=== PATIENT | male | born 1955 | race Caucasian/White ===

== ENCOUNTER → 2018-08-17 | Outpatient (CLI) | payer OTHER | END | disposition home or self-care (01) | LOC: PMGWOUND 11:29 | PROVIDERS: ATTEND Emergency Medicine Undersea and Hyperbaric Medicine | DX: E11.621 Type 2 diabetes mellitus with foot ulcer (principal); L97.512 Non-pressure chronic ulcer of other part of right foot with fat layer exposed; E11.40 Type 2 diabetes mellitus with diabetic neuropathy, unspecified | CPT/HCPCS: 97597; 97598 ==

== ENCOUNTER → 2018-08-24 | Outpatient (CLI) | payer OTHER | END | disposition home or self-care (01) | LOC: PMGWOUND 10:33 | PROVIDERS: ATTEND Emergency Medicine Undersea and Hyperbaric Medicine | DX: E11.621 Type 2 diabetes mellitus with foot ulcer (principal); L97.512 Non-pressure chronic ulcer of other part of right foot with fat layer exposed; E11.40 Type 2 diabetes mellitus with diabetic neuropathy, unspecified; L84 Corns and callosities | CPT/HCPCS: 11042 ==

== ENCOUNTER → 2018-08-31 | Outpatient (CLI) | payer OTHER | END | disposition home or self-care (01) | LOC: PMGWOUND 10:30 | PROVIDERS: ATTEND Emergency Medicine Undersea and Hyperbaric Medicine | DX: E11.621 Type 2 diabetes mellitus with foot ulcer (principal); L97.512 Non-pressure chronic ulcer of other part of right foot with fat layer exposed; E11.40 Type 2 diabetes mellitus with diabetic neuropathy, unspecified; L84 Corns and callosities | CPT/HCPCS: 11042; 93923 ==

== ENCOUNTER → 2018-09-14 | Outpatient (CLI) | payer OTHER | END | disposition home or self-care (01) | LOC: PMGWOUND 08:49 | PROVIDERS: ATTEND Emergency Medicine Undersea and Hyperbaric Medicine | DX: E11.621 Type 2 diabetes mellitus with foot ulcer (principal); L97.512 Non-pressure chronic ulcer of other part of right foot with fat layer exposed; E11.40 Type 2 diabetes mellitus with diabetic neuropathy, unspecified; L84 Corns and callosities | CPT/HCPCS: 11042 ==

== ENCOUNTER → 2018-09-21 | Outpatient (CLI) | payer OTHER | END | disposition home or self-care (01) | LOC: PMGWOUND 12:33 | PROVIDERS: ATTEND Emergency Medicine Undersea and Hyperbaric Medicine | DX: E11.621 Type 2 diabetes mellitus with foot ulcer (principal); L97.512 Non-pressure chronic ulcer of other part of right foot with fat layer exposed; E11.40 Type 2 diabetes mellitus with diabetic neuropathy, unspecified; L84 Corns and callosities | CPT/HCPCS: 11042 ==

== ENCOUNTER → 2018-09-26 | Outpatient (CLI) | payer OTHER ==
[~2018-09-26] MED LIST: CITA10TA8 PO; EMPA25TA PO; ERTU15TA PO; METF500T9 PO
== END | disposition home or self-care (01) ==
LOC: EDSEX → PMGWOUND 10:21
PROVIDERS: ATTEND Emergency Medicine Undersea and Hyperbaric Medicine
DX: E11.621 Type 2 diabetes mellitus with foot ulcer (principal); L97.512 Non-pressure chronic ulcer of other part of right foot with fat layer exposed; E11.40 Type 2 diabetes mellitus with diabetic neuropathy, unspecified; L84 Corns and callosities
CPT/HCPCS: 99214; G0463

== ENCOUNTER 2019-01-22 13:43 | Inpatient (IN) | payer OTHER ==
[~2019-01-22] VITALS: Ht 177.8 cm; Wt 80.7 kg
[2019-01-22] MEDS ORDERED: ERTU15TA PO (14:20)
[2019-01-22] MEDS ORDERED: METF500T9 PO (14:20)
[2019-01-22] MEDS ORDERED: EMPA25TA PO (14:20)
[2019-01-22 15:00] VITALS: BP 137/70
--- NOTE | 2019-01-22 15:01 | PDOC1 ---
History and Physical Date of Admission Date of Admission DATE: 01/22/19 TIME: 14:58 Identification/Chief Complaint Chief Complaint Right great toe ulcer Source Source: Patient History of Present Illness History of Present Illness Mr Jung is a 64yo M w/ PMHx DM2, peripheral neuropathy, obesity who presents directly from wound care clinic today for a right first toe diabetic foot infection. Noted red, warm and 3.3x4.2x2.2cm lesion with palpable bone. The patient has not seen his sheriffs in some time but states his diabetes has been under good control on oral metformin and SGLT-2. He checks his blood glucose twice daily and states that he is been running in the low 100s on average. Patient states that he has had problems with the right first toe and has lost his toenail many years ago and had followed with wound clinic this past September, states it improved. 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 No recent sick contacts. No fever or chills He has been washing it and placing antibiotic ointment daily. Past Medical History Cardiovascular: No pertinent hx Pulmonary: No pertinent hx CENTRAL NERVOUS SYSTEM: Periperal neuropathy GI: No pertinent hx Heme/Onc: No pertinent hx Hepatobiliary: No pertinent hx Psych: No pertinent hx Rheumatologic: No pertinent hx Infectious disease: No pertinent hx ENT: No pertinent hx Renal/: No pertinent hx Endocrine: Diabetes Dermatology: No pertinent hx Past Surgical History Past Surgical History: Total knee replacement (Left), Other (Left shoulder replacement, weight loss surgery) Family History Family History: Diabetes Social History Smoke: No ALCOHOL: none Drugs: None Current Medications Current Medications Active Scripts Active Reported Metformin Hcl Er (Metformin Hcl) 500 Mg Tab.er.24h 1,000 Mg PO DAILYWBKFT Steglatro (Ertugliflozin Pidolate) 15 Mg Tablet 15 Mg PO DAILY Jardiance (Empagliflozin) 25 Mg Tablet 25 Mg PO DAILY Allergies Allergies: Coded Allergies: Penicillins (Verified Allergy, Intermediate, 01/22/19) SWELLING/RINGING IN EAR amitriptyline (Verified Allergy, Intermediate, 01/22/19) BLUE MOODS ROS General: YES: Fatigue, Malaise; No: Chills, Night Sweats, Appetite, Other PSYCHOLOGICAL ROS: No: Anxiety, Behavioral Disorder, Concentration difficultie, Decreased libido, Depression, Disorientation, Hallucinations, Hostility, Irritablity, Memory difficulties, Mood Swings, Obsessive thoughts, Physical abuse, Sexual abuse, Sleep disturbances, Suicidal ideation, Other Eyes: No Blurry vision, No Decreased vision, No Double vision, No Dry eyes, No Excessive tearing, No Eye Pain, No Itchy Eyes, No Loss of vision, No Photophobia, No Scotomata, No Uses contacts, No Uses glasses, No Other HEENT: No: Heacaches, Visual Changes, Hearing change, Nasal congestion, Nasal discharge, Oral lesions, Sinus pain, Sore Throat, Epistaxis, Sneezing, Snoring, Tinnitus, Vertigo, Vocal changes, Other ALLERGY AND IMMUNOLOGY: No: Hives, Insect Bite Sensitivity, Itchy/Watery Eyes, Nasal Congestion, Post Nasal Drip, Seasonal Allergies, Other Hematological and Lymphatic: No: Bleeding Problems, Blood Clots, Blood Tra nsfusions, Brusing, Night Sweats, Pallor, Swollen Lymph Nodes, Other ENDOCRINE: No: Breast Changes, Galactorrhea, Hair Pattern Changes, Hot Flashes, Malaise/lethargy, Mood Swings, Palpitations, Polydipsia/polyuria, Skin Changes, Temperature Intolerance, Unexpected Weight Changes, Other Breast: No New/Changing Breast Lumps, No Nipple changes, No Nipple discharge, No Other Respiratory: No: Cough, Hemoptysis, Orthopnea, Pleuritic Pain, Shortness of breath, SOB with excertion, Sputum Changes, Stridor, Tachypnea, Wheezing, Other Cardiovascular: No Chest Pain, No Palpitations, No Orthopnea, No Paroxysmal Noc. Dyspnea, No Edema, No Lt Headedness, No Other Gastrointestinal: No Nausea, No Vomiting, No Abdominal Pain, No Diarrhea, No Constipation, No Melena, No Hematochezia, No Other Genitourinary: No Dysuria, No Frequency, No Incontinence, No Hematuria, No Retention, No Discharge, No Urgency, No Pain, No Flank Pain, No Other, No , No , No , No , No , No , No Musculoskeletal: No Gait Disturbance, No Joint Pain, No Joint Stiffness, No Joint Swelling, No Muscle Pain, No Muscular Weakness, No Pain In:, No Swelling In:, No Other Neurological: No Behavorial Changes, No Bowel/Bladder ControlChng, No Confusion, No Dizziness, No Gait Disturbance, No Headaches, No Impaired Coord/balance, No Memory Loss, No Numbness/Tingling, No Seizures, No Speech Problems, No Tremors, No Visual Changes, No Weakness, No Other Skin: Yes Rash, Yes Skin Lesion Changes; No Dry Skin, No Eczema, No Hair Changes, No Lumps, No Mole Changes, No Mottling, No Nail Changes, No Pruritus, No Other, No Acne Physical Exam General: Alert, Oriented X3, Cooperative, No acute distress HEENT: Atraumatic, PERRLA, EOMI, Mucous membr. moist/pink Lungs: Clear to auscultation, Normal air movement Heart: S1S2, RRR, no gallops, no murmurs Abdomen: Normal bowel sounds, Soft, No tenderness, No hepatosplenomegaly, No masses Rectal Exam: not examined Extremities: No clubbing, No cyanosis, No edema, Normal pulses, Other (Right great toe tenderness and swelling) Skin: Other (Right great toe with large ulceration with palpable bone and red, warm, tender) Neuro: Normal gait, Normal speech, Strength at 5/5 X4 ext, Normal tone, Sensation intact, Cranial nerves 3-12 NL, Reflexes 2+ Psych/Mental Status: Mental status NL, Mood NL VTE Prophylaxis Ordered VTE Prophylaxis Devices: Yes VTE Pharmacological Prophylaxi: Yes Assessment/Plan Assessment/Plan A/P: Right first toe osteomyelitis - the patient has exposed middle interphalangeal bone with active infection within the interspace. Consulted vascular surgery for definitive treatment. He is amenable to amputation. From a cardiac standpoint, he has no exertional chest pain, will get pre-op EKG, no further testing after that Right toe Cellulitis - tracking to the base of the foot. Empiric vancomycin and rocephin DM - on oral agents, will confirm his A1c. Needs to have microalbumin testing outpatient Overweight - patient had bariatric surgery years ago which has helped. Peripheral neuropathy - not on any agents FEN - ADA diet, NPO after midnight PPX - heparin, will hold tomorrow morning FULL CODE Inpatient for right toe cellulitis and osteomyelitis, likely 2 midnights MEGA ARGUETA MD January 22, 2019 15:01
[2019-01-22] MEDS ORDERED: DEXTROSE 50% 25 GM / 50ML DISP.SYRIN. IV PRN (15:15)
[2019-01-22] MEDS ORDERED: MORPHINE SULFATE 2 MG/ML VIAL. IV PRN (15:15)
[2019-01-22] MEDS ORDERED: ONDANSETRON PF 4 MG/2 ML VIAL. IV PRN (15:15)
[2019-01-22] MEDS ORDERED: ACETAMINOPHEN 325 MG TABLET. PO PRN (15:15)
[2019-01-22] MEDS ORDERED: HYDROcodone/APAP 5/325MG 1 TAB TABLET PO PRN (15:15)
[2019-01-22] MEDS ORDERED: MAGNESIUM HYDROXIDE 2,400 MG/30 ML ORAL.SUSP. PO PRN (15:15)
--- NOTE | 2019-01-22 15:47 | PDOC2 ---
CONSULT Date of Consult Date of Consult DATE: 01/22/19 TIME: 15:36 History of Present Illness Reason for Visit: This is a very pleasant 64-year-old diabetic male who presents for a right first toe diabetic foot infection. The patient has not seen his lining stamper in some time but states his diabetes has been under good control. He checks his blood glucose twice daily and states that he is been running in the low 100s on average. He does not know his hemoglobin A1c from previous events or most recently. Patient states that he has had problems with the right first toe and has lost his toenail many years ago. Does admit to diabetic peripheral neuropathy and tried to treat his toe infection on his own at home by washing it and placing antibiotic ointments. Past Medical History Cardiovascular: HTN Pulmonary: No pertinent hx Endocrine: Diabetes Family History Family History: Diabetes Social History ALCOHOL: none Current Medications Current Medications Current Medications Ondansetron HCl (Zofran) 4 mg PRN Q6HRS PRN IV NAUSEA/VOMITING; Start 01/22/19 at 15:15 Morphine Sulfate (Morphine Sulfate) 2 mg PRN Q1HR PRN IV PAIN; Start 01/22/19 at 15:15 Acetaminophen/ Hydrocodone Bitart (Lortab 5/325) 1 tab PRN Q4HRS PRN PO MILD PAIN; Start 01/22/19 at 15:15 Acetaminophen (Tylenol) 650 mg PRN Q6HRS PRN PO Headaches, Temp > 101.5F; Start 01/22/19 at 15:15 Senna/Docusate Sodium (Senna Plus) 1 tab BID PO ; Start 01/22/19 at 21:00 Magnesium Hydroxide (Milk Of Magnesia) 2,400 mg PRN Q12HR PRN PO CONSTIPATION; Start 01/22/19 at 15:15 Heparin Sodium (Porcine) (Heparin Sodium) 5,000 unit Q8HRS SQ ; Start 01/22/19 at 22:00; Status UNV Insulin Glargine (Lantus) 5 units QHS SQ ; Start 01/22/19 at 21:00 Insulin Human Lispro (HumaLOG) 0-7 UNITS TIDWMEALHC SQ ; Start 01/22/19 at 17:00 Dextrose (Dextrose 50%-Water Syringe) 12.5 gm PRN Q15MIN PRN IV SEE COMMENTS; Start 01/22/19 at 15:15 Vancomycin HCl 1.25 gm/Sodium Chloride 250 ml @ 167 mls/hr Q12H IV ; Start 01/22/19 at 15:15; Status UNV Ceftriaxone Sodium (Rocephin) 1 gm Q24H IVP ; Start 01/22/19 at 15:15; Status UNV Active Scripts Active Reported Metformin Hcl Er (Metformin Hcl) 500 Mg Tab.er.24h 1,000 Mg PO DAILYWBKFT Steglatro (Ertugliflozin Pidolate) 15 Mg Tablet 15 Mg PO DAILY Jardiance (Empagliflozin) 25 Mg Tablet 25 Mg PO DAILY Allergies Allergies: Coded Allergies: Penicillins (Verified Allergy, Intermediate, 01/22/19) SWELLING/RINGING IN EAR amitriptyline (Verified Allergy, Intermediate, 01/22/19) BLUE MOODS Physical Exam General: Alert, Oriented X3, Cooperative, No acute distress HEENT: Atraumatic, PERRLA, EOMI Lungs: Clear to auscultation, Normal air movement Heart: Regular rate, Normal S1, Normal S2, No murmurs Abdomen: Normal bowel sounds, Soft, No tenderness Extremities: No clubbing, No cyanosis, No edema Skin: No rashes, No breakdown, No significant lesion Neuro: Normal gait, Normal speech, Strength at 5/5 X4 ext, Sensation intact Psych/Mental Status: Mental status NL, Mood NL MUSCULOSKELETAL: No deformity, No swelling Vitals VITALS Vital Signs Date Time Temp Pulse Resp B/P (MAP) Pulse Ox O2 Delivery O2 Flow Rate FiO2 01/22/19 15:00 97.6 85 16 137/70 (92) 98 Room Air 97.6 Assessment/Plan Assessment/Plan Right first toe osteomyelitis--the patient has exposed middle interphalangeal bone with active infection within the interspace. He has a ascending cellulitis tracking to the base of the foot. I have recommended a right first toe amputation. The patient is agreeable to this and all questions were answered to his satisfaction. He does have palpable pedal pulses bilaterally. We'll make him nothing by mouth after midnight tonight and plan on surgical therapy tomorrow. I discussed the plan with the nursing staff and his hospital primary care physician. Fadi Vasquez DO, FACS, RPVI FADI VASQUEZ DO January 22, 2019 15:47
[2019-01-22 15:53] LABS: BASO # 0.1 x10^3/uL (0.0-0.2); BASO % 1 % (0-3); EOS # 0.1 x10^3/uL (0.0-0.7); EOS % 1 % (0-3); HEMATOCRIT 35.6 % (39.0-53.0); HEMOGLOBIN 11.6 g/dL (13.0-17.5); LYMPH # 1.4 x10^3/uL (1.0-4.8); LYMPH % 21 % (24-48); MEAN CORPUSCULAR HEMOGLOBIN 27 pg (25-35); MEAN CORPUSCULAR HGB CONC 33 g/dL (31-37); MEAN CORPUSCULAR VOLUME 81 fL (79-100); MONO # 0.5 x10^3/uL (0.0-1.1); MONO % 8 % (0-9); NEUT # 4.7 x10^3uL (1.8-7.7); NEUT % 70 % (31-73); PLATELET COUNT 296 x10^3/uL (140-400); RED BLOOD COUNT 4.39 x10^6/uL (4.30-5.70); RED CELL DISTRIBUTION WIDTH 13.2 % (11.5-14.5); WHITE BLOOD COUNT 6.7 x10^3/uL (4.0-11.0)
--- NOTE | 2019-01-22 15:54 | NUR ---
Wound Care: Pt known to wound clinic having been treated for R great toe DFU from 08/2018 through 09/26/2018. He returned to the clinic today complaining of worsening in condition of wound, increased drainage, pain, redness, swelling, and fevers/chills. R great toe red and swollen, pt stating that nail "keeps falling off", and that within the last 3 weeks he tripped on some uneven robert in his home and the skin on his toe "peeled right off." Wound red, with yellow/paige slough, and fluctuant area where nail should be with a yellow patch, suspect for purulent abscess. Bone palpated through lateral side of wound. Dr. Richards recommending admission to the hospital due to the evidence of severe infection and recent fevers. Dressed with aquacel AG, ABD and kerlix. Picture, med list and progress notes printed and provided to pt for his chart on admission. Transported to ED registration by SAAD.
[2019-01-22] MEDS ORDERED: cefTRIAXone IV Push 1 GM VIAL. IVP SCH (16:00)
[2019-01-22 16:06] LABS: CALCIUM 9.4 mg/dL (8.5-10.1); CREATININE 1.1 mg/dL (0.7-1.3); GFR 67.4
[2019-01-22] MEDS: INSULIN LISPRO 300 UNITS/3 ML INSULN.PEN. SQ SCH ×2 (16:33→21:00)
[2019-01-22] MEDS: VANCOMYCIN PER PHARMACY MC PRN (16:39)
--- NOTE | 2019-01-22 16:40 | NUR ---
Pharmacy Vancomycin Dosing Note S:Consulted to monitor and dose vancomycin started 01/22/19. O:DAGO CHARLES is a 64 year old M with Cellulitis Osteomyelitis DFU WITH CONCERN FOR OSTEO . Height: 5 feet, 10 inches Weight: 83.061366 kg [place] Body Weight: 73.00 Adjusted Body Weight: 77.00 Dosing Weight: Actual Other Antibiotics: CEFTRIAXONE 01/22 - LABS: Last BUN: 18 Last Creatinine: 1.1 Creatinine Clearance: 76 mL/min Last WBC: 6.7 Last Procalcitonin: - Tmax (past 24 hours): 97.6 Microbiology: 01/22 NO CX ORDERED I/O: - Drug Levels: Last level: on at Last dose given at Vancomycin Dosing: Loading Dose: x1 Dosing Weight: Actual Target Trough: 15-20 A: Based on: WEIGHT, CRCL~76, P: 1. Initiate Vancomycin 1250 mg IV q12h 2. Follow up Trough level on 01/24/19 at 0430. 3. Pharmacy will continue to monitor, follow and adjust therapy as needed. BALDEV RODRIGUEZ RPH, 01/22/19 1640
[2019-01-22] MEDS: VANCOMYCIN 1.25 GM in IV NORMAL SALINE 250ML 250 ML IV SCH (17:10)
[2019-01-22 19:00] VITALS: BP 125/64
[2019-01-22] MEDS: SENNOSIDES/DOCUSATE 8.6/50MG TABLET. PO SCH (21:00)
[2019-01-22] MEDS: INSULIN GLARGINE 300 UNITS/3 ML INSULN.PEN. SQ SCH (21:28)
[2019-01-22] MEDS: HEPARIN for SUB-Q USE 5,000 UNIT/ML VIAL. SQ SCH (21:30)
[2019-01-22 23:00] VITALS: BP 118/61
[2019-01-23 03:01] VITALS: BP 128/68
[2019-01-23 04:39] LABS: BASO # 0.1 x10^3/uL (0.0-0.2); BASO % 2 % (0-3); EOS # 0.2 x10^3/uL (0.0-0.7); EOS % 3 % (0-3); HEMATOCRIT 33.1 % (39.0-53.0); HEMOGLOBIN 10.9 g/dL (13.0-17.5); LYMPH # 1.8 x10^3/uL (1.0-4.8); LYMPH % 31 % (24-48); MEAN CORPUSCULAR HEMOGLOBIN 26 pg (25-35); MEAN CORPUSCULAR HGB CONC 33 g/dL (31-37); MEAN CORPUSCULAR VOLUME 80 fL (79-100); MONO # 0.5 x10^3/uL (0.0-1.1); MONO % 9 % (0-9); NEUT # 3.3 x10^3uL (1.8-7.7); NEUT % 56 % (31-73); PLATELET COUNT 273 x10^3/uL (140-400); RED BLOOD COUNT 4.12 x10^6/uL (4.30-5.70); WHITE BLOOD COUNT 5.9 x10^3/uL (4.0-11.0)
[2019-01-23 05:01] LABS: CALCIUM 8.9 mg/dL (8.5-10.1); GFR 75.2; POTASSIUM 3.9 mmol/L (3.5-5.1)
[2019-01-23] MEDS: HEPARIN for SUB-Q USE 5,000 UNIT/ML VIAL. SQ SCH ×3 (05:02→21:15)
[2019-01-23] MEDS: VANCOMYCIN 1.25 GM in IV NORMAL SALINE 250ML 250 ML IV SCH ×2 (05:03→16:37)
[2019-01-23 07:00] VITALS: BP 134/69
[2019-01-23] MEDS: INSULIN LISPRO 300 UNITS/3 ML INSULN.PEN. SQ SCH ×4 (07:19→21:00)
[2019-01-23] MEDS: SENNOSIDES/DOCUSATE 8.6/50MG TABLET. PO SCH ×2 (07:19→21:00)
--- NOTE | 2019-01-23 07:33 | EKG ---
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
[2019-01-23] MEDS ORDERED: MIDAZOLAM HCL/PF 2 MG/2 ML VIAL. ONE (09:30)
[2019-01-23] MEDS ORDERED: SEVOFLURANE 61 TO 120 MINUTES. IH ONE (09:30)
[2019-01-23] MEDS ORDERED: fentaNYL PF VIAL 100 MCG/2 ML VIAL ONE (09:30)
[2019-01-23] MEDS ORDERED: DEXAMETHASONE SOD PHOS 4 MG/ML VIAL ONE (09:31)
[2019-01-23] MEDS ORDERED: PROCHLORPERAZINE 10 MG/2 ML VIAL. IV PRN (09:45)
[2019-01-23] MEDS ORDERED: fentaNYL PF VIAL 100 MCG/2 ML VIAL IV PRN ×2 (09:45)
[2019-01-23] MEDS ORDERED: ONDANSETRON PF 4 MG/2 ML VIAL. IV PRN (09:45)
[2019-01-23] MEDS ORDERED: HYDROmorphone 2 MG/ML VIAL IV PRN (09:45)
[2019-01-23] MEDS ORDERED: MORPHINE SULFATE 2 MG/ML VIAL. IV PRN (09:45)
[2019-01-23] MEDS ORDERED: IV RINGERS,LACTATED 1000ML 1,000 ML IV SCH (09:45)
[2019-01-23] MEDS ORDERED: ONDANSETRON PF 4 MG/2 ML VIAL. ONE (09:58)
[2019-01-23] MEDS ORDERED: LIDOCAINE 2% PF 5 ML VIAL. ONE (09:58)
[2019-01-23] MEDS ORDERED: PROPOFOL 20 ML IV ONE (09:58)
[2019-01-23] MEDS ORDERED: ePHEDrine PF IN SALINE 50 MG/10 ML SYRINGE. IV ONE (10:11)
--- NOTE | 2019-01-23 10:31 | PDOC ---
BRIEF OPERATIVE NOTE Date: January 23, 2019 Pre-Op Diagnosis Right first toe diabetic infection Post-Op Diagnosis same Procedure Performed Right first toe amputation, open with wound vac placement Surgeon Dr. Muro Nutritionalist Joselyn Monsivais NP Anesthesia Type: General Blood Loss minimal Specimens Obtained right first toe culture obtained Findings no purulent drainage Operative Note see dictated note JOSELYN MONSIVAIS WIRE TECHNICIAN January 23, 2019 10:31
--- NOTE | 2019-01-23 10:57 | OP ---
DATE OF SURGERY: 01/23/2019 SURGEON: Wendy Muro M.D. TECHNICAL ADMINISTRATOR: Mona Cowart APRN PREOPERATIVE DIAGNOSIS: Right first toe gangrene with an open wound and exposed bone and cellulitis extending on to the foot. POSTOPERATIVE DIAGNOSIS: Right first toe gangrene with an open wound and exposed bone and cellulitis extending on to the foot. OPERATION PERFORMED: 1. Right first toe open amputation excising the distal portion of the metatarsal head. 2. Right first toe open amputation, wound VAC placement. ANESTHESIA USED: General anesthesia. BLOOD LOSS: Minimal. INDICATIONS: The patient is a 64-year-old male with a history of diabetes mellitus who developed a right first toe infection several months ago, which has been treated with local wound care, however, has not healed. He has now developed significant infection with cellulitis extending into his foot, gangrene of the first toe and an open wound, which probes down to the bone. Recommendations were made for a right first toe amputation, which I agree with. This will need to be an open amputation with the extent of his infection and tracking cellulitis into the foot. Informed consent was obtained including the risks of bleeding, further infection, need for further debridements or further amputation in the future, an open wound with long-term wound VAC care. DETAILS OF THE OPERATION: The patient was brought to the operating room, placed on table in supine position. He received general anesthesia monitored throughout the case by the anesthesiologist. His right foot was prepped and draped by normal sterile fashion. The gangrene extended throughout the mid and distal toe and there was a large open wound on the lateral surface that probed deep down to the bone. I made an elliptical type incision around the base of the toe extending it on to the lateral foot below the unhealthy wounds and skin. We dissected through the subcutaneous tissue, tendons and muscles down to the bone and I transected the toe at the base with a bone cutter and it was removed. Cultures were taken prior to removing the toe. We then used a rongeur. We took the metatarsal head back into the bone, removing the distal aspect of it down to healthy appearing bone and tissue. There were no signs of necrotic tissue within the wound. There was good bleeding throughout the case, which was controlled with electrocautery. All tendons were removed. I did not feel that it was safe to close the wound because of the significant infection and cellulitis. Therefore, after we brought the bone back within the wound and finished our debridement. We irrigated with copious amounts of antibiotic solution. Wound VAC sponge was placed within the wound and placed to suction. He tolerated the surgery well with no immediate complications. Mona Cowart was present throughout the entire length of the case and placement of the wound VAC. WENDY MURO MD DR: RICARDO/erwin JOB#: [id number] / [id number]
--- NOTE | 2019-01-23 11:16 | PDOC ---
Infectious Disease Note Vital Sign Vital Signs Vital Signs Date Time Temp Pulse Resp B/P (MAP) Pulse Ox O2 Delivery O2 Flow Rate FiO2 01/23/19 09:23 97.9 75 20 136/66 97 Room Air 97.9 Labs Lab Laboratory Tests Test 01/22/19 15:40 01/22/19 16:32 01/22/19 20:28 01/23/19 04:30 White Blood Count 6.7 x10^3/uL (4.0-11.0) 5.9 x10^3/uL (4.0-11.0) Red Blood Count 4.39 x10^6/uL (4.30-5.70) 4.12 x10^6/uL (4.30-5.70) Hemoglobin 11.6 g/dL (13.0-17.5) 10.9 g/dL (13.0-17.5) Hematocrit 35.6 % (39.0-53.0) 33.1 % (39.0-53.0) Mean Corpuscular Volume 81 fL (79-100) 80 fL (79-100) Mean Corpuscular Hemoglobin 27 pg (25-35) 26 pg (25-35) Mean Corpuscular Hemoglobin Concent 33 g/dL (31-37) 33 g/dL (31-37) Red Cell Distribution Width 13.2 % (11.5-14.5) 13.0 % (11.5-14.5) Platelet Count 296 x10^3/uL (140-400) 273 x10^3/uL (140-400) Neutrophils (%) (Auto) 70 % (31-73) 56 % (31-73) Lymphocytes (%) (Auto) 21 % (24-48) 31 % (24-48) Monocytes (%) (Auto) 8 % (0-9) 9 % (0-9) Eosinophils (%) (Auto) 1 % (0-3) 3 % (0-3) Basophils (%) (Auto) 1 % (0-3) 2 % (0-3) Neutrophils # (Auto) 4.7 x10^3uL (1.8-7.7) 3.3 x10^3uL (1.8-7.7) Lymphocytes # (Auto) 1.4 x10^3/uL (1.0-4.8) 1.8 x10^3/uL (1.0-4.8) Monocytes # (Auto) 0.5 x10^3/uL (0.0-1.1) 0.5 x10^3/uL (0.0-1.1) Eosinophils # (Auto) 0.1 x10^3/uL (0.0-0.7) 0.2 x10^3/uL (0.0-0.7) Basophils # (Auto) 0.1 x10^3/uL (0.0-0.2) 0.1 x10^3/uL (0.0-0.2) Sodium Level 137 mmol/L (136-145) 139 mmol/L (136-145) Potassium Level 4.0 mmol/L (3.5-5.1) 3.9 mmol/L (3.5-5.1) Chloride Level 100 mmol/L (98-107) 102 mmol/L (98-107) Carbon Dioxide Level 24 mmol/L (21-32) 25 mmol/L (21-32) Anion Gap 13 (6-14) 12 (6-14) Blood Urea Nitrogen 18 mg/dL (8-26) 16 mg/dL (8-26) Creatinine 1.1 mg/dL (0.7-1.3) 1.0 mg/dL (0.7-1.3) Estimated GFR (Cockcroft-Gault) 67.4 75.2 Glucose Level 98 mg/dL (70-99) 106 mg/dL (70-99) Calcium Level 9.4 mg/dL (8.5-10.1) 8.9 mg/dL (8.5-10.1) Glucose (Fingerstick) 80 mg/dL (70-99) 139 mg/dL (70-99) Test 01/23/19 07:13 01/23/19 10:40 Glucose (Fingerstick) 106 mg/dL (70-99) 109 mg/dL (70-99) Objective Assessment R great toe Osteomyelitis S/p open R great toe amputation 01/23 PCN allergy - has tolerated Amoxicillin DM S/p Dexamethasone 01/23 Plan Plan of Care Cont Vanc D/c Rocephin Add Zosyn Sed rate in am with other labs 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 Muro Thank you # [phone] MARIELLA ASHRAF MD January 23, 2019 11:16
--- NOTE | 2019-01-23 12:17 | PDOC ---
PROGRESS NOTES Chief Complaint Chief Complaint Right first toe osteomyelitis - Right toe Cellulitis - t DM - decent control Peripheral neuropathy - feels ok insomnia, declines pharm therapy History of Present Illness History of Present Illness FEN - ADA diet, NPO after midnight PPX - heparin, will hold tomorrow morning FULL CODE Inpatient for right toe cellulitis and osteomyelitis, likely 2 midnights Vitals Vitals Vital Signs Date Time Temp Pulse Resp B/P (MAP) Pulse Ox O2 Delivery O2 Flow Rate FiO2 01/23/19 11:28 98 80 20 118/58 94 Simple Mask 98.0 01/23/19 10:28 8 Physical Exam General: Alert, Oriented X3, Cooperative, No acute distress Heart: Regular rate, Normal S1, Normal S2, No murmurs Abdomen: Normal bowel sounds, Soft, No tenderness, No hepatosplenomegaly, No m asses Extremities: No clubbing, No cyanosis, No edema, Normal pulses, Other (Right great toe tenderness and swelling) Skin: Other (Right great toe with large ulceration with palpable bone and red, warm, tender) Labs LABS Laboratory Tests Test 01/22/19 15:40 01/22/19 16:32 01/22/19 20:28 01/23/19 04:30 White Blood Count 6.7 x10^3/uL (4.0-11.0) 5.9 x10^3/uL (4.0-11.0) Red Blood Count 4.39 x10^6/uL (4.30-5.70) 4.12 x10^6/uL (4.30-5.70) Hemoglobin 11.6 g/dL (13.0-17.5) 10.9 g/dL (13.0-17.5) Hematocrit 35.6 % (39.0-53.0) 33.1 % (39.0-53.0) Mean Corpuscular Volume 81 fL (79-100) 80 fL (79-100) Mean Corpuscular Hemoglobin 27 pg (25-35) 26 pg (25-35) Mean Corpuscular Hemoglobin Concent 33 g/dL (31-37) 33 g/dL (31-37) Red Cell Distribution Width 13.2 % (11.5-14.5) 13.0 % (11.5-14.5) Platelet Count 296 x10^3/uL (140-400) 273 x10^3/uL (140-400) Neutrophils (%) (Auto) 70 % (31-73) 56 % (31-73) Lymphocytes (%) (Auto) 21 % (24-48) 31 % (24-48) Monocytes (%) (Auto) 8 % (0-9) 9 % (0-9) Eosinophils (%) (Auto) 1 % (0-3) 3 % (0-3) Basophils (%) (Auto) 1 % (0-3) 2 % (0-3) Neutrophils # (Auto) 4.7 x10^3uL (1.8-7.7) 3.3 x10^3uL (1.8-7.7) Lymphocytes # (Auto) 1.4 x10^3/uL (1.0-4.8) 1.8 x10^3/uL (1.0-4.8) Monocytes # (Auto) 0.5 x10^3/uL (0.0-1.1) 0.5 x10^3/uL (0.0-1.1) Eosinophils # (Auto) 0.1 x10^3/uL (0.0-0.7) 0.2 x10^3/uL (0.0-0.7) Basophils # (Auto) 0.1 x10^3/uL (0.0-0.2) 0.1 x10^3/uL (0.0-0.2) Sodium Level 137 mmol/L (136-145) 139 mmol/L (136-145) Potassium Level 4.0 mmol/L (3.5-5.1) 3.9 mmol/L (3.5-5.1) Chloride Level 100 mmol/L (98-107) 102 mmol/L (98-107) Carbon Dioxide Level 24 mmol/L (21-32) 25 mmol/L (21-32) Anion Gap 13 (6-14) 12 (6-14) Blood Urea Nitrogen 18 mg/dL (8-26) 16 mg/dL (8-26) Creatinine 1.1 mg/dL (0.7-1.3) 1.0 mg/dL (0.7-1.3) Estimated GFR (Cockcroft-Gault) 67.4 75.2 Glucose Level 98 mg/dL (70-99) 106 mg/dL (70-99) Calcium Level 9.4 mg/dL (8.5-10.1) 8.9 mg/dL (8.5-10.1) Glucose (Fingerstick) 80 mg/dL (70-99) 139 mg/dL (70-99) Test 01/23/19 07:13 01/23/19 10:40 Glucose (Fingerstick) 106 mg/dL (70-99) 109 mg/dL (70-99) Review of Systems Review of Systems no n/v/d/ Comment Review of Relevant I have reviewed the following items alis (where applicable) has been applied. Labs Laboratory Tests Test 01/22/19 15:40 01/22/19 16:32 01/22/19 20:28 01/23/19 04:30 White Blood Count 6.7 x10^3/uL (4.0-11.0) 5.9 x10^3/uL (4.0-11.0) Red Blood Count 4.39 x10^6/uL (4.30-5.70) 4.12 x10^6/uL (4.30-5.70) Hemoglobin 11.6 g/dL (13.0-17.5) 10.9 g/dL (13.0-17.5) Hematocrit 35.6 % (39.0-53.0) 33.1 % (39.0-53.0) Mean Corpuscular Volume 81 fL (79-100) 80 fL (79-100) Mean Corpuscular Hemoglobin 27 pg (25-35) 26 pg (25-35) Mean Corpuscular Hemoglobin Concent 33 g/dL (31-37) 33 g/dL (31-37) Red Cell Distribution Width 13.2 % (11.5-14.5) 13.0 % (11.5-14.5) Platelet Count 296 x10^3/uL (140-400) 273 x10^3/uL (140-400) Neutrophils (%) (Auto) 70 % (31-73) 56 % (31-73) Lymphocytes (%) (Auto) 21 % (24-48) 31 % (24-48) Monocytes (%) (Auto) 8 % (0-9) 9 % (0-9) Eosinophils (%) (Auto) 1 % (0-3) 3 % (0-3) Basophils (%) (Auto) 1 % (0-3) 2 % (0-3) Neutrophils # (Auto) 4.7 x10^3uL (1.8-7.7) 3.3 x10^3uL (1.8-7.7) Lymphocytes # (Auto) 1.4 x10^3/uL (1.0-4.8) 1.8 x10^3/uL (1.0-4.8) Monocytes # (Auto) 0.5 x10^3/uL (0.0-1.1) 0.5 x10^3/uL (0.0-1.1) Eosinophils # (Auto) 0.1 x10^3/uL (0.0-0.7) 0.2 x10^3/uL (0.0-0.7) Basophils # (Auto) 0.1 x10^3/uL (0.0-0.2) 0.1 x10^3/uL (0.0-0.2) Sodium Level 137 mmol/L (136-145) 139 mmol/L (136-145) Potassium Level 4.0 mmol/L (3.5-5.1) 3.9 mmol/L (3.5-5.1) Chloride Level 100 mmol/L (98-107) 102 mmol/L (98-107) Carbon Dioxide Level 24 mmol/L (21-32) 25 mmol/L (21-32) Anion Gap 13 (6-14) 12 (6-14) Blood Urea Nitrogen 18 mg/dL (8-26) 16 mg/dL (8-26) Creatinine 1.1 mg/dL (0.7-1.3) 1.0 mg/dL (0.7-1.3) Estimated GFR (Cockcroft-Gault) 67.4 75.2 Glucose Level 98 mg/dL (70-99) 106 mg/dL (70-99) Calcium Level 9.4 mg/dL (8.5-10.1) 8.9 mg/dL (8.5-10.1) Glucose (Fingerstick) 80 mg/dL (70-99) 139 mg/dL (70-99) Test 01/23/19 07:13 01/23/19 10:40 Glucose (Fingerstick) 106 mg/dL (70-99) 109 mg/dL (70-99) Laboratory Tests Test 01/22/19 15:40 01/22/19 16:32 01/22/19 20:28 01/23/19 04:30 White Blood Count 6.7 x10^3/uL (4.0-11.0) 5.9 x10^3/uL (4.0-11.0) Red Blood Count 4.39 x10^6/uL (4.30-5.70) 4.12 x10^6/uL (4.30-5.70) Hemoglobin 11.6 g/dL (13.0-17.5) 10.9 g/dL (13.0-17.5) Hematocrit 35.6 % (39.0-53.0) 33.1 % (39.0-53.0) Mean Corpuscular Volume 81 fL (79-100) 80 fL (79-100) Mean Corpuscular Hemoglobin 27 pg (25-35) 26 pg (25-35) Mean Corpuscular Hemoglobin Concent 33 g/dL (31-37) 33 g/dL (31-37) Red Cell Distribution Width 13.2 % (11.5-14.5) 13.0 % (11.5-14.5) Platelet Count 296 x10^3/uL (140-400) 273 x10^3/uL (140-400) Neutrophils (%) (Auto) 70 % (31-73) 56 % (31-73) Lymphocytes (%) (Auto) 21 % (24-48) 31 % (24-48) Monocytes (%) (Auto) 8 % (0-9) 9 % (0-9) Eosinophils (%) (Auto) 1 % (0-3) 3 % (0-3) Basophils (%) (Auto) 1 % (0-3) 2 % (0-3) Neutrophils # (Auto) 4.7 x10^3uL (1.8-7.7) 3.3 x10^3uL (1.8-7.7) Lymphocytes # (Auto) 1.4 x10^3/uL (1.0-4.8) 1.8 x10^3/uL (1.0-4.8) Monocytes # (Auto) 0.5 x10^3/uL (0.0-1.1) 0.5 x10^3/uL (0.0-1.1) Eosinophils # (Auto) 0.1 x10^3/uL (0.0-0.7) 0.2 x10^3/uL (0.0-0.7) Basophils # (Auto) 0.1 x10^3/uL (0.0-0.2) 0.1 x10^3/uL (0.0-0.2) Sodium Level 137 mmol/L (136-145) 139 mmol/L (136-145) Potassium Level 4.0 mmol/L (3.5-5.1) 3.9 mmol/L (3.5-5.1) Chloride Level 100 mmol/L (98-107) 102 mmol/L (98-107) Carbon Dioxide Level 24 mmol/L (21-32) 25 mmol/L (21-32) Anion Gap 13 (6-14) 12 (6-14) Blood Urea Nitrogen 18 mg/dL (8-26) 16 mg/dL (8-26) Creatinine 1.1 mg/dL (0.7-1.3) 1.0 mg/dL (0.7-1.3) Estimated GFR (Cockcroft-Gault) 67.4 75.2 Glucose Level 98 mg/dL (70-99) 106 mg/dL (70-99) Calcium Level 9.4 mg/dL (8.5-10.1) 8.9 mg/dL (8.5-10.1) Glucose (Fingerstick) 80 mg/dL (70-99) 139 mg/dL (70-99) Test 01/23/19 07:13 01/23/19 10:40 Glucose (Fingerstick) 106 mg/dL (70-99) 109 mg/dL (70-99) Medications Current Medications Ondansetron HCl (Zofran) 4 mg PRN Q6HRS PRN IV NAUSEA/VOMITING; Start 01/22/19 at 15:15 Morphine Sulfate (Morphine Sulfate) 2 mg PRN Q1HR PRN IV PAIN; Start 01/22/19 at 15:15 Acetaminophen/ Hydrocodone Bitart (Lortab 5/325) 1 tab PRN Q4HRS PRN PO MILD PAIN; Start 01/22/19 at 15:15 Acetaminophen (Tylenol) 650 mg PRN Q6HRS PRN PO Headaches, Temp > 101.5F; Start 01/22/19 at 15:15 Senna/Docusate Sodium (Senna Plus) 1 tab BID PO ; Start 01/22/19 at 21:00 Magnesium Hydroxide (Milk Of Magnesia) 2,400 mg PRN Q12HR PRN PO CONSTIPATION; Start 01/22/19 at 15:15 Heparin Sodium (Porcine) (Heparin Sodium) 5,000 unit Q8HRS SQ Last administered on 01/22/19at 21:30; Start 01/22/19 at 22:00 Insulin Glargine (Lantus) 5 units QHS SQ Last administered on 01/22/19at 21:28; Start 01/22/19 at 21:00 Insulin Human Lispro (HumaLOG) 0-7 UNITS TIDWMEALHC SQ ; Start 01/22/19 at 17:00 Dextrose (Dextrose 50%-Water Syringe) 12.5 gm PRN Q15MIN PRN IV SEE COMMENTS; Start 01/22/19 at 15:15 Vancomycin HCl 1.25 gm/Sodium Chloride 250 ml @ 167 mls/hr Q12H IV Last administered on 01/23/19at 05:03; Start 01/22/19 at 17:00 Ceftriaxone Sodium (Rocephin) 1 gm Q24H IVP Last administered on 01/22/19at 17:11; Start 01/22/19 at 16:00; Stop 01/23/19 at 11:07; Status DC Vancomycin HCl (Vanco Per Pharmacy) 1 each PRN DAILY PRN MC SEE COMMENTS Last administered on 01/22/19at 16:39; Start 01/22/19 at 16:45 Vancomycin HCl (Vancomycin Trough Level) 1 each 1X ONCE MC ; Start 01/24/19 at 04:30; Stop 01/24/19 at 04:31 Sevoflurane (Ultane) 60 ml STK-MED ONCE IH ; Start 01/23/19 at 09:30; Stop 01/23/19 at 09:31; Status DC Midazolam HCl (Versed) 2 mg STK-MED ONCE .ROUTE ; Start 01/23/19 at 09:30; Stop 01/23/19 at 09:31; Status DC Fentanyl Citrate (Fentanyl 2ml Vial) 100 mcg STK-MED ONCE .ROUTE ; Start 01/23/19 at 09:30; Stop 01/23/19 at 09:31; Status DC Dexamethasone Sodium Phosphate (Decadron) 4 mg STK-MED ONCE .ROUTE ; Start 01/23/19 at 09:31; Stop 01/23/19 at 09:32; Status DC Ondansetron HCl (Zofran) 4 mg PRN Q6HRS PRN IV NAUSEA/VOMITING; Start 01/23/19 at 09:45; Stop 01/24/19 at 09:44 Fentanyl Citrate (Fentanyl 2ml Vial) 25 mcg PRN Q5MIN PRN IV MILD PAIN; Start 01/23/19 at 09:45; Stop 01/24/19 at 09:44 Fentanyl Citrate (Fentanyl 2ml Vial) 50 mcg PRN Q5MIN PRN IV MODERATE TO SEVERE PAIN; Start 01/23/19 at 09:45; Stop 01/24/19 at 09:44 Morphine Sulfate (Morphine Sulfate) 1 mg PRN Q10MIN PRN IV SEVERE PAIN; Start 01/23/19 at 09:45; Stop 01/24/19 at 09:44 Ringer's Solution 1,000 ml @ 30 mls/hr Q24H IV Last administered on 01/23/19at 09:45; Start 01/23/19 at 09:45; Stop 01/23/19 at 21:44 Hydromorphone HCl (Dilaudid) 0.5 mg PRN Q10MIN PRN IV SEV PAIN, Second choice; Start 01/23/19 at 09:45; Stop 01/24/19 at 09:44 Prochlorperazine Edisylate (Compazine) 5 mg PACU PRN PRN IV NAUSEA, MRX1; Start 01/23/19 at 09:45; Stop 01/24/19 at 09:44 Propofol 20 ml @ As Directed STK-MED ONCE IV ; Start 01/23/19 at 09:58; Stop 01/23/19 at 09:59; Status DC Lidocaine HCl (Lidocaine Pf 2% Vial) 5 ml STK-MED ONCE .ROUTE ; Start 01/23/19 at 09:58; Stop 01/23/19 at 09:59; Status DC Ondansetron HCl (Zofran) 4 mg STK-MED ONCE .ROUTE ; Start 01/23/19 at 09:58; Stop 01/23/19 at 09:59; Status DC Ephedrine Sulfate (ePHEDrine PF IN SALINE SYRINGE) 50 mg STK-MED ONCE IV ; Start 01/23/19 at 10:11; Stop 01/23/19 at 10:12; Status DC Piperacillin Sod/ Tazobactam Sod 3.375 gm/Sodium Chloride 50 ml @ 100 mls/hr Q6HRS IV ; Start 01/23/19 at 12:00 Lactobacillus Rhamnosus (Culturelle) 1 cap BID PO ; Start 01/23/19 at 21:00 Active Scripts Active Reported Metformin Hcl Er (Metformin Hcl) 500 Mg Tab.er.24h 1,000 Mg PO DAILYWBKFT Steglatro (Ertugliflozin Pidolate) 15 Mg Tablet 15 Mg PO DAILY Jardiance (Empagliflozin) 25 Mg Tablet 25 Mg PO DAILY Vitals/I & O Vital Sign - Last 24 Hours 01/22/19 01/22/19 01/22/19 01/22/19 14:51 15:00 19:00 23:00 Temp 97.6 98.7 99.0 97.6 98.7 99.0 Pulse 85 86 79 Resp 16 16 18 B/P (MAP) 137/70 (92) 125/64 (84) 118/61 (80) Pulse Ox 98 96 95 O2 Delivery Room Air Room Air Room Air Room Air 01/23/19 01/23/19 01/23/19 01/23/19 03:01 07:00 08:00 09:23 Temp 98.3 98.4 97.9 98.3 98.4 97.9 Pulse 79 75 75 Resp 18 18 20 B/P (MAP) 128/68 (88) 134/69 (90) 136/66 Pulse Ox 94 96 97 O2 Delivery Room Air Room Air Room Air Room Air 01/23/19 01/23/19 01/23/19 01/23/19 10:28 10:30 10:43 10:58 Temp 97.9 97.9 97.9 97.9 97.9 97.9 Pulse 75 84 82 Resp 18 20 20 B/P (MAP) 147/59 106/66 114/61 Pulse Ox 97 96 98 O2 Delivery Room Air Room Air Room Air Room Air O2 Flow Rate 8 01/23/19 01/23/19 11:13 11:28 Temp 97.9 98 97.9 98.0 Pulse 80 80 Resp 20 20 B/P (MAP) 117/61 118/58 Pulse Ox 95 94 O2 Delivery Simple Mask Simple Mask Intake and Output 01/22/19 01/22/19 01/23/19 15:00 23:00 07:00 Intake Total 600 ml 0 ml Balance 600 ml 0 ml FRANCES GOFF MD January 23, 2019 12:17
--- NOTE | 2019-01-23 12:50 | NUR ---
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
--- NOTE | 2019-01-23 13:30 | NUR ---
Procedure: Following complete explanation of the PICC procedure including the indications, risks, and potential complications, informed consent was obtained. The possibility for infection was discussed along with signs, symptoms, and prevention. All the questions were answered. Written and verbal patient education was provided. Hand hygiene performed. Standardized central line checklist was utilized. The patient was placed in the supine position, the arm was prepped with chlorhexidine and patient draped with maximum sterile barrier. 2 mL 1% lidocaine was infiltrated into the skin to provide local anesthesia. A thorough assessment of left upper extremity completed. Using real-time ultrasound guidance and standardized micro puncture set, the basilic vein was punctured and a peel away sheath was placed using the modified Seldinger technique. A tip location device was used to ensure adequate catheter placement. The catheter was secured using a securement device and an antimicrobial patch was applied directly on the insertion site followed by a transparent dressing. All ports withdraw blood and flush without resistance. Patient tolerated the procedure without apparent complication(s). Single Lumen Power PICC placement successful and uncomplicated. Placement verified by EKG tip confirmation system and/or chest x-ray. Tip located in the CAJ/SVC Complications: None Catheter trimmed at 38cm with 2cm visible at insertion site.
[2019-01-23] MEDS: PIPERACILLIN/TAZOBACTAM 3.375 GM in IV NORMAL SALINE 50ML 50 ML IV SCH ×2 (13:43→18:15)
[2019-01-23 15:00] VITALS: BP 107/61
[2019-01-23 19:00] VITALS: BP 101/55
[2019-01-23] MEDS: LACTOBACILLUS RHAMNOSUS GG 1 CAPSULE. PO SCH (21:08)
[2019-01-23] MEDS: INSULIN GLARGINE 300 UNITS/3 ML INSULN.PEN. SQ SCH (21:16)
[2019-01-23 23:00] VITALS: BP 145/78
--- NOTE | 2019-01-23 23:49 | CONS ---
DATE OF CONSULTATION: 01/23/2019 INFECTIOUS DISEASE CONSULTATION The patient's room is 502, but seen in the PACU. REASON FOR CONSULTATION: Right foot infection. HISTORY OF PRESENT ILLNESS: The patient is a pleasant 64-year-old gentleman with a history of diabetes who has a history of right great toe wound that he had been following up in the wound care up until last year and had been doing fairly well. He said pretty much most of it had healed except for maybe about an eighth of an inch, did not have much complications with that until September of this year when he scraped the great toe on a piece of wood that his brother had just fixed his kitchen with. He states he took some skin off and at that time has had complications with wound. Last week, he noticed that the toe had become more red and had some drainage. He has some subjective chills and sweats and he followed up at the Wound Care, and on arrival and evaluation, they were able to probe down to the bone. He subsequently was admitted to [facility] and placed on Rocephin and vancomycin. No cultures have been acquired. This morning, he was taken to the operating room and is now status post an open amputation of his right great toe with a wound VAC placement. Did discuss the case with Dr. Muro. Intraoperative cultures were obtained. Currently, the patient is lying in bed. He is comfortable and denies any active fevers as well as chills or sweats. Now, he has no headaches, sore throat or cough or chest pain. No nausea, vomiting or diarrhea. No dysuria, frequency or urgency. Denies any rashes. PAST MEDICAL HISTORY: Positive for diabetes, hypertension. PAST SURGICAL HISTORY: Positive for tonsillectomy, left total shoulder arthroplasty, left total hip arthroplasty. REVIEW OF SYSTEMS: Otherwise negative. ALLERGIES: LISTED PENICILLIN, HAPPENED AT ABOUT AGE 12 WITH AN IM INJECTION WITH SWELLING AND RINGING IN HIS EARS. However, he has tolerated amoxicillin. SOCIAL HISTORY: No tobacco, no pets. No alcohol. FAMILY HISTORY: Positive for diabetes. CURRENT MEDICATIONS: Include vancomycin and Rocephin. He is now status post dexamethasone from today. He is on heparin, insulin. Other meds are available and reviewed in the chart. PHYSICAL EXAMINATION: VITAL SIGNS: Afebrile, temperature 97.9, pulse 75, respirations 20, blood pressure 136/66, satting 97% on room air. CONSTITUTIONAL: He is very pleasant, he is cooperative. He is in no acute distress. He is lying in bed. HEENT: Pupils are equal and reactive. Oral cavity, pharynx is clear with good dentition. NECK: Supple, no JVD. LUNGS: Clear to auscultation. HEART: S1, S2. ABDOMEN: Soft, nontender, nondistended with positive bowel sounds. EXTREMITIES: Without clubbing, cyanosis or gross edema. His right great toe and foot are dressed with a wound VAC. SKIN: Warm to touch without signs of rash. NEUROLOGIC: He is nonfocal. PSYCHIATRIC: Affect is pleasant. LABORATORY VALUES: White count today 5.9, hemoglobin 10.9, platelets of 273, neutrophils 56, lymphs of 31. Glucose was 106. Creatinine is 1. There are no imaging studies. There are no culture results. IMPRESSION: 1. Right great toe osteomyelitis. 2. Status post open right great toe amputation on 01/23. 3. PENICILLIN ALLERGY, he has tolerated amoxicillin. 4. Diabetes. 5. Status post dexamethasone on 01/23. RECOMMENDATIONS: We will continue the vancomycin, although he has denied any history of Staph or Strep infections, discontinue the Rocephin, will add Zosyn, given a diabetic room, we will obtain sed rate in the morning. His other labs have been ordered as well. Obtain PICC line as well as social service evaluate. This was discussed with Dr. Muro. Thank you for asking us to participate in this patient's care. If you have any questions, please do not hesitate to contact me. MARIELLA ASHRAF MD DR: JOMAR/erwin JOB#: [id number] / [id number]
[2019-01-24] MEDS: PIPERACILLIN/TAZOBACTAM 3.375 GM in IV NORMAL SALINE 50ML 50 ML IV SCH ×4 (00:24→19:55)
[2019-01-24 03:00] VITALS: BP 145/84
[2019-01-24 05:03] LABS: BASO # 0.1 x10^3/uL (0.0-0.2); BASO % 1 % (0-3); EOS % 1 % (0-3); HEMATOCRIT 32.2 % (39.0-53.0); HEMOGLOBIN 10.5 g/dL (13.0-17.5); LYMPH # 1.6 x10^3/uL (1.0-4.8); LYMPH % 24 % (24-48); MEAN CORPUSCULAR HEMOGLOBIN 26 pg (25-35); MEAN CORPUSCULAR HGB CONC 33 g/dL (31-37); MEAN CORPUSCULAR VOLUME 80 fL (79-100); MONO # 0.4 x10^3/uL (0.0-1.1); MONO % 6 % (0-9); NEUT # 4.5 x10^3uL (1.8-7.7); NEUT % 68 % (31-73); PLATELET COUNT 306 x10^3/uL (140-400); RED BLOOD COUNT 4.04 x10^6/uL (4.30-5.70); WHITE BLOOD COUNT 6.5 x10^3/uL (4.0-11.0)
[2019-01-24 05:17] LABS: CALCIUM 9.2 mg/dL (8.5-10.1); CREATININE 1.1 mg/dL (0.7-1.3); GFR 67.4; POTASSIUM 4.1 mmol/L (3.5-5.1)
[2019-01-24 05:19] LABS: VANC TR 16.6 mcg/mL (10.0-20.0)
[2019-01-24] MEDS: VANCOMYCIN PER PHARMACY MC PRN (05:37)
[2019-01-24] MEDS: VANCOMYCIN 1.25 GM in IV NORMAL SALINE 250ML 250 ML IV SCH ×2 (05:37→17:47)
--- NOTE | 2019-01-24 05:38 | NUR ---
Pharmacy Vancomycin Dosing Note S:Consulted to monitor and dose vancomycin started 01/22/19. O:DAGO CHARLES is a 64 year old M with Cellulitis Osteomyelitis DFU WITH CONCERN FOR OSTEO . Height: 5 feet, 10 inches Weight: 80.300801 kg [place] Body Weight: 211.00 Adjusted Body Weight: 159.80 Dosing Weight: Actual Other Antibiotics: CEFTRIAXONE 01/22 - LABS: Last BUN: 18 Last Creatinine: 1.1 Creatinine Clearance: 76 mL/min Last WBC: 6.7 Last Procalcitonin: - Tmax (past 24 hours): 97.6 Microbiology: 01/22 NO CX ORDERED I/O: - Drug Levels: Last Trough level: 16.6 on 01/24/19 at 0430 Last dose given at Vancomycin Dosing: Loading Dose: x1 Dosing Weight: Actual Target Trough: 15-20 A: Based on: TROUGH P: 1. Continue Vancomycin 1250 mg IV q12h 2. Follow up Trough level IF NEEDED 3. Pharmacy will continue to monitor, follow and adjust therapy as needed. WENDY GIORDANO RPH, 01/24/19 0538 Signed: 01/24/19 at 0538 by WENDY GIORDANO RPH PHA
[2019-01-24] MEDS: HEPARIN for SUB-Q USE 5,000 UNIT/ML VIAL. SQ SCH ×3 (06:22→21:28)
[2019-01-24 07:00] VITALS: BP 132/96
[2019-01-24] MEDS: INSULIN LISPRO 300 UNITS/3 ML INSULN.PEN. SQ SCH ×4 (08:00→21:00)
--- NOTE | 2019-01-24 08:33 | PDOC ---
Provider Note Provider Note Vascular S: Patient without complaints, denies any post op pain. O: Awake and alert VSS, afebrile Right foot with NPWT to first toe amputation site, skin edges intact. Foot warm, capillary refill < 3sec. A/P: Right first toe diabetic ulcer POD#1 Right first toe amputation with wound vac placement PT eval SS for d/c planning Front off-loading 1/2 shoe JOSELYN MONSIVAIS APRN January 24, 2019 08:33
[2019-01-24] MEDS: SENNOSIDES/DOCUSATE 8.6/50MG TABLET. PO SCH ×2 (08:35→21:20)
[2019-01-24] MEDS: LACTOBACILLUS RHAMNOSUS GG 1 CAPSULE. PO SCH ×2 (08:35→21:20)
--- NOTE | 2019-01-24 08:47 | PDOC ---
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 Noted red, warm and 3.3x4.2x2.2cm lesion with palpable bone. The patient has not seen his public safety officer in some time but states his diabetes has been under good control on oral metformin and SGLT-2. He checks his blood glucose twice daily and states that he is been running in the low 100s on average. Patient states that he has had problems with the right first toe and has lost his toenail many years ago and had followed with wound clinic this past September, states it improved. 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 No recent sick contacts. No fever or chills He has been washing it and placing antibiotic ointment daily. S/p amputation, wound vac and PICC placement. Awaiting cultures. He is pain free, feeling well, states he would like to do antibiotics at home. Vitals Vitals Vital Signs Date Time Temp Pulse Resp B/P (MAP) Pulse Ox O2 Delivery O2 Flow Rate FiO2 01/24/19 07:00 97.7 74 18 132/96 (108) 96 Room Air 97.7 01/23/19 10:28 8 Physical Exam General: Alert, Oriented X3, Cooperative, No acute distress Heart: Regular rate, Normal S1, Normal S2, No murmurs Abdomen: Normal bowel sounds, Soft, No tenderness, No hepatosplenomegaly, No masses Extremities: No clubbing, No cyanosis, No edema, Normal pulses, Other (Right great toe tenderness and swelling) Skin: Other (Right great toe with large ulceration with palpable bone and red, warm, tender) Labs LABS Laboratory Tests Test 01/23/19 10:40 01/23/19 15:59 01/23/19 20:45 01/24/19 04:45 Glucose (Fingerstick) 109 mg/dL (70-99) 160 mg/dL (70-99) 199 mg/dL (70-99) White Blood Count 6.5 x10^3/uL (4.0-11.0) Red Blood Count 4.04 x10^6/uL (4.30-5.70) Hemoglobin 10.5 g/dL (13.0-17.5) Hematocrit 32.2 % (39.0-53.0) Mean Corpuscular Volume 80 fL (79-100) Mean Corpuscular Hemoglobin 26 pg (25-35) Mean Corpuscular Hemoglobin Concent 33 g/dL (31-37) Red Cell Distribution Width 13.0 % (11.5-14.5) Platelet Count 306 x10^3/uL (140-400) Neutrophils (%) (Auto) 68 % (31-73) Lymphocytes (%) (Auto) 24 % (24-48) Monocytes (%) (Auto) 6 % (0-9) Eosinophils (%) (Auto) 1 % (0-3) Basophils (%) (Auto) 1 % (0-3) Neutrophils # (Auto) 4.5 x10^3uL (1.8-7.7) Lymphocytes # (Auto) 1.6 x10^3/uL (1.0-4.8) Monocytes # (Auto) 0.4 x10^3/uL (0.0-1.1) Eosinophils # (Auto) 0.0 x10^3/uL (0.0-0.7) Basophils # (Auto) 0.1 x10^3/uL (0.0-0.2) Erythrocyte Sedimentation Rate 57 (0-15) Sodium Level 138 mmol/L (136-145) Potassium Level 4.1 mmol/L (3.5-5.1) Chloride Level 102 mmol/L (98-107) Carbon Dioxide Level 27 mmol/L (21-32) Anion Gap 9 (6-14) Blood Urea Nitrogen 20 mg/dL (8-26) Creatinine 1.1 mg/dL (0.7-1.3) Estimated GFR (Cockcroft-Gault) 67.4 Glucose Level 177 mg/dL (70-99) Calcium Level 9.2 mg/dL (8.5-10.1) Vancomycin Level Trough 16.6 mcg/mL (10.0-20.0) Vancomycin Last Dose Date 01/23/19 Vancomycin Last Dose Time 1700 Test 01/24/19 07:50 Glucose (Fingerstick) 141 mg/dL (70-99) Comment Review of Relevant I have reviewed the following items alis (where applicable) has been applied. Labs Laboratory Tests Test 01/22/19 15:40 01/22/19 16:32 01/22/19 20:28 01/23/19 04:30 White Blood Count 6.7 x10^3/uL (4.0-11.0) 5.9 x10^3/uL (4.0-11.0) Red Blood Count 4.39 x10^6/uL (4.30-5.70) 4.12 x10^6/uL (4.30-5.70) Hemoglobin 11.6 g/dL (13.0-17.5) 10.9 g/dL (13.0-17.5) Hematocrit 35.6 % (39.0-53.0) 33.1 % (39.0-53.0) Mean Corpuscular Volume 81 fL (79-100) 80 fL (79-100) Mean Corpuscular Hemoglobin 27 pg (25-35) 26 pg (25-35) Mean Corpuscular Hemoglobin Concent 33 g/dL (31-37) 33 g/dL (31-37) Red Cell Distribution Width 13.2 % (11.5-14.5) 13.0 % (11.5-14.5) Platelet Count 296 x10^3/uL (140-400) 273 x10^3/uL (140-400) Neutrophils (%) (Auto) 70 % (31-73) 56 % (31-73) Lymphocytes (%) (Auto) 21 % (24-48) 31 % (24-48) Monocytes (%) (Auto) 8 % (0-9) 9 % (0-9) Eosinophils (%) (Auto) 1 % (0-3) 3 % (0-3) Basophils (%) (Auto) 1 % (0-3) 2 % (0-3) Neutrophils # (Auto) 4.7 x10^3uL (1.8-7.7) 3.3 x10^3uL (1.8-7.7) Lymphocytes # (Auto) 1.4 x10^3/uL (1.0-4.8) 1.8 x10^3/uL (1.0-4.8) Monocytes # (Auto) 0.5 x10^3/uL (0.0-1.1) 0.5 x10^3/uL (0.0-1.1) Eosinophils # (Auto) 0.1 x10^3/uL (0.0-0.7) 0.2 x10^3/uL (0.0-0.7) Basophils # (Auto) 0.1 x10^3/uL (0.0-0.2) 0.1 x10^3/uL (0.0-0.2) Sodium Level 137 mmol/L (136-145) 139 mmol/L (136-145) Potassium Level 4.0 mmol/L (3.5-5.1) 3.9 mmol/L (3.5-5.1) Chloride Level 100 mmol/L (98-107) 102 mmol/L (98-107) Carbon Dioxide Level 24 mmol/L (21-32) 25 mmol/L (21-32) Anion Gap 13 (6-14) 12 (6-14) Blood Urea Nitrogen 18 mg/dL (8-26) 16 mg/dL (8-26) Creatinine 1.1 mg/dL (0.7-1.3) 1.0 mg/dL (0.7-1.3) Estimated GFR (Cockcroft-Gault) 67.4 75.2 Glucose Level 98 mg/dL (70-99) 106 mg/dL (70-99) Calcium Level 9.4 mg/dL (8.5-10.1) 8.9 mg/dL (8.5-10.1) Glucose (Fingerstick) 80 mg/dL (70-99) 139 mg/dL (70-99) Test 01/23/19 07:13 01/23/19 10:40 01/23/19 15:59 01/23/19 20:45 Glucose (Fingerstick) 106 mg/dL (70-99) 109 mg/dL (70-99) 160 mg/dL (70-99) 199 mg/dL (70-99) Test 01/24/19 04:45 01/24/19 07:50 White Blood Count 6.5 x10^3/uL (4.0-11.0) Red Blood Count 4.04 x10^6/uL (4.30-5.70) Hemoglobin 10.5 g/dL (13.0-17.5) Hematocrit 32.2 % (39.0-53.0) Mean Corpuscular Volume 80 fL (79-100) Mean Corpuscular Hemoglobin 26 pg (25-35) Mean Corpuscular Hemoglobin Concent 33 g/dL (31-37) Red Cell Distribution Width 13.0 % (11.5-14.5) Platelet Count 306 x10^3/uL (140-400) Neutrophils (%) (Auto) 68 % (31-73) Lymphocytes (%) (Auto) 24 % (24-48) Monocytes (%) (Auto) 6 % (0-9) Eosinophils (%) (Auto) 1 % (0-3) Basophils (%) (Auto) 1 % (0-3) Neutrophils # (Auto) 4.5 x10^3uL (1.8-7.7) Lymphocytes # (Auto) 1.6 x10^3/uL (1.0-4.8) Monocytes # (Auto) 0.4 x10^3/uL (0.0-1.1) Eosinophils # (Auto) 0.0 x10^3/uL (0.0-0.7) Basophils # (Auto) 0.1 x10^3/uL (0.0-0.2) Erythrocyte Sedimentation Rate 57 (0-15) Sodium Level 138 mmol/L (136-145) Potassium Level 4.1 mmol/L (3.5-5.1) Chloride Level 102 mmol/L (98-107) Carbon Dioxide Level 27 mmol/L (21-32) Anion Gap 9 (6-14) Blood Urea Nitrogen 20 mg/dL (8-26) Creatinine 1.1 mg/dL (0.7-1.3) Estimated GFR (Cockcroft-Gault) 67.4 Glucose Level 177 mg/dL (70-99) Calcium Level 9.2 mg/dL (8.5-10.1) Vancomycin Level Trough 16.6 mcg/mL (10.0-20.0) Vancomycin Last Dose Date 01/23/19 Vancomycin Last Dose Time 1700 Glucose (Fingerstick) 141 mg/dL (70-99) Laboratory Tests Test 01/23/19 10:40 01/23/19 15:59 01/23/19 20:45 01/24/19 04:45 Glucose (Fingerstick) 109 mg/dL (70-99) 160 mg/dL (70-99) 199 mg/dL (70-99) White Blood Count 6.5 x10^3/uL (4.0-11.0) Red Blood Count 4.04 x10^6/uL (4.30-5.70) Hemoglobin 10.5 g/dL (13.0-17.5) Hematocrit 32.2 % (39.0-53.0) Mean Corpuscular Volume 80 fL (79-100) Mean Corpuscular Hemoglobin 26 pg (25-35) Mean Corpuscular Hemoglobin Concent 33 g/dL (31-37) Red Cell Distribution Width 13.0 % (11.5-14.5) Platelet Count 306 x10^3/uL (140-400) Neutrophils (%) (Auto) 68 % (31-73) Lymphocytes (%) (Auto) 24 % (24-48) Monocytes (%) (Auto) 6 % (0-9) Eosinophils (%) (Auto) 1 % (0-3) Basophils (%) (Auto) 1 % (0-3) Neutrophils # (Auto) 4.5 x10^3uL (1.8-7.7) Lymphocytes # (Auto) 1.6 x10^3/uL (1.0-4.8) Monocytes # (Auto) 0.4 x10^3/uL (0.0-1.1) Eosinophils # (Auto) 0.0 x10^3/uL (0.0-0.7) Basophils # (Auto) 0.1 x10^3/uL (0.0-0.2) Erythrocyte Sedimentation Rate 57 (0-15) Sodium Level 138 mmol/L (136-145) Potassium Level 4.1 mmol/L (3.5-5.1) Chloride Level 102 mmol/L (98-107) Carbon Dioxide Level 27 mmol/L (21-32) Anion Gap 9 (6-14) Blood Urea Nitrogen 20 mg/dL (8-26) Creatinine 1.1 mg/dL (0.7-1.3) Estimated GFR (Cockcroft-Gault) 67.4 Glucose Level 177 mg/dL (70-99) Calcium Level 9.2 mg/dL (8.5-10.1) Vancomycin Level Trough 16.6 mcg/mL (10.0-20.0) Vancomycin Last Dose Date 01/23/19 Vancomycin Last Dose Time 1700 Test 01/24/19 07:50 Glucose (Fingerstick) 141 mg/dL (70-99) Medications Current Medications Ondansetron HCl (Zofran) 4 mg PRN Q6HRS PRN IV NAUSEA/VOMITING; Start 01/22/19 at 15:15 Morphine Sulfate (Morphine Sulfate) 2 mg PRN Q1HR PRN IV PAIN; Start 01/22/19 at 15:15 Acetaminophen/ Hydrocodone Bitart (Lortab 5/325) 1 tab PRN Q4HRS PRN PO MILD PAIN; Start 01/22/19 at 15:15 Acetaminophen (Tylenol) 650 mg PRN Q6HRS PRN PO Headaches, Temp > 101.5F; Start 01/22/19 at 15:15 Senna/Docusate Sodium (Senna Plus) 1 tab BID PO Last administered on 01/24/19at 08:35; Start 01/22/19 at 21:00 Magnesium Hydroxide (Milk Of Magnesia) 2,400 mg PRN Q12HR PRN PO CONSTIPATION; Start 01/22/19 at 15:15 Heparin Sodium (Porcine) (Heparin Sodium) 5,000 unit Q8HRS SQ Last administered on 01/24/19at 06:22; Start 01/22/19 at 22:00 Insulin Glargine (Lantus) 5 units QHS SQ Last administered on 01/23/19at 21:16; Start 01/22/19 at 21:00 Insulin Human Lispro (HumaLOG) 0-7 UNITS [id number] SQ Last administered on 01/23/19at 16:43; Start 01/22/19 at 17:00 Dextrose (Dextrose 50%-Water Syringe) 12.5 gm PRN Q15MIN PRN IV SEE COMMENTS; Start 01/22/19 at 15:15 Vancomycin HCl 1.25 gm/Sodium Chloride 250 ml @ 167 mls/hr Q12H IV Last administered on 01/24/19at 05:37; Start 01/22/19 at 17:00 Ceftriaxone Sodium (Rocephin) 1 gm Q24H IVP Last administered on 01/22/19at 17:11; Start 01/22/19 at 16:00; Stop 01/23/19 at 11:07; Status DC Vancomycin HCl (Vanco Per Pharmacy) 1 each PRN DAILY PRN MC SEE COMMENTS Last administered on 01/24/19at 05:37; Start 01/22/19 at 16:45 Vancomycin HCl (Vancomycin Trough Level) 1 each 1X ONCE MC Last administered on 01/24/19at 04:30; Start 01/24/19 at 04:30; Stop 01/24/19 at 04:31; Status DC Sevoflurane (Ultane) 60 ml STK-MED ONCE IH ; Start 01/23/19 at 09:30; Stop 01/23/19 at 09:31; Status DC Midazolam HCl (Versed) 2 mg STK-MED ONCE .ROUTE ; Start 01/23/19 at 09:30; Stop 01/23/19 at 19:21; Status DC Fentanyl Citrate (Fentanyl 2ml Vial) 100 mcg STK-MED ONCE .ROUTE ; Start 01/23/19 at 09:30; Stop 01/23/19 at 09:31; Status DC Dexamethasone Sodium Phosphate (Decadron) 4 mg STK-MED ONCE .ROUTE ; Start 01/23/19 at 09:31; Stop 01/23/19 at 09:32; Status DC Ondansetron HCl (Zofran) 4 mg PRN Q6HRS PRN IV NAUSEA/VOMITING; Start 01/23/19 at 09:45; Stop 01/23/19 at 19:21; Status DC Fentanyl Citrate (Fentanyl 2ml Vial) 25 mcg PRN Q5MIN PRN IV MILD PAIN; Start 01/23/19 at 09:45; Stop 01/23/19 at 19:21; Status DC Fentanyl Citrate (Fentanyl 2ml Vial) 50 mcg PRN Q5MIN PRN IV MODERATE TO SEVERE PAIN; Start 01/23/19 at 09:45; Stop 01/23/19 at 19:21; Status DC Morphine Sulfate (Morphine Sulfate) 1 mg PRN Q10MIN PRN IV SEVERE PAIN; Start 01/23/19 at 09:45; Stop 01/23/19 at 19:21; Status DC Ringer's Solution 1,000 ml @ 30 mls/hr Q24H IV Last administered on 01/23/19at 09:45; Start 01/23/19 at 09:45; Stop 01/23/19 at 19:21; Status DC Hydromorphone HCl (Dilaudid) 0.5 mg PRN Q10MIN PRN IV SEV PAIN, Second choice; Start 01/23/19 at 09:45; Stop 01/23/19 at 19:21; Status DC Prochlorperazine Edisylate (Compazine) 5 mg PACU PRN PRN IV NAUSEA, MRX1; Star t 01/23/19 at 09:45; Stop 01/23/19 at 19:21; Status DC Propofol 20 ml @ As Directed STK-MED ONCE IV ; Start 01/23/19 at 09:58; Stop 01/23/19 at 19:21; Status DC Lidocaine HCl (Lidocaine Pf 2% Vial) 5 ml STK-MED ONCE .ROUTE ; Start 01/23/19 at 09:58; Stop 01/23/19 at 09:59; Status DC Ondansetron HCl (Zofran) 4 mg STK-MED ONCE .ROUTE ; Start 01/23/19 at 09:58; Stop 01/23/19 at 09:59; Status DC Ephedrine Sulfate (ePHEDrine PF IN SALINE SYRINGE) 50 mg STK-MED ONCE IV ; Start 01/23/19 at 10:11; Stop 01/23/19 at 10:12; Status DC Piperacillin Sod/ Tazobactam Sod 3.375 gm/Sodium Chloride 50 ml @ 100 mls/hr Q6HRS IV Last administered on 01/24/19at 07:31; Start 01/23/19 at 12:00 Lactobacillus Rhamnosus (Culturelle) 1 cap BID PO Last administered on 01/24/19at 08:35; Start 01/23/19 at 21:00 Active Scripts Active Reported Metformin Hcl Er (Metformin Hcl) 500 Mg Tab.er.24h 1,000 Mg PO [id number] Steglatro (Ertugliflozin Pidolate) 15 Mg Tablet 15 Mg PO DAILY Jardiance (Empagliflozin) 25 Mg Tablet 25 Mg PO DAILY Vitals/I & O Vital Sign - Last 24 Hours 01/23/19 01/23/19 01/23/19 01/23/19 09:23 10:28 10:30 10:43 Temp 97.9 97.9 97.9 97.9 97.9 97.9 Pulse 75 75 84 Resp 20 18 20 B/P (MAP) 136/66 147/59 106/66 Pulse Ox 97 97 96 O2 Delivery Room Air Room Air Room Air Room Air O2 Flow Rate 8 01/23/19 01/23/19 01/23/19 01/23/19 10:58 11:13 11:28 15:00 Temp 97.9 97.9 98 98.5 97.9 97.9 98.0 98.5 Pulse 82 80 80 88 Resp 20 20 20 17 B/P (MAP) 114/61 117/61 118/58 107/61 (76) Pulse Ox 98 95 94 95 O2 Delivery Room Air Simple Mask Simple Mask Room Air 01/23/19 01/23/19 01/24/19 01/24/19 19:00 23:00 03:00 07:00 Temp 98.0 98.0 98.0 97.7 98.0 98.0 98.0 97.7 Pulse 87 86 80 74 Resp 18 18 20 18 B/P (MAP) 101/55 (70) 145/78 (100) 145/84 (104) 132/96 (108) Pulse Ox 95 97 97 96 O2 Delivery Room Air Room Air Room Air Room Air Intake and Output 01/23/19 01/23/19 01/24/19 14:59 22:59 06:59 Intake Total 1210 ml 640 ml 50 ml Output Total 5 ml 400 ml Balance 1205 ml 240 ml 50 ml MEGA ARGUETA MD January 24, 2019 08:47
--- NOTE | 2019-01-24 10:41 | NUR ---
[facility] consulted for IV abx and wound vac needs. [facility] faxed pt's face sheet to [employer] and pt does have 60/40 coverage. Pt currently has an out pocket expense of $2600 and only $780 is met. When all out of pocket is met pt will have full coverage. Discussed with pt at bedside regarding benefits and he is agreeable with [employer] infusion and [employer]. Type and duration of IV abx is needed to assess actual cost. [facility] faxed clinicals to [employer] and [facility] . MARY JANE SHORT. Addendum: 01/24/19 at 1047 by GARY ALTMAN Pt reports he assisted a family member do IV abx at home and is aware how things work but interested in bedside teach as well.
[2019-01-24 11:00] VITALS: BP 114/58
--- NOTE | 2019-01-24 11:00 | NUR ---
Wound Care Pt's home wound vac application has been submitted, pending Prealbumin and Albumin levels, order placed for tomorrow morning draw. Will update as informed.
--- NOTE | 2019-01-24 11:03 | PDOC ---
Infectious Disease Note Subjective Subjective Min pain on bottom of foot No F/C/S/N/V/D/SOA/Rash ROS ROS o/w neg Vital Sign Vital Signs Vital Signs Date Time Temp Pulse Resp B/P (MAP) Pulse Ox O2 Delivery O2 Flow Rate FiO2 01/24/19 07:45 Room Air 01/24/19 07:00 97.7 74 18 132/96 (108) 96 97.7 01/23/19 10:28 8 Physical Exam PHYSICAL EXAM CONSTITUTIONAL: He is very pleasant, he is cooperative. He is in no acute distress. He is sitting up in bed. HEENT: Pupils are equal and reactive. Oral cavity, pharynx is clear with good dentition. NECK: Supple, no JVD. LUNGS: Clear to auscultation. HEART: S1, S2. ABDOMEN: Soft, nontender, nondistended with positive bowel sounds. EXTREMITIES: Without clubbing, cyanosis or gross edema. His right great toe and foot are dressed with a wound VAC. SKIN: Warm to touch without signs of rash. NEUROLOGIC: He is nonfocal. PSYCHIATRIC: Affect is pleasant IV: PICC LUE clean Labs Lab Laboratory Tests Test 01/23/19 15:59 01/23/19 20:45 01/24/19 04:45 01/24/19 07:50 Glucose (Fingerstick) 160 mg/dL (70-99) 199 mg/dL (70-99) 141 mg/dL (70-99) White Blood Count 6.5 x10^3/uL (4.0-11.0) Red Blood Count 4.04 x10^6/uL (4.30-5.70) Hemoglobin 10.5 g/dL (13.0-17.5) Hematocrit 32.2 % (39.0-53.0) Mean Corpuscular Volume 80 fL (79-100) Mean Corpuscular Hemoglobin 26 pg (25-35) Mean Corpuscular Hemoglobin Concent 33 g/dL (31-37) Red Cell Distribution Width 13.0 % (11.5-14.5) Platelet Count 306 x10^3/uL (140-400) Neutrophils (%) (Auto) 68 % (31-73) Lymphocytes (%) (Auto) 24 % (24-48) Monocytes (%) (Auto) 6 % (0-9) Eosinophils (%) (Auto) 1 % (0-3) Basophils (%) (Auto) 1 % (0-3) Neutrophils # (Auto) 4.5 x10^3uL (1.8-7.7) Lymphocytes # (Auto) 1.6 x10^3/uL (1.0-4.8) Monocytes # (Auto) 0.4 x10^3/uL (0.0-1.1) Eosinophils # (Auto) 0.0 x10^3/uL (0.0-0.7) Basophils # (Auto) 0.1 x10^3/uL (0.0-0.2) Erythrocyte Sedimentation Rate 57 (0-15) Sodium Level 138 mmol/L (136-145) Potassium Level 4.1 mmol/L (3.5-5.1) Chloride Level 102 mmol/L (98-107) Carbon Dioxide Level 27 mmol/L (21-32) Anion Gap 9 (6-14) Blood Urea Nitrogen 20 mg/dL (8-26) Creatinine 1.1 mg/dL (0.7-1.3) Estimated GFR (Cockcroft-Gault) 67.4 Glucose Level 177 mg/dL (70-99) Calcium Level 9.2 mg/dL (8.5-10.1) Vancomycin Level Trough 16.6 mcg/mL (10.0-20.0) Vancomycin Last Dose Date 01/23/19 Vancomycin Last Dose Time 1700 Objective Assessment R great toe Osteomyelitis S/p open R great toe amputation 01/23 PCN allergy - has tolerated Amoxicillin DM S/p Dexamethasone 01/23 Plan Plan of Care Cont Vanc/Zosyn F/u cults/labs in professional services consultant eval D/w Dr. Muro she took intra-op cults MARIELLA ASHRAF MD January 24, 2019 11:02
[2019-01-24 12:16] LABS: HEMOGLOBIN A1C 8.7 % (4.8-5.6)
--- NOTE | 2019-01-24 14:37 | NUR ---
[facility] unable to take pt stating they do not take [place] [facility] plan. Referral faxed to [facility]. Blanca at [facility] stated she will look at clinicals but they won't take pt if IV abx is done more than BID. Will continue to follow.
[2019-01-24 15:00] VITALS: BP 136/66
[2019-01-24 19:00] VITALS: BP 115/61
[2019-01-24] MEDS: INSULIN GLARGINE 300 UNITS/3 ML INSULN.PEN. SQ SCH (21:26)
[2019-01-24 23:00] VITALS: BP 134/77
[2019-01-25] MEDS: PIPERACILLIN/TAZOBACTAM 3.375 GM in IV NORMAL SALINE 50ML 50 ML IV SCH ×4 (00:33→18:35)
[2019-01-25 03:00] VITALS: BP 140/82
[2019-01-25] MEDS: VANCOMYCIN 1.25 GM in IV NORMAL SALINE 250ML 250 ML IV SCH ×2 (04:39→16:49)
[2019-01-25 05:36] LABS: ALBUMIN 2.7 g/dL (3.4-5.0); CALCIUM 9.1 mg/dL (8.5-10.1); CREATININE 1.1 mg/dL (0.7-1.3); GFR 67.4; POTASSIUM 3.8 mmol/L (3.5-5.1)
[2019-01-25] MEDS: HEPARIN for SUB-Q USE 5,000 UNIT/ML VIAL. SQ SCH ×3 (06:00→22:00)
[2019-01-25 07:00] VITALS: BP 141/63
[2019-01-25] MEDS: INSULIN LISPRO 300 UNITS/3 ML INSULN.PEN. SQ SCH ×4 (08:00→20:50)
[2019-01-25] MEDS: LACTOBACILLUS RHAMNOSUS GG 1 CAPSULE. PO SCH ×2 (08:40→20:43)
[2019-01-25] MEDS: SENNOSIDES/DOCUSATE 8.6/50MG TABLET. PO SCH ×2 (08:43→20:51)
--- NOTE | 2019-01-25 10:01 | PDOC ---
Infectious Disease Note Subjective Subjective Min pain on bottom of foot No F/C/S/N/V/D/SOA/Rash Vital Sign Vital Signs Vital Signs Date Time Temp Pulse Resp B/P (MAP) Pulse Ox O2 Delivery O2 Flow Rate FiO2 01/25/19 07:45 Room Air 01/25/19 07:00 97.8 67 14 141/63 (89) 97 97.8 Physical Exam PHYSICAL EXAM CONSTITUTIONAL: He is very pleasant, he is cooperative. He is in no acute distress. He is sitting up in bed. HEENT: Pupils are equal and reactive. Oral cavity, pharynx is clear with good dentition. NECK: Supple, no JVD. LUNGS: Clear to auscultation. HEART: S1, S2. ABDOMEN: Soft, nontender, nondistended with positive bowel sounds. EXTREMITIES: Without clubbing, cyanosis or gross edema. His right great toe and foot are dressed with a wound VAC. SKIN: Warm to touch without signs of rash. NEUROLOGIC: He is nonfocal. PSYCHIATRIC: Affect is pleasant IV: PICC LUE clean Labs Lab Laboratory Tests Test 01/24/19 11:35 01/24/19 16:38 01/24/19 21:01 01/25/19 04:30 Glucose (Fingerstick) 191 mg/dL (70-99) 143 mg/dL (70-99) 195 mg/dL (70-99) Sodium Level 141 mmol/L (136-145) Potassium Level 3.8 mmol/L (3.5-5.1) Chloride Level 105 mmol/L (98-107) Carbon Dioxide Level 28 mmol/L (21-32) Anion Gap 8 (6-14) Blood Urea Nitrogen 18 mg/dL (8-26) Creatinine 1.1 mg/dL (0.7-1.3) Estimated GFR (Cockcroft-Gault) 67.4 Glucose Level 143 mg/dL (70-99) Calcium Level 9.1 mg/dL (8.5-10.1) Albumin 2.7 g/dL (3.4-5.0) Prealbumin 16.0 mg/dL (16.0-42.0) Test 01/25/19 07:21 Glucose (Fingerstick) 120 mg/dL (70-99) Micro Microbiology 01/23/19 Anaerobic/Aerobic Culture, Resulted Pending 01/23/19 Anaerobic Culture Result 1 (TATE), Resulted Pending 01/23/19 Aerobic Culture, Resulted Pending 01/23/19 Aerobic Culture Result 1 (TATE), Resulted Pending 01/23/19 Gram Stain - Final, Resulted 01/23/19 Gram Stain Result 1 (TATE) - Final, Resulted 01/23/19 Gram Stain Result 2 (TATE) - Final, Resulted Objective Assessment R great toe Osteomyelitis S/p open R great toe amputation 01/23 - cults pending PCN allergy - has tolerated Amoxicillin DM S/p Dexamethasone 01/23 Plan Plan of Care Cont Vanc/Zosyn F/u cults/labs in consumer services consultant MARIELLA Sanderson MD January 25, 2019 10:01
[2019-01-25 11:03] VITALS: BP 121/57
[2019-01-25] MEDS: VANCOMYCIN PER PHARMACY MC PRN (11:21)
--- NOTE | 2019-01-25 11:33 | NUR ---
[facility] following Pt. [facility] but declined due to staffing, pt's needs and location. [facility] phoned various HH agencies and so far unable to find HH able to provide skilled care in the home. [facility] faxed LTAC referral to [facility]. Will continue to look for HH agencies in network with pt's insurance in the mean time. Physician also recommends SNU/ LTAC. Will continue to follow. MARY JANE SHORT.
--- NOTE | 2019-01-25 12:28 | NUR ---
wound care patients home vac approved. wound care will change wound vac tomorrow 01/26/19
[2019-01-25 15:00] VITALS: BP 147/75
--- NOTE | 2019-01-25 15:31 | PDOC ---
Provider Note Provider Note Vascular S: Patient without complaints, denies any post op pain. O: Awake and alert VSS, afebrile Right foot with NPWT to first toe amputation site, skin edges intact. Foot warm, capillary refill < 3sec. A/P: Right first toe diabetic ulcer POD#3 Right first toe amputation with wound vac placement-Wound vac change tomorrow. Awaiting final micro for Abx-ID managing OK to discharge to rehab/home when medically stable will need f/u with Dr. Muro 02/08 JOSELYN KAUFFMAN APRN January 25, 2019 15:31
--- NOTE | 2019-01-25 15:42 | NUR ---
[facility] following pt. Pt has been accepted at [facility] pending insurance approval. Lavon at [facility] reported they will need to know type of IV abx before requesting authorization. will continue to follow.
--- NOTE | 2019-01-25 15:44 | PDOC ---
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 Noted red, warm and 3.3x4.2x2.2cm lesion with palpable bone. 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 He checks his blood glucose twice daily and states that he is been running in the low 100s on average. Patient states that he has had problems with the right first toe and has lost his toenail many years ago and had followed with wound clinic this past September, states it improved. 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 No recent sick contacts. No fever or chills He has been washing it and placing antibiotic ointment daily. S/p amputation, wound vac and PICC placement. Awaiting cultures. He is pain free, feeling well, states he would like to do antibiotics at home. A bit depressed and wants to restart his metformin Vitals Vitals Vital Signs Date Time Temp Pulse Resp B/P (MAP) Pulse Ox O2 Delivery O2 Flow Rate FiO2 01/25/19 11:03 98.3 70 14 121/57 (78) 98 Room Air 98.3 Physical Exam Physical Exam CONSTITUTIONAL: He is very pleasant, he is cooperative. He is in no acute distress. He is sitting up in bed. HEENT: Pupils are equal and reactive. Oral cavity, pharynx is clear with good dentition. NECK: Supple, no JVD. LUNGS: Clear to auscultation. HEART: S1, S2. ABDOMEN: Soft, nontender, nondistended with positive bowel sounds. EXTREMITIES: Without clubbing, cyanosis or gross edema. His right great toe and foot are dressed with a wound VAC. SKIN: Warm to touch without signs of rash. NEUROLOGIC: He is nonfocal. PSYCHIATRIC: Affect is pleasant IV: PICC LUE clean General: Alert, Oriented X3, Cooperative, No acute distress Heart: Regular rate, Normal S1, Normal S2, No murmurs Abdomen: Normal bowel sounds, Soft, No tenderness, No hepatosplenomegaly, No masses Extremities: No clubbing, No cyanosis, No edema, Normal pulses, Other (Right great toe tenderness and swelling) Skin: Other (Right great toe with large ulceration with palpable bone and red, warm, tender) Labs LABS Laboratory Tests Test 01/24/19 16:38 01/24/19 21:01 01/25/19 04:30 01/25/19 07:21 Glucose (Fingerstick) 143 mg/dL (70-99) 195 mg/dL (70-99) 120 mg/dL (70-99) Sodium Level 141 mmol/L (136-145) Potassium Level 3.8 mmol/L (3.5-5.1) Chloride Level 105 mmol/L (98-107) Carbon Dioxide Level 28 mmol/L (21-32) Anion Gap 8 (6-14) Blood Urea Nitrogen 18 mg/dL (8-26) Creatinine 1.1 mg/dL (0.7-1.3) Estimated GFR (Cockcroft-Gault) 67.4 Glucose Level 143 mg/dL (70-99) Calcium Level 9.1 mg/dL (8.5-10.1) Albumin 2.7 g/dL (3.4-5.0) Prealbumin 16.0 mg/dL (16.0-42.0) Test 01/25/19 11:37 Glucose (Fingerstick) 169 mg/dL (70-99) Comment Review of Relevant I have reviewed the following items alis (where applicable) has been applied. Labs Laboratory Tests Test 01/23/19 15:59 01/23/19 20:45 01/24/19 04:45 01/24/19 07:50 Glucose (Fingerstick) 160 mg/dL (70-99) 199 mg/dL (70-99) 141 mg/dL (70-99) White Blood Count 6.5 x10^3/uL (4.0-11.0) Red Blood Count 4.04 x10^6/uL (4.30-5.70) Hemoglobin 10.5 g/dL (13.0-17.5) Hematocrit 32.2 % (39.0-53.0) Mean Corpuscular Volume 80 fL (79-100) Mean Corpuscular Hemoglobin 26 pg (25-35) Mean Corpuscular Hemoglobin Concent 33 g/dL (31-37) Red Cell Distribution Width 13.0 % (11.5-14.5) Platelet Count 306 x10^3/uL (140-400) Neutrophils (%) (Auto) 68 % (31-73) Lymphocytes (%) (Auto) 24 % (24-48) Monocytes (%) (Auto) 6 % (0-9) Eosinophils (%) (Auto) 1 % (0-3) Basophils (%) (Auto) 1 % (0-3) Neutrophils # (Auto) 4.5 x10^3uL (1.8-7.7) Lymphocytes # (Auto) 1.6 x10^3/uL (1.0-4.8) Monocytes # (Auto) 0.4 x10^3/uL (0.0-1.1) Eosinophils # (Auto) 0.0 x10^3/uL (0.0-0.7) Basophils # (Auto) 0.1 x10^3/uL (0.0-0.2) Erythrocyte Sedimentation Rate 57 (0-15) Sodium Level 138 mmol/L (136-145) Potassium Level 4.1 mmol/L (3.5-5.1) Chloride Level 102 mmol/L (98-107) Carbon Dioxide Level 27 mmol/L (21-32) Anion Gap 9 (6-14) Blood Urea Nitrogen 20 mg/dL (8-26) Creatinine 1.1 mg/dL (0.7-1.3) Estimated GFR (Cockcroft-Gault) 67.4 Glucose Level 177 mg/dL (70-99) Calcium Level 9.2 mg/dL (8.5-10.1) Vancomycin Level Trough 16.6 mcg/mL (10.0-20.0) Vancomycin Last Dose Date 01/23/19 Vancomycin Last Dose Time 1700 Test 01/24/19 11:35 01/24/19 16:38 01/24/19 21:01 01/25/19 04:30 Glucose (Fingerstick) 191 mg/dL (70-99) 143 mg/dL (70-99) 195 mg/dL (70-99) Sodium Level 141 mmol/L (136-145) Potassium Level 3.8 mmol/L (3.5-5.1) Chloride Level 105 mmol/L (98-107) Carbon Dioxide Level 28 mmol/L (21-32) Anion Gap 8 (6-14) Blood Urea Nitrogen 18 mg/dL (8-26) Creatinine 1.1 mg/dL (0.7-1.3) Estimated GFR (Cockcroft-Gault) 67.4 Glucose Level 143 mg/dL (70-99) Calcium Level 9.1 mg/dL (8.5-10.1) Albumin 2.7 g/dL (3.4-5.0) Prealbumin 16.0 mg/dL (16.0-42.0) Test 01/25/19 07:21 01/25/19 11:37 Glucose (Fingerstick) 120 mg/dL (70-99) 169 mg/dL (70-99) Laboratory Tests Test 01/24/19 16:38 01/24/19 21:01 01/25/19 04:30 01/25/19 07:21 Glucose (Fingerstick) 143 mg/dL (70-99) 195 mg/dL (70-99) 120 mg/dL (70-99) Sodium Level 141 mmol/L (136-145) Potassium Level 3.8 mmol/L (3.5-5.1) Chloride Level 105 mmol/L (98-107) Carbon Dioxide Level 28 mmol/L (21-32) Anion Gap 8 (6-14) Blood Urea Nitrogen 18 mg/dL (8-26) Creatinine 1.1 mg/dL (0.7-1.3) Estimated GFR (Cockcroft-Gault) 67.4 Glucose Level 143 mg/dL (70-99) Calcium Level 9.1 mg/dL (8.5-10.1) Albumin 2.7 g/dL (3.4-5.0) Prealbumin 16.0 mg/dL (16.0-42.0) Test 01/25/19 11:37 Glucose (Fingerstick) 169 mg/dL (70-99) Microbiology 01/23/19 Anaerobic/Aerobic Culture, Resulted Pending 01/23/19 Anaerobic Culture Result 1 (TATE), Resulted Pending 01/23/19 Aerobic Culture, Resulted Pending 01/23/19 Aerobic Culture Result 1 (TATE), Resulted Pending 01/23/19 Gram Stain - Final, Resulted 01/23/19 Gram Stain Result 1 (TATE) - Final, Resulted 01/23/19 Gram Stain Result 2 (TATE) - Final, Resulted Medications Current Medications Ondansetron HCl (Zofran) 4 mg PRN Q6HRS PRN IV NAUSEA/VOMITING; Start 01/22/19 at 15:15 Morphine Sulfate (Morphine Sulfate) 2 mg PRN Q1HR PRN IV PAIN; Start 01/22/19 at 15:15 Acetaminophen/ Hydrocodone Bitart (Lortab 5/325) 1 tab PRN Q4HRS PRN PO MILD PAIN; Start 01/22/19 at 15:15 Acetaminophen (Tylenol) 650 mg PRN Q6HRS PRN PO Headaches, Temp > 101.5F; Start 01/22/19 at 15:15 Senna/Docusate Sodium (Senna Plus) 1 tab BID PO Last administered on 01/24/19at 21:20; Start 01/22/19 at 21:00 Magnesium Hydroxide (Milk Of Magnesia) 2,400 mg PRN Q12HR PRN PO CONSTIPATION; Start 01/22/19 at 15:15 Heparin Sodium (Porcine) (Heparin Sodium) 5,000 unit Q8HRS SQ Last administered on 01/24/19at 21:28; Start 01/22/19 at 22:00 Insulin Glargine (Lantus) 5 units QHS SQ Last administered on 01/24/19at 21:26; Start 01/22/19 at 21:00 Insulin Human Lispro (HumaLOG) 0-7 UNITS TIDWMEALHC SQ Last administered on 01/25/19at 12:12; Start 01/22/19 at 17:00 Dextrose (Dextrose 50%-Water Syringe) 12.5 gm PRN Q15MIN PRN IV SEE COMMENTS; Start 01/22/19 at 15:15 Vancomycin HCl 1.25 gm/Sodium Chloride 250 ml @ 167 mls/hr Q12H IV Last administered on 01/25/19at 04:39; Start 01/22/19 at 17:00 Ceftriaxone Sodium (Rocephin) 1 gm Q24H IVP Last administered on 01/22/19at 17:11; Start 01/22/19 at 16:00; Stop 01/23/19 at 11:07; Status DC Vancomycin HCl (Vanco Per Pharmacy) 1 each PRN DAILY PRN MC SEE COMMENTS Last administered on 01/25/19at 11:21; Start 01/22/19 at 16:45 Vancomycin HCl (Vancomycin Trough Level) 1 each 1X ONCE MC Last administered on 01/24/19at 04:30; Start 01/24/19 at 04:30; Stop 01/24/19 at 04:31; Status DC Sevoflurane (Ultane) 60 ml STK-MED ONCE IH ; Start 01/23/19 at 09:30; Stop 01/23/19 at 09:31; Status DC Midazolam HCl (Versed) 2 mg STK-MED ONCE .ROUTE ; Start 01/23/19 at 09:30; Stop 01/23/19 at 19:21; Status DC Fentanyl Citrate (Fentanyl 2ml Vial) 100 mcg STK-MED ONCE .ROUTE ; Start 01/23/19 at 09:30; Stop 01/23/19 at 09:31; Status DC Dexamethasone Sodium Phosphate (Decadron) 4 mg STK-MED ONCE .ROUTE ; Start 01/23/19 at 09:31; Stop 01/23/19 at 09:32; Status DC Ondansetron HCl (Zofran) 4 mg PRN Q6HRS PRN IV NAUSEA/VOMITING; Start 01/23/19 at 09:45; Stop 01/23/19 at 19:21; Status DC Fentanyl Citrate (Fentanyl 2ml Vial) 25 mcg PRN Q5MIN PRN IV MILD PAIN; Start 01/23/19 at 09:45; Stop 01/23/19 at 19:21; Status DC Fentanyl Citrate (Fentanyl 2ml Vial) 50 mcg PRN Q5MIN PRN IV MODERATE TO SEVERE PAIN; Start 01/23/19 at 09:45; Stop 01/23/19 at 19:21; Status DC Morphine Sulfate (Morphine Sulfate) 1 mg PRN Q10MIN PRN IV SEVERE PAIN; Start 01/23/19 at 09:45; Stop 01/23/19 at 19:21; Status DC Ringer's Solution 1,000 ml @ 30 mls/hr Q24H IV Last administered on 01/23/19at 09:45; Start 01/23/19 at 09:45; Stop 01/23/19 at 19:21; Status DC Hydromorphone HCl (Dilaudid) 0.5 mg PRN Q10MIN PRN IV SEV PAIN, Second choice; Start 01/23/19 at 09:45; Stop 01/23/19 at 19:21; Status DC Prochlorperazine Edisylate (Compazine) 5 mg PACU PRN PRN IV NAUSEA, MRX1; Start 01/23/19 at 09:45; Stop 01/23/19 at 19:21; Status DC Propofol 20 ml @ As Directed STK-MED ONCE IV ; Start 01/23/19 at 09:58; Stop 01/23/19 at 19:21; Status DC Lidocaine HCl (Lidocaine Pf 2% Vial) 5 ml STK-MED ONCE .ROUTE ; Start 01/23/19 at 09:58; Stop 01/23/19 at 09:59; Status DC Ondansetron HCl (Zofran) 4 mg STK-MED ONCE .ROUTE ; Start 01/23/19 at 09:58; Stop 01/23/19 at 09:59; Status DC Ephedrine Sulfate (ePHEDrine PF IN SALINE SYRINGE) 50 mg STK-MED ONCE IV ; Start 01/23/19 at 10:11; Stop 01/23/19 at 10:12; Status DC Piperacillin Sod/ Tazobactam Sod 3.375 gm/Sodium Chloride 50 ml @ 100 mls/hr Q6HRS IV Last administered on 01/25/19at 12:03; Start 01/23/19 at 12:00 Lactobacillus Rhamnosus (Culturelle) 1 cap BID PO Last administered on 01/25/19at 08:40; Start 01/23/19 at 21:00 Active Scripts Active Reported Metformin Hcl Er (Metformin Hcl) 500 Mg Tab.er.24h 1,000 Mg PO DAILYWBKFT Steglatro (Ertugliflozin Pidolate) 15 Mg Tablet 15 Mg PO DAILY Jardiance (Empagliflozin) 25 Mg Tablet 25 Mg PO DAILY Vitals/I & O Vital Sign - Last 24 Hours 01/24/19 01/24/19 01/24/19 01/25/19 19:00 20:00 23:00 03:00 Temp 98.5 97.3 98.2 98.5 97.3 98.2 Pulse 73 77 67 Resp 20 20 20 B/P (MAP) 115/61 (79) 134/77 (96) 140/82 (101) Pulse Ox 97 97 96 O2 Delivery Room Air Room Air Room Air Room Air 01/25/19 01/25/19 01/25/19 07:00 07:45 11:03 Temp 97.8 98.3 97.8 98.3 Pulse 67 70 Resp 14 14 B/P (MAP) 141/63 (89) 121/57 (78) Pulse Ox 97 98 O2 Delivery Room Air Room Air Room Air Intake and Output 01/24/19 01/24/19 01/25/19 14:59 22:59 06:59 Intake Total 250 ml 300 ml Output Total 1300 ml Balance 250 ml -1000 ml MEAG ARGUETA MD January 25, 2019 15:44
[2019-01-25] MEDS ORDERED: metFORMIN XR 500 MG TAB.ER.24H PO SCH (17:00)
[2019-01-25 19:00] VITALS: BP 115/62
[2019-01-25] MEDS: INSULIN GLARGINE 300 UNITS/3 ML INSULN.PEN. SQ SCH (20:50)
[2019-01-25] MEDS ORDERED: CITALOPRAM 10 MG TABLET. PO SCH (21:00)
[2019-01-25 22:52] VITALS: BP 130/71
[2019-01-26] MEDS: PIPERACILLIN/TAZOBACTAM 3.375 GM in IV NORMAL SALINE 50ML 50 ML IV SCH ×2 (00:22→06:20)
[2019-01-26 02:59] VITALS: BP 131/78
[2019-01-26] MEDS: VANCOMYCIN 1.25 GM in IV NORMAL SALINE 250ML 250 ML IV SCH (04:59)
[2019-01-26] MEDS: HEPARIN for SUB-Q USE 5,000 UNIT/ML VIAL. SQ SCH ×2 (05:42→13:27)
[2019-01-26 06:30] VITALS: BP 153/75
[2019-01-26] MEDS: INSULIN LISPRO 300 UNITS/3 ML INSULN.PEN. SQ SCH ×2 (07:33→11:40)
--- NOTE | 2019-01-26 08:52 | PDOC ---
Infectious Disease Note Subjective Subjective Min pain on bottom of foot No F/C/S/N/V/D/SOA/Rash Vital Sign Vital Signs Vital Signs Date Time Temp Pulse Resp B/P (MAP) Pulse Ox O2 Delivery O2 Flow Rate FiO2 01/26/19 06:30 97.7 64 17 153/75 (101) 98 Room Air 97.7 Physical Exam PHYSICAL EXAM CONSTITUTIONAL: He is very pleasant, he is cooperative. He is in no acute distress. He is sitting up in bed. HEENT: Pupils are equal and reactive. Oral cavity, pharynx is clear with good dentition. NECK: Supple, no JVD. LUNGS: Clear to auscultation. HEART: S1, S2. ABDOMEN: Soft, nontender, nondistended with positive bowel sounds. EXTREMITIES: Without clubbing, cyanosis or gross edema. His right great toe and foot are dressed with a wound VAC. SKIN: Warm to touch without signs of rash. NEUROLOGIC: He is nonfocal. PSYCHIATRIC: Affect is pleasant IV: PICC LUE clean Labs Lab Laboratory Tests Test 01/25/19 11:37 01/25/19 17:04 01/25/19 20:09 01/26/19 07:16 Glucose (Fingerstick) 169 mg/dL (70-99) 111 mg/dL (70-99) 182 mg/dL (70-99) 121 mg/dL (70-99) Micro Microbiology 01/23/19 Anaerobic/Aerobic Culture, Resulted Pending 01/23/19 Anaerobic Culture Result 1 (TATE), Resulted Pending 01/23/19 Aerobic Culture, Resulted Pending 01/23/19 Aerobic Culture Result 1 (TATE), Resulted Pending 01/23/19 Gram Stain - Final, Resulted 01/23/19 Gram Stain Result 1 (TATE) - Final, Resulted 01/23/19 Gram Stain Result 2 (TATE) - Final, Resulted Objective Assessment R great toe Osteomyelitis S/p open R great toe amputation 01/23 - cults pending MSSA - d/w lab jesse PCN allergy - has tolerated Amoxicillin DM S/p Dexamethasone 01/23 Plan Plan of Care Discont Vanc/Zosyn Begin Cefazolin anticipate 4 to 6 weeks. Discussed home options and he stated if he could afford it would prefer Daily Rocephin 2 gm IV q 24. I explained off label use but he wants to be at home if possible. Discussed Daptomycin but he did not want to entertain the cost. I also explained outpatient daily but transportation is a potential issue. D/w Dr. Howard who states he will not be able to afford home care with vac. Will need CBC/Sed rate/Cr Q Tuesday and faxed to [phone]. If does go home on Rocephin he will need CMP/CBC/sed rate Q tuesday F/u ID office 2 weeks [phone] D/w MARIELLA Abreu MD January 26, 2019 08:52
--- NOTE | 2019-01-26 09:00 | NUR ---
Wound Care Pt's wound vac approved, but pt's potential OOP is approx. $640/month, which pt has already stated he is on limited income and cannot afford. Will await d/c disposition.
--- NOTE | 2019-01-26 09:07 | PATHOLOGY ---
[facility] Accession Number: [id number] . 01 Material submitted: . big toe - RIGHT BIG TOE. Modifiers: right . 01 Clinical history: . Right great toe osteomyelitis . 02 Diagnosis: Right great toe amputation: - Focal ulceration and necrosis of toe with acute cellulitis and acute osteomyelitis. (JPM/db; 01/25/2019) LBQ/01/25/2019 . 02 Electronically signed: . Jake Kraft MD, Pathologist NPI- [id number] . 01 Gross description: . The specimen is received in formalin, labeled "Pito Jung, right big toe". Received is an amputated digit measuring 5.5 x 3.8 x 3.3 cm in greatest dimensions. The bone margin is jagged in appearance. The bone and soft tissue margins are inked black. The nail is absent. The epidermal surface displays a poorly circumscribed, irregular in contour and ulcerated to necrotic light sanders lesion measuring 3.8 x 1.9 cm, which is 0.6 cm from the closest skin margin. A full-thickness longitudinal cross-section is submitted from proximal to distal aspects in cassettes A1 and A2, following the decalcification. Additional correspondence representative sections of the lesion to show relationship with the skin margin are submitted in cassette A3. (CAA; 01/24/2019) QAC/QAC . 02 Pathologist provided ICD-10: M86.171, L97.519, L03.031 . 02 CPT . 085282, 703396 Specimen Comment: A courtesy copy of this report has been sent to Specimen Comment: [phone], , . Specimen Comment: Report sent to ,DR ARGUETA / DR JOY Performed at: 01 [facility] [address], [place], [place] [id number] MD Frederick Castillo MD Phone: [phone] Performed at: 02 [facility] [address], [place] [id number] MD Jake Kraft MD Phone: [phone]
--- NOTE | 2019-01-26 09:13 | PDOC ---
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 Noted red, warm and 3.3x4.2x2.2cm lesion with palpable bone. 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 He checks his blood glucose twice daily and states that he is been running in the low 100s on average. Patient states that he has had problems with the right first toe and has lost his toenail many years ago and had followed with wound clinic this past September, states it improved. 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 No recent sick contacts. No fever or chills He has been washing it and placing antibiotic ointment daily. S/p amputation, wound vac and PICC placement. Awaiting cultures, looks like MSSA staph thus far. He is pain free, feeling well, states he would like to do antibiotics at home. A bit less depressed today, did not actually lose his job. Restarted his metformin. Vitals Vitals Vital Signs Date Time Temp Pulse Resp B/P (MAP) Pulse Ox O2 Delivery O2 Flow Rate FiO2 01/26/19 06:30 97.7 64 17 153/75 (101) 98 Room Air 97.7 Physical Exam Physical Exam CONSTITUTIONAL: He is very pleasant, he is cooperative. He is in no acute distress. He is sitting up in bed. HEENT: Pupils are equal and reactive. Oral cavity, pharynx is clear with good dentition. NECK: Supple, no JVD. LUNGS: Clear to auscultation. HEART: S1, S2. ABDOMEN: Soft, nontender, nondistended with positive bowel sounds. EXTREMITIES: Without clubbing, cyanosis or gross edema. His right great toe and foot are dressed with a wound VAC. SKIN: Warm to touch without signs of rash. NEUROLOGIC: He is nonfocal. PSYCHIATRIC: Affect is pleasant IV: PICC LUE clean General: Alert, Oriented X3, Cooperative, No acute distress Heart: Regular rate, Normal S1, Normal S2, No murmurs Abdomen: Normal bowel sounds, Soft, No tenderness, No hepatosplenomegaly, No masses Extremities: No clubbing, No cyanosis, No edema, Normal pulses, Other (Right great toe tenderness and swelling) Skin: Other (Right great toe with large ulceration with palpable bone and red, warm, tender) Labs LABS Laboratory Tests Test 01/25/19 11:37 01/25/19 17:04 01/25/19 20:09 01/26/19 07:16 Glucose (Fingerstick) 169 mg/dL (70-99) 111 mg/dL (70-99) 182 mg/dL (70-99) 121 mg/dL (70-99) Comment Review of Relevant I have reviewed the following items alis (where applicable) has been applied. Labs Laboratory Tests Test 01/24/19 11:35 01/24/19 16:38 01/24/19 21:01 01/25/19 04:30 Glucose (Fingerstick) 191 mg/dL (70-99) 143 mg/dL (70-99) 195 mg/dL (70-99) Sodium Level 141 mmol/L (136-145) Potassium Level 3.8 mmol/L (3.5-5.1) Chloride Level 105 mmol/L (98-107) Carbon Dioxide Level 28 mmol/L (21-32) Anion Gap 8 (6-14) Blood Urea Nitrogen 18 mg/dL (8-26) Creatinine 1.1 mg/dL (0.7-1.3) Estimated GFR (Cockcroft-Gault) 67.4 Glucose Level 143 mg/dL (70-99) Calcium Level 9.1 mg/dL (8.5-10.1) Albumin 2.7 g/dL (3.4-5.0) Prealbumin 16.0 mg/dL (16.0-42.0) Test 01/25/19 07:21 01/25/19 11:37 01/25/19 17:04 01/25/19 20:09 Glucose (Fingerstick) 120 mg/dL (70-99) 169 mg/dL (70-99) 111 mg/dL (70-99) 182 mg/dL (70-99) Test 01/26/19 07:16 Glucose (Fingerstick) 121 mg/dL (70-99) Laboratory Tests Test 01/25/19 11:37 01/25/19 17:04 01/25/19 20:09 01/26/19 07:16 Glucose (Fingerstick) 169 mg/dL (70-99) 111 mg/dL (70-99) 182 mg/dL (70-99) 121 mg/dL (70-99) Microbiology 01/23/19 Anaerobic/Aerobic Culture, Resulted Pending 01/23/19 Anaerobic Culture Result 1 (TATE), Resulted Pending 01/23/19 Aerobic Culture - Preliminary, Resulted 01/23/19 Aerobic Culture Result 1 (TATE) - Preliminary, Resulted 01/23/19 Gram Stain - Final, Resulted 01/23/19 Gram Stain Result 1 (TATE) - Final, Resulted 01/23/19 Gram Stain Result 2 (TATE) - Final, Resulted Medications Current Medications Ondansetron HCl (Zofran) 4 mg PRN Q6HRS PRN IV NAUSEA/VOMITING; Start 01/22/19 at 15:15 Morphine Sulfate (Morphine Sulfate) 2 mg PRN Q1HR PRN IV PAIN; Start 01/22/19 at 15:15 Acetaminophen/ Hydrocodone Bitart (Lortab 5/325) 1 tab PRN Q4HRS PRN PO MILD PAIN; Start 01/22/19 at 15:15 Acetaminophen (Tylenol) 650 mg PRN Q6HRS PRN PO Headaches, Temp > 101.5F; Start 01/22/19 at 15:15 Senna/Docusate Sodium (Senna Plus) 1 tab BID PO Last administered on 01/24/19at 21:20; Start 01/22/19 at 21:00 Magnesium Hydroxide (Milk Of Magnesia) 2,400 mg PRN Q12HR PRN PO CONSTIPATION; Start 01/22/19 at 15:15 Heparin Sodium (Porcine) (Heparin Sodium) 5,000 unit Q8HRS SQ Last administered on 01/24/19at 21:28; Start 01/22/19 at 22:00 Insulin Glargine (Lantus) 5 units QHS SQ Last administered on 01/25/19at 20:50; Start 01/22/19 at 21:00 Insulin Human Lispro (HumaLOG) 0-7 UNITS TIDWMEALHC SQ Last administered on 01/25/19at 12:12; Start 01/22/19 at 17:00 Dextrose (Dextrose 50%-Water Syringe) 12.5 gm PRN Q15MIN PRN IV SEE COMMENTS; Start 01/22/19 at 15:15 Vancomycin HCl 1.25 gm/Sodium Chloride 250 ml @ 167 mls/hr Q12H IV Last administered on 01/26/19at 04:59; Start 01/22/19 at 17:00 Ceftriaxone Sodium (Rocephin) 1 gm Q24H IVP Last administered on 01/22/19at 17:11; Start 01/22/19 at 16:00; Stop 01/23/19 at 11:07; Status DC Vancomycin HCl (Vanco Per Pharmacy) 1 each PRN DAILY PRN MC SEE COMMENTS Last administered on 01/25/19at 11:21; Start 01/22/19 at 16:45 Vancomycin HCl (Vancomycin Trough Level) 1 each 1X ONCE MC Last administered on 01/24/19at 04:30; Start 01/24/19 at 04:30; Stop 01/24/19 at 04:31; Status DC Sevoflurane (Ultane) 60 ml STK-MED ONCE IH ; Start 01/23/19 at 09:30; Stop 01/23/19 at 09:31; Status DC Midazolam HCl (Versed) 2 mg STK-MED ONCE .ROUTE ; Start 01/23/19 at 09:30; Stop 01/23/19 at 19:21; Status DC Fentanyl Citrate (Fentanyl 2ml Vial) 100 mcg STK-MED ONCE .ROUTE ; Start 01/23/19 at 09:30; Stop 01/23/19 at 09:31; Status DC Dexamethasone Sodium Phosphate (Decadron) 4 mg STK-MED ONCE .ROUTE ; Start 01/23/19 at 09:31; Stop 01/23/19 at 09:32; Status DC Ondansetron HCl (Zofran) 4 mg PRN Q6HRS PRN IV NAUSEA/VOMITING; Start 01/23/19 at 09:45; Stop 01/23/19 at 19:21; Status DC Fentanyl Citrate (Fentanyl 2ml Vial) 25 mcg PRN Q5MIN PRN IV MILD PAIN; Start 01/23/19 at 09:45; Stop 01/23/19 at 19:21; Status DC Fentanyl Citrate (Fentanyl 2ml Vial) 50 mcg PRN Q5MIN PRN IV MODERATE TO SEVERE PAIN; Start 01/23/19 at 09:45; Stop 01/23/19 at 19:21; Status DC Morphine Sulfate (Morphine Sulfate) 1 mg PRN Q10MIN PRN IV SEVERE PAIN; Start 01/23/19 at 09:45; Stop 01/23/19 at 19:21; Status DC Ringer's Solution 1,000 ml @ 30 mls/hr Q24H IV Last administered on 01/23/19at 09:45; Start 01/23/19 at 09:45; Stop 01/23/19 at 19:21; Status DC Hydromorphone HCl (Dilaudid) 0.5 mg PRN Q10MIN PRN IV SEV PAIN, Second choice; Start 01/23/19 at 09:45; Stop 01/23/19 at 19:21; Status DC Prochlorperazine Edisylate (Compazine) 5 mg PACU PRN PRN IV NAUSEA, MRX1; Start 01/23/19 at 09:45; Stop 01/23/19 at 19:21; Status DC Propofol 20 ml @ As Directed STK-MED ONCE IV ; Start 01/23/19 at 09:58; Stop 01/23/19 at 19:21; Status DC Lidocaine HCl (Lidocaine Pf 2% Vial) 5 ml STK-MED ONCE .ROUTE ; Start 01/23/19 at 09:58; Stop 01/23/19 at 09:59; Status DC Ondansetron HCl (Zofran) 4 mg STK-MED ONCE .ROUTE ; Start 01/23/19 at 09:58; Stop 01/23/19 at 09:59; Status DC Ephedrine Sulfate (ePHEDrine PF IN SALINE SYRINGE) 50 mg STK-MED ONCE IV ; Start 01/23/19 at 10:11; Stop 01/23/19 at 10:12; Status DC Piperacillin Sod/ Tazobactam Sod 3.375 gm/Sodium Chloride 50 ml @ 100 mls/hr Q6HRS IV Last administered on 01/26/19at 06:20; Start 01/23/19 at 12:00 Lactobacillus Rhamnosus (Culturelle) 1 cap BID PO Last administered on 01/25/19at 20:43; Start 01/23/19 at 21:00 Metformin HCl (Glucophage Xr) 1,000 mg DAILYBFRSUP PO Last administered on 01/25/19at 17:31; Start 01/25/19 at 17:00 Citalopram Hydrobromide (CeleXA) 10 mg QHS PO ; Start 01/25/19 at 21:00 Active Scripts Active Reported Metformin Hcl Er (Metformin Hcl) 500 Mg Tab.er.24h 1,000 Mg PO DAILYWBKFT Steglatro (Ertugliflozin Pidolate) 15 Mg Tablet 15 Mg PO DAILY Jardiance (Empagliflozin) 25 Mg Tablet 25 Mg PO DAILY Vitals/I & O Vital Sign - Last 24 Hours 01/25/19 01/25/19 01/25/19 01/25/19 11:03 15:00 19:00 19:30 Temp 98.3 97.9 98.0 98.3 97.9 98.0 Pulse 70 72 67 Resp 14 14 16 B/P (MAP) 121/57 (78) 147/75 (99) 115/62 (79) Pulse Ox 98 97 96 O2 Delivery Room Air Room Air Room Air Room Air 01/25/19 01/26/19 01/26/19 22:52 02:59 06:30 Temp 97.9 97.8 97.7 97.9 97.8 97.7 Pulse 73 70 64 Resp 17 16 17 B/P (MAP) 130/71 (90) 131/78 (95) 153/75 (101) Pulse Ox 98 98 98 O2 Delivery Room Air Room Air Room Air Intake and Output 01/25/19 01/25/19 01/26/19 15:00 23:00 07:00 Intake Total 350 ml Balance 350 ml MEGA ARGUETA MD January 26, 2019 09:13
[2019-01-26] MEDS: LACTOBACILLUS RHAMNOSUS GG 1 CAPSULE. PO SCH (09:43)
[2019-01-26] MEDS: SENNOSIDES/DOCUSATE 8.6/50MG TABLET. PO SCH (09:43)
[2019-01-26 11:00] VITALS: BP 134/61
--- NOTE | 2019-01-26 14:12 | NUR ---
Wound Care: Provided pt with home wound vac and applied new dressing. Pictured and measured per protocol (see detailed assessment). Skin prep appled to periwound along with ostomy ring, Biopad to wound bed covering exposed bone. Placed one piece of black foam to wound bed and bridged vac to R medial calf. Education provided regarding dressing care, clinic follow up, nutrition, and s/s to notify MD about. No concern at this time.
[2019-01-26] MEDS ORDERED: CITA10TA8 PO (14:22)
--- NOTE | 2019-01-26 14:29 | SNU/HH DC ---
DISCHARGE WITH HOME HEALTH DISCHARGE INFORMATION: Discharge Date: January 26, 2019 Final Diagnosis: Osteomyelitis of right great toe Condition on Discharge: Stable CODE STATUS: Code Status: Full HOME HEALTH: Face to Face: I certify this patient is under my care and that I, or a nurse practitioner or physician's emergency veterinary assistant working with me, had a face to face encounter that meets the physician face to face encounter requirements with this patient on 01/1719. Medical Complications: DM [facility] For: Admin/Educate Injections, IV Infusion Therapy RN For Eval/Treatment: No Pt Meets Homebound Status: Unsteady balance w/ amb, POST DISCHARGE ORDERS: Activity Instructions for Disc: No restrictions Weight Bearing Status after Di: No restrictions CHECKS AFTER DISCHARGE: Checks after discharge: Check blood press - daily, Check blood sugar, ac/hs, Check your Temp as needed TREATMENT/EQUIPMENT ORDERS: Adaptive Equipment Issued: None Infusion Equipment, home use: PICC Line CERTIFICATION STATEMENT: Certification Statement: Certification Statement: Based on the above finding, I certify that this patient is confined to the home and needs intermittent snf care, physical therapy and/or speech therapy, or continues to need occupational therapy.~ This patient is under my care, and I have initiated the establishment of the plan of care.~ This patient will be followed by myself or a community physician who will periodically review the plan of care. Home Meds Active Scripts Citalopram Hydrobromide (CELEXA) 10 Mg Tablet, 10 MG PO QHS for depressed mood for 30 Days, #30 TAB 5 Refills Prov:MEGA ARGUETA MD 01/26/19 Reported Medications Metformin Hcl (METFORMIN HCL ER) 500 Mg Tab.er.24h, 1000 MG PO DAILYWBKFT for ANTI-DIABETIC, TAB 0 Refills 01/22/19 Ertugliflozin Pidolate (Steglatro) 15 Mg Tablet, 15 MG PO DAILY for DM II, TAB 01/22/19 Empagliflozin (Jardiance) 25 Mg Tablet, 25 MG PO DAILY for DM II, TAB 01/22/19 MEGA ARGUETA MD January 26, 2019 14:29
--- NOTE | 2019-01-26 14:33 | PDOC3 ---
Discharge Summary Visit Information Date of Admission: January 22, 2019 Date of Discharge: January 26, 2019 Admitting Diagnosis: Right toe osteomyelitis Final Diagnosis Right toe osteomyelitis Brief Hospital Course Allergies Allergies Coded Allergies Type Severity Reaction Last Updated Verified Penicillins Allergy Intermediate 01/22/19 Yes amitriptyline Allergy Intermediate 01/22/19 Yes Vital Signs Vital Signs Date Time Temp Pulse Resp B/P (MAP) Pulse Ox O2 Delivery O2 Flow Rate FiO2 01/26/19 11:00 97.5 70 19 134/61 (85) 98 Room Air 97.5 Lab Results Laboratory Tests Test 01/24/19 16:38 01/24/19 21:01 01/25/19 04:30 01/25/19 07:21 Glucose (Fingerstick) 143 mg/dL (70-99) 195 mg/dL (70-99) 120 mg/dL (70-99) Sodium Level 141 mmol/L (136-145) Potassium Level 3.8 mmol/L (3.5-5.1) Chloride Level 105 mmol/L (98-107) Carbon Dioxide Level 28 mmol/L (21-32) Anion Gap 8 (6-14) Blood Urea Nitrogen 18 mg/dL (8-26) Creatinine 1.1 mg/dL (0.7-1.3) Estimated GFR (Cockcroft-Gault) 67.4 Glucose Level 143 mg/dL (70-99) Calcium Level 9.1 mg/dL (8.5-10.1) Albumin 2.7 g/dL (3.4-5.0) Prealbumin 16.0 mg/dL (16.0-42.0) Test 01/25/19 11:37 01/25/19 17:04 01/25/19 20:09 01/26/19 07:16 Glucose (Fingerstick) 169 mg/dL (70-99) 111 mg/dL (70-99) 182 mg/dL (70-99) 121 mg/dL (70-99) Test 01/26/19 11:00 Glucose (Fingerstick) 158 mg/dL (70-99) Laboratory Tests Test 01/25/19 17:04 01/25/19 20:09 01/26/19 07:16 01/26/19 11:00 Glucose (Fingerstick) 111 mg/dL (70-99) 182 mg/dL (70-99) 121 mg/dL (70-99) 158 mg/dL (70-99) Brief Hospital Course Mr Jung is a 64yo M w/ PMHx DM2, peripheral neuropathy, obesity who presents directly from wound care clinic today for a right first toe diabetic foot infection. Noted red, warm and 3.3x4.2x2.2cm lesion with palpable bone. 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 He checks his blood glucose twice daily and states that he is been running in the low 100s on average. Patient states that he has had problems with the right first toe and has lost his toenail many years ago and had followed with wound clinic this past September, states it improved. 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 No recent sick contacts. No fever or chills He has been washing it and placing antibiotic ointment daily. S/p amputation, wound vac and PICC placement. Awaiting cultures, looks like MSSA staph thus far. He is pain free, feeling well, states he would like to do antibiotics at home. A bit less depressed today, did not actually lose his job. Restarted his metformin. Right first toe osteomyelitis - s/p amputation, now with wound vac - Home with 5 weeks of rocephin to f/u weekly CMP, CBC, Sed rate and office fu with ID for PICC removal after completion of therapy Right toe Cellulitis - cont antibiotics DM - decent control Peripheral neuropathy - feels ok insomnia, declines pharm therapy Greater than 30 minutes spent on discharge. Discharge Information Condition at Discharge: Improved Follow Up: Weeks (2) Disposition/Orders: D/C to Home Scheduled Citalopram Hydrobromide (Celexa) 10 Mg Tablet, 10 MG PO QHS for depressed mood for 30 Days, #30 Ref 5 Prescribed by: MEGA ARGUETA MD on 01/26/19 1422 Empagliflozin (Jardiance) 25 Mg Tablet, 25 MG PO DAILY for DM II, (Reported) Entered as Reported by: MARTA LENNON on 01/22/19 1420 Last Taken: Unknown Dose on 01/22/19 0800 Last Action: Reviewed on 01/22/191449 by MARTA LENNON Ertugliflozin Pidolate (Steglatro) 15 Mg Tablet, 15 MG PO DAILY for DM II, (Reported) Entered as Reported by: MARTA LENNON on 01/22/191419 Last Taken: Unknown Dose on 01/22/19 0800 Last Action: Reviewed on 01/22/191449 by MARTA LENNON Metformin Hcl (Metformin Hcl Er) 500 Mg Tab.er.24h, 1,000 MG PO DAILYWBKFT for ANTI-DIABETIC, Ref 0 (Reported) Entered as Reported by: MARTA LENNON on 01/22/191419 Last Taken: Unknown Dose on 01/22/19 0800 Last Action: Converted on 01/25/19 154 by MD KENDALL IBANEZ,MEGA Jack MD January 26, 2019 14:33
--- NOTE | 2019-01-26 15:06 | NUR ---
[facility] following Pt. Pt states he will use his credit card to pay for wound vac. Pt notified regarding cost for IV Rocephin. Orders faxed to [facility] and [facility] outpatient. Bed side teaching will be provided by [facility] and pt will come on 01/29/19 at 1000 for labs/dressing changes. [facility] will contact pt regarding delivery time. Pt verbalized understanding. RN notified. Addendum: 01/26/19 at 1513 by GARY ALTMAN Pt will follow up with wound care clinic for wound care as [facility] is not able to find agency that is willing to take pt on service.
--- NOTE | 2019-01-26 16:18 | NUR ---
Discharge teaching provided written and verbal to pt,understanding verbalized. Dismissed to home with all belongings accompanied by his brother. Transported to exit per w/c at 1545.
== END 2019-01-26 15:45 | disposition home or self-care (01) | DRG 617 ==
LOC: 5 NORTH 13:52 → EDSEX 13:52
PROVIDERS: ADMIT Internal Medicine; ATTEND Internal Medicine
PROC: 02HV33Z Insertion of Infusion Device into Superior Vena Cava, Percutaneous Approach (ICD-10-PCS; 2019-01-23)
PROC: B548ZZA Ultrasonography of Superior Vena Cava, Guidance (ICD-10-PCS; 2019-01-23)
PROC: 0Y6P0Z1 Detachment at Right 1st Toe, High, Open Approach (ICD-10-PCS; principal; 2019-01-23 10:45)
DX: E11.69 Type 2 diabetes mellitus with other specified complication (principal); E11.52 Type 2 diabetes mellitus with diabetic peripheral angiopathy with gangrene; M86.8X7 Other osteomyelitis, ankle and foot; I96 Gangrene, not elsewhere classified; L97.516 Non-pressure chronic ulcer of other part of right foot with bone involvement without evidence of necrosis; E11.628 Type 2 diabetes mellitus with other skin complications; L03.031 Cellulitis of right toe; E11.42 Type 2 diabetes mellitus with diabetic polyneuropathy; E66.9 Obesity, unspecified; Z96.612 Presence of left artificial shoulder joint; Z96.642 Presence of left artificial hip joint; Z96.652 Presence of left artificial knee joint; E11.621 Type 2 diabetes mellitus with foot ulcer; G47.00 Insomnia, unspecified; I10 Essential (primary) hypertension; Z83.3 Family history of diabetes mellitus; Z88.0 Allergy status to penicillin; Z68.25 Body mass index [BMI] 25.0-25.9, adult; Z88.8 Allergy status to other drugs, medicaments and biological substances; Z79.4 Long term (current) use of insulin
CPT/HCPCS: 36415; 36569; 80048; 80202; 82040; 82962; 83036; 84134; 85025; 85651; 87071; 87075; 87186; 88305; 88311; 93005; A7015; C1781; J0171; J0696; J1100; J1644; J1815; J2001; J2250; J2405; J2543; J2704; J3010; J3370; J7050; J7120; A4461; J7030

== ENCOUNTER 2019-04-26 13:56 | Inpatient (IN) | payer OTHER ==
[~2019-04-26] VITALS: Ht 177.8 cm; Wt 84.8 kg
[~2019-04-26 13:56] MED LIST changes: -METF500T9 PO
[2019-04-26] MEDS ORDERED: PIPERACILLIN/TAZOBACTAM 4.5 GM in IV NORMAL SALINE 100ML 100 ML IV ONE (15:30)
[2019-04-26] MEDS ORDERED: VANCOMYCIN PER PHARMACY MC ONE (15:30)
[2019-04-26] MEDS ORDERED: ACETAMINOPHEN 500 MG TABLET PO ONE (15:30)
[2019-04-26 15:37] LABS: BASO # 0.1 x10^3/uL (0.0-0.2); BASO % 1 % (0-3); EOS % 0 % (0-3); HEMATOCRIT 38.2 % (39.0-53.0); HEMOGLOBIN 12.6 g/dL (13.0-17.5); LYMPH # 1.5 x10^3/uL (1.0-4.8); LYMPH % 8 % (24-48); MEAN CORPUSCULAR HEMOGLOBIN 27 pg (25-35); MEAN CORPUSCULAR HGB CONC 33 g/dL (31-37); MEAN CORPUSCULAR VOLUME 82 fL (79-100); MONO # 1.3 x10^3/uL (0.0-1.1); MONO % 7 % (0-9); NEUT # 16.3 x10^3/uL (1.8-7.7); NEUT % 85 % (31-73); PLATELET COUNT 308 x10^3/uL (140-400); RED BLOOD COUNT 4.67 x10^6/uL (4.30-5.70); RED CELL DISTRIBUTION WIDTH 14.3 % (11.5-14.5); WHITE BLOOD COUNT 19.2 x10^3/uL (4.0-11.0)
[2019-04-26 15:47] LABS: PROTHROMBIN TIME PATIENT 13.7 SEC (11.7-14.0)
[2019-04-26 15:55] LABS: CALCIUM 9.6 mg/dL (8.5-10.1); CREATININE 1.5 mg/dL (0.7-1.3); GFR 47.1; POTASSIUM 4.6 mmol/L (3.5-5.1)
[2019-04-26] MEDS: IV NORMAL SALINE 1000ML BAG 1,000 ML IV SCH ×3 (15:55→16:34)
[2019-04-26] MEDS ORDERED: VANCOMYCIN 2 GM in IV NORMAL SALINE 500ML BAG 500 ML IV ONE (16:00)
[2019-04-26 16:01] LABS: ALBUMIN 3.2 g/dL (3.4-5.0); ALBUMIN/GLOBULIN RATIO 0.5 (1.0-1.7); TOTAL BILIRUBIN 1.2 mg/dL (0.2-1.0); TOTAL PROTEIN 9.4 g/dL (6.4-8.2)
[2019-04-26 16:03] LABS: % BANDS 9 % (0-9); % BASOS 1 % (0-3); % LYMPHS 3 % (24-48); % MONOS 11 % (0-10); % SEGS 76 % (35-66); PLT ESTIMATE ADEQUATE (ADEQUATE)
--- NOTE | 2019-04-26 16:07 | RAD ---
FOOT RIGHT 3V 04/26/2019 3:27 PM INDICATION: Diabetic with osteomyelitis of the right second toe COMPARISON: None available. TECHNIQUE: 3 views the right foot are provided. FINDINGS: Osteotomy changes are identified at the base of the proximal phalanx of the first digit. There is soft tissue swelling involving the first and second digits with subcutaneous gas. No acute fracture or dislocation is identified. Subcortical lucency is not definitively visualized. No definite osseous erosions. IMPRESSION: 1. Osteotomy changes are identified at the base of the proximal phalanx of the first digit. Soft tissue swelling and subcutaneous gas is noted along the first digit and second digit. No definite osseous changes are visualized. Further characterization with MRI or triple phase bone scan may be of benefit. Electronically signed by: Breonna Patel MD (04/26/2019 4:04 PM) [id number]
--- NOTE | 2019-04-26 16:08 | RAD ---
Chest radiograph 04/26/2019 3:27 PM INDICATION: Diabetes with osteomyelitis of the right second toe COMPARISON: October 30, 2014 TECHNIQUE: Portable upright frontal view of the chest is provided. FINDINGS: The cardiomediastinal silhouette is within normal limits. There are no pleural effusions. There is no pulmonary vascular congestion. There is no pneumothorax. The lungs are clear. Stable 6 mm calcified granuloma the left lung base. No significant osseous abnormality is identified. Left shoulder arthroplasty is identified. IMPRESSION: No acute cardiopulmonary process. Electronically signed by: Breonna Patel MD (04/26/2019 4:05 PM) [id number]
[2019-04-26] MEDS ORDERED: cefTRIAXone IV Push 1 GM VIAL. IVP SCH (17:00)
[2019-04-26 19:20] VITALS: BP 125/106
[2019-04-26] MEDS ORDERED: ONDANSETRON PF 4 MG/2 ML VIAL. IV PRN (20:30)
[2019-04-26] MEDS ORDERED: IV NORMAL SALINE 1000ML BAG 1,000 ML IV ONE (20:30)
--- NOTE | 2019-04-26 21:45 | PHYS DOC ---
Past Medical History Past Medical History: Diabetes-Type II (EDWARD TRUJILLO APRN) Past Surgical History: Other Additional Past Surgical Histo: R great toe amputated (EDWARD TRUJILLO APRN) Alcohol Use: None Drug Use: None (EDWARD TRUJILLO APRN) Adult General Chief Complaint Chief Complaint: TOE PROBLEM HPI HPI Patient is a 64 year old female with history of diabetes type 2, neuropathy, amputation of the right great toe in January 2019, who presents to the ED today with a necrotic right second toe. Patient states on Tuesday he went to a football game, he states his right second toenail fell off, he states a couple days later he noted the area has become black and is draining yellow purulent material. He states he does not have any feelings on his toes. Denies any fever though he is febrile on arrival to the ED. Denies any nausea vomiting. (EDWARD TRUJILLO APRN) Review of Systems Review of Systems Constitutional: Denies fever or chills [] Eyes: Denies change in visual acuity, redness, or eye pain [] HENT: Denies nasal congestion or sore throat [] Respiratory: Denies cough or shortness of breath [] Cardiovascular: No additional information not addressed in HPI [] GI: Denies abdominal pain, nausea, vomiting, bloody stools or diarrhea [] : Denies dysuria or hematuria [] Musculoskeletal: Denies back pain or joint pain [] Integument: Reports necrotic right second toe Neurologic: Denies headache, focal weakness or sensory changes [] All other systems were reviewed and found to be within normal limits, except as documented in this note. (EDWARD TRUJILLO APRN) Current Medications Current Medications Current Medications Medications (Trade) Dose Ordered Sig/[facility] Start Time Stop Time Status Last Admin Dose Admin Acetaminophen (Tylenol) 1,000 mg 1X ONCE 04/26/19 15:30 04/26/19 15:31 DC 04/26/19 16:34 1,000 MG Ceftriaxone Sodium (Rocephin) 1 gm Q24H 04/26/19 17:00 04/27/19 13:11 DC 04/26/19 16:34 1 GM Piperacillin Sod/ Tazobactam Sod 4.5 gm/Sodium Chloride 100 ml @ 200 mls/hr 1X ONCE 04/26/19 15:30 04/26/19 15:59 UNV Sodium Chloride 1,000 ml @ 2,190 mls/hr Q28M 04/26/19 15:27 04/26/19 16:27 DC 04/26/19 16:34 2,190 MLS/HR Vancomycin HCl (Vanco Per Pharmacy) 1 each 1X ONCE 04/26/19 15:30 04/26/19 18:08 DC Vancomycin HCl 2 gm/Sodium Chloride 500 ml @ 250 mls/hr 1X ONCE 04/26/19 16:00 04/26/19 17:59 DC 04/26/19 16:34 250 MLS/HR (AMANUEL HICKEY DO) Allergies Allergies Allergies Coded Allergies Type Severity Reaction Last Updated Verified Penicillins Allergy Intermediate 02/19/19 Yes amitriptyline Allergy Intermediate 02/19/19 Yes (AMANUEL HICKEY DO) Physical Exam Physical Exam Constitutional: Well developed, well nourished, no acute distress, non-toxic appearance. [] HENT: Normocephalic, atraumatic, bilateral external ears normal, oropharynx moist, no oral exudates, nose normal. [] Eyes: PERRLA, EOMI, conjunctiva normal, no discharge. [] Neck: Normal range of motion, no tenderness, supple, no stridor. [] Cardiovascular:Heart rate regular rhythm, no murmur [] Lungs & Thorax: Bilateral breath sounds clear to auscultation [] Abdomen: Bowel sounds normal, soft, no tenderness, no masses, no pulsatile masses. [] Skin: Missed right great toe. Right second toe three quarters of the toe tip appears black and necrotic. There is yellow drainage around the proximal end of the toe. Patient has no sensation to all his toes. +1 right pedal pulse. The surrounding cellulitis from the right second toe to half of the foot ventral aspect. The foot feels warm Back: No tenderness, no CVA tenderness. [] Extremities: No tenderness, no cyanosis, no clubbing, ROM intact, no edema. [] Neurologic: Alert and oriented X 3, normal motor function, normal sensory function, no focal deficits noted. [] Psychologic: Affect normal, judgement normal, mood normal. [] (EDWARD TRUJILLO APRN) Current Patient Data Vital Signs Vital Signs Date Time Temp Pulse Resp B/P (MAP) Pulse Ox O2 Delivery O2 Flow Rate FiO2 8/15/19 18:21 115 20 132/93 (106) Room Air 04/26/19 17:25 98 04/26/19 14:15 100.8 100.8 (AMANUEL HICKEY DO) Lab Values Laboratory Tests Test 04/26/19 14:35 White Blood Count 19.2 x10^3/uL (4.0-11.0) H Red Blood Count 4.67 x10^6/uL (4.30-5.70) Hemoglobin 12.6 g/dL (13.0-17.5) L Hematocrit 38.2 % (39.0-53.0) L Mean Corpuscular Volume 82 fL (79-100) Mean Corpuscular Hemoglobin 27 pg (25-35) Mean Corpuscular Hemoglobin Concent 33 g/dL (31-37) Red Cell Distribution Width 14.3 % (11.5-14.5) Platelet Count 308 x10^3/uL (140-400) Neutrophils (%) (Auto) 85 % (31-73) H Lymphocytes (%) (Auto) 8 % (24-48) L Monocytes (%) (Auto) 7 % (0-9) Eosinophils (%) (Auto) 0 % (0-3) Basophils (%) (Auto) 1 % (0-3) Neutrophils # (Auto) 16.3 x10^3/uL (1.8-7.7) H Lymphocytes # (Auto) 1.5 x10^3/uL (1.0-4.8) Monocytes # (Auto) 1.3 x10^3/uL (0.0-1.1) H Eosinophils # (Auto) 0.0 x10^3/uL (0.0-0.7) Basophils # (Auto) 0.1 x10^3/uL (0.0-0.2) Segmented Neutrophils % 76 % (35-66) H Band Neutrophils % 9 % (0-9) Lymphocytes % 3 % (24-48) L Monocytes % 11 % (0-10) H Basophils % 1 % (0-3) Platelet Estimate Adequate (ADEQUATE) Prothrombin Time 13.7 SEC (11.7-14.0) Prothrombin Time INR 1.1 (0.8-1.1) Activated Partial Thromboplast Time 36 SEC (24-38) Sodium Level 134 mmol/L (136-145) L Potassium Level 4.6 mmol/L (3.5-5.1) Chloride Level 97 mmol/L (98-107) L Carbon Dioxide Level 27 mmol/L (21-32) Anion Gap 10 (6-14) Blood Urea Nitrogen 19 mg/dL (8-26) Creatinine 1.5 mg/dL (0.7-1.3) H Estimated GFR (Cockcroft-Gault) 47.1 BUN/Creatinine Ratio 13 (6-20) Glucose Level 199 mg/dL (70-99) H Lactic Acid Level 2.2 mmol/L (0.4-2.0) H Calcium Level 9.6 mg/dL (8.5-10.1) Total Bilirubin 1.2 mg/dL (0.2-1.0) H Aspartate Amino Transferase (AST) 24 U/L (15-37) Alanine Aminotransferase (ALT) 38 U/L (16-63) Alkaline Phosphatase 208 U/L (46-116) H Total Protein 9.4 g/dL (6.4-8.2) H Albumin 3.2 g/dL (3.4-5.0) L Albumin/Globulin Ratio 0.5 (1.0-1.7) L Procalcitonin 0.98 ng/mL (0.00-0.10) H Laboratory Tests 04/26/19 14:35 Laboratory Tests 04/26/19 14:35 Microbiology 04/26/19 Blood Culture - Preliminary, Resulted NO GROWTH AFTER 1 DAY (AMANUEL HICKEY DO) EKG EKG [] (EDWARD TRUJILLO APRN) Radiology/Procedures Radiology/Procedures []PROCEDURE: FOOT RIGHT 3V FOOT RIGHT 3V 04/26/2019 3:27 PM INDICATION: Diabetic with osteomyelitis of the right second toe COMPARISON: None available. TECHNIQUE: 3 views the right foot are provided. FINDINGS: Osteotomy changes are identified at the base of the proximal phalanx of the first digit. There is soft tissue swelling involving the first and second digits with subcutaneous gas. No acute fracture or dislocation is identified. Subcortical lucency is not definitively visualized. No definite osseous erosions. IMPRESSION: 1. Osteotomy changes are identified at the base of the proximal phalanx of the first digit. Soft tissue swelling and subcutaneous gas is noted along the first digit and second digit. No definite osseous changes are visualized. Further characterization with MRI or triple phase bone scan may be of benefit. Electronically signed by: Kamron Dc MD (04/26/2019 4:04 PM) [id number] DICTATED and SIGNED BY: KAMRON DC MD DATE: 04/26/19 1604 (EDWARD TRUJILLO APRN) Course & Med Decision Making Course & Med Decision Making Pertinent Labs and Imaging studies reviewed. (See chart for details) This is a 64-year-old male patient with history of diabetes type 2 presenting to the ED today with infected gangrenous of the right second toe. Patient arrives in the ED with a temperature of 100.8, heart rate 111, blood pressure 125/61, O2 sats 97% on room air. Patient was started on the sepsis protocol. CBC with a WBC of 19.2 with a left shift, CMP with creatinine of 1.5, normal B when. Lactic 2.2. Reflex/repeat lactic is in the orders. Patient was given Zosyn and vancomycin in the ED. Was also given 2 L of IV fluid. She sepsis reassessment. X-ray of the right foot was noted for- Osteotomy changes are identified at the base of the proximal phalanx ofthe first digit. Soft tissue swelling and subcutaneous gas is noted along the first digit and second digit Consulted with Dr. Harris who will take the patient to surgery tomorrow Consulted with Dr. Martínez who accepted patient for admission. (EDWARD TRUJILLO APRN) Dragon Disclaimer Dragon Disclaimer This electronic medical record was generated, in whole or in part, using a voice recognition dictation system. (EDWARD TRUJILLO APRN) Departure Departure Impression: Primary Impression: Severe sepsis Additional Impressions: Cellulitis of great toe of right foot Gangrene of toe of right foot Fever Disposition: ADMITTED INPATIENT Admitting Physician: JOSSY (Mauricio) (AMANUEL HICKEY DO) Condition: GUARDED Referrals: JAN JOY MD (PCP) Date and Time of Reassessment Date: January 23, 2019 Time: 17:30 (EDWARD TRUJILLO APRN) Date: January 23, 2019 (AMANUEL HICKEY DO) Fluid Challenge Is the fluid challenge complet: No IBW Target Volume Used: Yes BMI > 30: No (MUTUNGA,[employer]WARD [employer]) Vital Signs Vital Signs: Vital Signs Date Time Temp Pulse Resp B/P (MAP) Pulse Ox O2 Delivery O2 Flow Rate FiO2 04/26/19 18:21 115 20 132/93 (106) Room Air 04/26/19 17:25 98 04/26/19 14:15 100.8 100.8 (HICKEYAMANUEL PANCHAL R DO) Temperature Source: Oral (MUTUNGA,[employer]) Temperature Source: Oral (AMANUEL HICKEY R DO) Respirations Respiratory Effort: Normal Respiratory Pattern: Normal (MUTUNGA,[employer]) Cardiovascular Pulse Rhythm: Regular Heart: Nml rate, reg. rhythm (MUTUNGA,[employer]) Lung Sounds Breath Sounds: Clear (MUTUNGA,[employer]) Capillary Refil Capillary Refill: Rt Hand > 3 seconds (MUTUNGA,[employer]) Peripheral Pulse Pulse Location: Monitor Pulse Strength: Normal (2+) Pulse Assessment Method: Monitor (MUTUNGA,[employer]) Pulse Assessment Method: Monitor (HICKEYAMANUEL PANCHAL R DO) Integumentary Skin: Warm Skin Moisture: Dry Skin Color: warm Fingernail Color: WNL (MUTUNGA,[employer]) Skin Moisture: Dry (AMANUEL HICKEY R ) Attending Signature Attending Signature I have reviewed the PA/LEAD SYSTEMS ENGINEER's note and plan of care. I was available for consultation as needed during the patient's visit in the emergency department. I agree with the clinical impression, plan, and disposition. (AMANUEL HICKEY DO) Problem Qualifiers Additional Impressions: Fever Fever type: unspecified Qualified Codes: R50.9 - Fever, unspecified MUTUNGA,[employer] Apr 26, 2019 21:45 HICKEYAMANUEL PANCHAL DO Apr 27, 2019 18:22
--- NOTE | 2019-04-26 22:05 | PDOC1 ---
History and Physical Date of Admission Date of Admission DATE: 04/26/19 TIME: 22:05 Source Source: Patient History of Present Illness History of Present Illness MR. Jung, is a 64 year old female with history of diabetes type 2, neuropathy, amputation of the right great toe in January 2019, who presents to the ED today with a necrotic right second toe. Patient states on Tuesday he went to a football game, he states his right second toenail fell off, he states a couple days later he noted the area has become black and is draining yellow purulent material. He states he does not have any feelings on his toes. Denies any fever though he is febrile on arrival to the ED. Denies any nausea vomiting. Past Medical History Cardiovascular: No pertinent hx Pulmonary: No pertinent hx CENTRAL NERVOUS SYSTEM: Periperal neuropathy GI: No pertinent hx Heme/Onc: No pertinent hx Hepatobiliary: No pertinent hx Psych: No pertinent hx Rheumatologic: No pertinent hx Infectious disease: No pertinent hx Renal/: No pertinent hx Endocrine: Diabetes Past Surgical History Past Surgical History: Total knee replacement, Other Family History Family History: Diabetes Social History Smoke: No ALCOHOL: none Drugs: None Current Problem List Problem List Problems Medical Problems: (1) Fever Status: Acute (2) Gangrene of toe of right foot Status: Acute (3) Sepsis Status: Acute Current Medications Current Medications Current Medications Sodium Chloride 1,000 ml @ 2,190 mls/hr Q28M IV Last administered on 04/26/19at 16:34; Start 04/26/19 at 15:27; Stop 04/26/19 at 16:27; Status DC Piperacillin Sod/ Tazobactam Sod 4.5 gm/Sodium Chloride 100 ml @ 200 mls/hr 1X ONCE IV ; Start 04/26/19 at 15:30; Stop 04/26/19 at 15:59; Status UNV Vancomycin HCl (Vanco Per Pharmacy) 1 each 1X ONCE MC ; Start 04/26/19 at 15:30; Stop 04/26/19 at 18:08; Status DC Acetaminophen (Tylenol) 1,000 mg 1X ONCE PO Last administered on 04/26/19at 16:34; Start 04/26/19 at 15:30; Stop 04/26/19 at 15:31; Status DC Vancomycin HCl 2 gm/Sodium Chloride 500 ml @ 250 mls/hr 1X ONCE IV Last administered on 04/26/19at 16:34; Start 04/26/19 at 16:00; Stop 04/26/19 at 17:59; Status DC Ceftriaxone Sodium (Rocephin) 1 gm DAILY IVP ; Start 04/27/19 at 09:00; Status UNV Ceftriaxone Sodium (Rocephin) 1 gm Q24H IVP Last administered on 04/26/19at 16:34; Start 04/26/19 at 17:00 Ondansetron HCl (Zofran) 4 mg PRN Q8HRS PRN IV NAUSEA/VOMITING; Start 04/26/19 at 20:30; Stop 04/27/19 at 20:29 Morphine Sulfate (Morphine Sulfate) 4 mg PRN Q2HR PRN IV PAIN; Start 04/26/19 at 20:30; Stop 04/27/19 at 20:29 Sodium Chloride 1,000 ml @ 100 mls/hr 1X ONCE IV Last administered on 04/26/19at 20:41; Start 04/26/19 at 20:30; Stop 04/27/19 at 06:29 Active Scripts Active Celexa (Citalopram Hydrobromide) 10 Mg Tablet 10 Mg PO QHS 30 Days Reported Metformin Hcl Er (Metformin Hcl) 500 Mg Tab.er.24h 1,000 Mg PO DAILYWBKFT Steglatro (Ertugliflozin Pidolate) 15 Mg Tablet 15 Mg PO DAILY Jardiance (Empagliflozin) 25 Mg Tablet 25 Mg PO DAILY Allergies Allergies: Coded Allergies: Penicillins (Verified Allergy, Intermediate, 02/19/19) SWELLING/RINGING IN EAR amitriptyline (Verified Allergy, Intermediate, 02/19/19) BLUE MOODS ROS General: YES: Chills, Fatigue, Malaise PSYCHOLOGICAL ROS: YES: Sleep disturbances Eyes: No Blurry vision, No Decreased vision, No Double vision, No Dry eyes, No Excessive tearing, No Eye Pain, No Itchy Eyes, No Loss of vision, No Photophobia, No Scotomata, No Uses contacts, No Uses glasses, No Other HEENT: No: Heacaches, Visual Changes, Hearing change, Nasal congestion, Nasal discharge, Oral lesions, Sinus pain, Sore Throat, Epistaxis, Sneezing, Snoring, Tinnitus, Vertigo, Vocal changes, Other Respiratory: No: Cough, Hemoptysis, Orthopnea, Pleuritic Pain, Shortness of breath, SOB with excertion, Sputum Changes, Stridor, Tachypnea, Wheezing, Other Cardiovascular: No Chest Pain, No Palpitations, No Orthopnea, No Paroxysmal Noc. Dyspnea, No Edema, No Lt Headedness, No Other Gastrointestinal: No Nausea, No Vomiting, No Abdominal Pain, No Diarrhea, No Constipation, No Melena, No Hematochezia, No Other Genitourinary: No Dysuria, No Frequency, No Incontinence, No Hematuria, No Retention, No Discharge, No Urgency, No Pain, No Flank Pain, No Other, No , No , No , No , No , No , No Musculoskeletal: Yes Gait Disturbance; No Joint Stiffness, No Joint Swelling, No Muscle Pain, No Muscular Weakness, No Pain In:, No Swelling In:, No Other Neurological: No Behavorial Changes, No Bowel/Bladder ControlChng, No Confusion, No Dizziness, No Headaches, No Impaired Coord/balance, No Memory Loss, No Numbness/Tingling, No Seizures, No Speech Problems, No Tremors, No Visual Changes, No Weakness, No Other Skin: Yes Skin Lesion Changes; No Dry Skin, No Eczema, No Hair Changes, No Lumps, No Mole Changes, No Mottling, No Nail Changes, No Pruritus, No Rash, No Other, No Acne Physical Exam General: Alert, Oriented X3, Cooperative, mild distress HEENT: PERRLA, EOMI, Mucous membr. moist/pink Lungs: Clear to auscultation Heart: S1S2, RRR, no gallops Extremities: No clubbing, Normal pulses Skin: No breakdown, Other (right second toe malordorous, discolored, ) Neuro: Normal tone, Sensation intact Psych/Mental Status: Mood NL Vitals Vitals Vital Signs Date Time Temp Pulse Resp B/P (MAP) Pulse Ox O2 Delivery O2 Flow Rate FiO2 04/26/19 20:00 Room Air 04/26/19 19:20 99.2 82 18 125/106 (112) 98 99.2 Labs Labs Laboratory Tests Test 04/26/19 14:35 White Blood Count 19.2 x10^3/uL (4.0-11.0) Red Blood Count 4.67 x10^6/uL (4.30-5.70) Hemoglobin 12.6 g/dL (13.0-17.5) Hematocrit 38.2 % (39.0-53.0) Mean Corpuscular Volume 82 fL (79-100) Mean Corpuscular Hemoglobin 27 pg (25-35) Mean Corpuscular Hemoglobin Concent 33 g/dL (31-37) Red Cell Distribution Width 14.3 % (11.5-14.5) Platelet Count 308 x10^3/uL (140-400) Neutrophils (%) (Auto) 85 % (31-73) Lymphocytes (%) (Auto) 8 % (24-48) Monocytes (%) (Auto) 7 % (0-9) Eosinophils (%) (Auto) 0 % (0-3) Basophils (%) (Auto) 1 % (0-3) Neutrophils # (Auto) 16.3 x10^3/uL (1.8-7.7) Lymphocytes # (Auto) 1.5 x10^3/uL (1.0-4.8) Monocytes # (Auto) 1.3 x10^3/uL (0.0-1.1) Eosinophils # (Auto) 0.0 x10^3/uL (0.0-0.7) Basophils # (Auto) 0.1 x10^3/uL (0.0-0.2) Segmented Neutrophils % 76 % (35-66) Band Neutrophils % 9 % (0-9) Lymphocytes % 3 % (24-48) Monocytes % 11 % (0-10) Basophils % 1 % (0-3) Platelet Estimate Adequate (ADEQUATE) Prothrombin Time 13.7 SEC (11.7-14.0) Prothromb Time International Ratio 1.1 (0.8-1.1) Activated Partial Thromboplast Time 36 SEC (24-38) Sodium Level 134 mmol/L (136-145) Potassium Level 4.6 mmol/L (3.5-5.1) Chloride Level 97 mmol/L (98-107) Carbon Dioxide Level 27 mmol/L (21-32) Anion Gap 10 (6-14) Blood Urea Nitrogen 19 mg/dL (8-26) Creatinine 1.5 mg/dL (0.7-1.3) Estimated GFR (Cockcroft-Gault) 47.1 BUN/Creatinine Ratio 13 (6-20) Glucose Level 199 mg/dL (70-99) Lactic Acid Level 2.2 mmol/L (0.4-2.0) Calcium Level 9.6 mg/dL (8.5-10.1) Total Bilirubin 1.2 mg/dL (0.2-1.0) Aspartate Amino Transf (AST/SGOT) 24 U/L (15-37) Alanine Aminotransferase (ALT/SGPT) 38 U/L (16-63) Alkaline Phosphatase 208 U/L (46-116) Total Protein 9.4 g/dL (6.4-8.2) Albumin 3.2 g/dL (3.4-5.0) Albumin/Globulin Ratio 0.5 (1.0-1.7) Procalcitonin 0.98 ng/mL (0.00-0.10) Laboratory Tests Test 04/26/19 14:35 White Blood Count 19.2 x10^3/uL (4.0-11.0) Red Blood Count 4.67 x10^6/uL (4.30-5.70) Hemoglobin 12.6 g/dL (13.0-17.5) Hematocrit 38.2 % (39.0-53.0) Mean Corpuscular Volume 82 fL (79-100) Mean Corpuscular Hemoglobin 27 pg (25-35) Mean Corpuscular Hemoglobin Concent 33 g/dL (31-37) Red Cell Distribution Width 14.3 % (11.5-14.5) Platelet Count 308 x10^3/uL (140-400) Neutrophils (%) (Auto) 85 % (31-73) Lymphocytes (%) (Auto) 8 % (24-48) Monocytes (%) (Auto) 7 % (0-9) Eosinophils (%) (Auto) 0 % (0-3) Basophils (%) (Auto) 1 % (0-3) Neutrophils # (Auto) 16.3 x10^3/uL (1.8-7.7) Lymphocytes # (Auto) 1.5 x10^3/uL (1.0-4.8) Monocytes # (Auto) 1.3 x10^3/uL (0.0-1.1) Eosinophils # (Auto) 0.0 x10^3/uL (0.0-0.7) Basophils # (Auto) 0.1 x10^3/uL (0.0-0.2) Segmented Neutrophils % 76 % (35-66) Band Neutrophils % 9 % (0-9) Lymphocytes % 3 % (24-48) Monocytes % 11 % (0-10) Basophils % 1 % (0-3) Platelet Estimate Adequate (ADEQUATE) Prothrombin Time 13.7 SEC (11.7-14.0) Prothromb Time International Ratio 1.1 (0.8-1.1) Activated Partial Thromboplast Time 36 SEC (24-38) Sodium Level 134 mmol/L (136-145) Potassium Level 4.6 mmol/L (3.5-5.1) Chloride Level 97 mmol/L (98-107) Carbon Dioxide Level 27 mmol/L (21-32) Anion Gap 10 (6-14) Blood Urea Nitrogen 19 mg/dL (8-26) Creatinine 1.5 mg/dL (0.7-1.3) Estimated GFR (Cockcroft-Gault) 47.1 BUN/Creatinine Ratio 13 (6-20) Glucose Level 199 mg/dL (70-99) Lactic Acid Level 2.2 mmol/L (0.4-2.0) Calcium Level 9.6 mg/dL (8.5-10.1) Total Bilirubin 1.2 mg/dL (0.2-1.0) Aspartate Amino Transf (AST/SGOT) 24 U/L (15-37) Alanine Aminotransferase (ALT/SGPT) 38 U/L (16-63) Alkaline Phosphatase 208 U/L (46-116) Total Protein 9.4 g/dL (6.4-8.2) Albumin 3.2 g/dL (3.4-5.0) Albumin/Globulin Ratio 0.5 (1.0-1.7) Procalcitonin 0.98 ng/mL (0.00-0.10) VTE Prophylaxis Ordered VTE Prophylaxis Devices: Yes VTE Pharmacological Prophylaxi: Yes Assessment/Plan Assessment/Plan DM2 gangrene toe sepsis, IV abx and blood cx admit FRANCES GOFF MD Apr 26, 2019 22:05
[2019-04-26 23:44] VITALS: BP 162/78
[2019-04-26] MEDS: ACETAMINOPHEN 325 MG TABLET. PO PRN (23:57)
[2019-04-27] VITALS (12 sets, daily range): BP systolic 111–156; BP diastolic 47–81
[2019-04-27] MEDS: VANCOMYCIN PER PHARMACY MC PRN ×2 (01:40→14:36)
--- NOTE | 2019-04-27 01:40 | NUR ---
Pharmacy Vancomycin Dosing Note S:Consulted to monitor and dose vancomycin started 04/26/19. O:DAGO CHARLES is a 64 year old M with Osteomyelitis Sepsis GANGRENE OF TOE . Height: 5 feet, 10 inches Weight: 84.729559 kg Archie Body Weight: 73.00 Adjusted Body Weight: 77.76 Dosing Weight: Actual Other Antibiotics: CEFTRIAXONE 1 GM LABS: Last BUN: 19 Last Creatinine: 1.5 Creatinine Clearance: 54 mL/min Last WBC: 19.2 Last Procalcitonin: 0.98 Tmax (past 24 hours): Microbiology: I/O: Drug Levels: Last level: on at Last dose given 04/26/19 at 1600 Vancomycin Dosing: Loading Dose: 2000 mg x1 Dosing Weight: Actual Target Trough: 15-20 A: Based on: WT AND CRCL P: 1. Begin Vancomycin 1250 mg IV q18h 2. Follow up Trough level on 04/28/19 at 0330 3. Pharmacy will continue to monitor, follow and adjust therapy as needed. WENDY GIORDANO RPH, 04/27/19 0140 Signed: 04/27/19 at 0141 by WENDY GIORDANO RPH PHA
[2019-04-27] MEDS: IV NORMAL SALINE 1000ML BAG 1,000 ML IV SCH ×2 (06:56→13:27)
[2019-04-27 07:14] LABS: BASO # 0.1 x10^3/uL (0.0-0.2); BASO % 1 % (0-3); EOS % 0 % (0-3); HEMATOCRIT 30.4 % (39.0-53.0); LYMPH # 0.9 x10^3/uL (1.0-4.8); LYMPH % 6 % (24-48); MEAN CORPUSCULAR HEMOGLOBIN 27 pg (25-35); MEAN CORPUSCULAR HGB CONC 33 g/dL (31-37); MEAN CORPUSCULAR VOLUME 81 fL (79-100); MONO # 1.1 x10^3/uL (0.0-1.1); MONO % 7 % (0-9); NEUT # 13.6 x10^3/uL (1.8-7.7); NEUT % 87 % (31-73); PLATELET COUNT 232 x10^3/uL (140-400); RED BLOOD COUNT 3.75 x10^6/uL (4.30-5.70); RED CELL DISTRIBUTION WIDTH 13.8 % (11.5-14.5); WHITE BLOOD COUNT 15.6 x10^3/uL (4.0-11.0)
[2019-04-27 07:34] LABS: CALCIUM 8.5 mg/dL (8.5-10.1); CREATININE 1.2 mg/dL (0.7-1.3); POTASSIUM 4.2 mmol/L (3.5-5.1)
[2019-04-27] MEDS ORDERED: cefTRIAXone IV Push 1 GM VIAL. IVP SCH (09:00)
[2019-04-27] MEDS ORDERED: ONDANSETRON PF 4 MG/2 ML VIAL. ONE (10:10)
[2019-04-27] MEDS ORDERED: DEXAMETHASONE SOD PHOS 4 MG/ML VIAL ONE (10:10)
[2019-04-27] MEDS ORDERED: LIDOCAINE 2% PF 5 ML VIAL. ONE (10:10)
[2019-04-27] MEDS ORDERED: PROPOFOL 20 ML IV ONE (10:10)
--- NOTE | 2019-04-27 10:50 | PDOC ---
Provider Note Provider Note Vascular Patient out of room, he is in the OR getting toe amputation. Last documented exam in our office 03/08/2019 reports patient has 2+ DPand PT pulse. Nurse discussed with Dr. Martínez will cancel consult. We would be happy to see patient if he has any issues with healing or arterial circulation. JOSELYN MONSIVAIS [employer] Apr 27, 2019 10:49
[2019-04-27] MEDS ORDERED: SEVOFLURANE 31 TO 60 MINUTES. IH ONE (11:07)
--- NOTE | 2019-04-27 12:39 | NUR ---
SS following for discharge planning. SS reviewed pt chart. Pt is from home and is currently on room air. No discharge needs noted at this time. SS will continue to follow for discharge planning.
--- NOTE | 2019-04-27 13:11 | PDOC ---
Infectious Disease Note Vital Sign Vital Signs Vital Signs Date Time Temp Pulse Resp B/P (MAP) Pulse Ox O2 Delivery O2 Flow Rate FiO2 04/27/19 12:04 90 20 136/64 98 Room Air 04/27/19 11:49 10 04/27/19 11:34 98.2 98.2 Labs Lab Laboratory Tests Test 04/26/19 14:35 04/26/19 23:00 04/27/19 05:05 04/27/19 05:55 White Blood Count 19.2 x10^3/uL (4.0-11.0) 15.6 x10^3/uL (4.0-11.0) Red Blood Count 4.67 x10^6/uL (4.30-5.70) 3.75 x10^6/uL (4.30-5.70) Hemoglobin 12.6 g/dL (13.0-17.5) 10.0 g/dL (13.0-17.5) Hematocrit 38.2 % (39.0-53.0) 30.4 % (39.0-53.0) Mean Corpuscular Volume 82 fL (79-100) 81 fL (79-100) Mean Corpuscular Hemoglobin 27 pg (25-35) 27 pg (25-35) Mean Corpuscular Hemoglobin Concent 33 g/dL (31-37) 33 g/dL (31-37) Red Cell Distribution Width 14.3 % (11.5-14.5) 13.8 % (11.5-14.5) Platelet Count 308 x10^3/uL (140-400) 232 x10^3/uL (140-400) Neutrophils (%) (Auto) 85 % (31-73) 87 % (31-73) Lymphocytes (%) (Auto) 8 % (24-48) 6 % (24-48) Monocytes (%) (Auto) 7 % (0-9) 7 % (0-9) Eosinophils (%) (Auto) 0 % (0-3) 0 % (0-3) Basophils (%) (Auto) 1 % (0-3) 1 % (0-3) Neutrophils # (Auto) 16.3 x10^3/uL (1.8-7.7) 13.6 x10^3/uL (1.8-7.7) Lymphocytes # (Auto) 1.5 x10^3/uL (1.0-4.8) 0.9 x10^3/uL (1.0-4.8) Monocytes # (Auto) 1.3 x10^3/uL (0.0-1.1) 1.1 x10^3/uL (0.0-1.1) Eosinophils # (Auto) 0.0 x10^3/uL (0.0-0.7) 0.0 x10^3/uL (0.0-0.7) Basophils # (Auto) 0.1 x10^3/uL (0.0-0.2) 0.1 x10^3/uL (0.0-0.2) Segmented Neutrophils % 76 % (35-66) Band Neutrophils % 9 % (0-9) Lymphocytes % 3 % (24-48) Monocytes % 11 % (0-10) Basophils % 1 % (0-3) Platelet Estimate Adequate (ADEQUATE) Prothrombin Time 13.7 SEC (11.7-14.0) Prothromb Time International Ratio 1.1 (0.8-1.1) Activated Partial Thromboplast Time 36 SEC (24-38) Sodium Level 134 mmol/L (136-145) 137 mmol/L (136-145) Potassium Level 4.6 mmol/L (3.5-5.1) 4.2 mmol/L (3.5-5.1) Chloride Level 97 mmol/L (98-107) 103 mmol/L (98-107) Carbon Dioxide Level 27 mmol/L (21-32) 25 mmol/L (21-32) Anion Gap 10 (6-14) 9 (6-14) Blood Urea Nitrogen 19 mg/dL (8-26) 15 mg/dL (8-26) Creatinine 1.5 mg/dL (0.7-1.3) 1.2 mg/dL (0.7-1.3) Estimated GFR (Cockcroft-Gault) 47.1 61.0 BUN/Creatinine Ratio 13 (6-20) Glucose Level 199 mg/dL (70-99) 175 mg/dL (70-99) Lactic Acid Level 2.2 mmol/L (0.4-2.0) 2.9 mmol/L (0.4-2.0) Calcium Level 9.6 mg/dL (8.5-10.1) 8.5 mg/dL (8.5-10.1) Total Bilirubin 1.2 mg/dL (0.2-1.0) Aspartate Amino Transf (AST/SGOT) 24 U/L (15-37) Alanine Aminotransferase (ALT/SGPT) 38 U/L (16-63) Alkaline Phosphatase 208 U/L (46-116) Total Protein 9.4 g/dL (6.4-8.2) Albumin 3.2 g/dL (3.4-5.0) Albumin/Globulin Ratio 0.5 (1.0-1.7) Procalcitonin 0.98 ng/mL (0.00-0.10) Test 04/27/19 10:34 Glucose (Fingerstick) 177 mg/dL (70-99) Objective Assessment Rt 2nd toe gangrene s/p open amputation 04/27 Fever Leukocytosis DM with neuropathy Plan Plan of Care vanc and cefepime d/c rocephine check cultures supportive care CROW HENSON MD Apr 27, 2019 13:11
[2019-04-27] MEDS: VANCOMYCIN 1.25 GM in IV NORMAL SALINE 250ML 250 ML IV SCH (13:27)
--- NOTE | 2019-04-27 14:00 | NUR ---
Wound Care Received wound consultation re: R 2nd toe wound. Pt is in Surgery, will f/u on Tuesday.
[2019-04-27] MEDS ORDERED: METF500T9 PO (14:20)
[2019-04-27] MEDS: MORPHINE SULFATE 4 MG/ML VIAL. IV PRN ×2 (15:50→18:19)
[2019-04-27] MEDS: metFORMIN XR 500 MG TAB.ER.24H PO SCH (18:15)
[2019-04-27] MEDS ORDERED: DEXTROSE 50% 25 GM / 50ML DISP.SYRIN. IV PRN (19:00)
[2019-04-27] MEDS ORDERED: IV DEXTROSE 5% 250 ML BAG. IV PRN (19:00)
[2019-04-27] MEDS: CITALOPRAM 10 MG TABLET. PO SCH (20:57)
[2019-04-27] MEDS: CEFEPIME HCL IV Push 2 GM VIAL. IVP SCH (20:58)
--- NOTE | 2019-04-27 22:23 | CONS ---
DATE OF CONSULTATION: 04/27/2019 REQUESTING PHYSICIAN: Dr. Martínez. REASON FOR CONSULTATION: Toe gangrene. HISTORY OF PRESENT ILLNESS: This is a 64-year-old gentleman with history of diabetes who has 3 days ago, had noticed the second toenail has fallen off. He did not realize he has had any wound there before. The patient then started looking at purulent drainage coming out and then begun black. The patient when he came in here, he had 102 fever. He did not have any redness in the foot when he came, he says but before surgery while here, he started noticing redness going into the foot. The patient was taken to the surgery and an open amputation of the second toe was done. The patient is feeling good. The patient denies any nausea, vomiting, diarrhea. Denies any chest pain, shortness of breath, abdominal pain, urinary symptoms or bowel symptoms. The patient does have diabetes and neuropathy and he does walk barefoot off and on, especially in the house. PAST MEDICAL HISTORY: 1. Positive for diabetes. 2. Peripheral neuropathy. PAST SURGICAL HISTORY: The patient has lost a right big toe in the past and has had total knee replacement done. SOCIAL HISTORY: Negative for smoking, alcohol, illicit drug use. ALLERGIES: LISTED ALLERGIC TO PENICILLIN, WHICH CAUSES HIM TO HAVE AN INJECTION SITE REACTION. He admits to have taken amoxicillin and Augmentin without any problem. CURRENT MEDICATIONS: Reviewed. The patient is on vancomycin and Rocephin. REVIEW OF SYSTEMS: As per HPI, all other systems reviewed are negative. PHYSICAL EXAMINATION: GENERAL: Alert, oriented gentleman, not in distress. VITAL SIGNS: Stable with T-max 102.9. HEENT: Both pupils are round and reacting. No conjunctival lesion, no lesion in the mouth. NECK: Supple, no JVP, no lymphadenopathy. LUNGS: Clear. HEART: S1, S2 regular. ABDOMEN: Benign. EXTREMITIES: Left lower extremity is unremarkable. Right lower extremity post-surgical dressing not opened. The patient just came back from surgery. He does have palpable dorsalis pedis. NEUROLOGICAL: The patient is alert, awake and appropriate. No focal neurologic deficit. LABORATORY DATA: White count is 15.6, yesterday it was 19,000, platelets are normal. BUN and creatinine is normal. Lactic acid up to 2.9. Cultures are pending. X-ray of the foot showed subcutaneous gas. No definite bony changes at that point. Chest x-ray unremarkable. IMPRESSION: 1. Diabetic foot infection with gangrene of the right second toe. 2. Cellulitis of the right foot. 3. Fever. 4. Leukocytosis. 5. Lactic acidosis/sepsis. 6. Diabetes with neuropathy. RECOMMENDATION: Continue vancomycin, change Rocephin to cefepime. We will wait for the cultures. Supportive care since it is open amputation. He is going to need IV antibiotics, wound VAC. We will adjust as when cultures are available and we will continue to follow. Thank you very much, Dr. Martínez, for giving me the opportunity to participate in this patient's care. CROW HENSON MD DR: DESIREE/nts JOB#: [id number] / [id number]
--- NOTE | 2019-04-27 22:26 | PDOC4 ---
Operative Note Operative Note Date of surgery: 04/27/2019 Preoperative diagnosis: Gangrenous right second toe Postoperative diagnosis: Same Operative procedure: Right second toe amputation Surgeon: Kimberly Anesthesia: Gen. Estimated blood loss: 10 mL Complications: None Operative indications: Please see my detailed orthopedic consultation for detailed operative indications and note that he had a gangrenous second toe and spreading redness we had talked about the need for amputation as he had odorous drainage and were concerned for possibility of spreading infection and I went over with him the possibility of additional procedures and potentially healing difficulties despite having apparently good vascular supply. He wishes to proceed with surgical evaluation and treatment. Operative text: Patient was identified procedure verified patient placed in the supine position on the operative table. The right lower extremity was prepped and draped in standard sterile fashion and after timeout was performed a fishmouth incision was made at the base of the right second toe preserving as much viable skin as possible and dissection was carried out to remove the phalanges back to the metatarsal head which was noted to be healthy and p halanges showed softening and osteomyelitis. Extensive gangrenous tissue was noted around the periphery of the bone as well and was sharply excised with Donald scalpel back to good bleeding tissue which was then electrocauterized irrigation carried out normal saline solution additional debridement was carried out to ensure remaining viable tissue and packing was carried out with iodoform gauze sterile dressings were applied patient was returned recovery room in stable condition having tolerated procedure well RUTH MARTÍNEZ MD Apr 27, 2019 22:26
--- NOTE | 2019-04-27 23:46 | CONS ---
DATE OF CONSULTATION: 04/27/2019 CHIEF COMPLAINT: Right necrotic second toe. HISTORY OF PRESENT ILLNESS: The patient is a 64-year-old male with severe neuropathy and type 2 diabetes, who states that last Tuesday, about 6 days ago, had his right second toenail fall off and a couple of days later, the toe started draining and later became black and odorous. He presents as a result for further evaluation and treatment as he had had amputation of his right great toe in January of this year. He does not have any sensation in his toes and does not recall any other medical problems. PAST MEDICAL HISTORY: Significant for type 2 diabetes with peripheral neuropathy. PAST SURGICAL HISTORY: Amputation of his right great toe in 01/2019 and a previous total knee replacement more remotely. FAMILY HISTORY: Diabetes. SOCIAL HISTORY: Denies tobacco, alcohol or drug use. MEDICATIONS: List is reviewed. ALLERGIES: INCLUDE PENICILLIN AND AMITRIPTYLINE. REVIEW OF SYSTEMS: Significant for recent fatigue, weakness and chills, difficulty sleeping and he has chronic difficulty walking due to his neuropathy and again as above with his recent drainage and blackness of his toe. PHYSICAL EXAMINATION: EXTREMITIES: He has stocking distribution neuropathy in both feet. Well-healed great toe amputation on the right foot. He has clear necrosis with odorous drainage of the distal aspect of his right second toe and some redness about half way up the forefoot. Normal alignment, stability of bilateral hips, knees and ankles and aside from the neuropathy, normal examination of the contralateral foot. His distal pulses are palpable to posterior tibial and dorsalis pedis. Well-healed incision from a total knee arthroplasty. There is no effusion present. IMAGING: X-rays show obvious absence of the great toe from a previous amputation and signs of osteomyelitis in the right second toe. LABORATORY DATA: White count is 19.2. IMPRESSION: Necrotic right second toe with type 2 diabetes with severe peripheral neuropathy. TREATMENT PLAN: I went over with him the spells. Pulses appear to be palpable. He agrees that there is a previous consultation with the vascular surgeon that they seem to think he had fine circulation even after the amputation of his great toe. I went over with him the suggested treatment of amputation of his second toe due to obvious severe infection in the bone and this could certainly spread. We talked about the possibility of additional operations if there is additional tissue and he may need multiple operations or could have delayed healing or lose further tissue in the foot. He understands all this and wants to go forward with the toe amputation, which will occur today. Vascular Surgery had likewise seen him and concludes that circulation was good and they would not intervene otherwise. RUTH MARTÍNEZ MD DR: STEPHANIE/erwin JOB#: [id number] / [id number]
[2019-04-28 00:07] LABS: HEMOGLOBIN A1C 8.7 % (4.8-5.6)
[2019-04-28] MEDS: IV NORMAL SALINE 1000ML BAG 1,000 ML IV SCH ×3 (00:57→11:50)
[2019-04-28 03:00] VITALS: BP 122/68
[2019-04-28 04:23] LABS: BASO # 0.1 x10^3/uL (0.0-0.2); BASO % 0 % (0-3); EOS % 0 % (0-3); HEMATOCRIT 27.1 % (39.0-53.0); HEMOGLOBIN 9.1 g/dL (13.0-17.5); LYMPH # 0.9 x10^3/uL (1.0-4.8); LYMPH % 6 % (24-48); MEAN CORPUSCULAR HEMOGLOBIN 27 pg (25-35); MEAN CORPUSCULAR HGB CONC 34 g/dL (31-37); MEAN CORPUSCULAR VOLUME 81 fL (79-100); MONO # 0.5 x10^3/uL (0.0-1.1); MONO % 4 % (0-9); NEUT # 12.3 x10^3/uL (1.8-7.7); NEUT % 90 % (31-73); PLATELET COUNT 211 x10^3/uL (140-400); RED BLOOD COUNT 3.34 x10^6/uL (4.30-5.70); WHITE BLOOD COUNT 13.7 x10^3/uL (4.0-11.0)
[2019-04-28 04:40] LABS: CALCIUM 7.9 mg/dL (8.5-10.1); CREATININE 1.1 mg/dL (0.7-1.3); GFR 67.4; POTASSIUM 4.9 mmol/L (3.5-5.1)
[2019-04-28 04:45] LABS: VANC TR 10.4 mcg/mL (10.0-20.0)
[2019-04-28] MEDS: VANCOMYCIN 1.25 GM in IV NORMAL SALINE 250ML 250 ML IV SCH ×2 (05:21→18:04)
[2019-04-28] MEDS: VANCOMYCIN PER PHARMACY MC PRN (06:11)
--- NOTE | 2019-04-28 06:11 | NUR ---
Pharmacy Vancomycin Dosing Note S:Consulted to monitor and dose vancomycin started 04/26/19. O:DAGO CHARLES is a 64 year old M with Osteomyelitis GANGRENE OF TOE . Height: 5 feet, 10 inches Weight: 84.112452 kg Paradox Body Weight: 211.00 Adjusted Body Weight: 160.56 Dosing Weight: Actual Other Antibiotics: CEFTRIAXONE 1 GM- DC'D CEFEPIME 2GM Q12H LABS: Last BUN: 15 Last Creatinine: 1.1 Creatinine Clearance: 75 mL/min Last WBC: 15.6 Last Procalcitonin: 0.98 Tmax (past 24 hours): 102.9 Microbiology: I/O: 2690/4 VOIDS Drug Levels: Last Trough level: 10.4 on 04/28/19 at 0330 Last dose given 04/26/19 at 1600 Vancomycin Dosing: Loading Dose: 2000 mg x1 Dosing Weight: Actual Target Trough: 15-20 A: Based on: TROUGH AND IMPROVED CRCL P: 1. Begin Vancomycin 1250 mg IV q12h 2. Follow up Trough level on 04/30/19 at 0530 3. Pharmacy will continue to monitor, follow and adjust therapy as needed. WENDY GIORDANO RPH, 04/28/19 0611 Signed: 04/28/19 at 0612 by WENDY GIORDANO RPH PHA
[2019-04-28 07:00] VITALS: BP 123/74
[2019-04-28] MEDS: INSULIN LISPRO 300 UNITS/3 ML VIAL. SQ SCH ×3 (08:00→17:00)
[2019-04-28] MEDS: CEFEPIME HCL IV Push 2 GM VIAL. IVP SCH ×2 (08:35→20:59)
[2019-04-28] MEDS: MULTIVITAMIN with MINERAL TABLET. PO SCH (08:35)
[2019-04-28] MEDS: metFORMIN XR 500 MG TAB.ER.24H PO SCH (08:35)
[2019-04-28] MEDS ORDERED: ERTUGLIFLOZIN PIDOLATE 15 MG PO SCH (09:00)
[2019-04-28] MEDS ORDERED: NON FORMULARY ITEM (Empagliflozin (Jardiance) 25 MG) PO SCH (09:00)
[2019-04-28] MEDS ORDERED: SITA100T PO ×2 (09:44→17:56)
[2019-04-28 11:00] VITALS: BP 118/64
[2019-04-28] MEDS ORDERED: INSULIN GLARGINE SYRINGE. SQ ONE (11:15)
--- NOTE | 2019-04-28 11:26 | PDOC ---
Infectious Disease Note Subjective Subjective Comfortable, minimal pain No fevers last 24 hours Denies N/V/D/SOA ROS ROS per HPI Vital Sign Vital Signs Vital Signs Date Time Temp Pulse Resp B/P (MAP) Pulse Ox O2 Delivery O2 Flow Rate FiO2 04/28/19 08:00 Room Air 04/28/19 07:00 97.4 71 18 123/74 (90) 98 97.4 04/27/19 11:49 10 Physical Exam PHYSICAL EXAM GENERAL: Propped up in bed, alert, relaxed appearance HEENT: Pupils are round and reacting. No conjunctival lesion, no lesion in the mouth. NECK: Supple, no JVP, no lymphadenopathy. LUNGS: Clear. HEART: S1, S2 regular. ABDOMEN: Soft and nontender, BS present EXTREMITIES: Left lower extremity is unremarkable. Right lower extremity post-surgical dressing not opened. NEUROLOGICAL: Alert and oriented x 3. SKIN: warm to touch. No signs of rash. PIV Labs Lab Laboratory Tests Test 04/27/19 16:43 04/27/19 20:49 04/28/19 04:00 04/28/19 07:13 Glucose (Fingerstick) 255 mg/dL (70-99) 243 mg/dL (70-99) 197 mg/dL (70-99) White Blood Count 13.7 x10^3/uL (4.0-11.0) Red Blood Count 3.34 x10^6/uL (4.30-5.70) Hemoglobin 9.1 g/dL (13.0-17.5) Hematocrit 27.1 % (39.0-53.0) Mean Corpuscular Volume 81 fL (79-100) Mean Corpuscular Hemoglobin 27 pg (25-35) Mean Corpuscular Hemoglobin Concent 34 g/dL (31-37) Red Cell Distribution Width 14.0 % (11.5-14.5) Platelet Count 211 x10^3/uL (140-400) Neutrophils (%) (Auto) 90 % (31-73) Lymphocytes (%) (Auto) 6 % (24-48) Monocytes (%) (Auto) 4 % (0-9) Eosinophils (%) (Auto) 0 % (0-3) Basophils (%) (Auto) 0 % (0-3) Neutrophils # (Auto) 12.3 x10^3/uL (1.8-7.7) Lymphocytes # (Auto) 0.9 x10^3/uL (1.0-4.8) Monocytes # (Auto) 0.5 x10^3/uL (0.0-1.1) Eosinophils # (Auto) 0.0 x10^3/uL (0.0-0.7) Basophils # (Auto) 0.1 x10^3/uL (0.0-0.2) Sodium Level 136 mmol/L (136-145) Potassium Level 4.9 mmol/L (3.5-5.1) Chloride Level 103 mmol/L (98-107) Carbon Dioxide Level 24 mmol/L (21-32) Anion Gap 9 (6-14) Blood Urea Nitrogen 20 mg/dL (8-26) Creatinine 1.1 mg/dL (0.7-1.3) Estimated GFR (Cockcroft-Gault) 67.4 Glucose Level 218 mg/dL (70-99) Calcium Level 7.9 mg/dL (8.5-10.1) Vancomycin Level Trough 10.4 mcg/mL (10.0-20.0) Vancomycin Last Dose Date Vancomycin Last Dose Time Micro Microbiology 04/26/19 Blood Culture - Preliminary, Resulted NO GROWTH AFTER 1 DAY Objective Assessment 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 04/27 Cellulitis of the right foot. Fever - better Leukocytosis, improving Lactic acidosis/sepsis. Diabetes with neuropathy. Plan Plan of Care vanc and cefepime f/u cultures Monitor renal function closely Supportive care Attending Co-Sign The patient was seen and interviewed as well as examined at the bedside. The chart was reviewed. The case was discussed. Agree with the plan of care. ADAIR SEGAL APRN Apr 28, 2019 11:26 CROW HENSON MD Apr 28, 2019 12:10
--- NOTE | 2019-04-28 11:26 | PDOC ---
PROGRESS NOTES Chief Complaint Chief Complaint sepsis cellulitis and gangrene toe, POD #1, amputation Dm2, mod control,, A1c 8.7 History of Present Illness History of Present Illness cont current no event pain better malodor is gone Vitals Vitals Vital Signs Date Time Temp Pulse Resp B/P (MAP) Pulse Ox O2 Delivery O2 Flow Rate FiO2 04/28/19 08:00 Room Air 04/28/19 07:00 97.4 71 18 123/74 (90) 98 97.4 04/27/19 11:49 10 Physical Exam General: Alert, Oriented X3, Cooperative, mild distress Extremities: No clubbing, Normal pulses Skin: No breakdown, Other (right second toe malordorous, discolored, ) Labs LABS Laboratory Tests Test 04/27/19 16:43 04/27/19 20:49 04/28/19 04:00 04/28/19 07:13 Glucose (Fingerstick) 255 mg/dL (70-99) 243 mg/dL (70-99) 197 mg/dL (70-99) White Blood Count 13.7 x10^3/uL (4.0-11.0) Red Blood Count 3.34 x10^6/uL (4.30-5.70) Hemoglobin 9.1 g/dL (13.0-17.5) Hematocrit 27.1 % (39.0-53.0) Mean Corpuscular Volume 81 fL (79-100) Mean Corpuscular Hemoglobin 27 pg (25-35) Mean Corpuscular Hemoglobin Concent 34 g/dL (31-37) Red Cell Distribution Width 14.0 % (11.5-14.5) Platelet Count 211 x10^3/uL (140-400) Neutrophils (%) (Auto) 90 % (31-73) Lymphocytes (%) (Auto) 6 % (24-48) Monocytes (%) (Auto) 4 % (0-9) Eosinophils (%) (Auto) 0 % (0-3) Basophils (%) (Auto) 0 % (0-3) Neutrophils # (Auto) 12.3 x10^3/uL (1.8-7.7) Lymphocytes # (Auto) 0.9 x10^3/uL (1.0-4.8) Monocytes # (Auto) 0.5 x10^3/uL (0.0-1.1) Eosinophils # (Auto) 0.0 x10^3/uL (0.0-0.7) Basophils # (Auto) 0.1 x10^3/uL (0.0-0.2) Sodium Level 136 mmol/L (136-145) Potassium Level 4.9 mmol/L (3.5-5.1) Chloride Level 103 mmol/L (98-107) Carbon Dioxide Level 24 mmol/L (21-32) Anion Gap 9 (6-14) Blood Urea Nitrogen 20 mg/dL (8-26) Creatinine 1.1 mg/dL (0.7-1.3) Estimated GFR (Cockcroft-Gault) 67.4 Glucose Level 218 mg/dL (70-99) Calcium Level 7.9 mg/dL (8.5-10.1) Vancomycin Level Trough 10.4 mcg/mL (10.0-20.0) Vancomycin Last Dose Date Vancomycin Last Dose Time Assessment and Plan Assessmemt and Plan Problems Medical Problems: (1) Fever Status: Acute (2) Gangrene of toe of right foot Status: Acute (3) Sepsis Status: Acute (4) Severe sepsis Status: Acute Comment Review of Relevant I have reviewed the following items alis (where applicable) has been applied. Labs Laboratory Tests Test 04/26/19 14:35 04/26/19 23:00 04/27/19 05:05 04/27/19 05:55 White Blood Count 19.2 x10^3/uL (4.0-11.0) 15.6 x10^3/uL (4.0-11.0) Red Blood Count 4.67 x10^6/uL (4.30-5.70) 3.75 x10^6/uL (4.30-5.70) Hemoglobin 12.6 g/dL (13.0-17.5) 10.0 g/dL (13.0-17.5) Hematocrit 38.2 % (39.0-53.0) 30.4 % (39.0-53.0) Mean Corpuscular Volume 82 fL (79-100) 81 fL (79-100) Mean Corpuscular Hemoglobin 27 pg (25-35) 27 pg (25-35) Mean Corpuscular Hemoglobin Concent 33 g/dL (31-37) 33 g/dL (31-37) Red Cell Distribution Width 14.3 % (11.5-14.5) 13.8 % (11.5-14.5) Platelet Count 308 x10^3/uL (140-400) 232 x10^3/uL (140-400) Neutrophils (%) (Auto) 85 % (31-73) 87 % (31-73) Lymphocytes (%) (Auto) 8 % (24-48) 6 % (24-48) Monocytes (%) (Auto) 7 % (0-9) 7 % (0-9) Eosinophils (%) (Auto) 0 % (0-3) 0 % (0-3) Basophils (%) (Auto) 1 % (0-3) 1 % (0-3) Neutrophils # (Auto) 16.3 x10^3/uL (1.8-7.7) 13.6 x10^3/uL (1.8-7.7) Lymphocytes # (Auto) 1.5 x10^3/uL (1.0-4.8) 0.9 x10^3/uL (1.0-4.8) Monocytes # (Auto) 1.3 x10^3/uL (0.0-1.1) 1.1 x10^3/uL (0.0-1.1) Eosinophils # (Auto) 0.0 x10^3/uL (0.0-0.7) 0.0 x10^3/uL (0.0-0.7) Basophils # (Auto) 0.1 x10^3/uL (0.0-0.2) 0.1 x10^3/uL (0.0-0.2) Segmented Neutrophils % 76 % (35-66) Band Neutrophils % 9 % (0-9) Lymphocytes % 3 % (24-48) Monocytes % 11 % (0-10) Basophils % 1 % (0-3) Platelet Estimate Adequate (ADEQUATE) Prothrombin Time 13.7 SEC (11.7-14.0) Prothromb Time International Ratio 1.1 (0.8-1.1) Activated Partial Thromboplast Time 36 SEC (24-38) Sodium Level 134 mmol/L (136-145) 137 mmol/L (136-145) Potassium Level 4.6 mmol/L (3.5-5.1) 4.2 mmol/L (3.5-5.1) Chloride Level 97 mmol/L (98-107) 103 mmol/L (98-107) Carbon Dioxide Level 27 mmol/L (21-32) 25 mmol/L (21-32) Anion Gap 10 (6-14) 9 (6-14) Blood Urea Nitrogen 19 mg/dL (8-26) 15 mg/dL (8-26) Creatinine 1.5 mg/dL (0.7-1.3) 1.2 mg/dL (0.7-1.3) Estimated GFR (Cockcroft-Gault) 47.1 61.0 BUN/Creatinine Ratio 13 (6-20) Glucose Level 199 mg/dL (70-99) 175 mg/dL (70-99) Lactic Acid Level 2.2 mmol/L (0.4-2.0) 2.9 mmol/L (0.4-2.0) Calcium Level 9.6 mg/dL (8.5-10.1) 8.5 mg/dL (8.5-10.1) Total Bilirubin 1.2 mg/dL (0.2-1.0) Aspartate Amino Transf (AST/SGOT) 24 U/L (15-37) Alanine Aminotransferase (ALT/SGPT) 38 U/L (16-63) Alkaline Phosphatase 208 U/L (46-116) Total Protein 9.4 g/dL (6.4-8.2) Albumin 3.2 g/dL (3.4-5.0) Albumin/Globulin Ratio 0.5 (1.0-1.7) Procalcitonin 0.98 ng/mL (0.00-0.10) Hemoglobin A1c 8.7 % (4.8-5.6) Test 04/27/19 10:34 04/27/19 16:43 04/27/19 20:49 04/28/19 04:00 Glucose (Fingerstick) 177 mg/dL (70-99) 255 mg/dL (70-99) 243 mg/dL (70-99) White Blood Count 13.7 x10^3/uL (4.0-11.0) Red Blood Count 3.34 x10^6/uL (4.30-5.70) Hemoglobin 9.1 g/dL (13.0-17.5) Hematocrit 27.1 % (39.0-53.0) Mean Corpuscular Volume 81 fL (79-100) Mean Corpuscular Hemoglobin 27 pg (25-35) Mean Corpuscular Hemoglobin Concent 34 g/dL (31-37) Red Cell Distribution Width 14.0 % (11.5-14.5) Platelet Count 211 x10^3/uL (140-400) Neutrophils (%) (Auto) 90 % (31-73) Lymphocytes (%) (Auto) 6 % (24-48) Monocytes (%) (Auto) 4 % (0-9) Eosinophils (%) (Auto) 0 % (0-3) Basophils (%) (Auto) 0 % (0-3) Neutrophils # (Auto) 12.3 x10^3/uL (1.8-7.7) Lymphocytes # (Auto) 0.9 x10^3/uL (1.0-4.8) Monocytes # (Auto) 0.5 x10^3/uL (0.0-1.1) Eosinophils # (Auto) 0.0 x10^3/uL (0.0-0.7) Basophils # (Auto) 0.1 x10^3/uL (0.0-0.2) Sodium Level 136 mmol/L (136-145) Potassium Level 4.9 mmol/L (3.5-5.1) Chloride Level 103 mmol/L (98-107) Carbon Dioxide Level 24 mmol/L (21-32) Anion Gap 9 (6-14) Blood Urea Nitrogen 20 mg/dL (8-26) Creatinine 1.1 mg/dL (0.7-1.3) Estimated GFR (Cockcroft-Gault) 67.4 Glucose Level 218 mg/dL (70-99) Calcium Level 7.9 mg/dL (8.5-10.1) Vancomycin Level Trough 10.4 mcg/mL (10.0-20.0) Vancomycin Last Dose Date Vancomycin Last Dose Time Test 04/28/19 07:13 Glucose (Fingerstick) 197 mg/dL (70-99) Laboratory Tests Test 04/27/19 16:43 04/27/19 20:49 04/28/19 04:00 04/28/19 07:13 Glucose (Fingerstick) 255 mg/dL (70-99) 243 mg/dL (70-99) 197 mg/dL (70-99) White Blood Count 13.7 x10^3/uL (4.0-11.0) Red Blood Count 3.34 x10^6/uL (4.30-5.70) Hemoglobin 9.1 g/dL (13.0-17.5) Hematocrit 27.1 % (39.0-53.0) Mean Corpuscular Volume 81 fL (79-100) Mean Corpuscular Hemoglobin 27 pg (25-35) Mean Corpuscular Hemoglobin Concent 34 g/dL (31-37) Red Cell Distribution Width 14.0 % (11.5-14.5) Platelet Count 211 x10^3/uL (140-400) Neutrophils (%) (Auto) 90 % (31-73) Lymphocytes (%) (Auto) 6 % (24-48) Monocytes (%) (Auto) 4 % (0-9) Eosinophils (%) (Auto) 0 % (0-3) Basophils (%) (Auto) 0 % (0-3) Neutrophils # (Auto) 12.3 x10^3/uL (1.8-7.7) Lymphocytes # (Auto) 0.9 x10^3/uL (1.0-4.8) Monocytes # (Auto) 0.5 x10^3/uL (0.0-1.1) Eosinophils # (Auto) 0.0 x10^3/uL (0.0-0.7) Basophils # (Auto) 0.1 x10^3/uL (0.0-0.2) Sodium Level 136 mmol/L (136-145) Potassium Level 4.9 mmol/L (3.5-5.1) Chloride Level 103 mmol/L (98-107) Carbon Dioxide Level 24 mmol/L (21-32) Anion Gap 9 (6-14) Blood Urea Nitrogen 20 mg/dL (8-26) Creatinine 1.1 mg/dL (0.7-1.3) Estimated GFR (Cockcroft-Gault) 67.4 Glucose Level 218 mg/dL (70-99) Calcium Level 7.9 mg/dL (8.5-10.1) Vancomycin Level Trough 10.4 mcg/mL (10.0-20.0) Vancomycin Last Dose Date Vancomycin Last Dose Time Microbiology 04/26/19 Blood Culture - Preliminary, Resulted NO GROWTH AFTER 1 DAY Medications Current Medications Sodium Chloride 1,000 ml @ 2,190 mls/hr Q28M IV Last administered on 04/26/19 16:34; Start 04/26/19 at 15:27; Stop 04/26/19 at 16:27; Status DC Piperacillin Sod/ Tazobactam Sod 4.5 gm/Sodium Chloride 100 ml @ 200 mls/hr 1X ONCE IV ; Start 04/26/19 at 15:30; Stop 04/26/19 at 15:59; Status UNV Vancomycin HCl (Vanco Per Pharmacy) 1 each 1X ONCE MC ; Start 04/26/19 at 15:30; Stop 04/26/19 at 18:08; Status DC Acetaminophen (Tylenol) 1,000 mg 1X ONCE PO Last administered on 04/26/19at 16:34; Start 04/26/19 at 15:30; Stop 04/26/19 at 15:31; Status DC Vancomycin HCl 2 gm/Sodium Chloride 500 ml @ 250 mls/hr 1X ONCE IV Last administered on 04/26/19at 16:34; Start 04/26/19 at 16:00; Stop 04/26/19 at 17:59; Status DC Ceftriaxone Sodium (Rocephin) 1 gm DAILY IVP ; Start 04/27/19 at 09:00; Status UNV Ceftriaxone Sodium (Rocephin) 1 gm Q24H IVP Last administered on 04/26/19at 16:34; Start 04/26/19 at 17:00; Stop 04/27/19 at 13:11; Status DC Ondansetron HCl (Zofran) 4 mg PRN Q8HRS PRN IV NAUSEA/VOMITING Last administered on 04/27/19at 07:57; Start 04/26/19 at 20:30; Stop 04/27/19 at 20:29; Status DC Morphine Sulfate (Morphine Sulfate) 4 mg PRN Q2HR PRN IV PAIN Last administered on 04/27/19at 18:19; Start 04/26/19 at 20:30; Stop 04/27/19 at 20:29; Status DC Sodium Chloride 1,000 ml @ 100 mls/hr 1X ONCE IV Last administered on 04/26/19at 20:41; Start 04/26/19 at 20:30; Stop 04/27/19 at 06:29; Status DC Vancomycin HCl 1.25 gm/Sodium Chloride 250 ml @ 167 mls/hr Q18H IV Last administered on 04/28/19at 05:21; Start 04/27/19 at 10:00; Stop 04/28/19 at 09:59; Status DC Vancomycin HCl (Vanco Per Pharmacy) 1 each PRN DAILY PRN MC SEE COMMENTS Last administered on 04/28/19at 06:11; Start 04/26/19 at 22:30 Sodium Chloride 1,000 ml @ 100 mls/hr Q10H IV Last administered on 04/28/19at 00:57; Start 04/26/19 at 23:45 Acetaminophen (Tylenol) 650 mg PRN Q6HRS PRN PO Fever Last administered on 04/26/19at 23:57; Start 04/26/19 at 23:30 Vancomycin HCl (Vancomycin Trough Level) 1 each 1X ONCE MC ; Start 04/28/19 at 03:30; Stop 04/28/19 at 03:31; Status DC Lidocaine HCl (Lidocaine Pf 2% Vial) 5 ml STK-MED ONCE .ROUTE ; Start 04/27/19 at 10:10; Stop 04/27/19 at 10:10; Status DC Propofol 20 ml @ As Directed STK-MED ONCE IV ; Start 04/27/19 at 10:10; Stop 04/27/19 at 10:11; Status DC Ondansetron HCl (Zofran) 4 mg STK-MED ONCE .ROUTE ; Start 04/27/19 at 10:10; Stop 04/27/19 at 10:11; Status DC Dexamethasone Sodium Phosphate (Decadron) 4 mg STK-MED ONCE .ROUTE ; Start 04/27/19 at 10:10; Stop 04/27/19 at 10:11; Status DC Sevoflurane (Ultane) 30 ml STK-MED ONCE IH ; Start 04/27/19 at 11:07; Stop 04/27/19 at 11:08; Status DC Cefepime HCl (Maxipime) 2 gm Q12HR IVP Last administered on 04/28/19at 08:36; Start 04/27/19 at 21:00 Multivitamins (Thera M Plus) 1 tab DAILY PO Last administered on 04/28/19at 08:36; Start 04/28/19 at 09:00 Citalopram Hydrobromide (CeleXA) 10 mg QHS PO Last administered on 04/27/19at 20:58; Start 04/27/19 at 21:00 Metformin HCl (Glucophage Xr) 1,000 mg DAILYWBKFT PO Last administered on 04/28/19at 08:36; Start 04/27/19 at 18:00 Non-Formulary Medication (Empagliflozin (Jardiance)) 25 mg DAILY PO ; Start 04/28/19 at 09:00; Status UNV Non-Formulary Medication (Ertugliflozin Pidolate (Steglatro)) 15 mg DAILY PO ; Start 04/28/19 at 09:00; Status UNV Insulin Human Lispro (HumaLOG) 0-5 UNITS TIDWMEALS SQ ; Start 04/28/19 at 08:00 Dextrose (Dextrose 50%-Water Syringe) 12.5 gm PRN Q15MIN PRN IV SEE COMMENTS; Start 04/27/19 at 19:00 Dextrose 250 ml PRN Q15MIN PRN IV SEE COMMENTS; Start 04/27/19 at 19:00 Vancomycin HCl 1.25 gm/Sodium Chloride 250 ml @ 167 mls/hr Q12H IV ; Start 04/28/19 at 18:00 Vancomycin HCl (Vancomycin Trough Level) 1 each 1X ONCE MC ; Start 04/30/19 at 05:30; Stop 04/30/19 at 05:31 Insulin Glargine (Lantus Syringe) 10 unit 1X ONCE SQ ; Start 04/28/19 at 11:15; Stop 04/28/19 at 11:16; Status UNV Active Scripts Active Celexa (Citalopram Hydrobromide) 10 Mg Tablet 10 Mg PO QHS 30 Days Reported Januvia (Sitagliptin Phosphate) 100 Mg Tablet 1 Tab PO DAILY Metformin Hcl Er (Metformin Hcl) 500 Mg Tab.er.24h 1,000 Mg PO DAILYWBKFT Vitals/I & O Vital Sign - Last 24 Hours 04/27/19 04/27/19 04/27/19 04/27/19 11:34 11:49 12:04 12:30 Temp 98.2 98.2 Pulse 89 86 90 96 Resp 20 20 20 B/P (MAP) 121/58 117/60 136/64 137/67 (90) Pulse Ox 100 100 98 98 O2 Delivery Room Air Simple Mask Room Air O2 Flow Rate 10 04/27/19 04/27/19 04/27/19 04/27/19 12:45 13:00 13:30 14:00 Pulse 95 96 92 86 B/P (MAP) 126/66 (86) 135/75 (95) 125/63 (83) 127/47 (73) Pulse Ox 98 98 96 97 04/27/19 04/27/19 04/27/19 04/27/19 15:00 15:30 15:53 16:27 Temp 98.6 98.6 Pulse 85 77 Resp 18 B/P (MAP) 119/63 (81) 113/64 (80) Pulse Ox 96 97 O2 Delivery Room Air Room Air Room Air 04/27/19 04/27/19 04/27/19 04/27/19 16:30 18:19 19:13 19:15 Temp 97.7 97.7 Pulse 79 76 Resp 18 B/P (MAP) 116/57 (76) 121/71 (88) Pulse Ox 96 98 O2 Delivery Room Air Room Air Room Air 04/27/19 04/27/19 04/28/19 04/28/19 19:50 23:04 03:00 07:00 Temp 98.3 97.9 97.4 98.3 97.9 97.4 Pulse 74 68 71 Resp 18 18 18 B/P (MAP) 111/68 (82) 122/68 (86) 123/74 (90) Pulse Ox 98 98 98 O2 Delivery Room Air Room Air Room Air Room Air 04/28/19 08:00 O2 Delivery Room Air Intake and Output 04/27/19 04/27/19 04/28/19 15:00 23:00 07:00 Intake Total 600 ml 540 ml Balance 600 ml 540 ml FRANCES GOFF MD Apr 28, 2019 11:26
[2019-04-28 15:00] VITALS: BP 119/66
[2019-04-28] MEDS ORDERED: ONDANSETRON ODT 4 MG TAB.RAPDIS. PO PRN (18:15)
[2019-04-28 19:00] VITALS: BP 128/68
[2019-04-28] MEDS: LACTOBACILLUS RHAMNOSUS GG 1 CAPSULE. PO SCH (20:59)
[2019-04-28] MEDS: CITALOPRAM 10 MG TABLET. PO SCH (21:00)
[2019-04-28 23:00] VITALS: BP 125/63
[2019-04-29] MEDS: IV NORMAL SALINE 1000ML BAG 1,000 ML IV SCH ×3 (00:50→21:45)
[2019-04-29] MEDS: MORPHINE SULFATE 2 MG/ML VIAL. IV PRN ×5 (00:50→21:16)
[2019-04-29 03:00] VITALS: BP 122/70
[2019-04-29] MEDS: VANCOMYCIN 1.25 GM in IV NORMAL SALINE 250ML 250 ML IV SCH ×2 (05:39→18:21)
[2019-04-29 07:00] VITALS: BP 118/69
[2019-04-29] MEDS: INSULIN LISPRO 300 UNITS/3 ML VIAL. SQ SCH ×3 (08:00→16:55)
[2019-04-29] MEDS: CEFEPIME HCL IV Push 2 GM VIAL. IVP SCH ×2 (08:13→21:14)
[2019-04-29] MEDS: MULTIVITAMIN with MINERAL TABLET. PO SCH (08:13)
[2019-04-29] MEDS: metFORMIN XR 500 MG TAB.ER.24H PO SCH (08:13)
[2019-04-29] MEDS: LACTOBACILLUS RHAMNOSUS GG 1 CAPSULE. PO SCH ×2 (08:13→21:14)
[2019-04-29] MEDS: LINAGLIPTIN 5 MG TABLET PO SCH (08:13)
[2019-04-29 11:00] VITALS: BP 111/53
--- NOTE | 2019-04-29 11:01 | PDOC ---
Infectious Disease Note Subjective Subjective s/p PICC placement this morning Low-grade fever 99 and chills Denies N/V/D/SOA ROS ROS per HPI Vital Sign Vital Signs Vital Signs Date Time Temp Pulse Resp B/P (MAP) Pulse Ox O2 Delivery O2 Flow Rate FiO2 04/29/19 08:00 Room Air 10.0 04/29/19 07:07 18 04/29/19 07:00 99.4 75 118/69 (85) 95 99.4 Physical Exam PHYSICAL EXAM GENERAL: Propped up in bed, alert, relaxed appearance HEENT: Oral cavity clear NECK: Supple LUNGS: Clear. HEART: S1, S2 regular. ABDOMEN: Soft and nontender, BS present EXTREMITIES: Left lower extremity is unremarkable. Right lower extremity post- surgical dressing not opened. NEUROLOGICAL: Alert and oriented x 3. SKIN: warm to touch. No signs of rash. PIV LUE-PICC (04/29) Labs Lab Laboratory Tests Test 04/28/19 11:30 04/28/19 16:59 04/28/19 19:53 04/29/19 07:07 Glucose (Fingerstick) 259 mg/dL (70-99) 193 mg/dL (70-99) 179 mg/dL (70-99) 96 mg/dL (70-99) Micro 04/26/19 Blood Culture - Preliminary, Resulted NO GROWTH AFTER 2 DAY GRAM STAIN RESULT 2 Final Comment Few gram positive rods. GRAM STAIN RESULT 3 Final Comment Moderate gram negative rods. GRAM STAIN RESULT 4 Final Comment Gram positive cocci in pairs and chains. 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 04/27 GPR, GNR, GPC on gram stain. Cellulitis of the right foot. Fever - better Leukocytosis, improving Lactic acidosis/sepsis. Diabetes with neuropathy. Plan Plan of Care vanc and cefepime Trough 10.4 f/u cultures Monitor renal function closely Wound care team following Attending Co-Sign The patient was seen and interviewed as well as examined at the bedside. The chart was reviewed. The case was discussed. Agree with the plan of care. ADAIR SEGAL APRN Apr 29, 2019 11:01 CROW HENSON MD Apr 29, 2019 11:56
--- NOTE | 2019-04-29 11:06 | RAD ---
EXAM: AP View of the chest DATE: 04/29/2019 10:36 AM INDICATION: PICC placement 04/26/2019, 10/30/2014 COMPARISON: No Prior FINDINGS/ IMPRESSION: Heart is top normal in size. Left upper extremity PICC tip projects over the proximal SVC. Left lower lobe calcified granuloma. Mediastinal and hilar contours are stable. No focal parenchymal airspace opacity. No pleural effusion or pneumothorax. Left total shoulder arthroplasty is partially seen. Electronically signed by: Jean-Pierre Salazar MD (04/29/2019 11:03 AM) [facility]
--- NOTE | 2019-04-29 11:06 | RAD ---
EXAM: AP View of the chest DATE: 04/29/2019 10:48 AM INDICATION: PICC placement COMPARISON: 04/29/2019 FINDINGS/ IMPRESSION: Left upper extremity PICC tip projects over the proximal SVC. Cardiomediastinal silhouette is stable. No focal parenchymal airspace opacity. Calcified granuloma left lung base No pleural effusion or pneumothorax. Electronically signed by: Jean-Pierre Salazar MD (04/29/2019 11:03 AM) [facility]
--- NOTE | 2019-04-29 14:08 | PDOC ---
PROGRESS NOTES Chief Complaint Chief Complaint sepsis cellulitis and gangrene toe, POD #1, amputation Dm2, mod control,, A1c 8.7 History of Present Illness History of Present Illness OPEN from surg, will need iv abx, wound care PICC Line placed today, [facility] no event pain better malodor is gone Vitals Vitals Vital Signs Date Time Temp Pulse Resp B/P (MAP) Pulse Ox O2 Delivery O2 Flow Rate FiO2 04/29/19 11:00 98.4 65 14 111/53 (72) 97 Room Air 98.4 04/29/19 08:00 10.0 Physical Exam Physical Exam GENERAL: Propped up in bed, alert, relaxed appearance HEENT: Oral cavity clear NECK: Supple LUNGS: Clear. HEART: S1, S2 regular. ABDOMEN: Soft and nontender, BS present EXTREMITIES: Left lower extremity is unremarkable. Right lower extremity post- surgical dressing not opened. NEUROLOGICAL: Alert and oriented x 3. SKIN: warm to touch. No signs of rash. PIV LUE-PICC (04/29) General: Alert, Oriented X3, Cooperative, mild distress Extremities: No clubbing, Normal pulses Skin: No breakdown, Other (right second toe malordorous, discolored, ) Labs LABS Laboratory Tests Test 04/28/19 16:59 04/28/19 19:53 04/29/19 07:07 04/29/19 11:22 Glucose (Fingerstick) 193 mg/dL (70-99) 179 mg/dL (70-99) 96 mg/dL (70-99) 106 mg/dL (70-99) Assessment and Plan Assessmemt and Plan Problems Medical Problems: (1) Fever Status: Acute (2) Gangrene of toe of right foot Status: Acute (3) Sepsis Status: Acute (4) Severe sepsis Status: Acute Comment Review of Relevant I have reviewed the following items alis (where applicable) has been applied. Labs Laboratory Tests Test 04/27/19 16:43 04/27/19 20:49 04/28/19 04:00 04/28/19 07:13 Glucose (Fingerstick) 255 mg/dL (70-99) 243 mg/dL (70-99) 197 mg/dL (70-99) White Blood Count 13.7 x10^3/uL (4.0-11.0) Red Blood Count 3.34 x10^6/uL (4.30-5.70) Hemoglobin 9.1 g/dL (13.0-17.5) Hematocrit 27.1 % (39.0-53.0) Mean Corpuscular Volume 81 fL (79-100) Mean Corpuscular Hemoglobin 27 pg (25-35) Mean Corpuscular Hemoglobin Concent 34 g/dL (31-37) Red Cell Distribution Width 14.0 % (11.5-14.5) Platelet Count 211 x10^3/uL (140-400) Neutrophils (%) (Auto) 90 % (31-73) Lymphocytes (%) (Auto) 6 % (24-48) Monocytes (%) (Auto) 4 % (0-9) Eosinophils (%) (Auto) 0 % (0-3) Basophils (%) (Auto) 0 % (0-3) Neutrophils # (Auto) 12.3 x10^3/uL (1.8-7.7) Lymphocytes # (Auto) 0.9 x10^3/uL (1.0-4.8) Monocytes # (Auto) 0.5 x10^3/uL (0.0-1.1) Eosinophils # (Auto) 0.0 x10^3/uL (0.0-0.7) Basophils # (Auto) 0.1 x10^3/uL (0.0-0.2) Sodium Level 136 mmol/L (136-145) Potassium Level 4.9 mmol/L (3.5-5.1) Chloride Level 103 mmol/L (98-107) Carbon Dioxide Level 24 mmol/L (21-32) Anion Gap 9 (6-14) Blood Urea Nitrogen 20 mg/dL (8-26) Creatinine 1.1 mg/dL (0.7-1.3) Estimated GFR (Cockcroft-Gault) 67.4 Glucose Level 218 mg/dL (70-99) Calcium Level 7.9 mg/dL (8.5-10.1) Vancomycin Level Trough 10.4 mcg/mL (10.0-20.0) Vancomycin Last Dose Date Vancomycin Last Dose Time Test 04/28/19 11:30 04/28/19 16:59 04/28/19 19:53 04/29/19 07:07 Glucose (Fingerstick) 259 mg/dL (70-99) 193 mg/dL (70-99) 179 mg/dL (70-99) 96 mg/dL (70-99) Test 04/29/19 11:22 Glucose (Fingerstick) 106 mg/dL (70-99) Laboratory Tests Test 04/28/19 16:59 04/28/19 19:53 04/29/19 07:07 04/29/19 11:22 Glucose (Fingerstick) 193 mg/dL (70-99) 179 mg/dL (70-99) 96 mg/dL (70-99) 106 mg/dL (70-99) Microbiology 04/26/19 Aerobic Culture, Resulted Pending 04/26/19 Aerobic Culture Result 1 (TATE), Resulted Pending 04/26/19 Gram Stain - Final, Resulted 04/26/19 Gram Stain Result 1 (TATE) - Final, Resulted 04/26/19 Gram Stain Result 2 (TATE) - Final, Resulted 04/26/19 Gram Stain Result 3 (TATE) - Final, Resulted 04/26/19 Gram Stain Result 4 (TATE) - Final, Resulted 04/26/19 Blood Culture - Preliminary, Resulted NO GROWTH AFTER 2 DAYS Medications Current Medications Sodium Chloride 1,000 ml @ 2,190 mls/hr Q28M IV Last administered on 04/26/19at 16:34; Start 04/26/19 at 15:27; Stop 04/26/19 at 16:27; Status DC Piperacillin Sod/ Tazobactam Sod 4.5 gm/Sodium Chloride 100 ml @ 200 mls/hr 1X ONCE IV ; Start 04/26/19 at 15:30; Stop 04/26/19 at 15:59; Status UNV Vancomycin HCl (Vanco Per Pharmacy) 1 each 1X ONCE MC ; Start 04/26/19 at 15:30; Stop 04/26/19 at 18:08; Status DC Acetaminophen (Tylenol) 1,000 mg 1X ONCE PO Last administered on 04/26/19at 16:34; Start 04/26/19 at 15:30; Stop 04/26/19 at 15:31; Status DC Vancomycin HCl 2 gm/Sodium Chloride 500 ml @ 250 mls/hr 1X ONCE IV Last administered on 04/26/19at 16:34; Start 04/26/19 at 16:00; Stop 04/26/19 at 17:59; Status DC Ceftriaxone Sodium (Rocephin) 1 gm DAILY IVP ; Start 04/27/19 at 09:00; Status UNV Ceftriaxone Sodium (Rocephin) 1 gm Q24H IVP Last administered on 04/26/19at 16:34; Start 04/26/19 at 17:00; Stop 04/27/19 at 13:11; Status DC Ondansetron HCl (Zofran) 4 mg PRN Q8HRS PRN IV NAUSEA/VOMITING Last administered on 04/27/19at 07:57; Start 04/26/19 at 20:30; Stop 04/27/19 at 20:29; Status DC Morphine Sulfate (Morphine Sulfate) 4 mg PRN Q2HR PRN IV PAIN Last administered on 04/27/19at 18:19; Start 04/26/19 at 20:30; Stop 04/27/19 at 20:29; Status DC Sodium Chloride 1,000 ml @ 100 mls/hr 1X ONCE IV Last administered on 04/26/19at 20:41; Start 04/26/19 at 20:30; Stop 04/27/19 at 06:29; Status DC Vancomycin HCl 1.25 gm/Sodium Chloride 250 ml @ 167 mls/hr Q18H IV Last administered on 04/28/19at 05:21; Start 04/27/19 at 10:00; Stop 04/28/19 at 09:59; Status DC Vancomycin HCl (Vanco Per Pharmacy) 1 each PRN DAILY PRN MC SEE COMMENTS Last administered on 04/28/19at 06:11; Start 04/26/19 at 22:30 Sodium Chloride 1,000 ml @ 100 mls/hr Q10H IV Last administered on 04/29/19at 00:51; Start 04/26/19 at 23:45 Acetaminophen (Tylenol) 650 mg PRN Q6HRS PRN PO Fever Last administered on 04/26/19at 23:57; Start 04/26/19 at 23:30 Vancomycin HCl (Vancomycin Trough Level) 1 each 1X ONCE MC ; Start 04/28/19 at 03:30; Stop 04/28/19 at 03:31; Status DC Lidocaine HCl (Lidocaine Pf 2% Vial) 5 ml STK-MED ONCE .ROUTE ; Start 04/27/19 at 10:10; Stop 04/27/19 at 10:10; Status DC Propofol 20 ml @ As Directed STK-MED ONCE IV ; Start 04/27/19 at 10:10; Stop 04/27/19 at 10:11; Status DC Ondansetron HCl (Zofran) 4 mg STK-MED ONCE .ROUTE ; Start 04/27/19 at 10:10; Stop 04/27/19 at 10:11; Status DC Dexamethasone Sodium Phosphate (Decadron) 4 mg STK-MED ONCE .ROUTE ; Start 04/27/19 at 10:10; Stop 04/27/19 at 10:11; Status DC Sevoflurane (Ultane) 30 ml STK-MED ONCE IH ; Start 04/27/19 at 11:07; Stop 04/27/19 at 11:08; Status DC Cefepime HCl (Maxipime) 2 gm Q12HR IVP Last administered on 04/29/19at 08:13; Start 04/27/19 at 21:00 Multivitamins (Thera M Plus) 1 tab DAILY PO Last administered on 04/29/19at 08:13; Start 04/28/19 at 09:00 Citalopram Hydrobromide (CeleXA) 10 mg QHS PO Last administered on 04/28/19at 21:00; Start 04/27/19 at 21:00 Metformin HCl (Glucophage Xr) 1,000 mg DAILYWBKFT PO Last administered on 04/29/19at 08:13; Start 04/27/19 at 18:00 Non-Formulary Medication (Empagliflozin (Jardiance)) 25 mg DAILY PO ; Start 04/28/19 at 09:00; Stop 04/28/19 at 11:52; Status DC Non-Formulary Medication (Ertugliflozin Pidolate (Steglatro)) 15 mg DAILY PO ; Start 04/28/19 at 09:00; Stop 04/28/19 at 11:53; Status DC Insulin Human Lispro (HumaLOG) 0-5 UNITS TIDWMEALS SQ ; Start 04/28/19 at 08:00 Dextrose (Dextrose 50%-Water Syringe) 12.5 gm PRN Q15MIN PRN IV SEE COMMENTS; Start 04/27/19 at 19:00 Dextrose 250 ml PRN Q15MIN PRN IV SEE COMMENTS; Start 04/27/19 at 19:00 Vancomycin HCl 1.25 gm/Sodium Chloride 250 ml @ 167 mls/hr Q12H IV Last administered on 04/29/19at 05:45; Start 04/28/19 at 18:00 Vancomycin HCl (Vancomycin Trough Level) 1 each 1X ONCE MC ; Start 04/30/19 at 05:30; Stop 04/30/19 at 05:31 Insulin Glargine (Lantus Syringe) 10 unit 1X ONCE SQ Last administered on 04/28/19at 11:50; Start 04/28/19 at 11:15; Stop 04/28/19 at 11:20; Status DC Lactobacillus Rhamnosus (Culturelle) 1 cap BID PO Last administered on 04/29/19at 08:13; Start 04/28/19 at 21:00 Linagliptin (Tradjenta) 5 mg DAILY PO Last administered on 04/29/19at 08:13; Start 04/29/19 at 09:00 Ondansetron HCl (Zofran Odt) 4 mg PRN Q6HRS PRN PO NAUSEA/VOMITING Last administered on 04/28/19at 18:20; Start 04/28/19 at 18:15 Morphine Sulfate (Morphine Sulfate) 2 mg PRN Q2HR PRN IV SEVERE PAIN 7-10 Last administered on 04/29/19at 08:15; Start 04/29/19 at 00:45 Active Scripts Active Celexa (Citalopram Hydrobromide) 10 Mg Tablet 10 Mg PO QHS 30 Days Reported Januvia (Sitagliptin Phosphate) 100 Mg Tablet 1 Tab PO DAILY Januvia (Sitagliptin Phosphate) 100 Mg Tablet 1 Tab PO DAILY Metformin Hcl Er (Metformin Hcl) 500 Mg Tab.er.24h 1,000 Mg PO DAILYWBKFT Vitals/I & O Vital Sign - Last 24 Hours 04/28/19 04/28/19 04/28/19 04/28/19 15:00 19:00 20:00 23:00 Temp 98.5 98.2 99.1 98.5 98.2 99.1 Pulse 76 75 82 Resp 18 18 18 B/P (MAP) 119/66 (83) 128/68 (88) 125/63 (83) Pulse Ox 99 97 96 O2 Delivery Room Air Room Air Room Air Room Air 804/29/19 04/29/19 04/29/19 00:51 01:36 03:00 05:45 Temp 99.6 99.6 Pulse 79 Resp 20 14 18 18 B/P (MAP) 122/70 (87) Pulse Ox 96 O2 Delivery Room Air Room Air Room Air Room Air 04/29/19 04/29/19 04/29/19 04/29/19 07:00 07:07 08:00 11:00 Temp 99.4 98.4 99.4 98.4 Pulse 75 65 Resp 16 18 14 B/P (MAP) 118/69 (85) 111/53 (72) Pulse Ox 95 97 O2 Delivery Room Air Room Air Room Air Room Air O2 Flow Rate 10.0 Intake and Output 04/28/19 04/28/19 04/29/19 15:00 23:00 07:00 Intake Total 240 ml 350 ml Balance 240 ml 350 ml FRANCES GOFF MD Apr 29, 2019 14:08
[2019-04-29 15:00] VITALS: BP 109/61
[2019-04-29] MEDS: VANCOMYCIN PER PHARMACY MC PRN (15:53)
[2019-04-29 19:00] VITALS: BP 123/62
[2019-04-29] MEDS: CITALOPRAM 10 MG TABLET. PO SCH (21:14)
[2019-04-29] MEDS: ACETAMINOPHEN 325 MG TABLET. PO PRN (21:14)
[2019-04-29 21:17] LABS: BASO # 0.1 x10^3/uL (0.0-0.2); BASO % 1 % (0-3); EOS # 0.1 x10^3/uL (0.0-0.7); EOS % 1 % (0-3); HEMATOCRIT 26.4 % (39.0-53.0); HEMOGLOBIN 8.9 g/dL (13.0-17.5); LYMPH # 1.2 x10^3/uL (1.0-4.8); LYMPH % 14 % (24-48); MEAN CORPUSCULAR HEMOGLOBIN 28 pg (25-35); MEAN CORPUSCULAR HGB CONC 34 g/dL (31-37); MEAN CORPUSCULAR VOLUME 82 fL (79-100); MONO # 0.6 x10^3/uL (0.0-1.1); MONO % 7 % (0-9); NEUT # 6.5 x10^3/uL (1.8-7.7); NEUT % 76 % (31-73); PLATELET COUNT 237 x10^3/uL (140-400); RED BLOOD COUNT 3.23 x10^6/uL (4.30-5.70); RED CELL DISTRIBUTION WIDTH 14.2 % (11.5-14.5); WHITE BLOOD COUNT 8.5 x10^3/uL (4.0-11.0)
[2019-04-29 21:24] LABS: CALCIUM 8.2 mg/dL (8.5-10.1); CREATININE 1.2 mg/dL (0.7-1.3); POTASSIUM 4.3 mmol/L (3.5-5.1)
[2019-04-29 23:00] VITALS: BP 101/62
[2019-04-30 03:00] VITALS: BP 118/65
[2019-04-30] MEDS: IV NORMAL SALINE 1000ML BAG 1,000 ML IV SCH ×2 (03:17→17:10)
[2019-04-30] MEDS: MORPHINE SULFATE 2 MG/ML VIAL. IV PRN ×2 (03:18→20:04)
[2019-04-30 05:52] LABS: VANC TR 20.8 mcg/mL (10.0-20.0)
[2019-04-30] MEDS: VANCOMYCIN PER PHARMACY MC PRN (06:13)
--- NOTE | 2019-04-30 06:13 | NUR ---
Pharmacy Vancomycin Dosing Note S:Consulted to monitor and dose vancomycin started 04/26/19. O:DAGO CHARLES is a 64 year old M with Osteomyelitis GANGRENE OF TOE . Height: 5 feet, 10 inches Weight: 84.506532 kg [place] Body Weight: 211.00 Adjusted Body Weight: 160.56 Dosing Weight: Actual Other Antibiotics: CEFTRIAXONE 1 GM- DC'D CEFEPIME 2GM Q12H LABS: Last BUN: 20 Last Creatinine: 1.1 Creatinine Clearance: 75 mL/min Last WBC: 13.7 Last Procalcitonin: 0.98 Tmax (past 24 hours): 102.9 Microbiology: 04/29 WOUND CX: GNR, GPC IN PAIRS AND CHAINS I/O: 2690/4 VOIDS Drug Levels: Last Trough level: 20.8 on 04/30/19 at 0530 Last dose given 04/26/19 at 1600 Vancomycin Dosing: Loading Dose: 2000 mg x1 Dosing Weight: Actual Target Trough: 15-20 A: Based on: TROUGH P: 1. Begin Vancomycin 1000 mg IV q12h 2. Follow up Trough level on 05/01/19 at 1830 3. Pharmacy will continue to monitor, follow and adjust therapy as needed. WENDY GIORDANO RPH, [id number] Signed: 04/30/19 at 0614 by WENDY GIORDANO RPH PHA
[2019-04-30] MEDS: VANCOMYCIN 1 GM in IV NORMAL SALINE 250ML 250 ML IV SCH ×2 (06:57→17:12)
[2019-04-30 07:00] VITALS: BP 130/63
[2019-04-30] MEDS: INSULIN LISPRO 300 UNITS/3 ML VIAL. SQ SCH ×3 (08:00→17:00)
[2019-04-30] MEDS: MULTIVITAMIN with MINERAL TABLET. PO SCH (08:38)
[2019-04-30] MEDS: LINAGLIPTIN 5 MG TABLET PO SCH (08:38)
[2019-04-30] MEDS: LACTOBACILLUS RHAMNOSUS GG 1 CAPSULE. PO SCH ×2 (08:38→20:55)
[2019-04-30] MEDS: metFORMIN XR 500 MG TAB.ER.24H PO SCH (08:38)
[2019-04-30] MEDS: CEFEPIME HCL IV Push 2 GM VIAL. IVP SCH ×2 (08:40→20:55)
--- NOTE | 2019-04-30 10:40 | PDOC ---
PROGRESS NOTES Chief Complaint Chief Complaint IMPRESSION sepsis cellulitis and gangrene toe, POD #2, amputation , Right second toe amputation Dm2, mod control,, A1c 8.7 PLAN CONT IV VANC, CEFIPIME : PICC placement id consult 29 MIN PT EXAM, CHART REVIEW, > 50% OF TIME SPENT WITH EXAM, CHART REVIEW, PT CARE COORDINATION History of Present Illness History of Present Illness OPEN from surg, will need iv abx, wound care PICC Line placed , pollock vas pain persists malodor is gone Vitals Vitals Vital Signs Date Time Temp Pulse Resp B/P (MAP) Pulse Ox O2 Delivery O2 Flow Rate FiO2 04/30/19 07:50 Room Air 04/30/19 07:00 97.9 71 16 130/63 (85) 96 97.9 04/29/19 17:55 10.0 Physical Exam Physical Exam GENERAL: Propped up in bed, alert, relaxed appearance HEENT: Oral cavity clear NECK: Supple LUNGS: Clear. HEART: S1, S2 regular. ABDOMEN: Soft and nontender, BS present EXTREMITIES: Left lower extremity is unremarkable. Right lower extremity post- surgical dressing not opened. NEUROLOGICAL: Alert and oriented x 3. SKIN: warm to touch. No signs of rash. PIV LUE-PICC (04/29) General: Alert, Oriented X3, Cooperative, mild distress Heart: Regular rate, No murmurs Lungs: Clear Abdomen: Normal bowel sounds, Soft Extremities: No clubbing, Normal pulses Skin: No breakdown, Other (right second toe malordorous, discolored, ) Labs LABS STATUS: ADM IN ORD. PHYSICIAN: FRANCES GFOF MD REASON: PICC PLACEMENT PROCEDURE: CHEST AP ONLY EXAM: AP View of the chest DATE: 04/29/2019 10:48 AM INDICATION: PICC placement COMPARISON: 04/29/2019 FINDINGS/ IMPRESSION: Left upper extremity PICC tip projects over the proximal SVC. Cardiomediastinal silhouette is stable. No focal parenchymal airspace opacity. Calcified granuloma left lung base No pleural effusion or pneumothorax. Electronically signed by: Jean-Peirre Salazar MD (04/29/2019 11:03 AM) [facility] ATIENT: DAGO CHARLES ACCT: [id number] LOC: [address] [place] [address] U: [id number] AGE/SX: 64/M ROOM: [facility] RE04/26/[address]: FRANCES GOFF MD : 1955 BED: 1 DIS: STATUS: ADM IN TLOC: SPEC #: [id number] DAVY: 04/26/19 STATUS: RES REQ #: [id number] RECD: 04/26/[address]: EDWARD TRUJILLO APRN SOURCE: TOE ENTR: 04/26/[address]: EVELIA,STAFF SPDESC: RT SECOND JAN JOY MD ORDERED: AEROBIC CULT GS COMMENTS: RT SECOND TOE Procedure Result AEROBIC CULTURE Preliminary Preliminary report AEROBIC RES 1 Preliminary Gram negative rods 4+ AEROBIC RES 2 Preliminary Gram negative rods 4+ AEROBIC RES 3 Preliminary Streptococcus species 4+ Performed at: DA - [facility], [place], [place] [id number] [employer] Manager: KARLEY Pavon MD, Phone: [phone] GRAM STAIN Final Final report GRAM STAIN RESULT 1 Final Comment No white blood cells seen. GRAM STAIN RESULT 2 Final Comment Few gram positive rods. Operative Note Operative Note Date of surgery: 04/27/2019 Preoperative diagnosis: Gangrenous right second toe Postoperative diagnosis: Same Operative procedure: Right second toe amputation Surgeon: Kimberly Anesthesia: Gen. Estimated blood loss: 10 mL Laboratory Tests Test 04/29/19 11:22 04/29/19 16:40 04/29/19 20:30 04/29/19 21:10 Glucose (Fingerstick) 106 mg/dL (70-99) 132 mg/dL (70-99) 137 mg/dL (70-99) White Blood Count 8.5 x10^3/uL (4.0-11.0) Red Blood Count 3.23 x10^6/uL (4.30-5.70) Hemoglobin 8.9 g/dL (13.0-17.5) Hematocrit 26.4 % (39.0-53.0) Mean Corpuscular Volume 82 fL (79-100) Mean Corpuscular Hemoglobin 28 pg (25-35) Mean Corpuscular Hemoglobin Concent 34 g/dL (31-37) Red Cell Distribution Width 14.2 % (11.5-14.5) Platelet Count 237 x10^3/uL (140-400) Neutrophils (%) (Auto) 76 % (31-73) Lymphocytes (%) (Auto) 14 % (24-48) Monocytes (%) (Auto) 7 % (0-9) Eosinophils (%) (Auto) 1 % (0-3) Basophils (%) (Auto) 1 % (0-3) Neutrophils # (Auto) 6.5 x10^3/uL (1.8-7.7) Lymphocytes # (Auto) 1.2 x10^3/uL (1.0-4.8) Monocytes # (Auto) 0.6 x10^3/uL (0.0-1.1) Eosinophils # (Auto) 0.1 x10^3/uL (0.0-0.7) Basophils # (Auto) 0.1 x10^3/uL (0.0-0.2) Sodium Level 136 mmol/L (136-145) Potassium Level 4.3 mmol/L (3.5-5.1) Chloride Level 104 mmol/L (98-107) Carbon Dioxide Level 27 mmol/L (21-32) Anion Gap 5 (6-14) Blood Urea Nitrogen 19 mg/dL (8-26) Creatinine 1.2 mg/dL (0.7-1.3) Estimated GFR (Cockcroft-Gault) 61.0 Glucose Level 140 mg/dL (70-99) Calcium Level 8.2 mg/dL (8.5-10.1) Test 04/30/19 05:10 Vancomycin Level Trough 20.8 mcg/mL (10.0-20.0) Vancomycin Last Dose Date 04/29/19 Vancomycin Last Dose Time 1800 Assessment and Plan Assessmemt and Plan Problems Medical Problems: (1) Fever Status: Acute (2) Gangrene of toe of right foot Status: Acute (3) Sepsis Status: Acute (4) Severe sepsis Status: Acute Comment Review of Relevant I have reviewed the following items alis (where applicable) has been applied. Labs Laboratory Tests Test 04/28/19 11:30 04/28/19 16:59 04/28/19 19:53 04/29/19 07:07 Glucose (Fingerstick) 259 mg/dL (70-99) 193 mg/dL (70-99) 179 mg/dL (70-99) 96 mg/dL (70-99) Test 04/29/19 11:22 04/29/19 16:40 04/29/19 20:30 04/29/19 21:10 Glucose (Fingerstick) 106 mg/dL (70-99) 132 mg/dL (70-99) 137 mg/dL (70-99) White Blood Count 8.5 x10^3/uL (4.0-11.0) Red Blood Count 3.23 x10^6/uL (4.30-5.70) Hemoglobin 8.9 g/dL (13.0-17.5) Hematocrit 26.4 % (39.0-53.0) Mean Corpuscular Volume 82 fL (79-100) Mean Corpuscular Hemoglobin 28 pg (25-35) Mean Corpuscular Hemoglobin Concent 34 g/dL (31-37) Red Cell Distribution Width 14.2 % (11.5-14.5) Platelet Count 237 x10^3/uL (140-400) Neutrophils (%) (Auto) 76 % (31-73) Lymphocytes (%) (Auto) 14 % (24-48) Monocytes (%) (Auto) 7 % (0-9) Eosinophils (%) (Auto) 1 % (0-3) Basophils (%) (Auto) 1 % (0-3) Neutrophils # (Auto) 6.5 x10^3/uL (1.8-7.7) Lymphocytes # (Auto) 1.2 x10^3/uL (1.0-4.8) Monocytes # (Auto) 0.6 x10^3/uL (0.0-1.1) Eosinophils # (Auto) 0.1 x10^3/uL (0.0-0.7) Basophils # (Auto) 0.1 x10^3/uL (0.0-0.2) Sodium Level 136 mmol/L (136-145) Potassium Level 4.3 mmol/L (3.5-5.1) Chloride Level 104 mmol/L (98-107) Carbon Dioxide Level 27 mmol/L (21-32) Anion Gap 5 (6-14) Blood Urea Nitrogen 19 mg/dL (8-26) Creatinine 1.2 mg/dL (0.7-1.3) Estimated GFR (Cockcroft-Gault) 61.0 Glucose Level 140 mg/dL (70-99) Calcium Level 8.2 mg/dL (8.5-10.1) Test 04/30/19 05:10 Vancomycin Level Trough 20.8 mcg/mL (10.0-20.0) Vancomycin Last Dose Date 04/29/19 Vancomycin Last Dose Time 1800 Laboratory Tests Test 04/29/19 11:22 04/29/19 16:40 04/29/19 20:30 04/29/19 21:10 Glucose (Fingerstick) 106 mg/dL (70-99) 132 mg/dL (70-99) 137 mg/dL (70-99) White Blood Count 8.5 x10^3/uL (4.0-11.0) Red Blood Count 3.23 x10^6/uL (4.30-5.70) Hemoglobin 8.9 g/dL (13.0-17.5) Hematocrit 26.4 % (39.0-53.0) Mean Corpuscular Volume 82 fL (79-100) Mean Corpuscular Hemoglobin 28 pg (25-35) Mean Corpuscular Hemoglobin Concent 34 g/dL (31-37) Red Cell Distribution Width 14.2 % (11.5-14.5) Platelet Count 237 x10^3/uL (140-400) Neutrophils (%) (Auto) 76 % (31-73) Lymphocytes (%) (Auto) 14 % (24-48) Monocytes (%) (Auto) 7 % (0-9) Eosinophils (%) (Auto) 1 % (0-3) Basophils (%) (Auto) 1 % (0-3) Neutrophils # (Auto) 6.5 x10^3/uL (1.8-7.7) Lymphocytes # (Auto) 1.2 x10^3/uL (1.0-4.8) Monocytes # (Auto) 0.6 x10^3/uL (0.0-1.1) Eosinophils # (Auto) 0.1 x10^3/uL (0.0-0.7) Basophils # (Auto) 0.1 x10^3/uL (0.0-0.2) Sodium Level 136 mmol/L (136-145) Potassium Level 4.3 mmol/L (3.5-5.1) Chloride Level 104 mmol/L (98-107) Carbon Dioxide Level 27 mmol/L (21-32) Anion Gap 5 (6-14) Blood Urea Nitrogen 19 mg/dL (8-26) Creatinine 1.2 mg/dL (0.7-1.3) Estimated GFR (Cockcroft-Gault) 61.0 Glucose Level 140 mg/dL (70-99) Calcium Level 8.2 mg/dL (8.5-10.1) Test 04/30/19 05:10 Vancomycin Level Trough 20.8 mcg/mL (10.0-20.0) Vancomycin Last Dose Date 04/29/19 Vancomycin Last Dose Time 1800 Microbiology 04/26/19 Aerobic Culture - Preliminary, Resulted 04/26/19 Aerobic Culture Result 1 (TATE) - Preliminary, Resulted 04/26/19 Aerobic Culture Result 2 (TATE) - Preliminary, Resulted 04/26/19 Aerobic Culture Result 3 (TATE) - Preliminary, Resulted 04/26/19 Gram Stain - Final, Resulted 04/26/19 Gram Stain Result 1 (TATE) - Final, Resulted 04/26/19 Gram Stain Result 2 (TATE) - Final, Resulted 04/26/19 Gram Stain Result 3 (TATE) - Final, Resulted 04/26/19 Gram Stain Result 4 (TATE) - Final, Resulted 04/26/19 Blood Culture - Preliminary, Resulted NO GROWTH AFTER 3 DAYS Medications Current Medications Sodium Chloride 1,000 ml @ 2,190 mls/hr Q28M IV Last administered on 04/26/19at 16:34; Start 04/26/19 at 15:27; Stop 04/26/19 at 16:27; Status DC Piperacillin Sod/ Tazobactam Sod 4.5 gm/Sodium Chloride 100 ml @ 200 mls/hr 1X ONCE IV ; Start 04/26/19 at 15:30; Stop 04/26/19 at 15:59; Status UNV Vancomycin HCl (Vanco Per Pharmacy) 1 each 1X ONCE MC ; Start 04/26/19 at 15:30; Stop 04/26/19 at 18:08; Status DC Acetaminophen (Tylenol) 1,000 mg 1X ONCE PO Last administered on 04/26/19at 16:34; Start 04/26/19 at 15:30; Stop 04/26/19 at 15:31; Status DC Vancomycin HCl 2 gm/Sodium Chloride 500 ml @ 250 mls/hr 1X ONCE IV Last administered on 04/26/19at 16:34; Start 04/26/19 at 16:00; Stop 04/26/19 at 17:59; Status DC Ceftriaxone Sodium (Rocephin) 1 gm DAILY IVP ; Start 04/27/19 at 09:00; Status UNV Ceftriaxone Sodium (Rocephin) 1 gm Q24H IVP Last administered on 04/26/19at 16:34; Start 04/26/19 at 17:00; Stop 04/27/19 at 13:11; Status DC Ondansetron HCl (Zofran) 4 mg PRN Q8HRS PRN IV NAUSEA/VOMITING Last administered on 04/27/19at 07:57; Start 04/26/19 at 20:30; Stop 04/27/19 at 20:29; Status DC Morphine Sulfate (Morphine Sulfate) 4 mg PRN Q2HR PRN IV PAIN Last administered on 04/27/19at 18:19; Start 04/26/19 at 20:30; Stop 04/27/19 at 20:29; Status DC Sodium Chloride 1,000 ml @ 100 mls/hr 1X ONCE IV Last administered on 04/26/19at 20:41; Start 04/26/19 at 20:30; Stop 04/27/19 at 06:29; Status DC Vancomycin HCl 1.25 gm/Sodium Chloride 250 ml @ 167 mls/hr Q18H IV Last administered on 04/28/19at 05:21; Start 04/27/19 at 10:00; Stop 04/28/19 at 09:59; Status DC Vancomycin HCl (Vanco Per Pharmacy) 1 each PRN DAILY PRN MC SEE COMMENTS Last administered on 04/30/19at 06:13; Start 04/26/19 at 22:30 Sodium Chloride 1,000 ml @ 100 mls/hr Q10H IV Last administered on 04/30/19at 03:18; Start 04/26/19 at 23:45 Acetaminophen (Tylenol) 650 mg PRN Q6HRS PRN PO Fever Last administered on 04/29/19at 21:16; Start 04/26/19 at 23:30 Vancomycin HCl (Vancomycin Trough Level) 1 each 1X ONCE MC ; Start 04/28/19 at 03:30; Stop 04/28/19 at 03:31; Status DC Lidocaine HCl (Lidocaine Pf 2% Vial) 5 ml STK-MED ONCE .ROUTE ; Start 04/27/19 at 10:10; Stop 04/27/19 at 10:10; Status DC Propofol 20 ml @ As Directed STK-MED ONCE IV ; Start 04/27/19 at 10:10; Stop 04/27/19 at 10:11; Status DC Ondansetron HCl (Zofran) 4 mg STK-MED ONCE .ROUTE ; Start 04/27/19 at 10:10; Stop 04/27/19 at 10:11; Status DC Dexamethasone Sodium Phosphate (Decadron) 4 mg STK-MED ONCE .ROUTE ; Start 04/27/19 at 10:10; Stop 04/27/19 at 10:11; Status DC Sevoflurane (Ultane) 30 ml STK-MED ONCE IH ; Start 04/27/19 at 11:07; Stop 04/27/19 at 11:08; Status DC Cefepime HCl (Maxipime) 2 gm Q12HR IVP Last administered on 04/30/19at 08:40; Start 04/27/19 at 21:00 Multivitamins (Thera M Plus) 1 tab DAILY PO Last administered on 04/30/19at 08:4 0; Start 04/28/19 at 09:00 Citalopram Hydrobromide (CeleXA) 10 mg QHS PO Last administered on 04/29/19at 21:16; Start 04/27/19 at 21:00 Metformin HCl (Glucophage Xr) 1,000 mg DAILYWBKFT PO Last administered on 04/30/19at 08:40; Start 04/27/19 at 18:00 Non-Formulary Medication (Empagliflozin (Jardiance)) 25 mg DAILY PO ; Start 04/28/19 at 09:00; Stop 04/28/19 at 11:52; Status DC Non-Formulary Medication (Ertugliflozin Pidolate (Steglatro)) 15 mg DAILY PO ; Start 04/28/19 at 09:00; Stop 04/28/19 at 11:53; Status DC Insulin Human Lispro (HumaLOG) 0-5 UNITS TIDWMEALS SQ ; Start 04/28/19 at 08:00 Dextrose (Dextrose 50%-Water Syringe) 12.5 gm PRN Q15MIN PRN IV SEE COMMENTS; Start 04/27/19 at 19:00 Dextrose 250 ml PRN Q15MIN PRN IV SEE COMMENTS; Start 04/27/19 at 19:00 Vancomycin HCl 1.25 gm/Sodium Chloride 250 ml @ 167 mls/hr Q12H IV Last administered on 04/29/19at 18:21; Start 04/28/19 at 18:00; Stop 04/30/19 at 06:02; Status DC Vancomycin HCl (Vancomycin Trough Level) 1 each 1X ONCE MC Last administered o n 04/30/19at 06:03; Start 04/30/19 at 05:30; Stop 04/30/19 at 05:31; Status DC Insulin Glargine (Lantus Syringe) 10 unit 1X ONCE SQ Last administered on 04/28/19at 11:50; Start 04/28/19 at 11:15; Stop 04/28/19 at 11:20; Status DC Lactobacillus Rhamnosus (Culturelle) 1 cap BID PO Last administered on 04/30/19at 08:40; Start 04/28/19 at 21:00 Linagliptin (Tradjenta) 5 mg DAILY PO Last administered on 04/30/19 08:40; Start 04/29/19 at 09:00 Ondansetron HCl (Zofran Odt) 4 mg PRN Q6HRS PRN PO NAUSEA/VOMITING Last administered on 04/28/19 18:20; Start 04/28/19 at 18:15 Morphine Sulfate (Morphine Sulfate) 2 mg PRN Q2HR PRN IV SEVERE PAIN 7-10 Last administered on 04/30/19 03:18; Start 04/29/19 at 00:45 Vancomycin HCl 1 gm/Sodium Chloride 250 ml @ 250 mls/hr Q12H IV Last administered on 04/30/19 07:01; Start 04/30/19 at 07:00 Vancomycin HCl (Vancomycin Trough Level) 1 each 1X ONCE MC ; Start 05/01/19 at 18:30; Stop 05/01/19 at 18:31 Active Scripts Active Celexa (Citalopram Hydrobromide) 10 Mg Tablet 10 Mg PO QHS 30 Days Reported Januvia (Sitagliptin Phosphate) 100 Mg Tablet 1 Tab PO DAILY Januvia (Sitagliptin Phosphate) 100 Mg Tablet 1 Tab PO DAILY Metformin Hcl Er (Metformin Hcl) 500 Mg Tab.er.24h 1,000 Mg PO DAILYWBKFT Vitals/I & O Vital Sign - Last 24 Hours 04/29/19 04/29/19 04/29/19 04/29/19 11:00 15:00 17:55 19:00 Temp 98.4 99.0 100.0 98.4 99.0 100.0 Pulse 65 80 78 Resp 14 14 16 B/P (MAP) 111/53 (72) 109/61 (77) 123/62 (82) Pulse Ox 97 97 97 98 O2 Delivery Room Air Room Air Room Air Room Air O2 Flow Rate 10.0 04/29/19 04/29/19 04/29/19 04/29/19 19:45 21:16 22:21 23:00 Temp 99.1 99.1 Pulse 77 Resp 16 14 16 B/P (MAP) 101/62 (75) Pulse Ox 94 O2 Delivery Room Air Room Air Room Air Room Air 04/30/19 04/30/19 04/30/19 04/30/19 03:00 03:18 04:17 07:00 Temp 98.1 97.9 98.1 97.9 Pulse 67 71 Resp 16 16 14 16 B/P (MAP) 118/65 (82) 130/63 (85) Pulse Ox 97 96 O2 Delivery Room Air Room Air Room Air Room Air 04/30/19 07:50 O2 Delivery Room Air Intake and Output 04/29/19 04/29/19 04/30/19 15:00 23:00 07:00 Intake Total 120 ml 560 ml 500 ml Balance 120 ml 560 ml 500 ml ANTHONY CUELLAR MD Apr 30, 2019 10:39
[2019-04-30 11:00] VITALS: BP 155/79
[2019-04-30] MEDS ORDERED: HYDROcodone/APAP 5/325MG 1 TAB TABLET PO PRN (11:15)
--- NOTE | 2019-04-30 12:16 | PDOC ---
Infectious Disease Note Subjective: Subjective pt has some nausea some pain at postop site Low-grade fever 99 and chills Denies V/D/SOA ROS: ROS Negative otherwise. Vital Signs: Vital Signs Vital Signs Date Time Temp Pulse Resp B/P (MAP) Pulse Ox O2 Delivery O2 Flow Rate FiO2 04/30/19 11:00 98.1 81 16 155/79 (104) 96 Room Air 98.1 04/29/19 17:55 10.0 Physical Exam: PHYSICAL EXAM GENERAL: Propped up in bed, alert, relaxed appearance HEENT: Oral cavity clear NECK: Supple LUNGS: Clear. HEART: S1, S2 regular. ABDOMEN: Soft and nontender, BS present EXTREMITIES: Left lower extremity is unremarkable. Right lower extremity post- surgical dressing not opened. NEUROLOGICAL: Alert and oriented x 3. SKIN: warm to touch. No signs of rash. PIV LUE-PICC (04/29) Medications: Inpatient Meds: Current Medications Medications (Trade) Dose Ordered Sig/Sarah Start Time Stop Time Status Last Admin Dose Admin Acetaminophen (Tylenol) 650 mg PRN Q6HRS PRN 04/26/19 23:30 04/29/19 21:16 650 MG Acetaminophen/ Hydrocodone Bitart (Lortab 5/325) 1 tab PRN Q4HRS PRN 04/30/19 11:15 Cefepime HCl (Maxipime) 2 gm Q12HR 04/27/19 21:00 04/30/19 08:40 2 GM Ceftriaxone Sodium (Rocephin) 1 gm Q24H 04/26/19 17:00 04/27/19 13:11 DC 04/26/19 16:34 1 GM Citalopram Hydrobromide (CeleXA) 10 mg QHS 04/27/19 21:00 04/29/19 21:16 10 MG Dexamethasone Sodium Phosphate (Decadron) 4 mg STK-MED ONCE 04/27/19 10:10 04/27/19 10:11 DC Dextrose 250 ml PRN Q15MIN PRN 04/27/19 19:00 Dextrose (Dextrose 50%-Water Syringe) 12.5 gm PRN Q15MIN PRN 04/27/19 19:00 Insulin Glargine (Lantus Syringe) 10 unit 1X ONCE 04/28/19 11:15 04/28/19 11:20 DC 04/28/19 11:50 10 UNIT Insulin Human Lispro (HumaLOG) 0-5 UNITS TIDWMEALS 04/28/19 08:00 Lactobacillus Rhamnosus (Culturelle) 1 cap BID 04/28/19 21:00 04/30/19 08:40 1 CAP Lidocaine HCl (Lidocaine Pf 2% Vial) 5 ml STK-MED ONCE 04/27/19 10:10 04/27/19 10:10 DC Linagliptin (Tradjenta) 5 mg DAILY 04/29/19 09:00 04/30/19 08:40 5 MG Metformin HCl (Glucophage Xr) 1,000 mg DAILYWBKFT 04/27/19 18:00 04/30/19 08:40 1,000 MG Morphine Sulfate (Morphine Sulfate) 2 mg PRN Q2HR PRN 04/29/19 00:45 04/30/19 03:18 2 MG Multivitamins (Thera M Plus) 1 tab DAILY 04/28/19 09:00 04/30/19 08:40 1 TAB Non-Formulary Medication (Empagliflozin (Jardiance)) 25 mg DAILY 04/28/19 09:00 04/28/19 11:52 DC Non-Formulary Medication (Ertugliflozin Pidolate (Steglatro)) 15 mg DAILY 04/28/19 09:00 04/28/19 11:53 DC Ondansetron HCl (Zofran Odt) 4 mg PRN Q6HRS PRN 04/28/19 18:15 04/28/19 18:20 4 MG Ondansetron HCl (Zofran) 4 mg STK-MED ONCE 04/27/19 10:10 04/27/19 10:11 DC Piperacillin Sod/ Tazobactam Sod 4.5 gm/Sodium Chloride 100 ml @ 200 mls/hr 1X ONCE 04/26/19 15:30 04/26/19 15:59 UNV Propofol 20 ml @ As Directed STK-MED ONCE 04/27/19 10:10 04/27/19 10:11 DC Sevoflurane (Ultane) 30 ml STK-MED ONCE 04/27/19 11:07 04/27/19 11:08 DC Sodium Chloride 1,000 ml @ 100 mls/hr Q10H 04/26/19 23:45 04/30/19 03:18 100 MLS/HR Vancomycin HCl (Vanco Per Pharmacy) 1 each PRN DAILY PRN 04/26/19 22:30 04/30/19 06:13 1 EACH Vancomycin HCl (Vancomycin Trough Level) 1 each 1X ONCE 05/01/19 18:30 05/01/19 18:31 Vancomycin HCl 1.25 gm/Sodium Chloride 250 ml @ 167 mls/hr Q12H 04/28/19 18:00 04/30/19 06:02 DC 04/29/19 18:21 167 MLS/HR Vancomycin HCl 1 gm/Sodium Chloride 250 ml @ 250 mls/hr Q12H 04/30/19 07:00 04/30/19 07:01 250 MLS/HR Vancomycin HCl 2 gm/Sodium Chloride 500 ml @ 250 mls/hr 1X ONCE 04/26/19 16:00 04/26/19 17:59 DC 04/26/19 16:34 250 MLS/HR Labs: Lab Laboratory Tests Test 04/29/19 16:40 04/29/19 20:30 04/29/19 21:10 04/30/19 05:10 Glucose (Fingerstick) 132 mg/dL (70-99) 137 mg/dL (70-99) White Blood Count 8.5 x10^3/uL (4.0-11.0) Red Blood Count 3.23 x10^6/uL (4.30-5.70) Hemoglobin 8.9 g/dL (13.0-17.5) Hematocrit 26.4 % (39.0-53.0) Mean Corpuscular Volume 82 fL (79-100) Mean Corpuscular Hemoglobin 28 pg (25-35) Mean Corpuscular Hemoglobin Concent 34 g/dL (31-37) Red Cell Distribution Width 14.2 % (11.5-14.5) Platelet Count 237 x10^3/uL (140-400) Neutrophils (%) (Auto) 76 % (31-73) Lymphocytes (%) (Auto) 14 % (24-48) Monocytes (%) (Auto) 7 % (0-9) Eosinophils (%) (Auto) 1 % (0-3) Basophils (%) (Auto) 1 % (0-3) Neutrophils # (Auto) 6.5 x10^3/uL (1.8-7.7) Lymphocytes # (Auto) 1.2 x10^3/uL (1.0-4.8) Monocytes # (Auto) 0.6 x10^3/uL (0.0-1.1) Eosinophils # (Auto) 0.1 x10^3/uL (0.0-0.7) Basophils # (Auto) 0.1 x10^3/uL (0.0-0.2) Sodium Level 136 mmol/L (136-145) Potassium Level 4.3 mmol/L (3.5-5.1) Chloride Level 104 mmol/L (98-107) Carbon Dioxide Level 27 mmol/L (21-32) Anion Gap 5 (6-14) Blood Urea Nitrogen 19 mg/dL (8-26) Creatinine 1.2 mg/dL (0.7-1.3) Estimated GFR (Cockcroft-Gault) 61.0 Glucose Level 140 mg/dL (70-99) Calcium Level 8.2 mg/dL (8.5-10.1) Vancomycin Level Trough 20.8 mcg/mL (10.0-20.0) Vancomycin Last Dose Date 04/29/19 Vancomycin Last Dose Time 1800 Test 04/30/19 07:38 04/30/19 11:42 Glucose (Fingerstick) 97 mg/dL (70-99) 113 mg/dL (70-99) Objective: Assessment: 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 04/27 GPR, GNR, GPC on gram stain. Cellulitis of the right foot. Fever - better Leukocytosis, improving Lactic acidosis/sepsis. Diabetes with neuropathy. Plan: Plan of Care vanc and cefepime Trough 10.4 f/u cultures Monitor renal function closely Wound care team following GIOVANNI HENSON MD Apr 30, 2019 12:16
--- NOTE | 2019-04-30 14:18 | NUR ---
Wound Care: Patient seen per wound care consult. Patient is well known to us from the wound clinic. Patient seen for right foot 2nd toe amputation site. Wound cleansed, assessed, measured, and pictured. Wound is slough covered, bone exposed, and had foul odor. Kimberly notified, and stated he would put patient on surgery schedule for tomorrow for debridement. In the meantime wound redressed with Dakin's soaked gauze and covered with gauze and tape. Patient informed of procedure tomorrow. Wound care will follow up after surgery. No other wounds noted. Bed lowered and call light in reach.
--- NOTE | 2019-04-30 14:34 | RAD ---
EXAM: Bilateral lower extremity arterial Doppler sonogram. HISTORY: Peripheral vascular disease. TECHNIQUE: Lopez scale and color Doppler sonographic imaging of the lower extremity arteries with spectral waveform analysis was performed. COMPARISON: None. FINDINGS: There are triphasic waveforms within the right lower extremity arteries, with exception of a biphasic waveform within the deep femoral artery and monophasic waveform within the dorsalis pedis artery. There is biphasic waveforms throughout the left lower extremity arteries, with exception of triphasic waveforms within the proximal and mid superficial femoral artery. There are elevated peak systolic velocities within the mid and distal right superficial femoral artery and upper normal peak systolic velocities within the right popliteal, common femoral and proximal superficial femoral arteries. There are normal peak systolic velocities throughout the left lower extremity arteries. IMPRESSION: 1. Elevated peak systolic velocities within the right mid and distal superficial femoral artery, suggesting hemodynamically significant stenosis. There is also an abnormal monophasic waveform within the right dorsalis pedis artery, suggesting hemodynamically significant stenosis proximal to this level. 2. No Doppler evidence of hemodynamically significant stenosis within the left lower extremity arteries. Electronically signed by: Sarah Lewis MD (04/30/2019 2:31 PM) [place] [id number]
[2019-04-30 15:00] VITALS: BP 148/73
[2019-04-30 19:00] VITALS: BP 160/75
[2019-04-30] MEDS: ACETAMINOPHEN 325 MG TABLET. PO PRN (19:58)
[2019-04-30] MEDS: CITALOPRAM 10 MG TABLET. PO SCH (20:55)
[2019-04-30 23:00] VITALS: BP 131/68
[2019-05-01] VITALS (12 sets, daily range): BP systolic 109–153; BP diastolic 56–74
[2019-05-01] MEDS: IV NORMAL SALINE 1000ML BAG 1,000 ML IV SCH ×2 (03:16→15:51)
[2019-05-01] MEDS: VANCOMYCIN 1 GM in IV NORMAL SALINE 250ML 250 ML IV SCH ×2 (06:26→20:14)
[2019-05-01 06:58] LABS: CREATININE 0.9 mg/dL (0.7-1.3)
[2019-05-01] MEDS ORDERED: IV RINGERS,LACTATED 1000ML 1,000 ML IV SCH (07:00)
[2019-05-01] MEDS ORDERED: HYDROmorphone 2 MG/ML VIAL IV PRN (07:00)
[2019-05-01] MEDS ORDERED: fentaNYL PF VIAL 100 MCG/2 ML VIAL IV PRN (07:00)
[2019-05-01] MEDS ORDERED: MORPHINE SULFATE 2 MG/ML VIAL. IV PRN (07:00)
[2019-05-01] MEDS ORDERED: PROCHLORPERAZINE 10 MG/2 ML VIAL. IV PRN (07:00)
[2019-05-01] MEDS: metFORMIN XR 500 MG TAB.ER.24H PO SCH (08:00)
[2019-05-01] MEDS: INSULIN LISPRO 300 UNITS/3 ML VIAL. SQ SCH ×3 (08:00→17:00)
--- NOTE | 2019-05-01 08:07 | PATHOLOGY ---
[facility] [place] Accession Number: [id number] . 01 Material submitted: . toe - SECOND TOE RIGHT FOOT. Modifiers: second, right . 01 Clinical history: . Gangrenous second toe, right foot, sepsis. . 02 Diagnosis: Right second toe amputation. - Gangrenous necrosis of toe with ulceration, acute cellulitis, and acute osteomyelitis. (JPM/db; 04/30/2019) LBQ/04/30/2019 . 02 Electronically signed: . Jake Kraft MD, Pathologist NPI- [id number] . 01 Gross description: . Received in formalin labeled "Pito Jung, second toe right foot" is a toe disarticulation specimen measuring 5.6 x 2.7 x 2.5 cm. The proximal bone is a concave cartilaginous disarticulation. The skin and soft tissue margins are smooth. The margin is inked entirely black. A nail is not grossly identified on the distal aspect of the specimen. A sanders-brown ulcerated lesion is present on the distal aspect, measuring 2.7 x 1.8 x 1.3 cm. The lesion is located 0.7 cm to the closest skin and soft tissue margin and 4.1 cm to the disarticulation. Upon sectioning, the bone underlying the lesion is slightly softened and grossly involved. A sales representative facility services cross section of the specimen is submitted in cassettes A1-A2 following decalcification. ([facility] [place]; 04/29/2019) SYC/SYC . 02 Pathologist provided ICD-10: M86.171, L03.031, I96, L97.519 . 02 CPT . 931776, 551386 Specimen Comment: A courtesy copy of this report has been sent to Specimen Comment: [phone], , . Specimen Comment: Report sent to ,DR GOFF / DR JOY Performed at: [address], [place] [id number] MD Frederick Castillo MD Phone: [phone] Performed at: [address] [facility] [address] [place], [place] [id number] MD Jake Kraft MD Phone: [phone]
[2019-05-01] MEDS: MULTIVITAMIN with MINERAL TABLET. PO SCH (08:19)
[2019-05-01] MEDS: LACTOBACILLUS RHAMNOSUS GG 1 CAPSULE. PO SCH ×2 (08:19→21:01)
[2019-05-01] MEDS: LINAGLIPTIN 5 MG TABLET PO SCH (08:20)
[2019-05-01] MEDS: CEFEPIME HCL IV Push 2 GM VIAL. IVP SCH (08:28)
--- NOTE | 2019-05-01 10:52 | PDOC ---
Infectious Disease Note Subjective: Subjective pt has some nausea awaiting surgery again today some fevers and chills Denies V/D/SOA ROS: ROS Negative otherwise. Vital Signs: Vital Signs Vital Signs Date Time Temp Pulse Resp B/P (MAP) Pulse Ox O2 Delivery O2 Flow Rate FiO2 05/01/19 07:00 99.3 74 16 142/72 (95) 97 Room Air 99.3 Physical Exam: PHYSICAL EXAM GENERAL: Propped up in bed, alert, relaxed appearance HEENT: Oral cavity clear NECK: Supple LUNGS: Clear. HEART: S1, S2 regular. ABDOMEN: Soft and nontender, BS present EXTREMITIES: Left lower extremity is unremarkable. Right lower extremity post- surgical dressing not opened. NEUROLOGICAL: Alert and oriented x 3. SKIN: warm to touch. No signs of rash. PIV LUE-PICC (04/29) Medications: Inpatient Meds: Current Medications Medications (Trade) Dose Ordered Sig/Sarah Start Time Stop Time Status Last Admin Dose Admin Acetaminophen (Tylenol) 650 mg PRN Q6HRS PRN 04/26/19 23:30 04/30/19 20:04 650 MG Acetaminophen/ Hydrocodone Bitart (Lortab 5/325) 1 tab PRN Q4HRS PRN 04/30/19 11:15 Cefepime HCl (Maxipime) 2 gm Q12HR 04/27/19 21:00 05/01/19 08:28 2 GM Ceftriaxone Sodium (Rocephin) 1 gm Q24H 04/26/19 17:00 04/27/19 13:11 DC 04/26/19 16:34 1 GM Citalopram Hydrobromide (CeleXA) 10 mg QHS 04/27/19 21:00 04/30/19 20:59 10 MG Dexamethasone Sodium Phosphate (Decadron) 4 mg STK-MED ONCE 04/27/19 10:10 04/27/19 10:11 DC Dextrose 250 ml PRN Q15MIN PRN 04/27/19 19:00 Dextrose (Dextrose 50%-Water Syringe) 12.5 gm PRN Q15MIN PRN 04/27/19 19:00 Fentanyl Citrate (Fentanyl 2ml Vial) 50 mcg PRN Q5MIN PRN 05/01/19 07:00 05/01/19 20:00 Hydromorphone HCl (Dilaudid) 0.5 mg PRN Q10MIN PRN 05/01/19 07:00 05/01/19 20:00 Insulin Glargine (Lantus Syringe) 10 unit 1X ONCE 04/28/19 11:15 04/28/19 11:20 DC 04/28/19 11:50 10 UNIT Insulin Human Lispro (HumaLOG) 0-5 UNITS TIDWMEALS 04/28/19 08:00 Lactobacillus Rhamnosus (Culturelle) 1 cap BID 04/28/19 21:00 04/30/19 20:59 1 CAP Lidocaine HCl (Lidocaine Pf 2% Vial) 5 ml STK-MED ONCE 04/27/19 10:10 04/27/19 10:10 DC Linagliptin (Tradjenta) 5 mg DAILY 04/29/19 09:00 04/30/19 08:40 5 MG Metformin HCl (Glucophage Xr) 1,000 mg DAILYWBKFT 04/27/19 18:00 04/30/19 08:40 1,000 MG Morphine Sulfate (Morphine Sulfate) 1 mg PRN Q10MIN PRN 05/01/19 07:00 05/01/19 20:00 Multivitamins (Thera M Plus) 1 tab DAILY 04/28/19 09:00 04/30/19 08:40 1 TAB Non-Formulary Medication (Empagliflozin (Jardiance)) 25 mg DAILY 04/28/19 09:00 04/28/19 11:52 DC Non-Formulary Medication (Ertugliflozin Pidolate (Steglatro)) 15 mg DAILY 04/28/19 09:00 04/28/19 11:53 DC Ondansetron HCl (Zofran Odt) 4 mg PRN Q6HRS PRN 04/28/19 18:15 04/28/19 18:20 4 MG Ondansetron HCl (Zofran) 4 mg STK-MED ONCE 04/27/19 10:10 04/27/19 10:11 DC Piperacillin Sod/ Tazobactam Sod 4.5 gm/Sodium Chloride 100 ml @ 200 mls/hr 1X ONCE 04/26/19 15:30 04/26/19 15:59 UNV Prochlorperazine Edisylate (Compazine) 5 mg PACU PRN PRN 05/01/19 07:00 05/01/19 20:00 Propofol 20 ml @ As Directed STK-MED ONCE 04/27/19 10:10 04/27/19 10:11 DC Ringer's Solution 1,000 ml @ 30 mls/hr Q24H 05/01/19 07:00 05/01/19 18:59 Sevoflurane (Ultane) 30 ml STK-MED ONCE 04/27/19 11:07 04/27/19 11:08 DC Sodium Chloride 1,000 ml @ 100 mls/hr Q10H 04/26/19 23:45 05/01/19 03:16 100 MLS/HR Vancomycin HCl (Vanco Per Pharmacy) 1 each PRN DAILY PRN 04/26/19 22:30 04/30/19 06:13 1 EACH Vancomycin HCl (Vancomycin Trough Level) 1 each 1X ONCE 05/01/19 18:30 05/01/19 18:31 Vancomycin HCl 1.25 gm/Sodium Chloride 250 ml @ 167 mls/hr Q12H 04/28/19 18:00 04/30/19 06:02 DC 04/29/19 18:21 167 MLS/HR Vancomycin HCl 1 gm/Sodium Chloride 250 ml @ 250 mls/hr Q12H 04/30/19 07:00 05/01/19 06:26 250 MLS/HR Vancomycin HCl 2 gm/Sodium Chloride 500 ml @ 250 mls/hr 1X ONCE 04/26/19 16:00 04/26/19 17:59 DC 04/26/19 16:34 250 MLS/HR Labs: Lab Laboratory Tests Test 04/30/19 11:42 04/30/19 17:01 04/30/19 20:36 05/01/19 06:22 Glucose (Fingerstick) 113 mg/dL (70-99) 109 mg/dL (70-99) 121 mg/dL (70-99) Creatinine 0.9 mg/dL (0.7-1.3) Estimated GFR (Cockcroft-Gault) 85.0 Test 05/01/19 07:22 Glucose (Fingerstick) 117 mg/dL (70-99) Micro RUN DATE: 04/30/19 PAGE 1 RUN TIME: 1311 [facility] [address] [place] [address] Jake Kraft M.D., [employer] PATIENT: DAGO CHARLES ACCT: [id number] LOC: [address] [place] [address] U: [id number] AGE/SX: 64/M ROOM: [facility] RE04/26/[address]: FRANCES GOFF MD : 1955 BED: 1 DIS: STATUS: ADM IN TLOC: SPEC #: [id number] DAVY: 04/26/19 STATUS: RES REQ #: [id number] RECD: 04/26/[address]: EDWARD TRUJILLO APRN SOURCE: TOE ENTR: 04/26/[address]: EVELIA,STAFF SPDESC: RT SECOND JAN JOY MD ORDERED: AEROBIC CULT TOSIN COMMENTS: RT SECOND TOE Procedure Result AEROBIC CULTURE Preliminary Preliminary report AEROBIC RES 1 Preliminary Gram negative rods Citrobacter braakii 4+ AEROBIC RES 2 Preliminary Gram negative rods Enterobacter cloacae 4+ AEROBIC RES 3 Preliminary Streptococcus species Enterococcus faecalis 4+ Performed at: - [address], [place], [place] [id number] Dredge Worker: KARLEY Pavon MD, Phone: [phone] ANTIMICROBIAL SUSCEPTIBILITY Preliminary Comment S = Susceptible; I = Intermediate; R = Resistant P = Positive; N = Negative MICS are expressed in micrograms per mL Antibiotic RSLT#1 RSLT#2 RSLT#3 RSLT#4 Amoxicillin/Clavulanic Acid R>=32 Cefazolin R>=64 Cefepime S<=0.12 Cefuroxime R =R Ciprofloxacin S<=0.25 Ertapenem S<=0.12 Gentamicin S<=1 CONTINUED ON NEXT PAGE RUN DATE: 04/30/19 PAGE 2 RUN TIME: 1311 [facility] [address] [place] [address] Jake Kraft M.D., [employer] SPEC: [id number] PATIENT: CHARLESDAGO [id number] (Continued) ------- ----- Procedure Result ANTIMICROBIAL SUSCEPTIBILITY Preliminary (continued) Imipenem S<=0.25 Levofloxacin S<=0.12 Meropenem S<=0.25 Penicillin S =4 Tetracycline S<=1 Tobramycin S<=1 Trimethoprim/Sulfa S<=20 Vancomycin S =1 Performed at: [place] [address] Dredge Worker: KARLEY Pavon MD, Phone: [phone] GRAM STAIN Final Final report GRAM STAIN RESULT 1 Final Comment No white blood cells seen. GRAM STAIN RESULT 2 Final Comment Few gram positive rods. GRAM STAIN RESULT 3 Final Comment Moderate gram negative rods. GRAM STAIN RESULT 4 Final Comment Gram positive cocci in pairs and chains. 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 04/27 cults positive for enterobacter, citrobacter,amp sensitive enterococcus fecalis, strep species Cellulitis of the right foot. Fever - better Leukocytosis, improving Lactic acidosis/sepsis. Diabetes with neuropathy. Plan: Plan of Care DC Cefepime Start pt on merrem cont Vanc f/u cultures Monitor renal function closely Wound care team following GIOVANNI HENSON MD May 01, 2019 10:52
--- NOTE | 2019-05-01 10:53 | PDOC ---
PROGRESS NOTES Chief Complaint Chief Complaint IMPRESSION sepsis cellulitis and gangrene toe, POD #3, amputation , Right second toe amputation Dm2, mod control,, A1c 8.7 Elevated peak systolic velocities within the right mid and distal superficial femoral artery, suggesting hemodynamically significant stenosis. There is also an abnormal monophasic waveform within the right dorsalis pedis artery, suggesting hemodynamically significant stenosis proximal to this level. No Doppler evidence of hemodynamically significant stenosis within the left lower extremity arteries. PLAN CONT IV VANC, CEFIPIME : PICC placement id following surgery again today vasc surg consult 37 MIN PT EXAM, CHART REVIEW, > 50% OF TIME SPENT WITH EXAM, CHART REVIEW, PT CARE COORDINATION History of Present Illness History of Present Illness OPEN from surg, will need iv abx, wound care PICC Line placed , [place] vasc pain persists malodor is gone Vitals Vitals Vital Signs Date Time Temp Pulse Resp B/P (MAP) Pulse Ox O2 Delivery O2 Flow Rate FiO2 05/01/19 07:00 99.3 74 16 142/72 (95) 97 Room Air 99.3 Physical Exam Physical Exam GENERAL: Propped up in bed, alert, HEENT: Oral cavity clear NECK: Supple LUNGS: Clear. HEART: S1, S2 regular. ABDOMEN: Soft and nontender, BS present EXTREMITIES: Left lower extremity is unremarkable. Right lower extremity post- surgical dressing not opened. NEUROLOGICAL: Alert and oriented x 3. SKIN: warm to touch. No signs of rash. PIV LUE-PICC (05/01) General: Alert, Oriented X3, Cooperative, mild distress Heart: Regular rate, Normal S1, Normal S2, No murmurs Lungs: Clear Abdomen: Normal bowel sounds, Soft, No tenderness Extremities: No clubbing, Normal pulses Skin: No breakdown, Other (right second toe malordorous, discolored, ) Labs LABS SEX: M EXAM STATUS: ADM IN ORD. PHYSICIAN: ANTHONY CUELLAR MD REASON: pvd PROCEDURE: DUPLEX LOWER EXTREMITY BILAT EXAM: Bilateral lower extremity arterial Doppler sonogram. HISTORY: Peripheral vascular disease. TECHNIQUE: Lopez scale and color Doppler sonographic imaging of the lower extremity arteries with spectral waveform analysis was performed. COMPARISON: None. FINDINGS: There are triphasic waveforms within the right lower extremity arteries, with exception of a biphasic waveform within the deep femoral artery and monophasic waveform within the dorsalis pedis artery. There is biphasic waveforms throughout the left lower extremity arteries, with exception of triphasic waveforms within the proximal and mid superficial femoral artery. There are elevated peak systolic velocities within the mid and distal right superficial femoral artery and upper normal peak systolic velocities within the right popliteal, common femoral and proximal superficial femoral arteries. There are normal peak systolic velocities throughout the left lower extremity arteries. IMPRESSION: 1. Elevated peak systolic velocities within the right mid and distal superficial femoral artery, suggesting hemodynamically significant stenosis. There is also an abnormal monophasic waveform within the right dorsalis pedis artery, suggesting hemodynamically significant stenosis proximal to this level. 2. No Doppler evidence of hemodynamically significant stenosis within the left lower extremity arteries. Electronically signed by: Sarah Lewis MD (04/30/2019 2:31 PM) [facility] Laboratory Tests Test 04/30/19 11:42 04/30/19 17:01 04/30/19 20:36 05/01/19 06:22 Glucose (Fingerstick) 113 mg/dL (70-99) 109 mg/dL (70-99) 121 mg/dL (70-99) Creatinine 0.9 mg/dL (0.7-1.3) Estimated GFR (Cockcroft-Gault) 85.0 Test 05/01/19 07:22 Glucose (Fingerstick) 117 mg/dL (70-99) Assessment and Plan Assessmemt and Plan Problems Medical Problems: (1) Fever Status: Acute (2) Gangrene of toe of right foot Status: Acute (3) Sepsis Status: Acute (4) Severe sepsis Status: Acute Comment Review of Relevant I have reviewed the following items alis (where applicable) has been applied. Labs Laboratory Tests Test 04/29/19 11:22 04/29/19 16:40 04/29/19 20:30 04/29/19 21:10 Glucose (Fingerstick) 106 mg/dL (70-99) 132 mg/dL (70-99) 137 mg/dL (70-99) White Blood Count 8.5 x10^3/uL (4.0-11.0) Red Blood Count 3.23 x10^6/uL (4.30-5.70) Hemoglobin 8.9 g/dL (13.0-17.5) Hematocrit 26.4 % (39.0-53.0) Mean Corpuscular Volume 82 fL (79-100) Mean Corpuscular Hemoglobin 28 pg (25-35) Mean Corpuscular Hemoglobin Concent 34 g/dL (31-37) Red Cell Distribution Width 14.2 % (11.5-14.5) Platelet Count 237 x10^3/uL (140-400) Neutrophils (%) (Auto) 76 % (31-73) Lymphocytes (%) (Auto) 14 % (24-48) Monocytes (%) (Auto) 7 % (0-9) Eosinophils (%) (Auto) 1 % (0-3) Basophils (%) (Auto) 1 % (0-3) Neutrophils # (Auto) 6.5 x10^3/uL (1.8-7.7) Lymphocytes # (Auto) 1.2 x10^3/uL (1.0-4.8) Monocytes # (Auto) 0.6 x10^3/uL (0.0-1.1) Eosinophils # (Auto) 0.1 x10^3/uL (0.0-0.7) Basophils # (Auto) 0.1 x10^3/uL (0.0-0.2) Sodium Level 136 mmol/L (136-145) Potassium Level 4.3 mmol/L (3.5-5.1) Chloride Level 104 mmol/L (98-107) Carbon Dioxide Level 27 mmol/L (21-32) Anion Gap 5 (6-14) Blood Urea Nitrogen 19 mg/dL (8-26) Creatinine 1.2 mg/dL (0.7-1.3) Estimated GFR (Cockcroft-Gault) 61.0 Glucose Level 140 mg/dL (70-99) Calcium Level 8.2 mg/dL (8.5-10.1) Test 04/30/19 05:10 04/30/19 07:38 04/30/19 11:42 04/30/19 17:01 Vancomycin Level Trough 20.8 mcg/mL (10.0-20.0) Vancomycin Last Dose Date 04/29/19 Vancomycin Last Dose Time 1800 Glucose (Fingerstick) 97 mg/dL (70-99) 113 mg/dL (70-99) 109 mg/dL (70-99) Test 04/30/19 20:36 8/20/19 06:22 05/01/19 07:22 Glucose (Fingerstick) 121 mg/dL (70-99) 117 mg/dL (70-99) Creatinine 0.9 mg/dL (0.7-1.3) Estimated GFR (Cockcroft-Gault) 85.0 Laboratory Tests Test 04/30/19 11:42 04/30/19 17:01 04/30/19 20:36 05/01/19 06:22 Glucose (Fingerstick) 113 mg/dL (70-99) 109 mg/dL (70-99) 121 mg/dL (70-99) Creatinine 0.9 mg/dL (0.7-1.3) Estimated GFR (Cockcroft-Gault) 85.0 Test 05/01/19 07:22 Glucose (Fingerstick) 117 mg/dL (70-99) Microbiology 04/26/19 Aerobic Culture - Preliminary, Resulted 04/26/19 Aerobic Culture Result 1 (TATE) - Preliminary, Resulted 04/26/19 Aerobic Culture Result 2 (TATE) - Preliminary, Resulted 04/26/19 Aerobic Culture Result 3 (TATE) - Preliminary, Resulted 04/26/19 Antimicrobic Susceptibility - Preliminary, Resulted 04/26/19 Gram Stain - Final, Resulted 04/26/19 Gram Stain Result 1 (TATE) - Final, Resulted 04/26/19 Gram Stain Result 2 (TATE) - Final, Resulted 04/26/19 Gram Stain Result 3 (TATE) - Final, Resulted 04/26/19 Gram Stain Result 4 (TATE) - Final, Resulted 04/26/19 Blood Culture - Preliminary, Resulted NO GROWTH AFTER 4 DAYS Medications Current Medications Sodium Chloride 1,000 ml @ 2,190 mls/hr Q28M IV Last administered on 04/26/19at 16:34; Start 04/26/19 at 15:27; Stop 04/26/19 at 16:27; Status DC Piperacillin Sod/ Tazobactam Sod 4.5 gm/Sodium Chloride 100 ml @ 200 mls/hr 1X ONCE IV ; Start 04/26/19 at 15:30; Stop 04/26/19 at 15:59; Status UNV Vancomycin HCl (Vanco Per Pharmacy) 1 each 1X ONCE MC ; Start 04/26/19 at 15:30; Stop 04/26/19 at 18:08; Status DC Acetaminophen (Tylenol) 1,000 mg 1X ONCE PO Last administered on 04/26/19 16:34; Start 04/26/19 at 15:30; Stop 04/26/19 at 15:31; Status DC Vancomycin HCl 2 gm/Sodium Chloride 500 ml @ 250 mls/hr 1X ONCE IV Last administered on 04/26/19 16:34; Start 04/26/19 at 16:00; Stop 04/26/19 at 17:59; Status DC Ceftriaxone Sodium (Rocephin) 1 gm DAILY IVP ; Start 04/27/19 at 09:00; Status UNV Ceftriaxone Sodium (Rocephin) 1 gm Q24H IVP Last administered on 04/26/19at 16:34; Start 04/26/19 at 17:00; Stop 04/27/19 at 13:11; Status DC Ondansetron HCl (Zofran) 4 mg PRN Q8HRS PRN IV NAUSEA/VOMITING Last administered on 04/27/19at 07:57; Start 04/26/19 at 20:30; Stop 04/27/19 at 20:29; Status DC Morphine Sulfate (Morphine Sulfate) 4 mg PRN Q2HR PRN IV PAIN Last administered on 04/27/19 18:19; Start 04/26/19 at 20:30; Stop 04/27/19 at 20:29; Status DC Sodium Chloride 1,000 ml @ 100 mls/hr 1X ONCE IV Last administered on 04/26/19at 20:41; Start 04/26/19 at 20:30; Stop 04/27/19 at 06:29; Status DC Vancomycin HCl 1.25 gm/Sodium Chloride 250 ml @ 167 mls/hr Q18H IV Last admini stered on 04/28/19at 05:21; Start 04/27/19 at 10:00; Stop 04/28/19 at 09:59; Status DC Vancomycin HCl (Vanco Per Pharmacy) 1 each PRN DAILY PRN MC SEE COMMENTS Last administered on 04/30/19at 06:13; Start 04/26/19 at 22:30 Sodium Chloride 1,000 ml @ 100 mls/hr Q10H IV Last administered on 05/01/19at 03:16; Start 04/26/19 at 23:45 Acetaminophen (Tylenol) 650 mg PRN Q6HRS PRN PO Fever Last administered on 04/30/19at 20:04; Start 04/26/19 at 23:30 Vancomycin HCl (Vancomycin Trough Level) 1 each 1X ONCE MC ; Start 04/28/19 at 03:30; Stop 04/28/19 at 03:31; Status DC Lidocaine HCl (Lidocaine Pf 2% Vial) 5 ml STK-MED ONCE .ROUTE ; Start 04/27/19 at 10:10; Stop 04/27/19 at 10:10; Status DC Propofol 20 ml @ As Directed STK-MED ONCE IV ; Start 04/27/19 at 10:10; Stop 04/27/19 at 10:11; Status DC Ondansetron HCl (Zofran) 4 mg STK-MED ONCE .ROUTE ; Start 04/27/19 at 10:10; Stop 04/27/19 at 10:11; Status DC Dexamethasone Sodium Phosphate (Decadron) 4 mg STK-MED ONCE .ROUTE ; Start 04/27/19 at 10:10; Stop 04/27/19 at 10:11; Status DC Sevoflurane (Ultane) 30 ml STK-MED ONCE IH ; Start 04/27/19 at 11:07; Stop 04/27/19 at 11:08; Status DC Cefepime HCl (Maxipime) 2 gm Q12HR IVP Last administered on 05/01/19at 08:28; Start 04/27/19 at 21:00 Multivitamins (Thera M Plus) 1 tab DAILY PO Last administered on 04/30/19at 08:40; Start 04/28/19 at 09:00 Citalopram Hydrobromide (CeleXA) 10 mg QHS PO Last administered on 04/30/19at 20:59; Start 04/27/19 at 21:00 Metformin HCl (Glucophage Xr) 1,000 mg DAILYWBKFT PO Last administered on 04/30/19at 08:40; Start 04/27/19 at 18:00 Non-Formulary Medication (Empagliflozin (Jardiance)) 25 mg DAILY PO ; Start 04/28/19 at 09:00; Stop 04/28/19 at 11:52; Status DC Non-Formulary Medication (Ertugliflozin Pidolate (Steglatro)) 15 mg DAILY PO ; Start 04/28/19 at 09:00; Stop 04/28/19 at 11:53; Status DC Insulin Human Lispro (HumaLOG) 0-5 UNITS TIDWMEALS SQ ; Start 04/28/19 at 08:00 Dextrose (Dextrose 50%-Water Syringe) 12.5 gm PRN Q15MIN PRN IV SEE COMMENTS; Start 04/27/19 at 19:00 Dextrose 250 ml PRN Q15MIN PRN IV SEE COMMENTS; Start 04/27/19 at 19:00 Vancomycin HCl 1.25 gm/Sodium Chloride 250 ml @ 167 mls/hr Q12H IV Last administered on 04/29/19at 18:21; Start 04/28/19 at 18:00; Stop 04/30/19 at 06:02; Status DC Vancomycin HCl (Vancomycin Trough Level) 1 each 1X ONCE MC Last administered on 04/30/19at 06:03; Start 04/30/19 at 05:30; Stop 04/30/19 at 05:31; Status DC Insulin Glargine (Lantus Syringe) 10 unit 1X ONCE SQ Last administered on 04/28/19at 11:50; Start 04/28/19 at 11:15; Stop 04/28/19 at 11:20; Status DC Lactobacillus Rhamnosus (Culturelle) 1 cap BID PO Last administered on 04/30/19at 20:59; Start 04/28/19 at 21:00 Linagliptin (Tradjenta) 5 mg DAILY PO Last administered on 04/30/19at 08:40; Start 04/29/19 at 09:00 Ondansetron HCl (Zofran Odt) 4 mg PRN Q6HRS PRN PO NAUSEA/VOMITING Last administered on 04/28/19at 18:20; Start 04/28/19 at 18:15 Morphine Sulfate (Morphine Sulfate) 2 mg PRN Q2HR PRN IV SEVERE PAIN 7-10 Last administered on 04/30/19at 20:04; Start 04/29/19 at 00:45 Vancomycin HCl 1 gm/Sodium Chloride 250 ml @ 250 mls/hr Q12H IV Last administered on 05/01/19at 06:26; Start 04/30/19 at 07:00 Vancomycin HCl (Vancomycin Trough Level) 1 each 1X ONCE MC ; Start 05/01/19 at 18:30; Stop 05/01/19 at 18:31 Acetaminophen/ Hydrocodone Bitart (Lortab 5/325) 1 tab PRN Q4HRS PRN PO MODERATE PAIN; Start 04/30/19 at 11:15 Fentanyl Citrate (Fentanyl 2ml Vial) 25 mcg PRN Q5MIN PRN IV MILD PAIN 1-3; Start 05/01/19 at 07:00; Stop 05/02/19 at 06:59 Fentanyl Citrate (Fentanyl 2ml Vial) 50 mcg PRN Q5MIN PRN IV MODERATE TO SEVERE PAIN; Start 05/01/19 at 07:00; Stop 05/01/19 at 20:00 Morphine Sulfate (Morphine Sulfate) 1 mg PRN Q10MIN PRN IV SEVERE PAIN 7-10; Start 05/01/19 at 07:00; Stop 05/01/19 at 20:00 Ringer's Solution 1,000 ml @ 30 mls/hr Q24H IV ; Start 05/01/19 at 07:00; Stop 05/01/19 at 18:59 Hydromorphone HCl (Dilaudid) 0.5 mg PRN Q10MIN PRN IV SEV PAIN, Second choice; Start 05/01/19 at 07:00; Stop 05/01/19 at 20:00 Prochlorperazine Edisylate (Compazine) 5 mg PACU PRN PRN IV NAUSEA, MRX1; Start 05/01/19 at 07:00; Stop 05/01/19 at 20:00 Active Scripts Active Celexa (Citalopram Hydrobromide) 10 Mg Tablet 10 Mg PO QHS 30 Days Reported Januvia (Sitagliptin Phosphate) 100 Mg Tablet 1 Tab PO DAILY Januvia (Sitagliptin Phosphate) 100 Mg Tablet 1 Tab PO DAILY Metformin Hcl Er (Metformin Hcl) 500 Mg Tab.er.24h 1,000 Mg PO DAILYWBKFT Vitals/I & O Vital Sign - Last 24 Hours 04/30/19 04/30/19 04/30/19 04/30/19 11:00 15:00 19:00 20:04 Temp 98.1 99.8 100.2 98.1 99.8 100.2 Pulse 81 84 85 Resp 16 16 16 14 B/P (MAP) 155/79 (104) 148/73 (98) 160/75 (103) Pulse Ox 96 90 95 O2 Delivery Room Air Room Air Room Air Room Air 04/30/19 04/30/19 04/30/19 05/01/19 20:05 20:59 23:00 03:00 Temp 98.9 98.4 98.9 98.4 Pulse 78 73 Resp 16 16 16 B/P (MAP) 131/68 (89) 141/70 (93) Pulse Ox 98 97 O2 Delivery Room Air Room Air Room Air Room Air 05/01/19 07:00 Temp 99.3 99.3 Pulse 74 Resp 16 B/P (MAP) 142/72 (95) Pulse Ox 97 O2 Delivery Room Air Intake and Output 04/30/19 04/30/19 05/01/19 14:59 22:59 06:59 Intake Total 500 ml 500 ml Output Total 812 ml 200 ml Balance -312 ml 300 ml ANTHONY CUELLAR MD May 01, 2019 10:53
[2019-05-01] MEDS: MEROPENEM 500 MG in IV NORMAL SALINE 50ML 50 ML IV SCH ×2 (12:07→17:55)
[2019-05-01] MEDS ORDERED: LIDOCAINE 2% PF 5 ML VIAL. ONE (12:12)
[2019-05-01] MEDS ORDERED: PROPOFOL 20 ML IV ONE (12:12)
[2019-05-01] MEDS ORDERED: ONDANSETRON PF 4 MG/2 ML VIAL. ONE (12:55)
[2019-05-01] MEDS ORDERED: DEXAMETHASONE SOD PHOS 4 MG/ML VIAL ONE (12:55)
[2019-05-01] MEDS ORDERED: fentaNYL PF VIAL 100 MCG/2 ML VIAL ONE ×2 (12:57→14:04)
[2019-05-01] MEDS ORDERED: PHENYLEPHRINE in 0.9% NACL PF 1 MG/10 ML SYRINGE. IV ONE (13:36)
[2019-05-01] MEDS: fentaNYL PF VIAL 100 MCG/2 ML VIAL IV PRN ×2 (14:09→14:27)
--- NOTE | 2019-05-01 14:34 | PDOC4 ---
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 Estimated blood loss: 50 mL Complications: None Operative indications: Pito had undergone previous right second toe amputation on 04/27/2019 and was undergoing ongoing wound care but was noted to have ongoing odor and more. Drainage despite wound care and being on intravenous antibiotics. I had gone over with him the need for additional opening up of the incision removing any or devitalized tissue and the fact that we need to get the fat tissue out of his foot so he has a chance of healing without spreading infection. He was disappointed that this cannot be closed up and he can go on like he had with his great toe amputation previously however I told him that if the infection is more extensive we have to deal with it as it is and he may need to undergo ongoing wound care and possibly a wound VAC to help this area heal or may be even extensive additional procedures depending on the extent and his response. All his questions were answered he agrees to proceed with surgical evaluation and treatment. Operative text: Patient was identified procedure verified patient placed in the supine position on the operating table. After adequate amounts of general anesthesia were administered the right foot was prepped and draped in standard sterile fashion and after timeout was performed patient procedure identified and verified he was noted to have significant purulent drainage with any pressure on the dorsum or plantar aspect of the foot surrounding the second metatarsal and adjacent webspaces. I therefore elected to stand his incision proximally dorsally over the second webspace and proximally plantarly over the lateral aspect of the second metatarsal approaching the third webspace and additional devitalized tissue were noted along the course of the second metatarsal. Extensive sharp debridement was carried out with scalpel and rongeurs back to healthy tissue with good blood supply. No softening of the metatarsal head or distal second metatarsal was noted but the extensive tissue destruction surrounding was thoroughly debrided back to stable tissue thorough irrigation carried out normal saline solution and pulse lavage and the wound was left open packed with iodoform 1 inch gauze sterile dressings patient was returned to recovery room in stable condition having tolerated procedure well RUTH MARTÍNEZ MD May 01, 2019 14:34
[2019-05-01] MEDS: VANCOMYCIN PER PHARMACY MC PRN ×2 (14:47→20:03)
--- NOTE | 2019-05-01 16:33 | PDOC2 ---
CONSULT Date of Consult Date of Consult DATE: 05/01/19 TIME: 16:25 Reason for Consult Reason for Consult: Right foot PAD History of Present Illness Reason for Visit: Pleasant 64yo male who presents with right 2nd toe gangrene and cellulitis. 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 Was walking barefoot in his house and tore the nail off toe down to bone. S/P 2nd toe amp and foot debridement with Ortho. Asked to see to eval for PAD. Denies claudication or previous peripheral intervention. Past Medical History Cardiovascular: No pertinent hx Pulmonary: No pertinent hx CENTRAL NERVOUS SYSTEM: Periperal neuropathy GI: No pertinent hx Heme/Onc: No pertinent hx Hepatobiliary: No pertinent hx Psych: No pertinent hx Rheumatologic: No pertinent hx Infectious disease: No pertinent hx Renal/: No pertinent hx Endocrine: Diabetes Past Surgical History Past Surgical History: Total knee replacement, Other Family History Family History: Diabetes Social History No ALCOHOL: none Drugs: None Current Problem List Problem List Problems Medical Problems: (1) Fever Status: Acute (2) Gangrene of toe of right foot Status: Acute (3) Sepsis Status: Acute (4) Severe sepsis Status: Acute Current Medications Current Medications Current Medications Sodium Chloride 1,000 ml @ 2,190 mls/hr Q28M IV Last administered on 04/26/19at 16:34; Start 04/26/19 at 15:27; Stop 04/26/19 at 16:27; Status DC Piperacillin Sod/ Tazobactam Sod 4.5 gm/Sodium Chloride 100 ml @ 200 mls/hr 1X ONCE IV ; Start 04/26/19 at 15:30; Stop 04/26/19 at 15:59; Status UNV Vancomycin HCl (Vanco Per Pharmacy) 1 each 1X ONCE MC ; Start 04/26/19 at 15:30; Stop 04/26/19 at 18:08; Status DC Acetaminophen (Tylenol) 1,000 mg 1X ONCE PO Last administered on 04/26/19at 16:34; Start 04/26/19 at 15:30; Stop 04/26/19 at 15:31; Status DC Vancomycin HCl 2 gm/Sodium Chloride 500 ml @ 250 mls/hr 1X ONCE IV Last administered on 04/26/19at 16:34; Start 04/26/19 at 16:00; Stop 04/26/19 at 17:59; Status DC Ceftriaxone Sodium (Rocephin) 1 gm DAILY IVP ; Start 04/27/19 at 09:00; Status UNV Ceftriaxone Sodium (Rocephin) 1 gm Q24H IVP Last administered on 04/26/19at 16:34; Start 04/26/19 at 17:00; Stop 04/27/19 at 13:11; Status DC Ondansetron HCl (Zofran) 4 mg PRN Q8HRS PRN IV NAUSEA/VOMITING Last administered on 04/27/19at 07:57; Start 04/26/19 at 20:30; Stop 04/27/19 at 20:29; Status DC Morphine Sulfate (Morphine Sulfate) 4 mg PRN Q2HR PRN IV PAIN Last administered on 04/27/19at 18:19; Start 04/26/19 at 20:30; Stop 04/27/19 at 20:29; Status DC Sodium Chloride 1,000 ml @ 100 mls/hr 1X ONCE IV Last administered on 04/26/19at 20:41; Start 04/26/19 at 20:30; Stop 04/27/19 at 06:29; Status DC Vancomycin HCl 1.25 gm/Sodium Chloride 250 ml @ 167 mls/hr Q18H IV Last administered on 04/28/19at 05:21; Start 04/27/19 at 10:00; Stop 04/28/19 at 09:59; Status DC Vancomycin HCl (Vanco Per Pharmacy) 1 each PRN DAILY PRN MC SEE COMMENTS Last administered on 04/30/19at 06:13; Start 04/26/19 at 22:30; Stop 05/01/19 at 10:54; Status DC Sodium Chloride 1,000 ml @ 100 mls/hr Q10H IV Last administered on 05/01/19at 15:51; Start 04/26/19 at 23:45 Acetaminophen (Tylenol) 650 mg PRN Q6HRS PRN PO Fever Last administered on 04/30/19at 20:04; Start 04/26/19 at 23:30 Vancomycin HCl (Vancomycin Trough Level) 1 each 1X ONCE MC ; Start 04/28/19 at 03:30; Stop 04/28/19 at 03:31; Status DC Lidocaine HCl (Lidocaine Pf 2% Vial) 5 ml STK-MED ONCE .ROUTE ; Start 04/27/19 at 10:10; Stop 04/27/19 at 10:10; Status DC Propofol 20 ml @ As Directed STK-MED ONCE IV ; Start 04/27/19 at 10:10; Stop 04/27/19 at 10:11; Status DC Ondansetron HCl (Zofran) 4 mg STK-MED ONCE .ROUTE ; Start 04/27/19 at 10:10; Stop 04/27/19 at 10:11; Status DC Dexamethasone Sodium Phosphate (Decadron) 4 mg STK-MED ONCE .ROUTE ; Start 04/27/19 at 10:10; Stop 04/27/19 at 10:11; Status DC Sevoflurane (Ultane) 30 ml STK-MED ONCE IH ; Start 04/27/19 at 11:07; Stop 04/27/19 at 11:08; Status DC Cefepime HCl (Maxipime) 2 gm Q12HR IVP Last administered on 05/01/19at 08:28; Start 04/27/19 at 21:00; Stop 05/01/19 at 10:52; Status DC Multivitamins (Thera M Plus) 1 tab DAILY PO Last administered on 04/30/19at 08:40; Start 04/28/19 at 09:00 Citalopram Hydrobromide (CeleXA) 10 mg QHS PO Last administered on 04/30/19at 20:59; Start 04/27/19 at 21:00 Metformin HCl (Glucophage Xr) 1,000 mg DAILYWBKFT PO Last administered on 04/30/19at 08:40; Start 04/27/19 at 18:00 Non-Formulary Medication (Empagliflozin (Jardiance)) 25 mg DAILY PO ; Start 04/28/19 at 09:00; Stop 04/28/19 at 11:52; Status DC Non-Formulary Medication (Ertugliflozin Pidolate (Steglatro)) 15 mg DAILY PO ; Start 04/28/19 at 09:00; Stop 04/28/19 at 11:53; Status DC Insulin Human Lispro (HumaLOG) 0-5 UNITS TIDWMEALS SQ ; Start 04/28/19 at 08:00 Dextrose (Dextrose 50%-Water Syringe) 12.5 gm PRN Q15MIN PRN IV SEE COMMENTS; Start 04/27/19 at 19:00 Dextrose 250 ml PRN Q15MIN PRN IV SEE COMMENTS; Start 04/27/19 at 19:00 Vancomycin HCl 1.25 gm/Sodium Chloride 250 ml @ 167 mls/hr Q12H IV Last administered on 04/29/19at 18:21; Start 04/28/19 at 18:00; Stop 04/30/19 at 06:02; Status DC Vancomycin HCl (Vancomycin Trough Level) 1 each 1X ONCE MC Last administered on 04/30/19at 06:03; Start 04/30/19 at 05:30; Stop 04/30/19 at 05:31; Status DC Insulin Glargine (Lantus Syringe) 10 unit 1X ONCE SQ Last administered on 04/28/19at 11:50; Start 04/28/19 at 11:15; Stop 04/28/19 at 11:20; Status DC Lactobacillus Rhamnosus (Culturelle) 1 cap BID PO Last administered on at 20:59; Start 04/28/19 at 21:00 Linagliptin (Tradjenta) 5 mg DAILY PO Last administered on 04/30/19at 08:40; Start 04/29/19 at 09:00 Ondansetron HCl (Zofran Odt) 4 mg PRN Q6HRS PRN PO NAUSEA/VOMITING Last administered on 04/28/19at 18:20; Start 04/28/19 at 18:15 Morphine Sulfate (Morphine Sulfate) 2 mg PRN Q2HR PRN IV SEVERE PAIN 7-10 Last administered on 04/30/19at 20:04; Start 04/29/19 at 00:45 Vancomycin HCl 1 gm/Sodium Chloride 250 ml @ 250 mls/hr Q12H IV Last administered on 05/01/19at 06:26; Start 04/30/19 at 07:00; Stop 05/01/19 at 10:52; Status DC Vancomycin HCl (Vancomycin Trough Level) 1 each 1X ONCE MC ; Start 05/01/19 at 18:30; Stop 05/01/19 at 18:31; Status Cancel Acetaminophen/ Hydrocodone Bitart (Lortab 5/325) 1 tab PRN Q4HRS PRN PO MODERATE PAIN; Start 04/30/19 at 11:15 Fentanyl Citrate (Fentanyl 2ml Vial) 25 mcg PRN Q5MIN PRN IV MILD PAIN 1-3; Start 05/01/19 at 07:00; Stop 05/02/19 at 06:59 Fentanyl Citrate (Fentanyl 2ml Vial) 50 mcg PRN Q5MIN PRN IV MODERATE TO SEVERE PAIN Last administered on 05/01/19at 14:27; Start 05/01/19 at 07:00; Stop 05/01/19 at 20:00 Morphine Sulfate (Morphine Sulfate) 1 mg PRN Q10MIN PRN IV SEVERE PAIN 7-10; Start 05/01/19 at 07:00; Stop 05/01/19 at 20:00 Ringer's Solution 1,000 ml @ 30 mls/hr Q24H IV ; Start 05/01/19 at 07:00; Stop 05/01/19 at 18:59 Hydromorphone HCl (Dilaudid) 0.5 mg PRN Q10MIN PRN IV SEV PAIN, Second choice; Start 05/01/19 at 07:00; Stop 05/01/19 at 20:00 Prochlorperazine Edisylate (Compazine) 5 mg PACU PRN PRN IV NAUSEA, MRX1; St art 05/01/19 at 07:00; Stop 05/01/19 at 20:00 Meropenem 500 mg/ Sodium Chloride 50 ml @ 100 mls/hr Q6HRS IV Last administered on 05/01/19at 12:07; Start 05/01/19 at 12:00 Vancomycin HCl 1 gm/Sodium Chloride 250 ml @ 250 mls/hr Q12H IV ; Start 05/01/19 at 19:00 Vancomycin HCl (Vanco Per Pharmacy) 1 each PRN DAILY PRN MC SEE COMMENTS Last administered on 05/01/19at 14:47; Start 05/01/19 at 12:00 Vancomycin HCl (Vancomycin Trough Level) 1 each 1X ONCE MC ; Start 05/01/19 at 18:30; Stop 05/01/19 at 18:31 Active Scripts Active Celexa (Citalopram Hydrobromide) 10 Mg Tablet 10 Mg PO QHS 30 Days Reported Januvia (Sitagliptin Phosphate) 100 Mg Tablet 1 Tab PO DAILY Januvia (Sitagliptin Phosphate) 100 Mg Tablet 1 Tab PO DAILY Metformin Hcl Er (Metformin Hcl) 500 Mg Tab.er.24h 1,000 Mg PO DAILYWBKFT Allergies Allergies: Coded Allergies: Penicillins (Verified Allergy, Intermediate, 02/19/19) SWELLING/RINGING IN EAR amitriptyline (Verified Allergy, Intermediate, 02/19/19) BLUE MOODS Physical Exam General: Alert, Oriented X3, Cooperative HEENT: Atraumatic, EOMI, Mucous membr. moist/pink Lungs: Clear to auscultation, Normal air movement Heart: Regular rate, Normal S1, Normal S2 Abdomen: Normal bowel sounds, Soft, No tenderness Extremities: No clubbing, No cyanosis, No edema, Normal pulses, Other (Easily palpable pulses in the right foot at DP and PT location) Skin: Other (Right foot wound covered with fresh bandage, did not examine s/p OR) Neuro: Strength at 5/5 X4 ext, Sensation intact, Cranial nerves 3-12 NL Psych/Mental Status: Mental status NL, Mood NL Vitals VITALS Vital Signs Date Time Temp Pulse Resp B/P (MAP) Pulse Ox O2 Delivery O2 Flow Rate FiO2 05/01/19 15:35 83 18 134/56 (82) 96 Room Air 05/01/19 14:36 97.6 97.6 05/01/19 14:09 10.0 Labs Labs Laboratory Tests Test 04/29/19 16:40 04/29/19 20:30 04/29/19 21:10 04/30/19 05:10 Glucose (Fingerstick) 132 mg/dL (70-99) 137 mg/dL (70-99) White Blood Count 8.5 x10^3/uL (4.0-11.0) Red Blood Count 3.23 x10^6/uL (4.30-5.70) Hemoglobin 8.9 g/dL (13.0-17.5) Hematocrit 26.4 % (39.0-53.0) Mean Corpuscular Volume 82 fL (79-100) Mean Corpuscular Hemoglobin 28 pg (25-35) Mean Corpuscular Hemoglobin Concent 34 g/dL (31-37) Red Cell Distribution Width 14.2 % (11.5-14.5) Platelet Count 237 x10^3/uL (140-400) Neutrophils (%) (Auto) 76 % (31-73) Lymphocytes (%) (Auto) 14 % (24-48) Monocytes (%) (Auto) 7 % (0-9) Eosinophils (%) (Auto) 1 % (0-3) Basophils (%) (Auto) 1 % (0-3) Neutrophils # (Auto) 6.5 x10^3/uL (1.8-7.7) Lymphocytes # (Auto) 1.2 x10^3/uL (1.0-4.8) Monocytes # (Auto) 0.6 x10^3/uL (0.0-1.1) Eosinophils # (Auto) 0.1 x10^3/uL (0.0-0.7) Basophils # (Auto) 0.1 x10^3/uL (0.0-0.2) Sodium Level 136 mmol/L (136-145) Potassium Level 4.3 mmol/L (3.5-5.1) Chloride Level 104 mmol/L (98-107) Carbon Dioxide Level 27 mmol/L (21-32) Anion Gap 5 (6-14) Blood Urea Nitrogen 19 mg/dL (8-26) Creatinine 1.2 mg/dL (0.7-1.3) Estimated GFR (Cockcroft-Gault) 61.0 Glucose Level 140 mg/dL (70-99) Calcium Level 8.2 mg/dL (8.5-10.1) Vancomycin Level Trough 20.8 mcg/mL (10.0-20.0) Vancomycin Last Dose Date 04/29/19 Vancomycin Last Dose Time 1800 Test 04/30/19 07:38 04/30/19 11:42 04/30/19 17:01 04/30/19 20:36 Glucose (Fingerstick) 97 mg/dL (70-99) 113 mg/dL (70-99) 109 mg/dL (70-99) 121 mg/dL (70-99) Test 05/01/19 06:22 05/01/19 07:22 05/01/19 11:23 05/01/19 14:23 Creatinine 0.9 mg/dL (0.7-1.3) Estimated GFR (Cockcroft-Gault) 85.0 Glucose (Fingerstick) 117 mg/dL (70-99) 108 mg/dL (70-99) 111 mg/dL (70-99) Laboratory Tests Test 04/30/19 17:01 04/30/19 20:36 05/01/19 06:22 05/01/19 07:22 Glucose (Fingerstick) 109 mg/dL (70-99) 121 mg/dL (70-99) 117 mg/dL (70-99) Creatinine 0.9 mg/dL (0.7-1.3) Estimated GFR (Cockcroft-Gault) 85.0 Test 05/01/19 11:23 05/01/19 14:23 Glucose (Fingerstick) 108 mg/dL (70-99) 111 mg/dL (70-99) Assessment/Plan Assessment/Plan Right lower extremity PAD--Arterial duplex reviewed. Very poor study. Patient has palpable pulses in the right leg. He went on to heal his 1st toe amputation. Would not pursue angiogram or other peripheral intervention currently. If he demonstrates poor wound healing, would recommend angiogram. Will defer to orthopedics regarding wound management and post-op care. Agree with VAC to the wound. All questions answered to patients satisfaction. Fadi Hoffman DO, FADI LUTHER DO May 01, 2019 16:33
[2019-05-01] MEDS: MORPHINE SULFATE 2 MG/ML VIAL. IV PRN (17:55)
[2019-05-01] MEDS: HYDROmorphone 2 MG/ML VIAL IV PRN (18:52)
[2019-05-01 19:54] LABS: VANC TR 17.2 mcg/mL (10.0-20.0)
--- NOTE | 2019-05-01 20:04 | NUR ---
Pharmacy Vancomycin Dosing Note S:Consulted to monitor and dose vancomycin started 04/26/19. O:DAGO CHARLES is a 64 year old M with Osteomyelitis GANGRENE OF TOE . Height: 5 feet, 10 inches Weight: 84.855417 kg Wheeler Body Weight: 73.00 Adjusted Body Weight: 77.76 Dosing Weight: Actual Other Antibiotics: CEFTRIAXONE 1 GM- DC'D CEFEPIME 2GM Q12H - Dc'd Meropenem 500 mg IV q 6 hours LABS: Last BUN: 20 Last Creatinine: 0.9 Creatinine Clearance: 75 mL/min Last WBC: 8.5 Last Procalcitonin: 0.98 Tmax (past 24 hours): 102.9 Microbiology: 04/29 WOUND CX: GNR, GPC IN PAIRS AND CHAINS; Growing Citrobacter, Enterobacter, Strep and enterococcus (not VRE) I/O: 1000/1012 + 6 voids Drug Levels: Last Trough level: 17.2 on 05/01/19 at 1920 Last dose given 05/01/19 at 0626 Vancomycin Dosing: Loading Dose: 2000 mg x1 Dosing Weight: Actual Target Trough: 15-20 A: Based on trough of 17.2: P: 1. Continue Vancomycin 1000 mg IV q12h. 2. Follow up Trough levels as needed. 3. Pharmacy will continue to monitor, follow and adjust therapy as needed. Tremayne Menendez [facility], 05/01/192003
[2019-05-01] MEDS: CITALOPRAM 10 MG TABLET. PO SCH (21:01)
[2019-05-02] MEDS: MEROPENEM 500 MG in IV NORMAL SALINE 50ML 50 ML IV SCH ×5 (00:12→23:26)
[2019-05-02 03:12] VITALS: BP 119/65
[2019-05-02] MEDS: IV NORMAL SALINE 1000ML BAG 1,000 ML IV SCH ×3 (04:33→23:26)
[2019-05-02 04:50] LABS: BASO # 0.1 x10^3/uL (0.0-0.2); BASO % 0 % (0-3); EOS % 0 % (0-3); HEMATOCRIT 25.5 % (39.0-53.0); HEMOGLOBIN 8.5 g/dL (13.0-17.5); LYMPH # 1.1 x10^3/uL (1.0-4.8); LYMPH % 8 % (24-48); MEAN CORPUSCULAR HEMOGLOBIN 27 pg (25-35); MEAN CORPUSCULAR HGB CONC 33 g/dL (31-37); MEAN CORPUSCULAR VOLUME 82 fL (79-100); MONO # 0.8 x10^3/uL (0.0-1.1); MONO % 6 % (0-9); NEUT # 11.2 x10^3/uL (1.8-7.7); NEUT % 85 % (31-73); PLATELET COUNT 242 x10^3/uL (140-400); RED BLOOD COUNT 3.13 x10^6/uL (4.30-5.70); RED CELL DISTRIBUTION WIDTH 14.2 % (11.5-14.5); WHITE BLOOD COUNT 13.2 x10^3/uL (4.0-11.0)
[2019-05-02 05:30] LABS: ALBUMIN 1.8 g/dL (3.4-5.0); ALBUMIN/GLOBULIN RATIO 0.4 (1.0-1.7); CALCIUM 7.8 mg/dL (8.5-10.1); GFR 75.2; POTASSIUM 4.3 mmol/L (3.5-5.1); TOTAL BILIRUBIN 0.4 mg/dL (0.2-1.0); TOTAL PROTEIN 6.1 g/dL (6.4-8.2)
[2019-05-02 07:00] VITALS: BP 133/65
[2019-05-02] MEDS: VANCOMYCIN 1 GM in IV NORMAL SALINE 250ML 250 ML IV SCH (07:24)
[2019-05-02] MEDS: INSULIN LISPRO 300 UNITS/3 ML VIAL. SQ SCH ×3 (08:00→17:00)
--- NOTE | 2019-05-02 08:04 | PDOC ---
ORTHO PROGRESS NOTES Subjective Patient with minimal complaint of pain at this time. Post-op Day: 1 Procedure Extensive irrigation and debridement of right foot wound on 05/01/19 Amputation of right 2nd toe on 04/27/19 Vitals Vital Signs Date Time Temp Pulse Resp B/P (MAP) Pulse Ox O2 Delivery O2 Flow Rate FiO2 05/02/19 03:12 98.7 70 18 119/65 (83) 97 Room Air 98.7 05/01/19 14:09 10.0 Labs Laboratory Tests Test 04/30/19 11:42 04/30/19 17:01 04/30/19 20:36 05/01/19 06:22 Glucose (Fingerstick) 113 mg/dL (70-99) 109 mg/dL (70-99) 121 mg/dL (70-99) Creatinine 0.9 mg/dL (0.7-1.3) Estimated GFR (Cockcroft-Gault) 85.0 Test 05/01/19 07:22 05/01/19 11:23 05/01/19 14:23 05/01/19 16:26 Glucose (Fingerstick) 117 mg/dL (70-99) 108 mg/dL (70-99) 111 mg/dL (70-99) 173 mg/dL (70-99) Test 05/01/19 19:20 05/01/19 21:14 05/02/19 04:20 05/02/19 07:04 Vancomycin Level Trough 17.2 mcg/mL (10.0-20.0) Vancomycin Last Dose Date Unk Vancomycin Last Dose Time Unk Glucose (Fingerstick) 253 mg/dL (70-99) 157 mg/dL (70-99) White Blood Count 13.2 x10^3/uL (4.0-11.0) Red Blood Count 3.13 x10^6/uL (4.30-5.70) Hemoglobin 8.5 g/dL (13.0-17.5) Hematocrit 25.5 % (39.0-53.0) Mean Corpuscular Volume 82 fL (79-100) Mean Corpuscular Hemoglobin 27 pg (25-35) Mean Corpuscular Hemoglobin Concent 33 g/dL (31-37) Red Cell Distribution Width 14.2 % (11.5-14.5) Platelet Count 242 x10^3/uL (140-400) Neutrophils (%) (Auto) 85 % (31-73) Lymphocytes (%) (Auto) 8 % (24-48) Monocytes (%) (Auto) 6 % (0-9) Eosinophils (%) (Auto) 0 % (0-3) Basophils (%) (Auto) 0 % (0-3) Neutrophils # (Auto) 11.2 x10^3/uL (1.8-7.7) Lymphocytes # (Auto) 1.1 x10^3/uL (1.0-4.8) Monocytes # (Auto) 0.8 x10^3/uL (0.0-1.1) Eosinophils # (Auto) 0.0 x10^3/uL (0.0-0.7) Basophils # (Auto) 0.1 x10^3/uL (0.0-0.2) Sodium Level 133 mmol/L (136-145) Potassium Level 4.3 mmol/L (3.5-5.1) Chloride Level 100 mmol/L (98-107) Carbon Dioxide Level 25 mmol/L (21-32) Anion Gap 8 (6-14) Blood Urea Nitrogen 10 mg/dL (8-26) Creatinine 1.0 mg/dL (0.7-1.3) Estimated GFR (Cockcroft-Gault) 75.2 BUN/Creatinine Ratio 10 (6-20) Glucose Level 183 mg/dL (70-99) Calcium Level 7.8 mg/dL (8.5-10.1) Total Bilirubin 0.4 mg/dL (0.2-1.0) Aspartate Amino Transf (AST/SGOT) 14 U/L (15-37) Alanine Aminotransferase (ALT/SGPT) 22 U/L (16-63) Alkaline Phosphatase 170 U/L (46-116) Total Protein 6.1 g/dL (6.4-8.2) Albumin 1.8 g/dL (3.4-5.0) Albumin/Globulin Ratio 0.4 (1.0-1.7) Laboratory Tests Test 05/01/19 11:23 05/01/19 14:23 05/01/19 16:26 05/01/19 19:20 Glucose (Fingerstick) 108 mg/dL (70-99) 111 mg/dL (70-99) 173 mg/dL (70-99) Vancomycin Level Trough 17.2 mcg/mL (10.0-20.0) Vancomycin Last Dose Date Unk Vancomycin Last Dose Time Unk Test 05/01/19 21:14 05/02/19 04:20 05/02/19 07:04 Glucose (Fingerstick) 253 mg/dL (70-99) 157 mg/dL (70-99) White Blood Count 13.2 x10^3/uL (4.0-11.0) Red Blood Count 3.13 x10^6/uL (4.30-5.70) Hemoglobin 8.5 g/dL (13.0-17.5) Hematocrit 25.5 % (39.0-53.0) Mean Corpuscular Volume 82 fL (79-100) Mean Corpuscular Hemoglobin 27 pg (25-35) Mean Corpuscular Hemoglobin Concent 33 g/dL (31-37) Red Cell Distribution Width 14.2 % (11.5-14.5) Platelet Count 242 x10^3/uL (140-400) Neutrophils (%) (Auto) 85 % (31-73) Lymphocytes (%) (Auto) 8 % (24-48) Monocytes (%) (Auto) 6 % (0-9) Eosinophils (%) (Auto) 0 % (0-3) Basophils (%) (Auto) 0 % (0-3) Neutrophils # (Auto) 11.2 x10^3/uL (1.8-7.7) Lymphocytes # (Auto) 1.1 x10^3/uL (1.0-4.8) Monocytes # (Auto) 0.8 x10^3/uL (0.0-1.1) Eosinophils # (Auto) 0.0 x10^3/uL (0.0-0.7) Basophils # (Auto) 0.1 x10^3/uL (0.0-0.2) Sodium Level 133 mmol/L (136-145) Potassium Level 4.3 mmol/L (3.5-5.1) Chloride Level 100 mmol/L (98-107) Carbon Dioxide Level 25 mmol/L (21-32) Anion Gap 8 (6-14) Blood Urea Nitrogen 10 mg/dL (8-26) Creatinine 1.0 mg/dL (0.7-1.3) Estimated GFR (Cockcroft-Gault) 75.2 BUN/Creatinine Ratio 10 (6-20) Glucose Level 183 mg/dL (70-99) Calcium Level 7.8 mg/dL (8.5-10.1) Total Bilirubin 0.4 mg/dL (0.2-1.0) Aspartate Amino Transf (AST/SGOT) 14 U/L (15-37) Alanine Aminotransferase (ALT/SGPT) 22 U/L (16-63) Alkaline Phosphatase 170 U/L (46-116) Total Protein 6.1 g/dL (6.4-8.2) Albumin 1.8 g/dL (3.4-5.0) Albumin/Globulin Ratio 0.4 (1.0-1.7) Notes Hgb 8.5 04/30/19 awake and alert Assessment and Plan POD # 1 /P Extensive Irrigation and debridement of necrotic right foot, S/P Right 2nd toe3 amputation on 04/27/19 patient able to move toes on request distal pulses faint Small amount of drainage on dressing. Continue to elevate foot monitor pulses frequently continue antibiotics per YARELIS BARCLAY APRN May 02, 2019 08:04
[2019-05-02] MEDS: MULTIVITAMIN with MINERAL TABLET. PO SCH (09:55)
[2019-05-02] MEDS: LACTOBACILLUS RHAMNOSUS GG 1 CAPSULE. PO SCH ×2 (09:56→20:52)
[2019-05-02] MEDS: metFORMIN XR 500 MG TAB.ER.24H PO SCH (09:56)
[2019-05-02] MEDS: LINAGLIPTIN 5 MG TABLET PO SCH (09:56)
--- NOTE | 2019-05-02 10:20 | PDOC ---
PROGRESS NOTES Chief Complaint Chief Complaint IMPRESSION sepsis cellulitis and gangrene toe, POD #3, amputation , Right second toe amputation Dm2, mod control,, A1c 8.7 Elevated peak systolic velocities within the right mid and distal superficial femoral artery, suggesting hemodynamically significant stenosis. There is also an abnormal monophasic waveform within the right dorsalis pedis artery, suggesting hemodynamically significant stenosis proximal to this level. No Doppler evidence of hemodynamically significant stenosis within the left lower extremity arteries. intractable pain PLAN CONT IV VANC, CEFIPIME : PICC placement id following surgery again 05/01 vasc surg consult will not pursue angiogram or other peripheral intervention currently. If he demonstrates poor wound healing, would recommend angiogram. Will defer to orthopedics regarding wound management and post-op care. 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 Estimated blood loss: 50 mL History of Present Illness History of Present Illness OPEN from surg, will need iv abx, wound care PICC Line placed , [place] vas pain persists malodor is gone Vitals Vitals Vital Signs Date Time Temp Pulse Resp B/P (MAP) Pulse Ox O2 Delivery O2 Flow Rate FiO2 05/02/19 07:00 98.0 66 18 133/65 (87) 98 Room Air 98.0 05/01/19 14:09 10.0 Physical Exam Physical Exam GENERAL: Propped up in bed, alert, HEENT: Oral cavity clear NECK: Supple LUNGS: Clear. HEART: S1, S2 regular. ABDOMEN: Soft and nontender, BS present EXTREMITIES: Left lower extremity is unremarkable. Right lower extremity post- surgical dressing not opened. NEUROLOGICAL: Alert and oriented x 3. SKIN: warm to touch. No signs of rash. PIV LUE-PICC (05/01) General: Alert, Oriented X3, Cooperative Heart: Regular rate, Normal S1, Normal S2 Lungs: Clear Abdomen: Normal bowel sounds, Soft, No tenderness Extremities: No clubbing, No cyanosis, No edema, Normal pulses, Other (Easily palpable pulses in the right foot at DP and PT location) Skin: Other (Right foot wound covered with fresh bandage, did not examine s/p OR) Labs LABS SPEC #: [id number] DAVY: 04/26/19 STATUS: COMP REQ #: [id number] RECD: 04/26/[address]: EDWARD TRUJILLO APRN SOURCE: TOE ENTR: 04/26/[address]: EVELIA,[place] [facility] [place] JAN JOY MD ORDERED: AEROBIC CULT COMMENTS: RT SECOND TOE Procedure Result AEROBIC CULTURE Final Preliminary report Final report AEROBIC RES 1 Final Gram negative rods Citrobacter braakii 4+ AEROBIC RES 2 Final Gram negative rods Enterobacter cloacae 4+ AEROBIC RES 3 Final Streptococcus species Enterococcus faecalis 4+ Performed at: [facility], [place], [place] [id number] Die Turner: KARLEY Pavon MD, Phone: [phone] AEROBIC RES 4 Final Staphylococcus aureus 4+ Most isolates of Staphylococcus sp. produce a beta- lactamase enzyme rendering them resistant to penicillin. Please contact the laboratory if penicillin is being considered for therapy. Laboratory Tests Test 05/01/19 11:23 05/01/19 14:23 05/01/19 16:26 05/01/19 19:20 Glucose (Fingerstick) 108 mg/dL (70-99) 111 mg/dL (70-99) 173 mg/dL (70-99) Vancomycin Level Trough 17.2 mcg/mL (10.0-20.0) Vancomycin Last Dose Date Unk Vancomycin Last Dose Time Unk Test 05/01/19 21:14 05/02/19 04:20 05/02/19 07:04 Glucose (Fingerstick) 253 mg/dL (70-99) 157 mg/dL (70-99) White Blood Count 13.2 x10^3/uL (4.0-11.0) Red Blood Count 3.13 x10^6/uL (4.30-5.70) Hemoglobin 8.5 g/dL (13.0-17.5) Hematocrit 25.5 % (39.0-53.0) Mean Corpuscular Volume 82 fL (79-100) Mean Corpuscular Hemoglobin 27 pg (25-35) Mean Corpuscular Hemoglobin Concent 33 g/dL (31-37) Red Cell Distribution Width 14.2 % (11.5-14.5) Platelet Count 242 x10^3/uL (140-400) Neutrophils (%) (Auto) 85 % (31-73) Lymphocytes (%) (Auto) 8 % (24-48) Monocytes (%) (Auto) 6 % (0-9) Eosinophils (%) (Auto) 0 % (0-3) Basophils (%) (Auto) 0 % (0-3) Neutrophils # (Auto) 11.2 x10^3/uL (1.8-7.7) Lymphocytes # (Auto) 1.1 x10^3/uL (1.0-4.8) Monocytes # (Auto) 0.8 x10^3/uL (0.0-1.1) Eosinophils # (Auto) 0.0 x10^3/uL (0.0-0.7) Basophils # (Auto) 0.1 x10^3/uL (0.0-0.2) Sodium Level 133 mmol/L (136-145) Potassium Level 4.3 mmol/L (3.5-5.1) Chloride Level 100 mmol/L (98-107) Carbon Dioxide Level 25 mmol/L (21-32) Anion Gap 8 (6-14) Blood Urea Nitrogen 10 mg/dL (8-26) Creatinine 1.0 mg/dL (0.7-1.3) Estimated GFR (Cockcroft-Gault) 75.2 BUN/Creatinine Ratio 10 (6-20) Glucose Level 183 mg/dL (70-99) Calcium Level 7.8 mg/dL (8.5-10.1) Total Bilirubin 0.4 mg/dL (0.2-1.0) Aspartate Amino Transf (AST/SGOT) 14 U/L (15-37) Alanine Aminotransferase (ALT/SGPT) 22 U/L (16-63) Alkaline Phosphatase 170 U/L (46-116) Total Protein 6.1 g/dL (6.4-8.2) Albumin 1.8 g/dL (3.4-5.0) Albumin/Globulin Ratio 0.4 (1.0-1.7) Assessment and Plan Assessmemt and Plan Problems Medical Problems: (1) Fever Status: Acute (2) Gangrene of toe of right foot Status: Acute (3) Sepsis Status: Acute (4) Severe sepsis Status: Acute Comment Review of Relevant I have reviewed the following items alis (where applicable) has been applied. Labs Laboratory Tests Test 04/30/19 11:42 04/30/19 17:01 04/30/19 20:36 05/01/19 06:22 Glucose (Fingerstick) 113 mg/dL (70-99) 109 mg/dL (70-99) 121 mg/dL (70-99) Creatinine 0.9 mg/dL (0.7-1.3) Estimated GFR (Cockcroft-Gault) 85.0 Test 05/01/19 07:22 05/01/19 11:23 05/01/19 14:23 05/01/19 16:26 Glucose (Fingerstick) 117 mg/dL (70-99) 108 mg/dL (70-99) 111 mg/dL (70-99) 173 mg/dL (70-99) Test 05/01/19 19:20 05/01/19 21:14 05/02/19 04:20 05/02/19 07:04 Vancomycin Level Trough 17.2 mcg/mL (10.0-20.0) Vancomycin Last Dose Date Unk Vancomycin Last Dose Time Unk Glucose (Fingerstick) 253 mg/dL (70-99) 157 mg/dL (70-99) White Blood Count 13.2 x10^3/uL (4.0-11.0) Red Blood Count 3.13 x10^6/uL (4.30-5.70) Hemoglobin 8.5 g/dL (13.0-17.5) Hematocrit 25.5 % (39.0-53.0) Mean Corpuscular Volume 82 fL (79-100) Mean Corpuscular Hemoglobin 27 pg (25-35) Mean Corpuscular Hemoglobin Concent 33 g/dL (31-37) Red Cell Distribution Width 14.2 % (11.5-14.5) Platelet Count 242 x10^3/uL (140-400) Neutrophils (%) (Auto) 85 % (31-73) Lymphocytes (%) (Auto) 8 % (24-48) Monocytes (%) (Auto) 6 % (0-9) Eosinophils (%) (Auto) 0 % (0-3) Basophils (%) (Auto) 0 % (0-3) Neutrophils # (Auto) 11.2 x10^3/uL (1.8-7.7) Lymphocytes # (Auto) 1.1 x10^3/uL (1.0-4.8) Monocytes # (Auto) 0.8 x10^3/uL (0.0-1.1) Eosinophils # (Auto) 0.0 x10^3/uL (0.0-0.7) Basophils # (Auto) 0.1 x10^3/uL (0.0-0.2) Sodium Level 133 mmol/L (136-145) Potassium Level 4.3 mmol/L (3.5-5.1) Chloride Level 100 mmol/L (98-107) Carbon Dioxide Level 25 mmol/L (21-32) Anion Gap 8 (6-14) Blood Urea Nitrogen 10 mg/dL (8-26) Creatinine 1.0 mg/dL (0.7-1.3) Estimated GFR (Cockcroft-Gault) 75.2 BUN/Creatinine Ratio 10 (6-20) Glucose Level 183 mg/dL (70-99) Calcium Level 7.8 mg/dL (8.5-10.1) Total Bilirubin 0.4 mg/dL (0.2-1.0) Aspartate Amino Transf (AST/SGOT) 14 U/L (15-37) Alanine Aminotransferase (ALT/SGPT) 22 U/L (16-63) Alkaline Phosphatase 170 U/L (46-116) Total Protein 6.1 g/dL (6.4-8.2) Albumin 1.8 g/dL (3.4-5.0) Albumin/Globulin Ratio 0.4 (1.0-1.7) Laboratory Tests Test 05/01/19 11:23 05/01/19 14:23 05/01/19 16:26 05/01/19 19:20 Glucose (Fingerstick) 108 mg/dL (70-99) 111 mg/dL (70-99) 173 mg/dL (70-99) Vancomycin Level Trough 17.2 mcg/mL (10.0-20.0) Vancomycin Last Dose Date Unk Vancomycin Last Dose Time Unk Test 05/01/19 21:14 05/02/19 04:20 05/02/19 07:04 Glucose (Fingerstick) 253 mg/dL (70-99) 157 mg/dL (70-99) White Blood Count 13.2 x10^3/uL (4.0-11.0) Red Blood Count 3.13 x10^6/uL (4.30-5.70) Hemoglobin 8.5 g/dL (13.0-17.5) Hematocrit 25.5 % (39.0-53.0) Mean Corpuscular Volume 82 fL (79-100) Mean Corpuscular Hemoglobin 27 pg (25-35) Mean Corpuscular Hemoglobin Concent 33 g/dL (31-37) Red Cell Distribution Width 14.2 % (11.5-14.5) Platelet Count 242 x10^3/uL (140-400) Neutrophils (%) (Auto) 85 % (31-73) Lymphocytes (%) (Auto) 8 % (24-48) Monocytes (%) (Auto) 6 % (0-9) Eosinophils (%) (Auto) 0 % (0-3) Basophils (%) (Auto) 0 % (0-3) Neutrophils # (Auto) 11.2 x10^3/uL (1.8-7.7) Lymphocytes # (Auto) 1.1 x10^3/uL (1.0-4.8) Monocytes # (Auto) 0.8 x10^3/uL (0.0-1.1) Eosinophils # (Auto) 0.0 x10^3/uL (0.0-0.7) Basophils # (Auto) 0.1 x10^3/uL (0.0-0.2) Sodium Level 133 mmol/L (136-145) Potassium Level 4.3 mmol/L (3.5-5.1) Chloride Level 100 mmol/L (98-107) Carbon Dioxide Level 25 mmol/L (21-32) Anion Gap 8 (6-14) Blood Urea Nitrogen 10 mg/dL (8-26) Creatinine 1.0 mg/dL (0.7-1.3) Estimated GFR (Cockcroft-Gault) 75.2 BUN/Creatinine Ratio 10 (6-20) Glucose Level 183 mg/dL (70-99) Calcium Level 7.8 mg/dL (8.5-10.1) Total Bilirubin 0.4 mg/dL (0.2-1.0) Aspartate Amino Transf (AST/SGOT) 14 U/L (15-37) Alanine Aminotransferase (ALT/SGPT) 22 U/L (16-63) Alkaline Phosphatase 170 U/L (46-116) Total Protein 6.1 g/dL (6.4-8.2) Albumin 1.8 g/dL (3.4-5.0) Albumin/Globulin Ratio 0.4 (1.0-1.7) Microbiology 04/26/19 Aerobic Culture - Final, Complete 04/26/19 Aerobic Culture Result 1 (TATE) - Final, Complete 04/26/19 Aerobic Culture Result 2 (TATE) - Final, Complete 04/26/19 Aerobic Culture Result 3 (TATE) - Final, Complete 04/26/19 Aerobic Culture Result 4 (TATE) - Final, Complete 04/26/19 Antimicrobic Susceptibility - Final, Complete 04/26/19 Gram Stain - Final, Complete 04/26/19 Gram Stain Result 1 (TATE) - Final, Complete 04/26/19 Gram Stain Result 2 (TATE) - Final, Complete 04/26/19 Gram Stain Result 3 (TATE) - Final, Complete 04/26/19 Gram Stain Result 4 (TATE) - Final, Complete 04/26/19 Blood Culture - Final, Complete NO GROWTH AFTER 5 DAYS Medications Current Medications Sodium Chloride 1,000 ml @ 2,190 mls/hr Q28M IV Last administered on 04/26/19 16:34; Start 04/26/19 at 15:27; Stop 04/26/19 at 16:27; Status DC Piperacillin Sod/ Tazobactam Sod 4.5 gm/Sodium Chloride 100 ml @ 200 mls/hr 1X ONCE IV ; Start 04/26/19 at 15:30; Stop 04/26/19 at 15:59; Status UNV Vancomycin HCl (Vanco Per Pharmacy) 1 each 1X ONCE MC ; Start 04/26/19 at 15:30; Stop 04/26/19 at 18:08; Status DC Acetaminophen (Tylenol) 1,000 mg 1X ONCE PO Last administered on 04/26/19at 16:34; Start 04/26/19 at 15:30; Stop 04/26/19 at 15:31; Status DC Vancomycin HCl 2 gm/Sodium Chloride 500 ml @ 250 mls/hr 1X ONCE IV Last administered on 04/26/19at 16:34; Start 04/26/19 at 16:00; Stop 04/26/19 at 17:59; Status DC Ceftriaxone Sodium (Rocephin) 1 gm DAILY IVP ; Start 04/27/19 at 09:00; Status UNV Ceftriaxone Sodium (Rocephin) 1 gm Q24H IVP Last administered on 04/26/19at 16:34; Start 04/26/19 at 17:00; Stop 04/27/19 at 13:11; Status DC Ondansetron HCl (Zofran) 4 mg PRN Q8HRS PRN IV NAUSEA/VOMITING Last administered on 04/27/19at 07:57; Start 04/26/19 at 20:30; Stop 04/27/19 at 20:29; Status DC Morphine Sulfate (Morphine Sulfate) 4 mg PRN Q2HR PRN IV PAIN Last administered on 04/27/19at 18:19; Start 04/26/19 at 20:30; Stop 04/27/19 at 20:29; Status DC Sodium Chloride 1,000 ml @ 100 mls/hr 1X ONCE IV Last administered on 04/26/19at 20:41; Start 04/26/19 at 20:30; Stop 04/27/19 at 06:29; Status DC Vancomycin HCl 1.25 gm/Sodium Chloride 250 ml @ 167 mls/hr Q18H IV Last administered on 04/28/19at 05:21; Start 04/27/19 at 10:00; Stop 04/28/19 at 09:59; Status DC Vancomycin HCl (Vanco Per Pharmacy) 1 each PRN DAILY PRN MC SEE COMMENTS Last administered on 04/30/19at 06:13; Start 04/26/19 at 22:30; Stop 05/01/19 at 10:54; Status DC Sodium Chloride 1,000 ml @ 100 mls/hr Q10H IV Last administered on 05/02/19at 04:33; Start 04/26/19 at 23:45 Acetaminophen (Tylenol) 650 mg PRN Q6HRS PRN PO Fever Last administered on 04/30/19at 20:04; Start 04/26/19 at 23:30 Vancomycin HCl (Vancomycin Trough Level) 1 each 1X ONCE MC ; Start 04/28/19 at 03:30; Stop 04/28/19 at 03:31; Status DC Lidocaine HCl (Lidocaine Pf 2% Vial) 5 ml STK-MED ONCE .ROUTE ; Start 04/27/19 at 10:10; Stop 04/27/19 at 10:10; Status DC Propofol 20 ml @ As Directed STK-MED ONCE IV ; Start 04/27/19 at 10:10; Stop 04/27/19 at 10:11; Status DC Ondansetron HCl (Zofran) 4 mg STK-MED ONCE .ROUTE ; Start 04/27/19 at 10:10; Stop 04/27/19 at 10:11; Status DC Dexamethasone Sodium Phosphate (Decadron) 4 mg STK-MED ONCE .ROUTE ; Start 04/27/19 at 10:10; Stop 04/27/19 at 10:11; Status DC Sevoflurane (Ultane) 30 ml STK-MED ONCE IH ; Start 04/27/19 at 11:07; Stop 04/27/19 at 11:08; Status DC Cefepime HCl (Maxipime) 2 gm Q12HR IVP Last administered on 05/01/19at 08:28; Start 04/27/19 at 21:00; Stop 05/01/19 at 10:52; Status DC Multivitamins (Thera M Plus) 1 tab DAILY PO Last administered on 05/02/19at 10:10; Start 04/28/19 at 09:00 Citalopram Hydrobromide (CeleXA) 10 mg QHS PO Last administered on 05/01/19at 21:01; Start 04/27/19 at 21:00 Metformin HCl (Glucophage Xr) 1,000 mg DAILYWBKFT PO Last administered on 05/02/19at 10:10; Start 04/27/19 at 18:00 Non-Formulary Medication (Empagliflozin (Jardiance)) 25 mg DAILY PO ; Start 04/28/19 at 09:00; Stop 04/28/19 at 11:52; Status DC Non-Formulary Medication (Ertugliflozin Pidolate (Steglatro)) 15 mg DAILY PO ; Start 04/28/19 at 09:00; Stop 04/28/19 at 11:53; Status DC Insulin Human Lispro (HumaLOG) 0-5 UNITS TIDWMEALS SQ ; Start 04/28/19 at 08:00 Dextrose (Dextrose 50%-Water Syringe) 12.5 gm PRN Q15MIN PRN IV SEE COMMENTS; Start 04/27/19 at 19:00 Dextrose 250 ml PRN Q15MIN PRN IV SEE COMMENTS; Start 04/27/19 at 19:00 Vancomycin HCl 1.25 gm/Sodium Chloride 250 ml @ 167 mls/hr Q12H IV Last administered on 04/29/19at 18:21; Start 04/28/19 at 18:00; Stop 04/30/19 at 06:02; Status DC Vancomycin HCl (Vancomycin Trough Level) 1 each 1X ONCE MC Last administered on 04/30/19at 06:03; Start 04/30/19 at 05:30; Stop 04/30/19 at 05:31; Status DC Insulin Glargine (Lantus Syringe) 10 unit 1X ONCE SQ Last administered on 04/28/19at 11:50; Start 04/28/19 at 11:15; Stop 04/28/19 at 11:20; Status DC Lactobacillus Rhamnosus (Culturelle) 1 cap BID PO Last administered on 05/02/19at 10:10; Start 04/28/19 at 21:00 Linagliptin (Tradjenta) 5 mg DAILY PO Last administered on 05/02/19at 10:10; Start 04/29/19 at 09:00 Ondansetron HCl (Zofran Odt) 4 mg PRN Q6HRS PRN PO NAUSEA/VOMITING Last administered on 04/28/19at 18:20; Start 04/28/19 at 18:15 Morphine Sulfate (Morphine Sulfate) 2 mg PRN Q2HR PRN IV SEVERE PAIN 7-10 Last administered on 05/01/19at 17:55; Start 04/29/19 at 00:45; Stop 05/01/19 at 18:56; Status DC Vancomycin HCl 1 gm/Sodium Chloride 250 ml @ 250 mls/hr Q12H IV Last administered on 05/01/19at 06:26; Start 04/30/19 at 07:00; Stop 05/01/19 at 10:52; Status DC Vancomycin HCl (Vancomycin Trough Level) 1 each 1X ONCE MC ; Start 05/01/19 at 18:30; Stop 05/01/19 at 18:31; Status Cancel Acetaminophen/ Hydrocodone Bitart (Lortab 5/325) 1 tab PRN Q4HRS PRN PO MODERATE PAIN; Start 04/30/19 at 11:15 Fentanyl Citrate (Fentanyl 2ml Vial) 25 mcg PRN Q5MIN PRN IV MILD PAIN 1-3; Start 05/01/19 at 07:00; Stop 05/02/19 at 06:59; Status DC Fentanyl Citrate (Fentanyl 2ml Vial) 50 mcg PRN Q5MIN PRN IV MODERATE TO SEVERE PAIN Last administered on 05/01/19at 14:27; Start 05/01/19 at 07:00; Stop 05/01/19 at 20:08; Status DC Morphine Sulfate (Morphine Sulfate) 1 mg PRN Q10MIN PRN IV SEVERE PAIN 7-10; Start 05/01/19 at 07:00; Stop 05/01/19 at 20:08; Status DC Ringer's Solution 1,000 ml @ 30 mls/hr Q24H IV ; Start 05/01/19 at 07:00; Stop 05/01/19 at 18:59; Status DC Hydromorphone HCl (Dilaudid) 0.5 mg PRN Q10MIN PRN IV SEV PAIN, Second choice; Start 05/01/19 at 07:00; Stop 05/01/19 at 20:08; Status DC Prochlorperazine Edisylate (Compazine) 5 mg PACU PRN PRN IV NAUSEA, MRX1; Start 05/01/19 at 07:00; Stop 05/01/19 at 20:08; Status DC Meropenem 500 mg/ Sodium Chloride 50 ml @ 100 mls/hr Q6HRS IV Last administered on 05/02/19at 05:59; Start 05/01/19 at 12:00 Vancomycin HCl 1 gm/Sodium Chloride 250 ml @ 250 mls/hr Q12H IV Last administered on 05/02/19at 07:26; Start 05/01/19 at 19:00 Vancomycin HCl (Vanco Per Pharmacy) 1 each PRN DAILY PRN MC SEE COMMENTS Last administered on 05/01/19at 20:03; Start 05/01/19 at 12:00 Vancomycin HCl (Vancomycin Trough Level) 1 each 1X ONCE MC Last administered on 05/01/19at 19:24; Start 05/01/19 at 18:30; Stop 05/01/19 at 18:31; Status DC Hydromorphone HCl (Dilaudid) 1 mg PRN Q3HRS PRN IV SEVERE PAIN 7-10 Last administered on 05/01/19at 18:52; Start 05/01/19 at 18:45 Active Scripts Active Celexa (Citalopram Hydrobromide) 10 Mg Tablet 10 Mg PO QHS 30 Days Reported Januvia (Sitagliptin Phosphate) 100 Mg Tablet 1 Tab PO DAILY Januvia (Sitagliptin Phosphate) 100 Mg Tablet 1 Tab PO DAILY Metformin Hcl Er (Metformin Hcl) 500 Mg Tab.er.24h 1,000 Mg PO DAILYWBKFT Vitals/I & O Vital Sign - Last 24 Hours 05/01/19 05/01/19 05/01/19 05/01/19 11:00 12:34 13:51 13:51 Temp 99.2 98.8 99.2 98.8 Pulse 79 79 79 Resp 16 18 20 B/P (MAP) 153/73 (99) 179/85 139/70 Pulse Ox 95 97 100 O2 Delivery Room Air Room Air Simple Mask Mask O2 Flow Rate 10 10 05/01/19 05/01/19 05/01/19 05/01/19 14:06 14:09 14:21 14:27 Pulse 72 75 Resp 20 20 20 20 B/P (MAP) 137/64 124/60 Pulse Ox 100 95 98 O2 Delivery Simple Mask Simple Mask Room Air Room Air O2 Flow Rate 10 10.0 05/01/19 05/01/19 05/01/19 05/01/19 14:36 14:50 15:05 15:20 Temp 97.6 97.6 Pulse 72 69 78 85 Resp 20 18 18 18 B/P (MAP) 126/62 123/61 (81) 147/74 (98) 122/62 (82) Pulse Ox 96 96 94 96 O2 Delivery Room Air Room Air Room Air Room Air 05/01/19 05/01/19 05/01/19 05/01/19 15:35 16:20 16:50 17:50 Pulse 83 88 89 87 Resp 18 18 18 18 B/P (MAP) 134/56 (82) 133/62 (85) 137/64 (88) 132/60 (84) Pulse Ox 96 95 95 95 O2 Delivery Room Air Room Air Room Air Room Air 05/01/19 05/01/19 05/01/19 05/01/19 17:55 18:45 18:52 19:15 Temp 99.2 99.2 Pulse 87 Resp 18 B/P (MAP) 109/57 (74) Pulse Ox 97 O2 Delivery Room Air Room Air Room Air Room Air 05/01/19 05/01/19 05/01/19 05/02/19 20:00 20:14 23:18 03:12 Temp 99.1 98.7 99.1 98.7 Pulse 80 70 Resp 18 18 18 B/P (MAP) 118/63 (81) 119/65 (83) Pulse Ox 97 97 O2 Delivery Room Air Room Air Room Air Room Air 05/02/19 07:00 Temp 98.0 98.0 Pulse 66 Resp 18 B/P (MAP) 133/65 (87) Pulse Ox 98 O2 Delivery Room Air Intake and Output 05/01/19 05/01/19 05/02/19 15:00 23:00 07:00 Intake Total 900 ml 250 ml 720 ml Output Total 350 ml 1000 ml 400 ml Balance 550 ml -750 ml 320 ml ANTHONY CUELLAR MD May 02, 2019 10:20
[2019-05-02 11:00] VITALS: BP 125/67
[2019-05-02] MEDS: VANCOMYCIN PER PHARMACY MC PRN (11:06)
--- NOTE | 2019-05-02 11:26 | PDOC ---
Infectious Disease Note Subjective: Subjective pt doing ok underwent surgery yesterday some fevers and chills Denies V/D/SOA ROS: ROS Negative otherwise. Vital Signs: Vital Signs Vital Signs Date Time Temp Pulse Resp B/P (MAP) Pulse Ox O2 Delivery O2 Flow Rate FiO2 05/02/19 11:00 98.0 66 18 125/67 (86) 97 Room Air 98.0 05/01/19 14:09 10.0 Physical Exam: PHYSICAL EXAM GENERAL: Propped up in bed, alert, HEENT: Oral cavity clear NECK: Supple LUNGS: Clear. HEART: S1, S2 regular. ABDOMEN: Soft and nontender, BS present EXTREMITIES: Left lower extremity is unremarkable. Right lower extremity post- surgical dressing not opened. NEUROLOGICAL: Alert and oriented x 3. SKIN: warm to touch. No signs of rash. PIV LUE-PICC (05/01) Medications: Inpatient Meds: Current Medications Medications (Trade) Dose Ordered Sig/Sarah Start Time Stop Time Status Last Admin Dose Admin Acetaminophen (Tylenol) 650 mg PRN Q6HRS PRN 04/26/19 23:30 04/30/19 20:04 650 MG Acetaminophen/ Hydrocodone Bitart (Lortab 5/325) 1 tab PRN Q4HRS PRN 04/30/19 11:15 Cefepime HCl (Maxipime) 2 gm Q12HR 04/27/19 21:00 05/01/19 10:52 DC 05/01/19 08:28 2 GM Ceftriaxone Sodium (Rocephin) 1 gm Q24H 04/26/19 17:00 04/27/19 13:11 DC 04/26/19 16:34 1 GM Citalopram Hydrobromide (CeleXA) 10 mg QHS 04/27/19 21:00 05/01/19 21:01 10 MG Dexamethasone Sodium Phosphate (Decadron) 4 mg STK-MED ONCE 04/27/19 10:10 04/27/19 10:11 DC Dextrose 250 ml PRN Q15MIN PRN 04/27/19 19:00 Dextrose (Dextrose 50%-Water Syringe) 12.5 gm PRN Q15MIN PRN 04/27/19 19:00 Fentanyl Citrate (Fentanyl 2ml Vial) 50 mcg PRN Q5MIN PRN 05/01/19 07:00 05/01/19 20:08 DC 05/01/19 14:27 50 MCG Hydromorphone HCl (Dilaudid) 1 mg PRN Q3HRS PRN 05/01/19 18:45 05/01/19 18:52 1 MG Insulin Glargine (Lantus Syringe) 10 unit 1X ONCE 04/28/19 11:15 04/28/19 11:20 DC 04/28/19 11:50 10 UNIT Insulin Human Lispro (HumaLOG) 0-5 UNITS TIDWMEALS 04/28/19 08:00 Lactobacillus Rhamnosus (Culturelle) 1 cap BID 04/28/19 21:00 05/02/19 10:10 1 CAP Lidocaine HCl (Lidocaine Pf 2% Vial) 5 ml STK-MED ONCE 04/27/19 10:10 04/27/19 10:10 DC Linagliptin (Tradjenta) 5 mg DAILY 04/29/19 09:00 05/02/19 10:10 5 MG Meropenem 500 mg/ Sodium Chloride 50 ml @ 100 mls/hr Q6HRS 05/01/19 12:00 05/02/19 05:59 100 MLS/HR Metformin HCl (Glucophage Xr) 1,000 mg DAILYWBKFT 04/27/19 18:00 05/02/19 10:10 1,000 MG Morphine Sulfate (Morphine Sulfate) 1 mg PRN Q10MIN PRN 05/01/19 07:00 05/01/19 20:08 DC Multivitamins (Thera M Plus) 1 tab DAILY 04/28/19 09:00 05/02/19 10:10 1 TAB Non-Formulary Medication (Empagliflozin (Jardiance)) 25 mg DAILY 04/28/19 09:00 04/28/19 11:52 DC Non-Formulary Medication (Ertugliflozin Pidolate (Steglatro)) 15 mg DAILY 04/28/19 09:00 04/28/19 11:53 DC Ondansetron HCl (Zofran Odt) 4 mg PRN Q6HRS PRN 04/28/19 18:15 04/28/19 18:20 4 MG Ondansetron HCl (Zofran) 4 mg STK-MED ONCE 04/27/19 10:10 04/27/19 10:11 DC Piperacillin Sod/ Tazobactam Sod 4.5 gm/Sodium Chloride 100 ml @ 200 mls/hr 1X ONCE 04/26/19 15:30 04/26/19 15:59 UNV Prochlorperazine Edisylate (Compazine) 5 mg PACU PRN PRN 05/01/19 07:00 05/01/19 20:08 DC Propofol 20 ml @ As Directed STK-MED ONCE 04/27/19 10:10 04/27/19 10:11 DC Ringer's Solution 1,000 ml @ 30 mls/hr Q24H 05/01/19 07:00 05/01/19 18:59 DC Sevoflurane (Ultane) 30 ml STK-MED ONCE 04/27/19 11:07 04/27/19 11:08 DC Sodium Chloride 1,000 ml @ 100 mls/hr Q10H 04/26/19 23:45 05/02/19 04:33 100 MLS/HR Vancomycin HCl (Vanco Per Pharmacy) 1 each PRN DAILY PRN 05/01/19 12:00 05/02/19 11:06 1 EACH Vancomycin HCl (Vancomycin Trough Level) 1 each 1X ONCE 05/01/19 18:30 05/01/19 18:31 DC 05/01/19 19:24 1 EACH Vancomycin HCl 1.25 gm/Sodium Chloride 250 ml @ 167 mls/hr Q12H 04/28/19 18:00 04/30/19 06:02 DC 04/29/19 18:21 167 MLS/HR Vancomycin HCl 1 gm/Sodium Chloride 250 ml @ 250 mls/hr Q12H 05/01/19 19:00 05/02/19 07:26 250 MLS/HR Vancomycin HCl 2 gm/Sodium Chloride 500 ml @ 250 mls/hr 1X ONCE 04/26/19 16:00 04/26/19 17:59 DC 04/26/19 16:34 250 MLS/HR Labs: Lab Laboratory Tests Test 05/01/19 14:23 05/01/19 16:26 05/01/19 19:20 05/01/19 21:14 Glucose (Fingerstick) 111 mg/dL (70-99) 173 mg/dL (70-99) 253 mg/dL (70-99) Vancomycin Level Trough 17.2 mcg/mL (10.0-20.0) Vancomycin Last Dose Date Unk Vancomycin Last Dose Time Unk Test 05/02/19 04:20 05/02/19 07:04 White Blood Count 13.2 x10^3/uL (4.0-11.0) Red Blood Count 3.13 x10^6/uL (4.30-5.70) Hemoglobin 8.5 g/dL (13.0-17.5) Hematocrit 25.5 % (39.0-53.0) Mean Corpuscular Volume 82 fL (79-100) Mean Corpuscular Hemoglobin 27 pg (25-35) Mean Corpuscular Hemoglobin Concent 33 g/dL (31-37) Red Cell Distribution Width 14.2 % (11.5-14.5) Platelet Count 242 x10^3/uL (140-400) Neutrophils (%) (Auto) 85 % (31-73) Lymphocytes (%) (Auto) 8 % (24-48) Monocytes (%) (Auto) 6 % (0-9) Eosinophils (%) (Auto) 0 % (0-3) Basophils (%) (Auto) 0 % (0-3) Neutrophils # (Auto) 11.2 x10^3/uL (1.8-7.7) Lymphocytes # (Auto) 1.1 x10^3/uL (1.0-4.8) Monocytes # (Auto) 0.8 x10^3/uL (0.0-1.1) Eosinophils # (Auto) 0.0 x10^3/uL (0.0-0.7) Basophils # (Auto) 0.1 x10^3/uL (0.0-0.2) Sodium Level 133 mmol/L (136-145) Potassium Level 4.3 mmol/L (3.5-5.1) Chloride Level 100 mmol/L (98-107) Carbon Dioxide Level 25 mmol/L (21-32) Anion Gap 8 (6-14) Blood Urea Nitrogen 10 mg/dL (8-26) Creatinine 1.0 mg/dL (0.7-1.3) Estimated GFR (Cockcroft-Gault) 75.2 BUN/Creatinine Ratio 10 (6-20) Glucose Level 183 mg/dL (70-99) Calcium Level 7.8 mg/dL (8.5-10.1) Total Bilirubin 0.4 mg/dL (0.2-1.0) Aspartate Amino Transf (AST/SGOT) 14 U/L (15-37) Alanine Aminotransferase (ALT/SGPT) 22 U/L (16-63) Alkaline Phosphatase 170 U/L (46-116) Total Protein 6.1 g/dL (6.4-8.2) Albumin 1.8 g/dL (3.4-5.0) Albumin/Globulin Ratio 0.4 (1.0-1.7) Glucose (Fingerstick) 157 mg/dL (70-99) Micro RUN DATE: 05/01/19 PAGE 1 RUN TIME: 1612 [facility] [address] [place] [address] Jake Kraft M.D., Estimator Binding PATIENT: DAGO CHARLES ACCT: [id number] LOC: [address] [place] [address] U: [id number] AGE/SX: 64/M ROOM: [facility] RE04/26/[address]: FRANCES GOFF MD : 1955 BED: 1 DIS: STATUS: ADM IN TLOC: SPEC #: [id number] DAVY: 04/26/19 STATUS: COMP REQ #: [id number] RECD: 04/26/19-[address] [facility] [address]: EDWARD TRUJILLO APRN SOURCE: TOE ENTR: 08/ [facility] DR: EVELIA,[facility]: RT JAN BLUM MD ORDERED: AEROBIC CULT GS COMMENTS: RT SECOND TOE Procedure Result AEROBIC CULTURE Final Preliminary report Final report AEROBIC RES 1 Final Gram negative rods Citrobacter braakii 4+ AEROBIC RES 2 Final Gram negative rods Enterobacter cloacae 4+ AEROBIC RES 3 Final Streptococcus species Enterococcus faecalis 4+ Performed at: - [facility], [place], [place] [id number] Scorer Single: KARLEY Pavon MD, Phone: [phone] AEROBIC RES 4 Final Staphylococcus aureus 4+ Most isolates of Staphylococcus sp. produce a beta- lactamase enzyme rendering them resistant to penicillin. Please contact the laboratory if penicillin is being considered for therapy. CONTINUED ON NEXT PAGE RUN DATE: 05/01/19 PAGE 2 RUN TIME: 1612 [facility] [address] [place] [address] Jake Kraft M.D., Estimator Binding SPEC: [id number] PATIENT: DAGO [id number] (Continued) Procedure Result ANTIMICROBIAL SUSCEPTIBILITY Final Comment S = Susceptible; I = Intermediate; R = Resistant P = Positive; N = Negative MICS are expressed in micrograms per mL Antibiotic RSLT#1 RSLT#2 RSLT#3 RSLT#4 Amoxicillin/Clavulanic Acid R>=32 Cefazolin R>=64 Cefepime S<=0.12 Cefuroxime R =R Ciprofloxacin S<=0.25 Ertapenem S<=0.12 Gentamicin S<=1 Imipenem S<=0.25 Levofloxacin S<=0.12 Meropenem S<=0.25 Penicillin S =4 Tetracycline S<=1 Tobramycin S<=1 Trimethoprim/Sulfa S<=20 Vancomycin S =1 Performed at: DA - [facility] [address], [place], [place] [id number] Scorer Single: KARLEY Pavon MD, Phone: [phone] S = Susceptible; I = Intermediate; R = Resistant P = Positive; N = Negative MICS are expressed in micrograms per mL Antibiotic RSLT#1 RSLT#2 RSLT#3 RSLT#4 Amoxicillin/Clavulanic Acid R =R R>=32 Cefazolin R =8 R>=64 Cefepime S<=0.12 Cefuroxime R =R R =R Ciprofloxacin S<=0.25 S<=0.25 S<=0.5 Clindamycin S<=0.25 Ertapenem S<=0.12 Erythromycin S<=0.25 Gentamicin S<=1 S<=1 S<=0.5 Imipenem S<=0.25 S<=0.25 Levofloxacin S<=0.12 S<=0.12 Linezolid S =2 Meropenem S<=0.25 S<=0.25 Moxifloxacin S<=0.25 Oxacillin S =0.5 Penicillin S =4 Quinupristin/Dalfopristin S<=0.25 Rifampin S<=0.5 CONTINUED ON NEXT PAGE RUN DATE: 05/01/19 PAGE 3 RUN TIME: 1612 [facility] [address] [place] [address] Jake Kraft M.D., Estimator Binding SPEC: [id number] PATIENT: ARACELIDAGO [id number] (Continued) ---- -------- Procedure Result ANTIMICROBIAL SUSCEPTIBILITY Final (continued) Tetracycline S<=1 S<=1 S<=1 Tobramycin S<=1 S<=1 Trimethoprim/Sulfa S<=20 S<=20 S<=10 Vancomycin S =1 S =1 Performed at: [place] [id number] Scorer Single: KARLEY Pavon MD, Phone: [phone] GRAM STAIN Final Final report GRAM STAIN RESULT 1 Final Comment No white blood cells seen. GRAM STAIN RESULT 2 Final Comment Few gram positive rods. GRAM STAIN RESULT 3 Final Comment Moderate gram negative rods. GRAM STAIN RESULT 4 Final Comment Gram positive cocci in pairs and chains. 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 Fever - better Leukocytosis, improving Lactic acidosis/sepsis. Diabetes with neuropathy. Plan: Plan of Care cont merrem dc vanc f/u cultures Monitor renal function closely Wound care team following GIOVANNI HENSON MD May 02, 2019 11:26
--- NOTE | 2019-05-02 14:09 | NUR ---
SS following up with discharge planning. Pt is currently on room air. PT/OT currently on hold. No discharge needs noted at this time. SS will continue to follow for discharge planning.
[2019-05-02] MEDS: HYDROmorphone 2 MG/ML VIAL IV PRN ×2 (14:27→23:31)
[2019-05-02 14:52] VITALS: BP 130/61
--- NOTE | 2019-05-02 15:54 | NUR ---
Wound Care Pt seen for wound care follow up re: his R foot DFU, s/p debridement yesterday. Orders received from Dr. Harris to apply Vac Veraflo to wound. Surgical dressing removed, wound cleaned, measured and photographed post debridement. Wound bed beefy red, 2nd metatarsal head is exposed, appears dusky paige. Ostomy ring applied to periwound, 4 pieces of Veraflo cleanse foam placed into wound bed, vac with strong seal showing, instillation without leaks, pt tolerated well. Veraflo settings are as follows: 20 mL of NS instilled every 3.5 hours for 5 minute dwell time. Next vac change will be Tuesday, will apply for home wound vac through [facility] today. Pt is requesting Handicap sticker, will ask SW to f/u with form, then Dr. Harris can sign, if agreeable.
[2019-05-02 19:00] VITALS: BP 115/60
[2019-05-02] MEDS: CITALOPRAM 10 MG TABLET. PO SCH (20:48)
[2019-05-02 23:00] VITALS: BP 128/60
[2019-05-03 02:35] LABS: BASO # 0.1 x10^3/uL (0.0-0.2); BASO % 1 % (0-3); EOS # 0.3 x10^3/uL (0.0-0.7); EOS % 4 % (0-3); HEMATOCRIT 25.5 % (39.0-53.0); HEMOGLOBIN 8.5 g/dL (13.0-17.5); LYMPH # 1.8 x10^3/uL (1.0-4.8); LYMPH % 22 % (24-48); MEAN CORPUSCULAR HEMOGLOBIN 27 pg (25-35); MEAN CORPUSCULAR HGB CONC 33 g/dL (31-37); MEAN CORPUSCULAR VOLUME 82 fL (79-100); MONO # 0.7 x10^3/uL (0.0-1.1); MONO % 9 % (0-9); NEUT # 5.4 x10^3/uL (1.8-7.7); NEUT % 65 % (31-73); PLATELET COUNT 256 x10^3/uL (140-400); RED BLOOD COUNT 3.13 x10^6/uL (4.30-5.70); RED CELL DISTRIBUTION WIDTH 14.3 % (11.5-14.5); WHITE BLOOD COUNT 8.3 x10^3/uL (4.0-11.0)
[2019-05-03 02:48] LABS: GFR 75.2
[2019-05-03 03:00] VITALS: BP 112/55
[2019-05-03] MEDS: MEROPENEM 500 MG in IV NORMAL SALINE 50ML 50 ML IV SCH ×4 (05:30→23:07)
[2019-05-03] MEDS: IV NORMAL SALINE 1000ML BAG 1,000 ML IV SCH ×2 (05:30→15:33)
[2019-05-03 07:00] VITALS: BP 136/66
[2019-05-03] MEDS: INSULIN LISPRO 300 UNITS/3 ML VIAL. SQ SCH ×3 (08:00→17:00)
[2019-05-03] MEDS: MULTIVITAMIN with MINERAL TABLET. PO SCH (08:23)
[2019-05-03] MEDS: LINAGLIPTIN 5 MG TABLET PO SCH (08:23)
[2019-05-03] MEDS: metFORMIN XR 500 MG TAB.ER.24H PO SCH (08:23)
[2019-05-03] MEDS: LACTOBACILLUS RHAMNOSUS GG 1 CAPSULE. PO SCH ×2 (08:23→20:49)
--- NOTE | 2019-05-03 10:32 | PDOC ---
PROGRESS NOTES Chief Complaint Chief Complaint IMPRESSION sepsis cellulitis and gangrene toe, POD #3, amputation , Right second toe amputation Dm2, mod control,, A1c 8.7 Elevated peak systolic velocities within the right mid and distal superficial femoral artery, suggesting hemodynamically significant stenosis. There is also an abnormal monophasic waveform within the right dorsalis pedis artery, suggesting hemodynamically significant stenosis proximal to this level. No Doppler evidence of hemodynamically significant stenosis within the left lower extremity arteries. intractable pain PLAN CONT IV VANC, CEFIPIME : PICC placement id following surgery again 05/01 vasc surg consult will not pursue angiogram or other peripheral intervention currently. If he demonstrates poor wound healing, would recommend angiogram. Will defer to orthopedics regarding wound management and post-op care. 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 Estimated blood loss: 50 mL History of Present Illness History of Present Illness OPEN from surg, will need iv abx, wound care PICC Line placed , [place] vas pain persists malodor is gone Vitals Vitals Vital Signs Date Time Temp Pulse Resp B/P (MAP) Pulse Ox O2 Delivery O2 Flow Rate FiO2 05/03/19 08:00 Room Air 05/03/19 07:00 97.8 71 18 136/66 (89) 96 97.8 05/02/19 14:27 10.0 Physical Exam Physical Exam GENERAL: Propped up in bed, alert, HEENT: Oral cavity clear NECK: Supple LUNGS: Clear. HEART: S1, S2 regular. ABDOMEN: Soft and nontender, BS present EXTREMITIES: Left lower extremity is unremarkable. Right lower extremity post- surgical dressing not opened. NEUROLOGICAL: Alert and oriented x 3. SKIN: warm to touch. No signs of rash. PIV LUE-PICC (05/01) General: Alert, Oriented X3, Cooperative, No acute distress Heart: Regular rate, Normal S1, Normal S2 Lungs: Clear Abdomen: Normal bowel sounds, Soft, No tenderness Extremities: No clubbing, No cyanosis, No edema, Normal pulses, Other (Easily palpable pulses in the right foot at DP and PT location) Skin: Other (Right foot wound covered with fresh bandage, did not examine s/p OR) Labs LABS Laboratory Tests Test 05/02/19 11:26 05/02/19 16:54 05/02/19 21:00 05/03/19 02:30 Glucose (Fingerstick) 178 mg/dL (70-99) 140 mg/dL (70-99) 138 mg/dL (70-99) White Blood Count 8.3 x10^3/uL (4.0-11.0) Red Blood Count 3.13 x10^6/uL (4.30-5.70) Hemoglobin 8.5 g/dL (13.0-17.5) Hematocrit 25.5 % (39.0-53.0) Mean Corpuscular Volume 82 fL (79-100) Mean Corpuscular Hemoglobin 27 pg (25-35) Mean Corpuscular Hemoglobin Concent 33 g/dL (31-37) Red Cell Distribution Width 14.3 % (11.5-14.5) Platelet Count 256 x10^3/uL (140-400) Neutrophils (%) (Auto) 65 % (31-73) Lymphocytes (%) (Auto) 22 % (24-48) Monocytes (%) (Auto) 9 % (0-9) Eosinophils (%) (Auto) 4 % (0-3) Basophils (%) (Auto) 1 % (0-3) Neutrophils # (Auto) 5.4 x10^3/uL (1.8-7.7) Lymphocytes # (Auto) 1.8 x10^3/uL (1.0-4.8) Monocytes # (Auto) 0.7 x10^3/uL (0.0-1.1) Eosinophils # (Auto) 0.3 x10^3/uL (0.0-0.7) Basophils # (Auto) 0.1 x10^3/uL (0.0-0.2) Creatinine 1.0 mg/dL (0.7-1.3) Estimated GFR (Cockcroft-Gault) 75.2 Test 05/03/19 07:24 Glucose (Fingerstick) 108 mg/dL (70-99) Assessment and Plan Assessmemt and Plan Problems Medical Problems: (1) Fever Status: Acute (2) Gangrene of toe of right foot Status: Acute (3) Sepsis Status: Acute (4) Severe sepsis Status: Acute Comment Review of Relevant I have reviewed the following items alis (where applicable) has been applied. Labs Laboratory Tests Test 05/01/19 11:23 05/01/19 14:23 05/01/19 16:26 05/01/19 19:20 Glucose (Fingerstick) 108 mg/dL (70-99) 111 mg/dL (70-99) 173 mg/dL (70-99) Vancomycin Level Trough 17.2 mcg/mL (10.0-20.0) Vancomycin Last Dose Date Unk Vancomycin Last Dose Time Unk Test 05/01/19 21:14 05/02/19 04:20 05/02/19 07:04 05/02/19 11:26 Glucose (Fingerstick) 253 mg/dL (70-99) 157 mg/dL (70-99) 178 mg/dL (70-99) White Blood Count 13.2 x10^3/uL (4.0-11.0) Red Blood Count 3.13 x10^6/uL (4.30-5.70) Hemoglobin 8.5 g/dL (13.0-17.5) Hematocrit 25.5 % (39.0-53.0) Mean Corpuscular Volume 82 fL (79-100) Mean Corpuscular Hemoglobin 27 pg (25-35) Mean Corpuscular Hemoglobin Concent 33 g/dL (31-37) Red Cell Distribution Width 14.2 % (11.5-14.5) Platelet Count 242 x10^3/uL (140-400) Neutrophils (%) (Auto) 85 % (31-73) Lymphocytes (%) (Auto) 8 % (24-48) Monocytes (%) (Auto) 6 % (0-9) Eosinophils (%) (Auto) 0 % (0-3) Basophils (%) (Auto) 0 % (0-3) Neutrophils # (Auto) 11.2 x10^3/uL (1.8-7.7) Lymphocytes # (Auto) 1.1 x10^3/uL (1.0-4.8) Monocytes # (Auto) 0.8 x10^3/uL (0.0-1.1) Eosinophils # (Auto) 0.0 x10^3/uL (0.0-0.7) Basophils # (Auto) 0.1 x10^3/uL (0.0-0.2) Sodium Level 133 mmol/L (136-145) Potassium Level 4.3 mmol/L (3.5-5.1) Chloride Level 100 mmol/L (98-107) Carbon Dioxide Level 25 mmol/L (21-32) Anion Gap 8 (6-14) Blood Urea Nitrogen 10 mg/dL (8-26) Creatinine 1.0 mg/dL (0.7-1.3) Estimated GFR (Cockcroft-Gault) 75.2 BUN/Creatinine Ratio 10 (6-20) Glucose Level 183 mg/dL (70-99) Calcium Level 7.8 mg/dL (8.5-10.1) Total Bilirubin 0.4 mg/dL (0.2-1.0) Aspartate Amino Transf (AST/SGOT) 14 U/L (15-37) Alanine Aminotransferase (ALT/SGPT) 22 U/L (16-63) Alkaline Phosphatase 170 U/L (46-116) Total Protein 6.1 g/dL (6.4-8.2) Albumin 1.8 g/dL (3.4-5.0) Albumin/Globulin Ratio 0.4 (1.0-1.7) Test 05/02/19 16:54 05/02/19 21:00 05/03/19 02:30 05/03/19 07:24 Glucose (Fingerstick) 140 mg/dL (70-99) 138 mg/dL (70-99) 108 mg/dL (70-99) White Blood Count 8.3 x10^3/uL (4.0-11.0) Red Blood Count 3.13 x10^6/uL (4.30-5.70) Hemoglobin 8.5 g/dL (13.0-17.5) Hematocrit 25.5 % (39.0-53.0) Mean Corpuscular Volume 82 fL (79-100) Mean Corpuscular Hemoglobin 27 pg (25-35) Mean Corpuscular Hemoglobin Concent 33 g/dL (31-37) Red Cell Distribution Width 14.3 % (11.5-14.5) Platelet Count 256 x10^3/uL (140-400) Neutrophils (%) (Auto) 65 % (31-73) Lymphocytes (%) (Auto) 22 % (24-48) Monocytes (%) (Auto) 9 % (0-9) Eosinophils (%) (Auto) 4 % (0-3) Basophils (%) (Auto) 1 % (0-3) Neutrophils # (Auto) 5.4 x10^3/uL (1.8-7.7) Lymphocytes # (Auto) 1.8 x10^3/uL (1.0-4.8) Monocytes # (Auto) 0.7 x10^3/uL (0.0-1.1) Eosinophils # (Auto) 0.3 x10^3/uL (0.0-0.7) Basophils # (Auto) 0.1 x10^3/uL (0.0-0.2) Creatinine 1.0 mg/dL (0.7-1.3) Estimated GFR (Cockcroft-Gault) 75.2 Laboratory Tests Test 05/02/19 11:26 05/02/19 16:54 05/02/19 21:00 05/03/19 02:30 Glucose (Fingerstick) 178 mg/dL (70-99) 140 mg/dL (70-99) 138 mg/dL (70-99) White Blood Count 8.3 x10^3/uL (4.0-11.0) Red Blood Count 3.13 x10^6/uL (4.30-5.70) Hemoglobin 8.5 g/dL (13.0-17.5) Hematocrit 25.5 % (39.0-53.0) Mean Corpuscular Volume 82 fL (79-100) Mean Corpuscular Hemoglobin 27 pg (25-35) Mean Corpuscular Hemoglobin Concent 33 g/dL (31-37) Red Cell Distribution Width 14.3 % (11.5-14.5) Platelet Count 256 x10^3/uL (140-400) Neutrophils (%) (Auto) 65 % (31-73) Lymphocytes (%) (Auto) 22 % (24-48) Monocytes (%) (Auto) 9 % (0-9) Eosinophils (%) (Auto) 4 % (0-3) Basophils (%) (Auto) 1 % (0-3) Neutrophils # (Auto) 5.4 x10^3/uL (1.8-7.7) Lymphocytes # (Auto) 1.8 x10^3/uL (1.0-4.8) Monocytes # (Auto) 0.7 x10^3/uL (0.0-1.1) Eosinophils # (Auto) 0.3 x10^3/uL (0.0-0.7) Basophils # (Auto) 0.1 x10^3/uL (0.0-0.2) Creatinine 1.0 mg/dL (0.7-1.3) Estimated GFR (Cockcroft-Gault) 75.2 Test 05/03/19 07:24 Glucose (Fingerstick) 108 mg/dL (70-99) Microbiology 04/26/19 Aerobic Culture - Final, Complete 04/26/19 Aerobic Culture Result 1 (TATE) - Final, Complete 04/26/19 Aerobic Culture Result 2 (TATE) - Final, Complete 04/26/19 Aerobic Culture Result 3 (TATE) - Final, Complete 04/26/19 Aerobic Culture Result 4 (TATE) - Final, Complete 04/26/19 Antimicrobic Susceptibility - Final, Complete 04/26/19 Gram Stain - Final, Complete 04/26/19 Gram Stain Result 1 (TATE) - Final, Complete 04/26/19 Gram Stain Result 2 (TATE) - Final, Complete 04/26/19 Gram Stain Result 3 (TATE) - Final, Complete 04/26/19 Gram Stain Result 4 (TATE) - Final, Complete 04/26/19 Blood Culture - Final, Complete NO GROWTH AFTER 5 DAYS Medications Current Medications Sodium Chloride 1,000 ml @ 2,190 mls/hr Q28M IV Last administered on 04/26/19at 16:34; Start 04/26/19 at 15:27; Stop 04/26/19 at 16:27; Status DC Piperacillin Sod/ Tazobactam Sod 4.5 gm/Sodium Chloride 100 ml @ 200 mls/hr 1X ONCE IV ; Start 04/26/19 at 15:30; Stop 04/26/19 at 15:59; Status UNV Vancomycin HCl (Vanco Per Pharmacy) 1 each 1X ONCE MC ; Start 04/26/19 at 15:30; Stop 04/26/19 at 18:08; Status DC Acetaminophen (Tylenol) 1,000 mg 1X ONCE PO Last administered on 04/26/19at 16:34; Start 04/26/19 at 15:30; Stop 04/26/19 at 15:31; Status DC Vancomycin HCl 2 gm/Sodium Chloride 500 ml @ 250 mls/hr 1X ONCE IV Last administered on 04/26/19at 16:34; Start 04/26/19 at 16:00; Stop 04/26/19 at 17:59; Status DC Ceftriaxone Sodium (Rocephin) 1 gm DAILY IVP ; Start 04/27/19 at 09:00; Status UNV Ceftriaxone Sodium (Rocephin) 1 gm Q24H IVP Last administered on 04/26/19at 16:34; Start 04/26/19 at 17:00; Stop 04/27/19 at 13:11; Status DC Ondansetron HCl (Zofran) 4 mg PRN Q8HRS PRN IV NAUSEA/VOMITING Last administered on 04/27/19at 07:57; Start 04/26/19 at 20:30; Stop 04/27/19 at 20:29; Status DC Morphine Sulfate (Morphine Sulfate) 4 mg PRN Q2HR PRN IV PAIN Last administered on 04/27/19at 18:19; Start 04/26/19 at 20:30; Stop 04/27/19 at 20:29; Status DC Sodium Chloride 1,000 ml @ 100 mls/hr 1X ONCE IV Last administered on 04/26/19at 20:41; Start 04/26/19 at 20:30; Stop 04/27/19 at 06:29; Status DC Vancomycin HCl 1.25 gm/Sodium Chloride 250 ml @ 167 mls/hr Q18H IV Last administered on 04/28/19at 05:21; Start 04/27/19 at 10:00; Stop 04/28/19 at 09:5 9; Status DC Vancomycin HCl (Vanco Per Pharmacy) 1 each PRN DAILY PRN MC SEE COMMENTS Last administered on 04/30/19at 06:13; Start 04/26/19 at 22:30; Stop 05/01/19 at 10:54; Status DC Sodium Chloride 1,000 ml @ 100 mls/hr Q10H IV Last administered on 05/03/19at 05:30; Start 04/26/19 at 23:45 Acetaminophen (Tylenol) 650 mg PRN Q6HRS PRN PO Fever Last administered on 04/30/19at 20:04; Start 04/26/19 at 23:30 Vancomycin HCl (Vancomycin Trough Level) 1 each 1X ONCE MC ; Start 04/28/19 at 03:30; Stop 04/28/19 at 03:31; Status DC Lidocaine HCl (Lidocaine Pf 2% Vial) 5 ml STK-MED ONCE .ROUTE ; Start 04/27/19 at 10:10; Stop 04/27/19 at 10:10; Status DC Propofol 20 ml @ As Directed STK-MED ONCE IV ; Start 04/27/19 at 10:10; Stop 04/27/19 at 10:11; Status DC Ondansetron HCl (Zofran) 4 mg STK-MED ONCE .ROUTE ; Start 04/27/19 at 10:10; Stop 04/27/19 at 10:11; Status DC Dexamethasone Sodium Phosphate (Decadron) 4 mg STK-MED ONCE .ROUTE ; Start 04/27/19 at 10:10; Stop 04/27/19 at 10:11; Status DC Sevoflurane (Ultane) 30 ml STK-MED ONCE IH ; Start 04/27/19 at 11:07; Stop 04/27/19 at 11:08; Status DC Cefepime HCl (Maxipime) 2 gm Q12HR IVP Last administered on 05/01/19at 08:28; Start 04/27/19 at 21:00; Stop 05/01/19 at 10:52; Status DC Multivitamins (Thera M Plus) 1 tab DAILY PO Last administered on 05/03/19at 08:24; Start 04/28/19 at 09:00 Citalopram Hydrobromide (CeleXA) 10 mg QHS PO Last administered on 05/02/19at 20:53; Start 04/27/19 at 21:00 Metformin HCl (Glucophage Xr) 1,000 mg DAILYWBKFT PO Last administered on 05/03/19at 08:24; Start 04/27/19 at 18:00 Non-Formulary Medication (Empagliflozin (Jardiance)) 25 mg DAILY PO ; Start 04/28/19 at 09:00; Stop 04/28/19 at 11:52; Status DC Non-Formulary Medication (Ertugliflozin Pidolate (Steglatro)) 15 mg DAILY PO ; Start 04/28/19 at 09:00; Stop 04/28/19 at 11:53; Status DC Insulin Human Lispro (HumaLOG) 0-5 UNITS TIDWMEALS SQ ; Start 04/28/19 at 08:00 Dextrose (Dextrose 50%-Water Syringe) 12.5 gm PRN Q15MIN PRN IV SEE COMMENTS; Start 04/27/19 at 19:00 Dextrose 250 ml PRN Q15MIN PRN IV SEE COMMENTS; Start 04/27/19 at 19:00 Vancomycin HCl 1.25 gm/Sodium Chloride 250 ml @ 167 mls/hr Q12H IV Last administered on 04/29/19at 18:21; Start 04/28/19 at 18:00; Stop 04/30/19 at 06:02; Status DC Vancomycin HCl (Vancomycin Trough Level) 1 each 1X ONCE MC Last administered on 04/30/19at 06:03; Start 04/30/19 at 05:30; Stop 04/30/19 at 05:31; Status DC Insulin Glargine (Lantus Syringe) 10 unit 1X ONCE SQ Last administered on 04/28/19at 11:50; Start 04/28/19 at 11:15; Stop 04/28/19 at 11:20; Status DC Lactobacillus Rhamnosus (Culturelle) 1 cap BID PO Last administered on 05/03/19at 08:24; Start 04/28/19 at 21:00 Linagliptin (Tradjenta) 5 mg DAILY PO Last administered on 05/03/19at 08:24; Start 04/29/19 at 09:00 Ondansetron HCl (Zofran Odt) 4 mg PRN Q6HRS PRN PO NAUSEA/VOMITING Last administered on 04/28/19at 18:20; Start 04/28/19 at 18:15 Morphine Sulfate (Morphine Sulfate) 2 mg PRN Q2HR PRN IV SEVERE PAIN 7-10 Last administered on 05/01/19at 17:55; Start 04/29/19 at 00:45; Stop 05/01/19 at 18:56; Status DC Vancomycin HCl 1 gm/Sodium Chloride 250 ml @ 250 mls/hr Q12H IV Last administered on 05/01/19at 06:26; Start 04/30/19 at 07:00; Stop 05/01/19 at 10:52; Status DC Vancomycin HCl (Vancomycin Trough Level) 1 each 1X ONCE MC ; Start 05/01/19 at 18:30; Stop 05/01/19 at 18:31; Status Cancel Acetaminophen/ Hydrocodone Bitart (Lortab 5/325) 1 tab PRN Q4HRS PRN PO MODERATE PAIN; Start 04/30/19 at 11:15 Fentanyl Citrate (Fentanyl 2ml Vial) 25 mcg PRN Q5MIN PRN IV MILD PAIN 1-3; S tart 05/01/19 at 07:00; Stop 05/02/19 at 06:59; Status DC Fentanyl Citrate (Fentanyl 2ml Vial) 50 mcg PRN Q5MIN PRN IV MODERATE TO SEVERE PAIN Last administered on 05/01/19at 14:27; Start 05/01/19 at 07:00; Stop 05/01/19 at 20:08; Status DC Morphine Sulfate (Morphine Sulfate) 1 mg PRN Q10MIN PRN IV SEVERE PAIN 7-10; Start 05/01/19 at 07:00; Stop 05/01/19 at 20:08; Status DC Ringer's Solution 1,000 ml @ 30 mls/hr Q24H IV ; Start 05/01/19 at 07:00; Stop 05/01/19 at 18:59; Status DC Hydromorphone HCl (Dilaudid) 0.5 mg PRN Q10MIN PRN IV SEV PAIN, Second choice; Start 05/01/19 at 07:00; Stop 05/01/19 at 20:08; Status DC Prochlorperazine Edisylate (Compazine) 5 mg PACU PRN PRN IV NAUSEA, MRX1; Start 05/01/19 at 07:00; Stop 05/01/19 at 20:08; Status DC Meropenem 500 mg/ Sodium Chloride 50 ml @ 100 mls/hr Q6HRS IV Last administered on 05/03/19at 05:30; Start 05/01/19 at 12:00 Vancomycin HCl 1 gm/Sodium Chloride 250 ml @ 250 mls/hr Q12H IV Last administered on 05/02/19 07:26; Start 05/01/19 at 19:00; Stop 05/02/19 at 11:57; Status DC Vancomycin HCl (Vanco Per Pharmacy) 1 each PRN DAILY PRN MC SEE COMMENTS Last administered on 05/02/19at 11:06; Start 05/01/19 at 12:00; Stop 05/02/19 at 11:57; Status DC Vancomycin HCl (Vancomycin Trough Level) 1 each 1X ONCE MC Last administered on 05/01/19at 19:24; Start 05/01/19 at 18:30; Stop 05/02/19 at 11:57; Status DC Hydromorphone HCl (Dilaudid) 1 mg PRN Q3HRS PRN IV SEVERE PAIN 7-10 Last administered on 05/02/19at 23:31; Start 05/01/19 at 18:45 Active Scripts Active Celexa (Citalopram Hydrobromide) 10 Mg Tablet 10 Mg PO QHS 30 Days Reported Januvia (Sitagliptin Phosphate) 100 Mg Tablet 1 Tab PO DAILY Januvia (Sitagliptin Phosphate) 100 Mg Tablet 1 Tab PO DAILY Metformin Hcl Er (Metformin Hcl) 500 Mg Tab.er.24h 1,000 Mg PO DAILYWBKFT Vitals/I & O Vital Sign - Last 24 Hours 05/02/19 05/02/19 05/02/19 05/02/19 11:00 14:27 14:52 15:19 Temp 98.0 98.2 98.0 98.2 Pulse 66 75 Resp 18 18 B/P (MAP) 125/67 (86) 130/61 (84) Pulse Ox 97 97 96 O2 Delivery Room Air Room Air Room Air Room Air O2 Flow Rate 10.0 05/02/19 05/02/19 05/02/19 05/02/19 19:00 20:04 23:00 23:31 Temp 98.2 98.6 98.2 98.6 Pulse 69 75 Resp 18 18 16 B/P (MAP) 115/60 (78) 128/60 (82) Pulse Ox 97 97 97 O2 Delivery Room Air Room Air Room Air Room Air 05/03/19 05/03/19 05/03/19 05/03/19 01:18 03:00 07:00 08:00 Temp 98.4 97.8 98.4 97.8 Pulse 71 71 Resp 16 18 18 B/P (MAP) 112/55 (74) 136/66 (89) Pulse Ox 97 98 96 O2 Delivery Room Air Room Air Room Air Room Air Intake and Output 05/02/19 05/02/19 05/03/19 14:59 22:59 06:59 Output Total 500 ml 200 ml 0 ml Balance -500 ml -200 ml 0 ml ANTHONY CUELLAR MD May 03, 2019 10:32
--- NOTE | 2019-05-03 10:52 | PDOC ---
Infectious Disease Note Subjective: Subjective pt doing ok refusing for pt and ot Denies f/c/n/V/D/SOA ROS: ROS Negative otherwise. Vital Signs: Vital Signs Vital Signs Date Time Temp Pulse Resp B/P (MAP) Pulse Ox O2 Delivery O2 Flow Rate FiO2 05/03/19 08:00 Room Air 05/03/19 07:00 97.8 71 18 136/66 (89) 96 97.8 05/02/19 14:27 10.0 Physical Exam: PHYSICAL EXAM GENERAL: Propped up in bed, alert, HEENT: Oral cavity clear NECK: Supple LUNGS: Clear. HEART: S1, S2 regular. ABDOMEN: Soft and nontender, BS present EXTREMITIES: Left lower extremity is unremarkable. Right lower extremity with wound vac in place NEUROLOGICAL: Alert and oriented x 3. SKIN: warm to touch. No signs of rash. PIV LUE-PICC (05/01) Medications: Inpatient Meds: Current Medications Medications (Trade) Dose Ordered Sig/Sarah Start Time Stop Time Status Last Admin Dose Admin Acetaminophen (Tylenol) 650 mg PRN Q6HRS PRN 04/26/19 23:30 04/30/19 20:04 650 MG Acetaminophen/ Hydrocodone Bitart (Lortab 5/325) 1 tab PRN Q4HRS PRN 04/30/19 11:15 Cefepime HCl (Maxipime) 2 gm Q12HR 04/27/19 21:00 05/01/19 10:52 DC 05/01/19 08:28 2 GM Ceftriaxone Sodium (Rocephin) 1 gm Q24H 04/26/19 17:00 04/27/19 13:11 DC 04/26/19 16:34 1 GM Citalopram Hydrobromide (CeleXA) 10 mg QHS 04/27/19 21:00 05/02/19 20:53 10 MG Dexamethasone Sodium Phosphate (Decadron) 4 mg STK-MED ONCE 04/27/19 10:10 04/27/19 10:11 DC Dextrose 250 ml PRN Q15MIN PRN 04/27/19 19:00 Dextrose (Dextrose 50%-Water Syringe) 12.5 gm PRN Q15MIN PRN 04/27/19 19:00 Fentanyl Citrate (Fentanyl 2ml Vial) 50 mcg PRN Q5MIN PRN 05/01/19 07:00 05/01/19 20:08 DC 05/01/19 14:27 50 MCG Hydromorphone HCl (Dilaudid) 1 mg PRN Q3HRS PRN 05/01/19 18:45 05/02/19 23:31 1 MG Insulin Glargine (Lantus Syringe) 10 unit 1X ONCE 04/28/19 11:15 04/28/19 11:20 DC 04/28/19 11:50 10 UNIT Insulin Human Lispro (HumaLOG) 0-5 UNITS TIDWMEALS 04/28/19 08:00 Lactobacillus Rhamnosus (Culturelle) 1 cap BID 04/28/19 21:00 05/03/19 08:24 1 CAP Lidocaine HCl (Lidocaine Pf 2% Vial) 5 ml STK-MED ONCE 04/27/19 10:10 04/27/19 10:10 DC Linagliptin (Tradjenta) 5 mg DAILY 04/29/19 09:00 05/03/19 08:24 5 MG Meropenem 500 mg/ Sodium Chloride 50 ml @ 100 mls/hr Q6HRS 05/01/19 12:00 05/03/19 05:30 100 MLS/HR Metformin HCl (Glucophage Xr) 1,000 mg DAILYWBKFT 04/27/19 18:00 05/03/19 08:24 1,000 MG Morphine Sulfate (Morphine Sulfate) 1 mg PRN Q10MIN PRN 05/01/19 07:00 05/01/19 20:08 DC Multivitamins (Thera M Plus) 1 tab DAILY 04/28/19 09:00 05/03/19 08:24 1 TAB Non-Formulary Medication (Empagliflozin (Jardiance)) 25 mg DAILY 04/28/19 09:00 04/28/19 11:52 DC Non-Formulary Medication (Ertugliflozin Pidolate (Steglatro)) 15 mg DAILY 04/28/19 09:00 04/28/19 11:53 DC Ondansetron HCl (Zofran Odt) 4 mg PRN Q6HRS PRN 04/28/19 18:15 04/28/19 18:20 4 MG Ondansetron HCl (Zofran) 4 mg STK-MED ONCE 04/27/19 10:10 04/27/19 10:11 DC Piperacillin Sod/ Tazobactam Sod 4.5 gm/Sodium Chloride 100 ml @ 200 mls/hr 1X ONCE 04/26/19 15:30 04/26/19 15:59 UNV Prochlorperazine Edisylate (Compazine) 5 mg PACU PRN PRN 05/01/19 07:00 05/01/19 20:08 DC Propofol 20 ml @ As Directed STK-MED ONCE 04/27/19 10:10 04/27/19 10:11 DC Ringer's Solution 1,000 ml @ 30 mls/hr Q24H 05/01/19 07:00 05/01/19 18:59 DC Sevoflurane (Ultane) 30 ml STK-MED ONCE 04/27/19 11:07 04/27/19 11:08 DC Sodium Chloride 1,000 ml @ 100 mls/hr Q10H 04/26/19 23:45 05/03/19 05:30 100 MLS/HR Vancomycin HCl (Vanco Per Pharmacy) 1 each PRN DAILY PRN 05/01/19 12:00 05/02/19 11:57 DC 05/02/19 11:06 1 EACH Vancomycin HCl (Vancomycin Trough Level) 1 each 1X ONCE 05/01/19 18:30 05/02/19 11:57 DC 05/01/19 19:24 1 EACH Vancomycin HCl 1.25 gm/Sodium Chloride 250 ml @ 167 mls/hr Q12H 04/28/19 18:00 04/30/19 06:02 DC 04/29/19 18:21 167 MLS/HR Vancomycin HCl 1 gm/Sodium Chloride 250 ml @ 250 mls/hr Q12H 05/01/19 19:00 05/02/19 11:57 DC 05/02/19 07:26 250 MLS/HR Vancomycin HCl 2 gm/Sodium Chloride 500 ml @ 250 mls/hr 1X ONCE 04/26/19 16:00 04/26/19 17:59 DC 04/26/19 16:34 250 MLS/HR Labs: Lab Laboratory Tests Test 05/02/19 11:26 05/02/19 16:54 05/02/19 21:00 05/03/19 02:30 Glucose (Fingerstick) 178 mg/dL (70-99) 140 mg/dL (70-99) 138 mg/dL (70-99) White Blood Count 8.3 x10^3/uL (4.0-11.0) Red Blood Count 3.13 x10^6/uL (4.30-5.70) Hemoglobin 8.5 g/dL (13.0-17.5) Hematocrit 25.5 % (39.0-53.0) Mean Corpuscular Volume 82 fL (79-100) Mean Corpuscular Hemoglobin 27 pg (25-35) Mean Corpuscular Hemoglobin Concent 33 g/dL (31-37) Red Cell Distribution Width 14.3 % (11.5-14.5) Platelet Count 256 x10^3/uL (140-400) Neutrophils (%) (Auto) 65 % (31-73) Lymphocytes (%) (Auto) 22 % (24-48) Monocytes (%) (Auto) 9 % (0-9) Eosinophils (%) (Auto) 4 % (0-3) Basophils (%) (Auto) 1 % (0-3) Neutrophils # (Auto) 5.4 x10^3/uL (1.8-7.7) Lymphocytes # (Auto) 1.8 x10^3/uL (1.0-4.8) Monocytes # (Auto) 0.7 x10^3/uL (0.0-1.1) Eosinophils # (Auto) 0.3 x10^3/uL (0.0-0.7) Basophils # (Auto) 0.1 x10^3/uL (0.0-0.2) Creatinine 1.0 mg/dL (0.7-1.3) Estimated GFR (Cockcroft-Gault) 75.2 Test 05/03/19 07:24 Glucose (Fingerstick) 108 mg/dL (70-99) Micro RUN DATE: 05/01/19 PAGE 1 RUN TIME: 1612 [facility] [address] [place] [address] Jake Kraft M.D., Optical Instrument Assembly Supervisor PATIENT: DAGO CHARLES ACCT: [id number] LOC: [address] [place] [address] U: [id number] AGE/SX: 64/M ROOM: [facility] RE04/26/[address]: FRANECS GOFF MD : 1955 BED: 1 DIS: STATUS: ADM IN TLOC: SPEC #: [id number] DAVY: 04/26/19 STATUS: COMP REQ #: [id number] RECD: 04/26/[address]: EDWARD TRUJILLO APRN SOURCE: TOE ENTR: 04/26/[address]: EVELIA,STAFF SPDESC: RT SECOND JAN JOY MD ORDERED: AEROBIC CULT GS COMMENTS: RT SECOND TOE Procedure Result AEROBIC CULTURE Final Preliminary report Final report AEROBIC RES 1 Final Gram negative rods Citrobacter braakii 4+ AEROBIC RES 2 Final Gram negative rods Enterobacter cloacae 4+ AEROBIC RES 3 Final Streptococcus species Enterococcus faecalis 4+ Performed at: - [facility], [place], [place] [id number] Supervisor Seaming: KARLEY Pavon MD, Phone: [phone] AEROBIC RES 4 Final Staphylococcus aureus 4+ Most isolates of Staphylococcus sp. produce a beta- lactamase enzyme rendering them resistant to penicillin. Please contact the laboratory if penicillin is being considered for therapy. CONTINUED ON NEXT PAGE RUN DATE: 05/01/19 PAGE 2 RUN TIME: 161 [facility] [address] [place] [address] Jake Kraft M.D., Optical Instrument Assembly Supervisor ------- ----- SPEC: [id number] PATIENT: ARACELIDAGO [id number] (Continued) Procedure Result ANTIMICROBIAL SUSCEPTIBILITY Final Comment S = Susceptible; I = Intermediate; R = Resistant P = Positive; N = Negative MICS are expressed in micrograms per mL Antibiotic RSLT#1 RSLT#2 RSLT#3 RSLT#4 Amoxicillin/Clavulanic Acid R>=32 Cefazolin R>=64 Cefepime S<=0.12 Cefuroxime R =R Ciprofloxacin S<=0.25 Ertapenem S<=0.12 Gentamicin S<=1 Imipenem S<=0.25 Levofloxacin S<=0.12 Meropenem S<=0.25 Penicillin S =4 Tetracycline S<=1 Tobramycin S<=1 Trimethoprim/Sulfa S<=20 Vancomycin S =1 Performed at: - [facility], [place], [place] [id number] Supervisor Seaming: KARLEY Pavon MD, Phone: [phone] S = Susceptible; I = Intermediate; R = Resistant P = Positive; N = Negative MICS are expressed in micrograms per mL Antibiotic RSLT#1 RSLT#2 RSLT#3 RSLT#4 Amoxicillin/Clavulanic Acid R =R R>=32 Cefazolin R =8 R>=64 Cefepime S<=0.12 Cefuroxime R =R R =R Ciprofloxacin S<=0.25 S<=0.25 S<=0.5 Clindamycin S<=0.25 Ertapenem S<=0.12 Erythromycin S<=0.25 Gentamicin S<=1 S<=1 S<=0.5 Imipenem S<=0.25 S<=0.25 Levofloxacin S<=0.12 S<=0.12 Linezolid S =2 Meropenem S<=0.25 S<=0.25 Moxifloxacin S<=0.25 Oxacillin S =0.5 Penicillin S =4 Quinupristin/Dalfopristin S<=0.25 Rifampin S<=0.5 CONTINUED ON NEXT PAGE RUN DATE: 05/01/19 PAGE 3 RUN TIME: 1612 [facility] [address] [facility] [place] [address] Jake Kraft M.D., Optical Instrument Assembly Supervisor SPEC: [id number] PATIENT: ARACELIDAGO [id number] (Continued) Procedure Result ANTIMICROBIAL SUSCEPTIBILITY Final (continued) Tetracycline S<=1 S<=1 S<=1 Tobramycin S<=1 S<=1 Trimethoprim/Sulfa S<=20 S<=20 S<=10 Vancomycin S =1 S =1 Performed at: [address], [place], [place] [id number] Supervisor Seaming: KARLEY Pavon MD, Phone: [phone] GRAM STAIN Final Final report GRAM STAIN RESULT 1 Final Comment No white blood cells seen. GRAM STAIN RESULT 2 Final Comment Few gram positive rods. GRAM STAIN RESULT 3 Final Comment Moderate gram negative rods. GRAM STAIN RESULT 4 Final Comment Gram positive cocci in pairs and chains. 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 Fever - better Leukocytosis, improving Lactic acidosis/sepsis. Diabetes with neuropathy. Plan: Plan of Care cont merrem when ready for dc home ,transition to invanz, first dose here sw to assist for home iv antibiotics q mon cbc/bun/creat/lft/esr sw to assist for dc abx pt would benefit with dc to rehab f/u cultures PT and OT as tolerated Wound care team following D/W GIOVANNI ISAAC MD May 03, 2019 10:52
[2019-05-03 11:00] VITALS: BP 141/60
--- NOTE | 2019-05-03 12:39 | NUR ---
SS following up with discharge planning. SS received referral for IV antibiotics in home. SS phoned and faxed face sheet to Lucy, ; [phone]. SS will continue to follow for discharge planning.
[2019-05-03 15:00] VITALS: BP 144/68
--- NOTE | 2019-05-03 18:06 | NUR ---
[facility] wound vac has been approved through [facility], when pt is ready for d/c.
[2019-05-03 19:00] VITALS: BP 142/68
[2019-05-03] MEDS: CITALOPRAM 10 MG TABLET. PO SCH (20:54)
--- NOTE | 2019-05-03 20:54 | NUR ---
pt. does not take celexa at home. Non-administered and will pass on to day shift.
[2019-05-03 23:00] VITALS: BP 150/77
[2019-05-04] MEDS: IV NORMAL SALINE 1000ML BAG 1,000 ML IV SCH ×2 (01:45→10:16)
[2019-05-04 03:00] VITALS: BP 162/78
[2019-05-04] MEDS: MEROPENEM 500 MG in IV NORMAL SALINE 50ML 50 ML IV SCH ×2 (05:32→11:31)
[2019-05-04 07:00] VITALS: BP 151/66
[2019-05-04] MEDS: INSULIN LISPRO 300 UNITS/3 ML VIAL. SQ SCH ×2 (08:00→11:53)
--- NOTE | 2019-05-04 08:15 | PDOC ---
PROGRESS NOTES Chief Complaint Chief Complaint discharge dx sepsis cellulitis and gangrene toe, POD #4, amputation , Right second toe amputation Dm2, mod control,, A1c 8.7 Elevated peak systolic velocities within the right mid and distal superficial femoral artery, suggesting hemodynamically significant stenosis. There is also an abnormal monophasic waveform within the right dorsalis pedis artery, suggesting hemodynamically significant stenosis proximal to this level. No Doppler evidence of hemodynamically significant stenosis within the left lower extremity arteries. intractable pain cults positive for enterobacter, citrobacter,amp sensitive enterococcus fecalis, strep species, MSSA PLAN CONT IV invanz x 6 weeks cults positive for enterobacter, citrobacter,amp sensitive enterococcus fecalis, strep species, MSSA : PICC placement id following surgery again 05/01 vas surg consult will not pursue angiogram or other peripheral intervention currently. If he demonstrates poor wound healing, would recommend angiogram. Will defer to orthopedics regarding wound management and post-op care. VAC to the wound when ready for dc home ,transition to invanz, first dose here to assist for home iv antibiotics refused home health 39 MIN PT EXAM, CHART REVIEW, > 50% OF TIME SPENT WITH EXAM, CHART REVIEW, PT CARE COORDINATION Operative Note Operative Note Operative Note Date of surgery: 05/01/2019 Preoperative diagnosis: Right foot infection, status post right second toe amputation 04/27/2019 Postoperative diagnosis: Extensive ongoing tissue necrosis surrounding the right second metatarsal Operative procedure: Extensive irrigation debridement right foot infection involving skin and subcutaneous tissue muscle fascia and bone Anesthesia: Gen. Estimated blood loss: 50 mL History of Present Illness History of Present Illness OPEN from surg, will need iv abx, wound care PICC Line placed , benge vas pain persists malodor is gone Vitals Vitals Vital Signs Date Time Temp Pulse Resp B/P (MAP) Pulse Ox O2 Delivery O2 Flow Rate FiO2 05/04/19 03:00 98.6 72 16 162/78 (106) 96 Room Air 98.6 Physical Exam Physical Exam GENERAL: Propped up in bed, alert, HEENT: Oral cavity clear NECK: Supple LUNGS: Clear. HEART: S1, S2 regular. ABDOMEN: Soft and nontender, BS present EXTREMITIES: Left lower extremity is unremarkable. Right lower extremity with wound vac in place NEUROLOGICAL: Alert and oriented x 3. SKIN: warm to touch. No signs of rash. PIV LUE-PICC (05/01) General: Alert, Oriented X3, Cooperative, No acute distress Heart: Regular rate, Normal S1, Normal S2 Lungs: Clear Abdomen: Normal bowel sounds, Soft, No tenderness Extremities: No clubbing, No cyanosis, No edema, Normal pulses, Other (Easily palpable pulses in the right foot at DP and PT location) Skin: Other (Right foot wound covered with fresh bandage, did not examine s/p OR) Labs LABS Laboratory Tests Test 05/03/19 11:47 05/03/19 16:46 05/03/19 20:42 Glucose (Fingerstick) 128 mg/dL (70-99) 121 mg/dL (70-99) 126 mg/dL (70-99) Assessment and Plan Assessmemt and Plan Problems Medical Problems: (1) Fever Status: Acute (2) Gangrene of toe of right foot Status: Acute (3) Sepsis Status: Acute (4) Severe sepsis Status: Acute Comment Review of Relevant I have reviewed the following items alis (where applicable) has been applied. Labs Laboratory Tests Test 05/02/19 11:26 05/02/19 16:54 05/02/19 21:00 05/03/19 02:30 Glucose (Fingerstick) 178 mg/dL (70-99) 140 mg/dL (70-99) 138 mg/dL (70-99) White Blood Count 8.3 x10^3/uL (4.0-11.0) Red Blood Count 3.13 x10^6/uL (4.30-5.70) Hemoglobin 8.5 g/dL (13.0-17.5) Hematocrit 25.5 % (39.0-53.0) Mean Corpuscular Volume 82 fL (79-100) Mean Corpuscular Hemoglobin 27 pg (25-35) Mean Corpuscular Hemoglobin Concent 33 g/dL (31-37) Red Cell Distribution Width 14.3 % (11.5-14.5) Platelet Count 256 x10^3/uL (140-400) Neutrophils (%) (Auto) 65 % (31-73) Lymphocytes (%) (Auto) 22 % (24-48) Monocytes (%) (Auto) 9 % (0-9) Eosinophils (%) (Auto) 4 % (0-3) Basophils (%) (Auto) 1 % (0-3) Neutrophils # (Auto) 5.4 x10^3/uL (1.8-7.7) Lymphocytes # (Auto) 1.8 x10^3/uL (1.0-4.8) Monocytes # (Auto) 0.7 x10^3/uL (0.0-1.1) Eosinophils # (Auto) 0.3 x10^3/uL (0.0-0.7) Basophils # (Auto) 0.1 x10^3/uL (0.0-0.2) Creatinine 1.0 mg/dL (0.7-1.3) Estimated GFR (Cockcroft-Gault) 75.2 Test 05/03/19 07:24 05/03/19 11:47 05/03/19 16:46 05/03/19 20:42 Glucose (Fingerstick) 108 mg/dL (70-99) 128 mg/dL (70-99) 121 mg/dL (70-99) 126 mg/dL (70-99) Laboratory Tests Test 05/03/19 11:47 05/03/19 16:46 05/03/19 20:42 Glucose (Fingerstick) 128 mg/dL (70-99) 121 mg/dL (70-99) 126 mg/dL (70-99) Microbiology 04/26/19 Aerobic Culture - Final, Complete 04/26/19 Aerobic Culture Result 1 (TATE) - Final, Complete 04/26/19 Aerobic Culture Result 2 (TATE) - Final, Complete 04/26/19 Aerobic Culture Result 3 (TATE) - Final, Complete 04/26/19 Aerobic Culture Result 4 (TATE) - Final, Complete 04/26/19 Antimicrobic Susceptibility - Final, Complete 04/26/19 Gram Stain - Final, Complete 04/26/19 Gram Stain Result 1 (TATE) - Final, Complete 04/26/19 Gram Stain Result 2 (ATTE) - Final, Complete 04/26/19 Gram Stain Result 3 (TATE) - Final, Complete 04/26/19 Gram Stain Result 4 (TATE) - Final, Complete 04/26/19 Blood Culture - Final, Complete NO GROWTH AFTER 5 DAYS Medications Current Medications Sodium Chloride 1,000 ml @ 2,190 mls/hr Q28M IV Last administered on 04/26/19at 16:34; Start 04/26/19 at 15:27; Stop 04/26/19 at 16:27; Status DC Piperacillin Sod/ Tazobactam Sod 4.5 gm/Sodium Chloride 100 ml @ 200 mls/hr 1X ONCE IV ; Start 04/26/19 at 15:30; Stop 04/26/19 at 15:59; Status UNV Vancomycin HCl (Vanco Per Pharmacy) 1 each 1X ONCE MC ; Start 04/26/19 at 15:30; Stop 04/26/19 at 18:08; Status DC Acetaminophen (Tylenol) 1,000 mg 1X ONCE PO Last administered on 04/26/19at 16:34; Start 04/26/19 at 15:30; Stop 04/26/19 at 15:31; Status DC Vancomycin HCl 2 gm/Sodium Chloride 500 ml @ 250 mls/hr 1X ONCE IV Last administered on 04/26/19at 16:34; Start 04/26/19 at 16:00; Stop 04/26/19 at 17:59; Status DC Ceftriaxone Sodium (Rocephin) 1 gm DAILY IVP ; Start 04/27/19 at 09:00; Status UNV Ceftriaxone Sodium (Rocephin) 1 gm Q24H IVP Last administered on 04/26/19at 16:34; Start 04/26/19 at 17:00; Stop 04/27/19 at 13:11; Status DC Ondansetron HCl (Zofran) 4 mg PRN Q8HRS PRN IV NAUSEA/VOMITING Last administered on 04/27/19at 07:57; Start 04/26/19 at 20:30; Stop 04/27/19 at 20:29; Status DC Morphine Sulfate (Morphine Sulfate) 4 mg PRN Q2HR PRN IV PAIN Last administered on 04/27/19at 18:19; Start 04/26/19 at 20:30; Stop 04/27/19 at 20:29; Status DC Sodium Chloride 1,000 ml @ 100 mls/hr 1X ONCE IV Last administered on 04/26/19at 20:41; Start 04/26/19 at 20:30; Stop 04/27/19 at 06:29; Status DC Vancomycin HCl 1.25 gm/Sodium Chloride 250 ml @ 167 mls/hr Q18H IV Last administered on 04/28/19at 05:21; Start 04/27/19 at 10:00; Stop 04/28/19 at 09:59; Status DC Vancomycin HCl (Vanco Per Pharmacy) 1 each PRN DAILY PRN MC SEE COMMENTS Last administered on 04/30/19at 06:13; Start 04/26/19 at 22:30; Stop 05/01/19 at 10:54; Status DC Sodium Chloride 1,000 ml @ 100 mls/hr Q10H IV Last administered on 05/03/19at 15:34; Start 04/26/19 at 23:45 Acetaminophen (Tylenol) 650 mg PRN Q6HRS PRN PO Fever Last administered on 04/30/19at 20:04; Start 04/26/19 at 23:30 Vancomycin HCl (Vancomycin Trough Level) 1 each 1X ONCE MC ; Start 04/28/19 at 03:30; Stop 04/28/19 at 03:31; Status DC Lidocaine HCl (Lidocaine Pf 2% Vial) 5 ml STK-MED ONCE .ROUTE ; Start 04/27/19 at 10:10; Stop 04/27/19 at 10:10; Status DC Propofol 20 ml @ As Directed STK-MED ONCE IV ; Start 04/27/19 at 10:10; Stop 04/27/19 at 10:11; Status DC Ondansetron HCl (Zofran) 4 mg STK-MED ONCE .ROUTE ; Start 04/27/19 at 10:10; Stop 04/27/19 at 10:11; Status DC Dexamethasone Sodium Phosphate (Decadron) 4 mg STK-MED ONCE .ROUTE ; Start 04/27/19 at 10:10; Stop 04/27/19 at 10:11; Status DC Sevoflurane (Ultane) 30 ml STK-MED ONCE IH ; Start 04/27/19 at 11:07; Stop 04/27/19 at 11:08; Status DC Cefepime HCl (Maxipime) 2 gm Q12HR IVP Last administered on 05/01/19at 08:28; Start 04/27/19 at 21:00; Stop 05/01/19 at 10:52; Status DC Multivitamins (Thera M Plus) 1 tab DAILY PO Last administered on 8/22/19at 08:24; Start 04/28/19 at 09:00 Citalopram Hydrobromide (CeleXA) 10 mg QHS PO Last administered on 05/02/19at 20:53; Start 04/27/19 at 21:00 Metformin HCl (Glucophage Xr) 1,000 mg DAILYWBKFT PO Last administered on 05/03/19at 08:24; Start 04/27/19 at 18:00 Non-Formulary Medication (Empagliflozin (Jardiance)) 25 mg DAILY PO ; Start 04/28/19 at 09:00; Stop 04/28/19 at 11:52; Status DC Non-Formulary Medication (Ertugliflozin Pidolate (Steglatro)) 15 mg DAILY PO ; Start 04/28/19 at 09:00; Stop 04/28/19 at 11:53; Status DC Insulin Human Lispro (HumaLOG) 0-5 UNITS TIDWMEALS SQ ; Start 04/28/19 at 08:00 Dextrose (Dextrose 50%-Water Syringe) 12.5 gm PRN Q15MIN PRN IV SEE COMMENTS; Start 04/27/19 at 19:00 Dextrose 250 ml PRN Q15MIN PRN IV SEE COMMENTS; Start 04/27/19 at 19:00 Vancomycin HCl 1.25 gm/Sodium Chloride 250 ml @ 167 mls/hr Q12H IV Last administered on 04/29/19at 18:21; Start 04/28/19 at 18:00; Stop 04/30/19 at 06:02; Status DC Vancomycin HCl (Vancomycin Trough Level) 1 each 1X ONCE MC Last administered on 04/30/19at 06:03; Start 04/30/19 at 05:30; Stop 04/30/19 at 05:31; Status DC Insulin Glargine (Lantus Syringe) 10 unit 1X ONCE SQ Last administered on 04/28/19at 11:50; Start 04/28/19 at 11:15; Stop 04/28/19 at 11:20; Status DC Lactobacillus Rhamnosus (Culturelle) 1 cap BID PO Last administered on 05/03/19at 20:54; Start 04/28/19 at 21:00 Linagliptin (Tradjenta) 5 mg DAILY PO Last administered on 05/03/19at 08:24; Start 04/29/19 at 09:00 Ondansetron HCl (Zofran Odt) 4 mg PRN Q6HRS PRN PO NAUSEA/VOMITING Last administered on 04/28/19at 18:20; Start 04/28/19 at 18:15 Morphine Sulfate (Morphine Sulfate) 2 mg PRN Q2HR PRN IV SEVERE PAIN 7-10 Last administered on 05/01/19at 17:55; Start 04/29/19 at 00:45; Stop 05/01/19 at 18:56 ; Status DC Vancomycin HCl 1 gm/Sodium Chloride 250 ml @ 250 mls/hr Q12H IV Last administered on 05/01/19at 06:26; Start 04/30/19 at 07:00; Stop 05/01/19 at 10:52; Status DC Vancomycin HCl (Vancomycin Trough Level) 1 each 1X ONCE MC ; Start 05/01/19 at 18:30; Stop 05/01/19 at 18:31; Status Cancel Acetaminophen/ Hydrocodone Bitart (Lortab 5/325) 1 tab PRN Q4HRS PRN PO MODERATE PAIN; Start 04/30/19 at 11:15 Fentanyl Citrate (Fentanyl 2ml Vial) 25 mcg PRN Q5MIN PRN IV MILD PAIN 1-3; Start 05/01/19 at 07:00; Stop 05/02/19 at 06:59; Status DC Fentanyl Citrate (Fentanyl 2ml Vial) 50 mcg PRN Q5MIN PRN IV MODERATE TO SEVERE PAIN Last administered on 05/01/19at 14:27; Start 05/01/19 at 07:00; Stop 05/01/19 at 20:08; Status DC Morphine Sulfate (Morphine Sulfate) 1 mg PRN Q10MIN PRN IV SEVERE PAIN 7-10; Start 05/01/19 at 07:00; Stop 05/01/19 at 20:08; Status DC Ringer's Solution 1,000 ml @ 30 mls/hr Q24H IV ; Start 05/01/19 at 07:00; Stop 05/01/19 at 18:59; Status DC Hydromorphone HCl (Dilaudid) 0.5 mg PRN Q10MIN PRN IV SEV PAIN, Second choice; Start 05/01/19 at 07:00; Stop 05/01/19 at 20:08; Status DC Prochlorperazine Edisylate (Compazine) 5 mg PACU PRN PRN IV NAUSEA, MRX1; Start 05/01/19 at 07:00; Stop 05/01/19 at 20:08; Status DC Meropenem 500 mg/ Sodium Chloride 50 ml @ 100 mls/hr Q6HRS IV Last administered on 05/04/19at 05:32; Start 05/01/19 at 12:00 Vancomycin HCl 1 gm/Sodium Chloride 250 ml @ 250 mls/hr Q12H IV Last administered on 05/02/19at 07:26; Start 05/01/19 at 19:00; Stop 05/02/19 at 11:57 ; Status DC Vancomycin HCl (Vanco Per Pharmacy) 1 each PRN DAILY PRN MC SEE COMMENTS Last administered on 05/02/19at 11:06; Start 05/01/19 at 12:00; Stop 05/02/19 at 11:57; Status DC Vancomycin HCl (Vancomycin Trough Level) 1 each 1X ONCE MC Last administered on 05/01/19at 19:24; Start 05/01/19 at 18:30; Stop 05/02/19 at 11:57; Status DC Hydromorphone HCl (Dilaudid) 1 mg PRN Q3HRS PRN IV SEVERE PAIN 7-10 Last administered on 05/02/19at 23:31; Start 05/01/19 at 18:45 Propofol 20 ml @ As Directed STK-MED ONCE IV ; Start 05/01/19 at 12:12; Stop 05/03/19 at 12:26; Status DC Lidocaine HCl (Lidocaine Pf 2% Vial) 5 ml STK-MED ONCE .ROUTE ; Start 05/01/19 at 12:12; Stop 05/03/19 at 12:26; Status DC Ondansetron HCl (Zofran) 4 mg STK-MED ONCE .ROUTE ; Start 05/01/19 at 12:55; Stop 05/03/19 at 12:26; Status DC Dexamethasone Sodium Phosphate (Decadron) 4 mg STK-MED ONCE .ROUTE ; Start at 12:55; Stop 05/03/19 at 12:26; Status DC Fentanyl Citrate (Fentanyl 2ml Vial) 100 mcg STK-MED ONCE .ROUTE ; Start 04/13 at 12:57; Stop 05/03/19 at 12:26; Status DC Phenylephrine HCl (PHENYLEPHRINE in 0.9% NACL PF) 1 mg STK-MED ONCE IV ; Start 05/01/19 at 13:36; Stop 05/03/19 at 12:26; Status DC Fentanyl Citrate (Fentanyl 2ml Vial) 100 mcg STK-MED ONCE .ROUTE ; Start 05/01/19 at 14:04; Stop 05/03/19 at 12:26; Status DC Active Scripts Active Celexa (Citalopram Hydrobromide) 10 Mg Tablet 10 Mg PO QHS 30 Days Reported Januvia (Sitagliptin Phosphate) 100 Mg Tablet 1 Tab PO DAILY Januvia (Sitagliptin Phosphate) 100 Mg Tablet 1 Tab PO DAILY Metformin Hcl Er (Metformin Hcl) 500 Mg Tab.er.24h 1,000 Mg PO [id number] Vitals/I & O Vital Sign - Last 24 Hours 05/03/19 05/03/19 05/03/19 05/03/19 11:00 15:00 19:00 20:00 Temp 97.8 98.3 98.2 97.8 98.3 98.2 Pulse 72 73 75 Resp 16 16 16 B/P (MAP) 141/60 (87) 144/68 (93) 142/68 (92) Pulse Ox 98 98 97 O2 Delivery Room Air Room Air Room Air Room Air 05/03/19 05/04/19 23:00 03:00 Temp 98.1 98.6 98.1 98.6 Pulse 75 72 Resp 16 16 B/P (MAP) 150/77 (101) 162/78 (106) Pulse Ox 97 96 O2 Delivery Room Air Room Air Intake and Output 05/03/19 05/03/19 05/04/19 15:00 23:00 07:00 Output Total 550 ml 950 ml 550 ml Balance -550 ml -950 ml -550 ml ANTHONY CUELLAR MD May 04, 2019 08:15
[2019-05-04] MEDS: LACTOBACILLUS RHAMNOSUS GG 1 CAPSULE. PO SCH (08:32)
[2019-05-04] MEDS: LINAGLIPTIN 5 MG TABLET PO SCH (08:32)
[2019-05-04] MEDS: metFORMIN XR 500 MG TAB.ER.24H PO SCH (08:32)
[2019-05-04] MEDS: MULTIVITAMIN with MINERAL TABLET. PO SCH ×2 (08:32→08:39)
--- NOTE | 2019-05-04 08:46 | NUR ---
SS following up with discharge planning. Lucy contacted SS and notified SS that they are not in network with pt's insurance. SS phoned and faxed face sheet to [facility], ; fax [phone], for benefit check. PT recommended home healthcare at discharge. Nurse navigator to meet with pt to discuss home healthcare options. SS will continue to follow for discharge planning.
--- NOTE | 2019-05-04 09:26 | NUR ---
SS following up with discharge planning. SS received notification from [facility], ; fax [phone], that pt is covered at 100% for IV infusions in the home. SS will continue to follow for discharge planning.
--- NOTE | 2019-05-04 10:03 | PDOC ---
Infectious Disease Note Subjective: Subjective pt without complaints eager for dc home today Denies f/c/n/V/D/SOA ROS: ROS Negative otherwise. Vital Signs: Vital Signs Vital Signs Date Time Temp Pulse Resp B/P (MAP) Pulse Ox O2 Delivery O2 Flow Rate FiO2 05/04/19 08:00 Room Air 10.0 05/04/19 07:00 98.6 74 20 151/66 (94) 96 98.6 Physical Exam: PHYSICAL EXAM GENERAL: Propped up in bed, alert, HEENT: Oral cavity clear NECK: Supple LUNGS: Clear. HEART: S1, S2 regular. ABDOMEN: Soft and nontender, BS present EXTREMITIES: Left lower extremity is unremarkable. Right foot swelling ,has wound vac in place NEUROLOGICAL: Alert and oriented x 3. SKIN: warm to touch. No signs of rash. PIV LUE-PICC (05/01) Medications: Inpatient Meds: Current Medications Medications (Trade) Dose Ordered Sig/Sarah Start Time Stop Time Status Last Admin Dose Admin Acetaminophen (Tylenol) 650 mg PRN Q6HRS PRN 04/26/19 23:30 04/30/19 20:04 650 MG Acetaminophen/ Hydrocodone Bitart (Lortab 5/325) 1 tab PRN Q4HRS PRN 04/30/19 11:15 Cefepime HCl (Maxipime) 2 gm Q12HR 04/27/19 21:00 05/01/19 10:52 DC 05/01/19 08:28 2 GM Ceftriaxone Sodium (Rocephin) 1 gm Q24H 04/26/19 17:00 04/27/19 13:11 DC 04/26/19 16:34 1 GM Citalopram Hydrobromide (CeleXA) 10 mg QHS 04/27/19 21:00 05/02/19 20:53 10 MG Dexamethasone Sodium Phosphate (Decadron) 4 mg STK-MED ONCE 05/01/19 12:55 05/03/19 12:26 DC Dextrose 250 ml PRN Q15MIN PRN 04/27/19 19:00 Dextrose (Dextrose 50%-Water Syringe) 12.5 gm PRN Q15MIN PRN 04/27/19 19:00 Fentanyl Citrate (Fentanyl 2ml Vial) 100 mcg STK-MED ONCE 05/01/19 14:04 05/03/19 12:26 DC Hydromorphone HCl (Dilaudid) 1 mg PRN Q3HRS PRN 05/01/19 18:45 05/02/19 23:31 1 MG Insulin Glargine (Lantus Syringe) 10 unit 1X ONCE 04/28/19 11:15 04/28/19 11:20 DC 04/28/19 11:50 10 UNIT Insulin Human Lispro (HumaLOG) 0-5 UNITS TIDWMEALS 04/28/19 08:00 Lactobacillus Rhamnosus (Culturelle) 1 cap BID 04/28/19 21:00 05/04/19 08:32 1 CAP Lidocaine HCl (Lidocaine Pf 2% Vial) 5 ml STK-MED ONCE 05/01/19 12:12 05/03/19 12:26 DC Linagliptin (Tradjenta) 5 mg DAILY 04/29/19 09:00 05/04/19 08:32 5 MG Meropenem 500 mg/ Sodium Chloride 50 ml @ 100 mls/hr Q6HRS 05/01/19 12:00 05/04/19 05:32 100 MLS/HR Metformin HCl (Glucophage Xr) 1,000 mg DAILYWBKFT 04/27/19 18:00 05/04/19 08:32 1,000 MG Morphine Sulfate (Morphine Sulfate) 1 mg PRN Q10MIN PRN 05/01/19 07:00 05/01/19 20:08 DC Multivitamins (Thera M Plus) 1 tab DAILY 04/28/19 09:00 05/03/19 08:24 1 TAB Non-Formulary Medication (Empagliflozin (Jardiance)) 25 mg DAILY 04/28/19 09:00 04/28/19 11:52 DC Non-Formulary Medication (Ertugliflozin Pidolate (Steglatro)) 15 mg DAILY 04/28/19 09:00 04/28/19 11:53 DC Ondansetron HCl (Zofran Odt) 4 mg PRN Q6HRS PRN 04/28/19 18:15 04/28/19 18:20 4 MG Ondansetron HCl (Zofran) 4 mg STK-MED ONCE 05/01/19 12:55 05/03/19 12:26 DC Phenylephrine HCl (PHENYLEPHRINE in 0.9% NACL PF) 1 mg STK-MED ONCE 05/01/19 13:36 05/03/19 12:26 DC Piperacillin Sod/ Tazobactam Sod 4.5 gm/Sodium Chloride 100 ml @ 200 mls/hr 1X ONCE 04/26/19 15:30 04/26/19 15:59 UNV Prochlorperazine Edisylate (Compazine) 5 mg PACU PRN PRN 05/01/19 07:00 05/01/19 20:08 DC Propofol 20 ml @ As Directed STK-MED ONCE 05/01/19 12:12 05/03/19 12:26 DC Ringer's Solution 1,000 ml @ 30 mls/hr Q24H 05/01/19 07:00 05/01/19 18:59 DC Sevoflurane (Ultane) 30 ml STK-MED ONCE 04/27/19 11:07 04/27/19 11:08 DC Sodium Chloride 1,000 ml @ 100 mls/hr Q10H 04/26/19 23:45 05/03/19 15:34 100 MLS/HR Vancomycin HCl (Vanco Per Pharmacy) 1 each PRN DAILY PRN 05/01/19 12:00 05/02/19 11:57 DC 05/02/19 11:06 1 EACH Vancomycin HCl (Vancomycin Trough Level) 1 each 1X ONCE 05/01/19 18:30 05/02/19 11:57 DC 05/01/19 19:24 1 EACH Vancomycin HCl 1.25 gm/Sodium Chloride 250 ml @ 167 mls/hr Q12H 04/28/19 18:00 04/30/19 06:02 DC 04/29/19 18:21 167 MLS/HR Vancomycin HCl 1 gm/Sodium Chloride 250 ml @ 250 mls/hr Q12H 05/01/19 19:00 05/02/19 11:57 DC 05/02/19 07:26 250 MLS/HR Vancomycin HCl 2 gm/Sodium Chloride 500 ml @ 250 mls/hr 1X ONCE 04/26/19 16:00 04/26/19 17:59 DC 04/26/19 16:34 250 MLS/HR Labs: Lab Laboratory Tests Test 05/03/19 11:47 05/03/19 16:46 05/03/19 20:42 Glucose (Fingerstick) 128 mg/dL (70-99) 121 mg/dL (70-99) 126 mg/dL (70-99) Micro RUN DATE: 05/01/19 PAGE 1 RUN TIME: 1612 [facility] [address] [place] [address] Jake Kraft M.D., [employer]per PATIENT: DAGO CHARLES ACCT: [id number] LOC: [address] [place] [address] U: [id number] AGE/SX: 64/M ROOM: [facility] RE04/26/[address]: FRANCES GOFF MD : 1955 BED: 1 DIS: STATUS: ADM IN TLOC: --- --------- SPEC #: [id number] DAVY: 04/26/19 STATUS: COMP REQ #: [id number] RECD: 04/26/[address]: EDWARD TRUJILLO APRN SOURCE: TOE ENTR: 04/26/19-[address]: EVELIA,STAFF SPDESC: RT JAN BLUM MD ORDERED: AEROBIC CULT TOSIN COMMENTS: RT SECOND TOE Procedure Result AEROBIC CULTURE Final Preliminary report Final report AEROBIC RES 1 Final Gram negative rods Citrobacter braakii 4+ AEROBIC RES 2 Final Gram negative rods Enterobacter cloacae 4+ AEROBIC RES 3 Final Streptococcus species Enterococcus faecalis 4+ Performed at: [facility] [address], [place], [place] [id number] Forensic Examiner: KARLEY Pavon MD, Phone: [phone] AEROBIC RES 4 Final Staphylococcus aureus 4+ Most isolates of Staphylococcus sp. produce a beta- lactamase enzyme rendering them resistant to penicillin. Please contact the laboratory if penicillin is being considered for therapy. CONTINUED ON NEXT PAGE RUN DATE: 05/01/19 PAGE 2 RUN TIME: 1612 [facility] [address] [place] [address] Jake Kraft M.D., [employer] Helper SPEC: [id number] PATIENT: CHARLESDAGO [id number] (Continued) Procedure Result ANTIMICROBIAL SUSCEPTIBILITY Final Comment S = Susceptible; I = Intermediate; R = Resistant P = Positive; N = Negative MICS are expressed in micrograms per mL Antibiotic RSLT#1 RSLT#2 RSLT#3 RSLT#4 Amoxicillin/Clavulanic Acid R>=32 Cefazolin R>=64 Cefepime S<=0.12 Cefuroxime R =R Ciprofloxacin S<=0.25 Ertapenem S<=0.12 Gentamicin S<=1 Imipenem S<=0.25 Levofloxacin S<=0.12 Meropenem S<=0.25 Penicillin S =4 Tetracycline S<=1 Tobramycin S<=1 Trimethoprim/Sulfa S<=20 Vancomycin S =1 Performed at: [facility], [place], [place] [id number] Forensic Examiner: KARLEY Pavon MD, Phone: [phone] S = Susceptible; I = Intermediate; R = Resistant P = Positive; N = Negative MICS are expressed in micrograms per mL Antibiotic RSLT#1 RSLT#2 RSLT#3 RSLT#4 Amoxicillin/Clavulanic Acid R =R R>=32 Cefazolin R =8 R>=64 Cefepime S<=0.12 Cefuroxime R =R R =R Ciprofloxacin S<=0.25 S<=0.25 S<=0.5 Clindamycin S<=0.25 Ertapenem S<=0.12 Erythromycin S<=0.25 Gentamicin S<=1 S<=1 S<=0.5 Imipenem S<=0.25 S<=0.25 Levofloxacin S<=0.12 S<=0.12 Linezolid S =2 Meropenem S<=0.25 S<=0.25 Moxifloxacin S<=0.25 Oxacillin S =0.5 Penicillin S =4 Quinupristin/Dalfopristin S<=0.25 Rifampin S<=0.5 CONTINUED ON NEXT PAGE RUN DATE: 05/01/19 PAGE 3 RUN TIME: 1612 [facility] [address] [place] [address] Jake Kraft M.D., [employer] Helper SPEC: [id number] PATIENT: DAGO CHARLES [id number] (Continued) Procedure Result ANTIMICROBIAL SUSCEPTIBILITY Final (continued) Tetracycline S<=1 S<=1 S<=1 Tobramycin S<=1 S<=1 Trimethoprim/Sulfa S<=20 S<=20 S<=10 Vancomycin S =1 S =1 Performed at: [address] [place] [id number] Forensic Examiner: KARLEY Pavon MD, Phone: [phone] GRAM STAIN Final Final report GRAM STAIN RESULT 1 Final Comment No white blood cells seen. GRAM STAIN RESULT 2 Final Comment Few gram positive rods. GRAM STAIN RESULT 3 Final Comment Moderate gram negative rods. GRAM STAIN RESULT 4 Final Comment Gram positive cocci in pairs and chains. 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 Fever - better Leukocytosis, improving Lactic acidosis/sepsis. Diabetes with neuropathy. Plan: Plan of Care cont invanz will need atleast for 6 weeks from 05/01 q mon cbc/bun/creat/lft/esr local wound care /vac care picc line care and maintenance elevate leg off load pt would benefit with dc to rehab,but refuses PT and OT as tolerated F/U ID clinic on May 17 2019 at 2 pm D/W GIOVANNI ISAAC MD May 04, 2019 10:03
[2019-05-04 11:00] VITALS: BP 175/76
--- NOTE | 2019-05-04 11:57 | PDOC3 ---
Discharge Summary Date of Admission: Apr 26, 2019 Date of Discharge: May 04, 2019 Follow-Up: 1-2 days Admitting Diagnosis comment: discharge dx sepsis cellulitis and gangrene toe, POD #4, amputation , Right second toe amputation Dm2, mod control,, A1c 8.7 Elevated peak systolic velocities within the right mid and distal superficial femoral artery, suggesting hemodynamically significant stenosis. There is also an abnormal monophasic waveform within the right dorsalis pedis artery, suggesting hemodynamically significant stenosis proximal to this level. No Doppler evidence of hemodynamically significant stenosis within the left lower extremity arteries. intractable pain cults positive for enterobacter, citrobacter,amp sensitive enterococcus fecalis, strep species, MSSA PLAN CONT IV invanz x 6 weeks cults positive for enterobacter, citrobacter,amp sensitive enterococcus fecalis, strep species, MSSA : PICC placement id following surgery again 05/01 vas surg consult will not pursue angiogram or other peripheral intervention currently. If he demonstrates poor wound healing, would recommend angiogram. Will defer to orthopedics regarding wound management and post-op care. VAC to the wound when ready for dc home ,transition to invanz, first dose here sw to assist for home iv antibiotics refused home health 39 MIN PT EXAM, CHART REVIEW, > 50% OF TIME SPENT WITH EXAM, CHART REVIEW, PT CARE COORDINATION Operative Note Operative Note Operative Note Date of surgery: 05/01/2019 Preoperative diagnosis: Right foot infection, status post right second toe amputation 04/27/2019 Postoperative diagnosis: Extensive ongoing tissue necrosis surrounding the right second metatarsal Operative procedure: Extensive irrigation debridement right foot infection involving skin and subcutaneous tissue muscle fascia and bone Anesthesia: Gen. Estimated blood loss: 50 mL History of Present Illness History of Present Illness OPEN from surg, will need iv abx, wound care PICC Line placed , dwight vas pain persists malodor is gone Vitals Vitals Vital Signs Date Time Temp Pulse Resp B/P (MAP) Pulse Ox O2 Delivery O2 Flow Rate FiO2 05/04/19 03:00 98.6 72 16 162/78 (106) 96 Room Air 98.6 Physical Exam Physical Exam GENERAL: Propped up in bed, alert, HEENT: Oral cavity clear NECK: Supple LUNGS: Clear. HEART: S1, S2 regular. ABDOMEN: Soft and nontender, BS present EXTREMITIES: Left lower extremity is unremarkable. Right lower extremity with wound vac in place NEUROLOGICAL: Alert and oriented x 3. SKIN: warm to touch. No signs of rash. PIV E-PICC (05/01) General: Alert, Oriented X3, Cooperative, No acute distress Heart: Regular rate, Normal S1, Normal S2 Lungs: Clear Abdomen: Normal bowel sounds, Soft, No tenderness Extremities: No clubbing, No cyanosis, No edema, Normal pulses, Other (Easily palpable pulses in the right foot at DP and PT location) Skin: Other (Right foot wound covered with fresh bandage, did not examine s/p OR) FINAL DIAGNOSIS Problems Medical Problems: (1) Fever Status: Acute (2) Gangrene of toe of right foot Status: Acute (3) Sepsis Status: Acute (4) Severe sepsis Status: Acute Brief Hospital Course Mr. Jung is a 64 old [sex] who presented with [ ] Discharge Medications Current Medications Sodium Chloride 1,000 ml @ 2,190 mls/hr Q28M IV Last administered on 04/26/19at 16:34; Start 04/26/19 at 15:27; Stop 04/26/19 at 16:27; Status DC Piperacillin Sod/ Tazobactam Sod 4.5 gm/Sodium Chloride 100 ml @ 200 mls/hr 1X ONCE IV ; Start 04/26/19 at 15:30; Stop 04/26/19 at 15:59; Status UNV Vancomycin HCl (Vanco Per Pharmacy) 1 each 1X ONCE MC ; Start 04/26/19 at 15:30; Stop 04/26/19 at 18:08; Status DC Acetaminophen (Tylenol) 1,000 mg 1X ONCE PO Last administered on 04/26/19at 16:34; Start 04/26/19 at 15:30; Stop 04/26/19 at 15:31; Status DC Vancomycin HCl 2 gm/Sodium Chloride 500 ml @ 250 mls/hr 1X ONCE IV Last administered on 04/26/19at 16:34; Start 04/26/19 at 16:00; Stop 04/26/19 at 17:59; Status DC Ceftriaxone Sodium (Rocephin) 1 gm DAILY IVP ; Start 04/27/19 at 09:00; Status UNV Ceftriaxone Sodium (Rocephin) 1 gm Q24H IVP Last administered on 04/26/19 16:34; Start 04/26/19 at 17:00; Stop 04/27/19 at 13:11; Status DC Ondansetron HCl (Zofran) 4 mg PRN Q8HRS PRN IV NAUSEA/VOMITING Last administe red on 04/27/19at 07:57; Start 04/26/19 at 20:30; Stop 04/27/19 at 20:29; Status DC Morphine Sulfate (Morphine Sulfate) 4 mg PRN Q2HR PRN IV PAIN Last administered on 04/27/19 18:19; Start 04/26/19 at 20:30; Stop 04/27/19 at 20:29; Status DC Sodium Chloride 1,000 ml @ 100 mls/hr 1X ONCE IV Last administered on 04/26/19at 20:41; Start 04/26/19 at 20:30; Stop 04/27/19 at 06:29; Status DC Vancomycin HCl 1.25 gm/Sodium Chloride 250 ml @ 167 mls/hr Q18H IV Last administered on 04/28/19at 05:21; Start 04/27/19 at 10:00; Stop 04/28/19 at 09:59; Status DC Vancomycin HCl (Vanco Per Pharmacy) 1 each PRN DAILY PRN MC SEE COMMENTS Last administered on 04/30/19 06:13; Start 04/26/19 at 22:30; Stop 05/01/19 at 10:54; Status DC Sodium Chloride 1,000 ml @ 100 mls/hr Q10H IV Last administered on 05/03/19at 15:34; Start 04/26/19 at 23:45 Acetaminophen (Tylenol) 650 mg PRN Q6HRS PRN PO Fever Last administered on 04/30/19at 20:04; Start 04/26/19 at 23:30 Vancomycin HCl (Vancomycin Trough Level) 1 each 1X ONCE MC ; Start 04/28/19 at 03:30; Stop 04/28/19 at 03:31; Status DC Lidocaine HCl (Lidocaine Pf 2% Vial) 5 ml STK-MED ONCE .ROUTE ; Start 04/27/19 at 10:10; Stop 04/27/19 at 10:10; Status DC Propofol 20 ml @ As Directed STK-MED ONCE IV ; Start 04/27/19 at 10:10; Stop 04/27/19 at 10:11; Status DC Ondansetron HCl (Zofran) 4 mg STK-MED ONCE .ROUTE ; Start 04/27/19 at 10:10; Stop 04/27/19 at 10:11; Status DC Dexamethasone Sodium Phosphate (Decadron) 4 mg STK-MED ONCE .ROUTE ; Start 04/27/19 at 10:10; Stop 04/27/19 at 10:11; Status DC Sevoflurane (Ultane) 30 ml STK-MED ONCE IH ; Start 04/27/19 at 11:07; Stop 04/27/19 at 11:08; Status DC Cefepime HCl (Maxipime) 2 gm Q12HR IVP Last administered on 05/01/19at 08:28; Start 04/27/19 at 21:00; Stop 05/01/19 at 10:52; Status DC Multivitamins (Thera M Plus) 1 tab DAILY PO Last administered on 05/03/19at 08:24; Start 04/28/19 at 09:00 Citalopram Hydrobromide (CeleXA) 10 mg QHS PO Last administered on 05/02/19at 20:53; Start 04/27/19 at 21:00 Metformin HCl (Glucophage Xr) 1,000 mg DAILYWBKFT PO Last administered on 05/04/19at 08:32; Start 04/27/19 at 18:00 Non-Formulary Medication (Empagliflozin (Jardiance)) 25 mg DAILY PO ; Start 04/28/19 at 09:00; Stop 04/28/19 at 11:52; Status DC Non-Formulary Medication (Ertugliflozin Pidolate (Steglatro)) 15 mg DAILY PO ; Start 04/28/19 at 09:00; Stop 04/28/19 at 11:53; Status DC Insulin Human Lispro (HumaLOG) 0-5 UNITS TIDWMEALS SQ ; Start 04/28/19 at 08:00 Dextrose (Dextrose 50%-Water Syringe) 12.5 gm PRN Q15MIN PRN IV SEE COMMENTS; Start 04/27/19 at 19:00 Dextrose 250 ml PRN Q15MIN PRN IV SEE COMMENTS; Start 04/27/19 at 19:00 Vancomycin HCl 1.25 gm/Sodium Chloride 250 ml @ 167 mls/hr Q12H IV Last administered on 04/29/19 18:21; Start 04/28/19 at 18:00; Stop 04/30/19 at 06:02; Status DC Vancomycin HCl (Vancomycin Trough Level) 1 each 1X ONCE MC Last administered on 04/30/19 06:03; Start 04/30/19 at 05:30; Stop 04/30/19 at 05:31; Status DC Insulin Glargine (Lantus Syringe) 10 unit 1X ONCE SQ Last administered on 04/28/19at 11:50; Start 04/28/19 at 11:15; Stop 04/28/19 at 11:20; Status DC Lactobacillus Rhamnosus (Culturelle) 1 cap BID PO Last administered on 05/04/19at 08:32; Start 04/28/19 at 21:00 Linagliptin (Tradjenta) 5 mg DAILY PO Last administered on 05/04/19 08:32; Start 04/29/19 at 09:00 Ondansetron HCl (Zofran Odt) 4 mg PRN Q6HRS PRN PO NAUSEA/VOMITING Last administered on 04/28/19at 18:20; Start 04/28/19 at 18:15 Morphine Sulfate (Morphine Sulfate) 2 mg PRN Q2HR PRN IV SEVERE PAIN 7-10 Last administered on 05/01/19at 17:55; Start 04/29/19 at 00:45; Stop 05/01/19 at 18:56; Status DC Vancomycin HCl 1 gm/Sodium Chloride 250 ml @ 250 mls/hr Q12H IV Last administered on 05/01/19at 06:26; Start 04/30/19 at 07:00; Stop 05/01/19 at 10:52; Status DC Vancomycin HCl (Vancomycin Trough Level) 1 each 1X ONCE MC ; Start 05/01/19 at 18:30; Stop 05/01/19 at 18:31; Status Cancel Acetaminophen/ Hydrocodone Bitart (Lortab 5/325) 1 tab PRN Q4HRS PRN PO MODERATE PAIN; Start 04/30/19 at 11:15 Fentanyl Citrate (Fentanyl 2ml Vial) 25 mcg PRN Q5MIN PRN IV MILD PAIN 1-3; Start 05/01/19 at 07:00; Stop 05/02/19 at 06:59; Status DC Fentanyl Citrate (Fentanyl 2ml Vial) 50 mcg PRN Q5MIN PRN IV MODERATE TO SEVERE PAIN Last administered on 05/01/19at 14:27; Start 05/01/19 at 07:00; Stop 05/01/19 at 20:08; Status DC Morphine Sulfate (Morphine Sulfate) 1 mg PRN Q10MIN PRN IV SEVERE PAIN 7-10; Start 05/01/19 at 07:00; Stop 05/01/19 at 20:08; Status DC Ringer's Solution 1,000 ml @ 30 mls/hr Q24H IV ; Start 05/01/19 at 07:00; Stop 05/01/19 at 18:59; Status DC Hydromorphone HCl (Dilaudid) 0.5 mg PRN Q10MIN PRN IV SEV PAIN, Second choice; Start 05/01/19 at 07:00; Stop 05/01/19 at 20:08; Status DC Prochlorperazine Edisylate (Compazine) 5 mg PACU PRN PRN IV NAUSEA, MRX1; Start 05/01/19 at 07:00; Stop 05/01/19 at 20:08; Status DC Meropenem 500 mg/ Sodium Chloride 50 ml @ 100 mls/hr Q6HRS IV Last administered on 05/04/19at 11:31; Start 05/01/19 at 12:00 Vancomycin HCl 1 gm/Sodium Chloride 250 ml @ 250 mls/hr Q12H IV Last administered on 05/02/19at 07:26; Start 05/01/19 at 19:00; Stop 05/02/19 at 11:57; Status DC Vancomycin HCl (Vanco Per Pharmacy) 1 each PRN DAILY PRN MC SEE COMMENTS Last administered on 05/02/19at 11:06; Start 05/01/19 at 12:00; Stop 05/02/19 at 11:57; Status DC Vancomycin HCl (Vancomycin Trough Level) 1 each 1X ONCE MC Last administered on 05/01/19at 19:24; Start 05/01/19 at 18:30; Stop 05/02/19 at 11:57; Status DC Hydromorphone HCl (Dilaudid) 1 mg PRN Q3HRS PRN IV SEVERE PAIN 7-10 Last administered on 05/02/19at 23:31; Start 05/01/19 at 18:45 Propofol 20 ml @ As Directed STK-MED ONCE IV ; Start 05/01/19 at 12:12; Stop 05/03/19 at 12:26; Status DC Lidocaine HCl (Lidocaine Pf 2% Vial) 5 ml STK-MED ONCE .ROUTE ; Start 05/01/19 at 12:12; Stop 05/03/19 at 12:26; Status DC Ondansetron HCl (Zofran) 4 mg STK-MED ONCE .ROUTE ; Start 05/01/19 at 12:55; Stop 05/03/19 at 12:26; Status DC Dexamethasone Sodium Phosphate (Decadron) 4 mg STK-MED ONCE .ROUTE ; Start 05/01/19 at 12:55; Stop 05/03/19 at 12:26; Status DC Fentanyl Citrate (Fentanyl 2ml Vial) 100 mcg STK-MED ONCE .ROUTE ; Start 05/01/19 at 12:57; Stop 05/03/19 at 12:26; Status DC Phenylephrine HCl (PHENYLEPHRINE in 0.9% NACL PF) 1 mg STK-MED ONCE IV ; Start 05/01/19 at 13:36; Stop 05/03/19 at 12:26; Status DC Fentanyl Citrate (Fentanyl 2ml Vial) 100 mcg STK-MED ONCE .ROUTE ; Start 05/01/19 at 14:04; Stop 05/03/19 at 12:26; Status DC Active Scripts Active Reported Januvia (Sitagliptin Phosphate) 100 Mg Tablet 1 Tab PO DAILY Januvia (Sitagliptin Phosphate) 100 Mg Tablet 1 Tab PO DAILY Metformin Hcl Er (Metformin Hcl) 500 Mg Tab.er.24h 1,000 Mg PO DAILYWBKFT Vital Signs Vital Signs Date Time Temp Pulse Resp B/P (MAP) Pulse Ox O2 Delivery O2 Flow Rate FiO2 05/04/19 11:00 98.5 82 20 175/76 (109) 98 Room Air 98.5 05/04/19 08:00 10.0 Labs Laboratory Tests Test 05/02/19 16:54 05/02/19 21:00 05/03/19 02:30 05/03/19 07:24 Glucose (Fingerstick) 140 mg/dL (70-99) 138 mg/dL (70-99) 108 mg/dL (70-99) White Blood Count 8.3 x10^3/uL (4.0-11.0) Red Blood Count 3.13 x10^6/uL (4.30-5.70) Hemoglobin 8.5 g/dL (13.0-17.5) Hematocrit 25.5 % (39.0-53.0) Mean Corpuscular Volume 82 fL (79-100) Mean Corpuscular Hemoglobin 27 pg (25-35) Mean Corpuscular Hemoglobin Concent 33 g/dL (31-37) Red Cell Distribution Width 14.3 % (11.5-14.5) Platelet Count 256 x10^3/uL (140-400) Neutrophils (%) (Auto) 65 % (31-73) Lymphocytes (%) (Auto) 22 % (24-48) Monocytes (%) (Auto) 9 % (0-9) Eosinophils (%) (Auto) 4 % (0-3) Basophils (%) (Auto) 1 % (0-3) Neutrophils # (Auto) 5.4 x10^3/uL (1.8-7.7) Lymphocytes # (Auto) 1.8 x10^3/uL (1.0-4.8) Monocytes # (Auto) 0.7 x10^3/uL (0.0-1.1) Eosinophils # (Auto) 0.3 x10^3/uL (0.0-0.7) Basophils # (Auto) 0.1 x10^3/uL (0.0-0.2) Creatinine 1.0 mg/dL (0.7-1.3) Estimated GFR (Cockcroft-Gault) 75.2 Test 05/03/19 11:47 05/03/19 16:46 05/03/19 20:42 05/04/19 07:26 Glucose (Fingerstick) 128 mg/dL (70-99) 121 mg/dL (70-99) 126 mg/dL (70-99) 119 mg/dL (70-99) Laboratory Tests Test 05/03/19 16:46 05/03/19 20:42 05/04/19 07:26 Glucose (Fingerstick) 121 mg/dL (70-99) 126 mg/dL (70-99) 119 mg/dL (70-99) Allergies Allergies Coded Allergies Type Severity Reaction Last Updated Verified Penicillins Allergy Intermediate 02/19/19 Yes amitriptyline Allergy Intermediate 02/19/19 Yes Disposition/Orders: D/C to Home Patient Instructions d/c planning 39 min ANTHONY CUELLAR MD May 04, 2019 11:57
[2019-05-04] MEDS ORDERED: INSU100I11 SQ (12:01)
[2019-05-04] MEDS ORDERED: ERTA1VIA IJ (12:01)
[2019-05-04] MEDS ORDERED: MULT1TAB90 PO (12:01)
[2019-05-04] MEDS ORDERED: LACT1CAP19 PO (12:01)
[2019-05-04] MEDS ORDERED: HYDR-2761 PO (12:01)
[2019-05-04] MEDS ORDERED: ACET325T9 PO (12:01)
--- NOTE | 2019-05-04 12:04 | DISCH ---
DISCHARGE INSTRUCTIONS Condition on Discharge Condition on Discharge: Stable Activity After Discharge Activity Instructions for Disc: Activity as tolerated Bathing Instructions: No Tub Bath until see Lifting Instructions after Dis: No heavy lifting, No pulling or pushing Driving Instructions after Dis: Do not drive, Do not drive today Weight Bearing Status after Di: As tolerated Diet after Discharge Diet after Discharge: Diabetic No Calorie Level Wound Incision Care Wound/Incision Care: Other, see below Wound Care Equipment: Wound vac Checks after Discharge Checks after discharge: Check blood press - daily, Check blood sugar, ac/hs, Check your Temp as needed Community/Resources/Services Services at Discharge: Infusion Therapy Contacting the DRJuliocesar after DC Call your doctor for: If your condition worsens Follow-Up Follow Up With: Infectious Disease on May 14 @2:00pm. Treatment/Equipment after DC Adaptive Equipment Issued: None, Front wheeled walker Infusion Equipment, home use: PICC Line ANTHONY CULELAR MD May 04, 2019 12:04
--- NOTE | 2019-05-04 12:07 | SNU/HH DC ---
DISCHARGE WITH HOME HEALTH DISCHARGE INFORMATION: Final Diagnosis: Problems Medical Problems: (1) Fever Status: Acute (2) Gangrene of toe of right foot Status: Acute (3) Sepsis Status: Acute (4) Severe sepsis Status: Acute Condition on Discharge: Stable HOME HEALTH: Face to Face: I certify this patient is under my care and that I, or a nurse practitioner or physician's litigation assistant working with me, had a face to face encounter that meets the physician face to face encounter requirements with this patient on []. RN For Eval/Treatment: Yes Physical Therapy For: Evalulation/Treatment Occupational Therapy For: Evaluation/Treatment Speech Language Pathology For: Evaluation/Treatment Home Health Aide For: Self-care [employer] For: Community Resources Pt Meets Homebound Status: Unsteady balance w/ amb, POST DISCHARGE ORDERS: Activity Instructions for Disc: Activity as tolerated Weight Bearing Status after Di: As tolerated Bathing Instructions: No Tub Bath until see DIET AFTER DISCHARGE: ADA Wound/Incision Care: Other, see below CHECKS AFTER DISCHARGE: Checks after discharge: Check blood press - daily, Check blood sugar, ac/hs, Check your Temp as needed FOLLOW-UP: Follow Up With: Infectious Disease on May 14 @2:00pm. TREATMENT/EQUIPMENT ORDERS: Adaptive Equipment Issued: None, Front wheeled walker Infusion Equipment, home use: PICC Line CERTIFICATION STATEMENT: Certification Statement: Certification Statement: Based on the above finding, I certify that this patient is confined to the home and needs intermittent assisted care, physical therapy and/or speech therapy, or continues to need occupational therapy.~ This patient is under my care, and I have initiated the establishment of the plan of care.~ This patient will be followed by myself or a community physician who will periodically review the plan of care. Home Meds Active Scripts Ertapenem Sodium (INVANZ) 1 Gm Vial, 1 GM IJ q 24 hrs for cellulitis for 45 Days, EACH Prov:ANTHONY CUELLAR MD 05/04/19 Hydrocodone Bit/Acetaminophen (HYDROCODONE-APAP 5-325 ) 1 Tab Tablet, 1 TAB PO PRN Q4HRS PRN for MODERATE PAIN for 28 Days, #50 TAB Prov:ANTHONY CUELLAR MD 05/04/19 Acetaminophen (TYLENOL) 325 Mg Tablet, 650 MG PO PRN Q6HRS PRN for Fever for 30 Days, #90 TAB Prov:ANTHONY CUELLAR MD 05/04/19 Lactobacillus Rhamnosus Gg (CULTURELLE) 1 Each Cap.sprink, 1 CAP PO BID for supplement for 60 Days, #120 CAP Prov:ANTHONY CUELLAR MD 05/04/19 Multivits,Ca,Minerals/Iron/Fa (THERA-M TABLET) 1 Each Tablet, 1 TAB PO DAILY for supplement for 30 Days, #30 TAB Prov:ANTHONY CUELLAR MD 05/04/19 Insulin Lispro (HUMALOG) 100 Unit/1 Ml Insuln.pen, 0 UNITS SQ TIDWMEALS for glucose for 30 Days, #1 EACH Prov:ANTHONY CUELLAR MD 05/04/19 Reported Medications Sitagliptin Phosphate (JANUVIA) 100 Mg Tablet, 1 TAB PO DAILY for DM II, #30 TAB 5 Refills 04/28/19 Metformin Hcl (METFORMIN HCL ER) 500 Mg Tab.er.24h, 1000 MG PO DAILYWBKFT for ANTI-DIABETIC, TAB 0 Refills 01/22/19 Discontinued Reported Medications Sitagliptin Phosphate (JANUVIA) 100 Mg Tablet, 1 TAB PO DAILY for DM II, #30 TAB 5 Refills 04/28/19 Ertugliflozin Pidolate (Steglatro) 15 Mg Tablet, 15 MG PO DAILY for DM II, TAB 01/22/19 Empagliflozin (Jardiance) 25 Mg Tablet, 25 MG PO DAILY for DM II, TAB 01/22/19 ANTHONY CUELLAR MD May 04, 2019 12:07
--- NOTE | 2019-05-04 12:41 | NUR ---
SS following up with discharge planning. Order received for IV infusions at home. SS phoned and faxed clinical and order to [facility], ; fax [phone]. [facility] contacted SS and verified that all clinical has been received. SS was notified that [facility] does not accept pt's insurance and was notified that [facility] does accept pt's insurance. SS phoned and faxed referral to [facility], ; fax [phone]. SS spoke with Jessica from [facility] and confirmed referral was received. Jessica reported that she would contact SS if any issues arose. Pt's RN notified.
[2019-05-04] MEDS: HYDROmorphone 2 MG/ML VIAL IV PRN (13:34)
--- NOTE | 2019-05-04 13:52 | NUR ---
SS following up with discharge planning. [facility] contacted SS and notified SS that they cannot accept pt. Referral phoned and faxed to [facility], ; fax [phone]. [facility] reported that they can accept pt. Pt's RN notified.
[2019-05-04] MEDS ORDERED: ERTAPENEM 1GM IVPB (GENERIC) 50 ML IV ONE (14:00)
--- NOTE | 2019-05-04 15:10 | NUR ---
Discharge instructions and belongings reviewed with patient, verbalized understanding. Patient was escorted out via wheelchair by Martha VARELA, accompanied by his son.
--- NOTE | 2019-05-04 17:22 | NUR ---
Wound Care Pt seen for wound care follow up re: his R foot DFU. Wound cleaned, measured and photographed for discharge today. Wound bed beefy red, 2nd metatarsal head is exposed, still appears dusky paige. Ostomy ring applied to periwound, home vac applied, good seal obtained, receipt of vac signed. Pt will follow up in [facility] for dressing changes.
== END 2019-05-04 15:50 | disposition home health service (06) | DRG 853 ==
LOC: ER 13:56 → 4 NORTH 18:24
PROVIDERS: ADMIT Internal Medicine; ATTEND Internal Medicine
PROC: 0Y6R0Z0 Detachment at Right 2nd Toe, Complete, Open Approach (ICD-10-PCS; principal; 2019-04-27 17:00)
PROC: 02HV33Z Insertion of Infusion Device into Superior Vena Cava, Percutaneous Approach (ICD-10-PCS; 2019-04-29)
PROC: 0JBQ0ZZ Excision of Right Foot Subcutaneous Tissue and Fascia, Open Approach (ICD-10-PCS; 2019-05-01)
DX: A41.9 Sepsis, unspecified organism (principal); N17.0 Acute kidney failure with tubular necrosis; E11.52 Type 2 diabetes mellitus with diabetic peripheral angiopathy with gangrene; L03.115 Cellulitis of right lower limb; M86.8X8 Other osteomyelitis, other site; R65.20 Severe sepsis without septic shock; E11.42 Type 2 diabetes mellitus with diabetic polyneuropathy; E11.69 Type 2 diabetes mellitus with other specified complication; L03.031 Cellulitis of right toe; B95.61 Methicillin susceptible Staphylococcus aureus infection as the cause of diseases classified elsewhere; B95.2 Enterococcus as the cause of diseases classified elsewhere; B96.89 Other specified bacterial agents as the cause of diseases classified elsewhere; Z96.659 Presence of unspecified artificial knee joint; Z83.3 Family history of diabetes mellitus; Z89.411 Acquired absence of right great toe; Z89.421 Acquired absence of other right toe(s); Z79.4 Long term (current) use of insulin; Z88.0 Allergy status to penicillin; Z88.8 Allergy status to other drugs, medicaments and biological substances; Z79.899 Other long term (current) drug therapy
CPT/HCPCS: 36415; 36569; 71045; 73630; 80048; 80053; 80202; 82565; 82962; 83036; 83605; 84145; 85007; 85025; 85610; 85730; 87040; 87070; 87186; 88305; 88311; 93925; 96365; 96366; 96375; A7015; J0692; J0696; J1100; J1170; J1335; J1815; J2001; J2185; J2270; J2370; J2405; J2704; J3010; J3370; J7030; J7040; J7050; J7120; Q0162; 99285-25; A4461; G0378

== ENCOUNTER → 2021-08-31 | Outpatient (CLI) | payer MEDICARE ==
[~2021-08-31] MED LIST changes: +ACET325T9 PO; +ERTA1VIA16 IJ; +GADOTERATE 5 MMOL/10ML VIAL. IVP ONE; +HYDR-2761 PO; +INSU100I11 SQ; +LACT1CAP19 PO; +METF-658 PO; +MULT1TAB92 PO; +SITA100T PO
--- NOTE | 2021-08-31 15:18 | KCIC ---
Study: MRI of the right foot with and without contrast INDICATION: Nonhealing wound. Radiographic findings of osteomyelitis. COMPARISON: Right foot radiographs 08/20/2021 TECHNIQUE: Multiplanar MR imaging of the right foot performed both prior to and after the intravenous administration of 18 cc Clariscan. FINDINGS: Partially degraded study on account of motion. Diagnostic utility is still maintained. Plantar wound located just distal to the level of the first metatarsal head in the setting of prior f irst and second phalangeal amputation. The plantar wound is associated with a sinus tract that commun icates with an abscess abutting the head. Infected fluid extends into the joint space around the firs t metatarsal head/neck (image 8 series 6). The abscess measures 2.1 cm transverse by 1.5 cm AP by 1.8 cm plantar/distal. Osteomyelitis of the majority of the first metatarsal with only partial sparing o f the base. Osteomyelitis of both hallux sesamoids and there appears to be osteomyelitis of a small a mount of residual first proximal phalanx. Cellulitis/myositis surrounding the first metatarsal and along a small portion of the second metatars al. Chronic deformity of the second metatarsal head and third MTP joint. No signal changes of osteomy elitis at these locations or elsewhere. Signal changes of the intrinsic foot musculature in part rela vijaya to abnormalities at the first toe but also likely from long-standing diabetes. IMPRESSION: 1. Osteomyelitis of the majority of the first metatarsal with sparing of the small portion of the ba se. Osteomyelitis of both hallux sesamoids and there appears to be osteomyelitis of a small amount of residual first proximal phalanx. 2. Plantar wound just distal to the first metatarsal head with a sinus tract that communicates with a 2.1 x 1.5 x 1.8 cm abscess abutting a portion of the first metatarsal head and communicating with i nfected fluid within the joint space around the first metatarsal head/neck (reference image 8 series 6). Electronically signed by: CHANDAN DELGADO MD (08/31/2021 3:15 PM) [id number]
== END ==
LOC: KCIC MRI 09:46
PROVIDERS: ATTEND Preventive Medicine Undersea and Hyperbaric Medicine
DX: L97.511 Non-pressure chronic ulcer of other part of right foot limited to breakdown of skin (principal); M86.8X7 Other osteomyelitis, ankle and foot
CPT/HCPCS: 73720; 82565; A9575